=== PATIENT | female | born 1970 | race Caucasian/White ===

== ENCOUNTER → 2019-03-26 10:04 | Outpatient (BNVA) | payer MEDICARE, MEDICAID, SELFPAY | PROVIDERS: Family Provider Nurse Practitioner Family; PCP Nurse Practitioner; Visit Provider Anesthesiology | DX: M54.5 Low back pain (principal); M79.651 Pain in right thigh; M79.652 Pain in left thigh; Z79.891 Long term (current) use of opiate analgesic | CPT/HCPCS: 99214 ==

== ENCOUNTER → 2019-11-18 13:15 | Outpatient (BNVA) | payer MEDICARE, MEDICAID, SELFPAY | PROVIDERS: Family Provider Nurse Practitioner Family; PCP Nurse Practitioner; Visit Provider Nurse Practitioner Family | DX: R50.9 Fever, unspecified (principal); Z13.6 Encounter for screening for cardiovascular disorders | CPT/HCPCS: 80053; 80061; 81003; 85025; 87071; 87635; 87880 ==

== ENCOUNTER → 2019-11-22 16:44 | Outpatient (BNVA) | payer MEDICARE, MEDICAID, SELFPAY | PROVIDERS: Family Provider Nurse Practitioner Family; PCP Nurse Practitioner; Visit Provider Nurse Practitioner Family | DX: R10.9 Unspecified abdominal pain (principal) | CPT/HCPCS: 80053; 83690; 85025 ==

== ENCOUNTER 2019-11-26 09:13 | Outpatient (CLI) | payer MEDICARE, MEDICAID, SELFPAY ==
[2019-11-26] MEDS: iodixanol 320 mg/mL 100mL Btl IV (09:43)
--- NOTE | 2019-11-26 10:30 | CT_ITS ---
WS: [id number] CT ABDOMEN AND PELVIS WITH CONTRAST HISTORY: abdominal pain/ NV TECHNIQUE: Imaging performed of the abdomen and pelvis with IV contrast. Single phase imaging of the abdomen. Coronal and sagittal reformats are submitted. All CT scans at [facility] use at least one of these dose optimization techniques: automated exposure control; mA and/or kV adjustment per patient size (includes targeted exams where dose is matched to clinical indication); or iterativ e reconstruction. IV CONTRAST: Visipaque 320; 95 mL IV. Oral contrast: Yes. DLP: 847.04 mGy.cm COMPARISON: 02/26/2018 Lower thorax: Lung bases are clear. Heart is normal size. No hiatal hernia. Liver/biliary system: Normal size with no intrahepatic dilatation. Common bile duct measures 10 mm bu t stable since the prior study and related to prior cholecystectomy. Gallbladder: Status post cholecystectomy. Pancreas: Normal. Spleen: Normal. Adrenal glands: Normal. Right kidney: Normal. Left kidney: Normal. Aorta: Normal. Lymphadenopathy: Small retroperitoneal shoddy lymph nodes. No lymphadenopathy. Free fluid: None. GI tract: Normal appendix. Mild fecal retention. No obstruction. No acute inflammation. Abdominal wall: Unremarkable abdominal wall. No hernia. Pelvis: Normal. Bones: Unremarkable. CT/CT abdomen pelvis w con* [id number] IMPRESSION: 1. Prior cholecystectomy and hysterectomy. 2. Normal appendix. 3. No acute abdominal or pelvic abnormalities.
[2019-11-27] MEDS: iodixanol 320 mg/mL 100mL Btl IV (10:17)
== END 2019-11-26 09:14 | disposition home or self-care (01) ==
LOC: RAD 09:19
PROVIDERS: PCP Nurse Practitioner; Visit Provider Nurse Practitioner Family
DX: R10.9 Unspecified abdominal pain (principal); R11.2 Nausea with vomiting, unspecified; Z90.49 Acquired absence of other specified parts of digestive tract; Z90.710 Acquired absence of both cervix and uterus
CPT/HCPCS: 74177

== ENCOUNTER → 2019-12-09 12:03 | Outpatient (BNVA) | payer MEDICARE, MEDICAID, SELFPAY | PROVIDERS: PCP Nurse Practitioner; Visit Provider Surgery | DX: Z20.828 Contact with and (suspected) exposure to other viral communicable diseases (principal) | CPT/HCPCS: 87635 ==

== ENCOUNTER 2019-12-13 07:11 | Day surgery (SDC) | payer MEDICARE, MEDICAID, SELFPAY ==
[2019-12-13 07:21] VITALS: BMI 27.3
[2019-12-13 07:27] VITALS: BP 114/77; PULSE 91; RESP 18; TEMP 36.7; O2SAT 99
[2019-12-13] MEDS: sodium chloride 0.9% 1,000 ML 30 ML IV (07:34)
[2019-12-13 07:37] VITALS: PULSE 76; RESP 20; O2SAT 99
[2019-12-13] MEDS: ipratropium 0.5 mg/2.5 mL Neb INHALATION (07:38)
[2019-12-13 07:45] VITALS: PULSE 88
--- NOTE | 2019-12-13 07:59 | ANES.PREANE2 ---
Pre-Anesthetic Assessment Pre-Anesthetic Assessment: Height/Weight: Height 1.7 m Weight 79.379 kg Temp Pulse Resp BP Pulse Ox 98.1 F 88 20 H 114/77 99 12/13/19 07:27 12/13/19 07:45 12/13/19 07:37 12/13/19 07:27 12/13/19 07:37 Preop Diagnosis: Abdominal pain and bleeding per rectum Proposed Procedure: Operation Date: 12/13/19 08:20 Proposed Procedures p EGD/colon 63085 42878 K92.1 R10.9(Not Applicable) - Brandt Sharp MD s Colonoscopy(Not Applicable) - Brandt Shapr MD Last intake: Intake Last Liquid Date 12/12/19 Last Liquid Time 22:00 Last Solid Date 12/11/19 Last Solid Time 22:00 Social: Social History: Tobacco and No alcohol Exam: Pre-Anes Outpt Exam: alert, oriented x 3, clear to auscultation bilaterally and regular rate & rhythm Airway: Submandibular: WNL Cervical ROM: WNL MP: 1 History/ROS: No significant history except as noted Pulmonary: Pulmonary: Asthma, COPD and None reported CV/HEM: CV/HEM: None reported : : None reported GI: GI: GERD (Chronic abdominal pain and irregular bowel function) Metabolic: Metabolic: None reported Musc/skel: Musc/skel: None reported Neuropsych: Neuropsych: Anxiety Anesthetic Plan: ASA status: 2 Anesthesia: MAC Risk of > 500 ml blood loss (7ml/kg in children): No Meds/Allergies Current Medications: Current Medications Generic Name Dose Route Start Last Admin Trade Name Freq PRN Reason Stop Dose Admin Sodium Chloride 1,000 mls @ 30 ml s/hr 12/13/19 07:30 12/13/19 07:34 Sodium Chloride 0.9% IV 30 mls/hr .Q24H MARILYN Administration PFSH Anesthesia PFSH: Medical History Low back pain radiating to both legs Surgical History History of cholecystectomy History of hysterectomy Family History Other Diabetes Hypertension Social History Smoking and tobacco status: former smoker Quit status (tobacco): has quit using tobacco Year quit tobacco: 2018 Former quit date comment: .5 PPD x 30 Second hand smoke exposure: Yes Alcohol intake: never Lives independently: Yes Household members: significant other Marital status: Current occupational status: disabled History of recent travel: No Current gender identity: Female Data Anesthesia Cardiac Studies: No Data to Display
[2019-12-13] MEDS: midazolam 1 mg/mL INJ 2 mL 2 MG IVP (08:06)
--- NOTE | 2019-12-13 08:09 | W.PM.OPSUD ---
Surgery/Procedure H&P Update DATE OF PROCEDURE: December 13, 2019 DATE H&P PERFORMED: 12/06/19 H&P UPDATE INFORMATION: I have reviewed H&P completed within last 30 days, I have examined patient prior to procedure and No changes to prior documentation PREOP DIAGNOSIS: Abdominal pain and bleeding per rectum PRIMARY INDICATION FOR PROCEDURE: The same PLANNED PROCEDURE: Operation Date: 12/13/19 08:20 Proposed Procedures p EGD/colon 46860 98296 K92.1 R10.9(Not Applicable) - Brandt Sharp MD s Colonoscopy(Not Applicable) - Brandt Sharp MD
[2019-12-13 08:38] VITALS: BP 102/66; PULSE 88; RESP 18; TEMP 36.2; O2SAT 100
--- NOTE | 2019-12-13 08:43 | ANE.PACU2 ---
Inpatient post-anesthesia follow up: Airway intact: Yes Vital signs: Temperature 97.1 F Pulse Rate 88 Respiratory Rate 18 Blood Pressure 102/66 Pulse Oximetry 100 Oxygen Delivery Me thod Nasal Cannula Oxygen Flow Rate 2 Fraction of Inspir ed Oxygen Hydration adequate: Yes Nausea and vomiting: No Pain level: 1 Mental status: Baseline
[2019-12-13 08:52] VITALS: BP 103/64; PULSE 77; RESP 18; O2SAT 98
--- NOTE | 2019-12-13 15:18 | ANE.PACU2 ---
Inpatient post-anesthesia follow up: Airway intact: Yes Vital signs: Temperature 97.1 F Pulse Rate 77 Respiratory Rate 18 Blood Pressure 103/64 Pulse Oximetry 98 Oxygen Delivery Me thod Room Air Oxygen Flow Rate 2 Fraction of Inspir ed Oxygen Hydration adequate: No Nausea and vomiting: Yes Pain level: 2 Mental status: Baseline
[2019-12-14 10:08] LABS: H. Pylori / CLO Test Negative
== END 2019-12-13 09:09 | disposition home or self-care (01) ==
PROVIDERS: PCP Nurse Practitioner; Visit Provider Surgery
PROC: 0DJ08ZZ Inspection of Upper Intestinal Tract, Via Natural or Artificial Opening Endoscopic (ICD-10-PCS; CPT 43235; principal; 2019-12-13 08:20)
PROC: 0DJD8ZZ Inspection of Lower Intestinal Tract, Via Natural or Artificial Opening Endoscopic (ICD-10-PCS; CPT 45378; 2019-12-13 08:20)
DX: K62.5 Hemorrhage of anus and rectum (principal); R10.9 Unspecified abdominal pain; K21.9 Gastro-esophageal reflux disease without esophagitis; K29.70 Gastritis, unspecified, without bleeding; J44.9 Chronic obstructive pulmonary disease, unspecified; Z87.891 Personal history of nicotine dependence; Z79.52 Long term (current) use of systemic steroids
CPT/HCPCS: 12345; 43239; 45378; 87077; 94640; J2250; J2704; J7030; J7611; J7644

== ENCOUNTER → 2019-12-29 13:54 | Outpatient (BNVA) | payer MEDICARE, MEDICAID, SELFPAY | PROVIDERS: PCP Nurse Practitioner; Visit Provider Psychiatry & Neurology Psychiatry | DX: F43.12 Post-traumatic stress disorder, chronic (principal); F41.1 Generalized anxiety disorder; F33.1 Major depressive disorder, recurrent, moderate; F17.200 Nicotine dependence, unspecified, uncomplicated; F79 Unspecified intellectual disabilities | CPT/HCPCS: 99204 ==

== ENCOUNTER 2019-12-30 09:33 | Outpatient (CLI) | payer MEDICARE, MEDICAID, SELFPAY ==
--- NOTE | 2019-12-30 10:00 | FL_ITS ---
WS: [id number] SMALL BOWEL FOLLOW-THROUGH HISTORY: K59.00 Constipation, unspecified COMPARISON: None available. FLUOROSCOPY TIME: None. TECHNIQUE: Food Inspector film performed of the abdomen. Parental oral contrast is provided to evaluate the sm all bowel. Gastrografin utilized for this examination. Sequential imaging is performed. Moderate fecal retention throughout the colon. Colon appears tortuous. Prior cholecystectomy. Gastrog rafin utilized for this examination. There is mild delay in emptying from the stomach. There is still a moderate amount of contrast within the stomach at 1 hour and 30 minutes. There is no obstruction o f the small bowel. Contrast extends from the stomach to the colon and one hour and 30 minutes. The RI GHT colon is moderately dilated but no obstructive pattern. FL/[place] [id number] IMPRESSION: 1. Normal small bowel transit time. 2. Delayed emptying from the stomach. A 1 hour 30 minutes there still a modera te amount of contrast in the stomach. 3. There is moderate distention and enlargement of the RIGHT colon. May be due to chronic constipation.
[2019-12-30] MEDS: diatrizoate meglumine 120 mL Sol PO ×2 (11:37→11:42)
== END 2019-12-30 09:34 | disposition home or self-care (01) ==
LOC: RADWPI 09:39
PROVIDERS: Family Provider Nurse Practitioner; PCP Nurse Practitioner; Visit Provider Surgery
DX: K59.00 Constipation, unspecified (principal)
CPT/HCPCS: 74250; Q9963

== ENCOUNTER → 2020-01-07 12:50 | Outpatient (BNVA) | payer MEDICARE, MEDICAID, SELFPAY | PROVIDERS: Family Provider Nurse Practitioner; PCP Nurse Practitioner; Referring Provider Nurse Practitioner Family; Visit Provider Anesthesiology | DX: M54.5 Low back pain (principal); F17.290 Nicotine dependence, other tobacco product, uncomplicated; Z79.891 Long term (current) use of opiate analgesic | CPT/HCPCS: 99213; 99214 ==

== ENCOUNTER → 2020-01-28 07:45 | Outpatient (BNVA) | payer MEDICARE, MEDICAID, SELFPAY | PROVIDERS: PCP Nurse Practitioner; Visit Provider Psychiatry & Neurology Psychiatry | DX: F33.1 Major depressive disorder, recurrent, moderate (principal); F41.1 Generalized anxiety disorder; F43.12 Post-traumatic stress disorder, chronic; F17.200 Nicotine dependence, unspecified, uncomplicated | CPT/HCPCS: 99213 ==

== ENCOUNTER 2020-01-31 09:19 | Outpatient (CLI) | payer MEDICARE, MEDICAID, SELFPAY ==
--- NOTE | 2020-01-31 09:28 | NM_ITS ---
WS: [id number] NUCLEAR MEDICINE GASTRIC EMPTYING EXAMINATION HISTORY: K29.70 - Gastritis, unspecified, without bleeding COMPARISON: 12/30/2019 small bowel follow-through. TECHNIQUE: The patient ingested a meal containing 1.1 mCi of Tc 99m sulfur colloid mixed with eggs. The patient was placed in supine position and imaging over the abdomen was performed for a total of 9 0 minutes. Computer acquisition with the region of interest placed over the stomach to evaluate gastr ic emptying half-time. At 60 minutes there is only 14% emptying from the stomach. 50% emptying at near 100 to 110 minutes. E mptying was minimally delayed up to 30 minutes. After 30 minutes emptying became more normal in a oscar ear distribution. NM/[place] [id number] IMPRESSION: Mild gastroparesis. Very minimal delayed emptying from the stomach at 60 minute s. By 110 minutes greater than 50% emptying.
== END 2020-01-31 09:20 | disposition home or self-care (01) ==
PROVIDERS: PCP Nurse Practitioner; Visit Provider Surgery
DX: K29.70 Gastritis, unspecified, without bleeding (principal); K31.84 Gastroparesis
CPT/HCPCS: 78264; A9541

== ENCOUNTER 2020-02-02 14:21 | Outpatient (CLI) | payer MEDICARE, MEDICAID, SELFPAY ==
--- NOTE | 2020-02-02 14:26 | MR_ITS ---
WS: [id number] MRI RIGHT ANKLE NONCONTRAST TECHNIQUE: Sagittal proton density, sagittal STIR, axial proton density, axial T1, axial T2 fat sat, coronal proton density, coronal proton density fat sat, coronal T2 fat sat. CLINICAL INFORMATION: PERONEAL TENDON TEAR COMPARISON: None. FINDINGS: Normal anatomic alignment. Talar dome is normal. Normal calcaneus. Normal medial and lateral malleolu s. No avulsion fractures. Achilles is normal in appearance. Normal plantar fascia. Tenosynovitis with tendinopathy involving the peroneal tendons proximally at the level the talus. Acu te appearing split tear involving the peroneal brevis at the peroneal tubercle. Peroneal longus appea rs intact. Associated fluid and edema involving the peroneal tendon sheath and adjacent soft tissues at level of the ankle. Normal extensor and flexor compartment tendons. Normal bone marrow signal in the navicular. Fifth met atarsal base is normal in appearance. MR/MR ankle RT wo con* [id number] IMPRESSION: 1. Tenosynovitis along the peroneal tendon sheath. 2. Acute split tear involving the peroneal brevis with tendinopathy involving the peroneal longus and brevis. Associated edema involving the peroneal tendon sheath and adjacent soft tissues at the level of the ankle. 3. Distal Achilles is normal in appearance. 4. Normal extensor and flexor compartment tendons. 5. Normal medial and lateral malleolus. Normal talar dome. 6. Normal plantar fascia.
== END 2020-02-02 14:22 | disposition home or self-care (01) ==
LOC: RADWPI 14:25
PROVIDERS: PCP Nurse Practitioner; Visit Provider Podiatrist Foot & Ankle Surgery
DX: S96.811A Strain of other specified muscles and tendons at ankle and foot level, right foot, initial encounter (principal); X58.XXXA Exposure to other specified factors, initial encounter; M65.871 Other synovitis and tenosynovitis, right ankle and foot
CPT/HCPCS: 73721

== ENCOUNTER → 2020-02-15 15:54 | Outpatient (BNVA) | payer MEDICARE, MEDICAID, SELFPAY | PROVIDERS: PCP Nurse Practitioner; Visit Provider Nurse Practitioner Family | DX: R11.2 Nausea with vomiting, unspecified (principal); K29.70 Gastritis, unspecified, without bleeding; Z79.891 Long term (current) use of opiate analgesic; R10.84 Generalized abdominal pain; K59.00 Constipation, unspecified | CPT/HCPCS: 80053; 83036; 84443; 85025 ==

== ENCOUNTER → 2020-03-16 08:19 | Outpatient (BNVA) | payer MEDICARE, MEDICAID, SELFPAY | PROVIDERS: PCP Nurse Practitioner; Visit Provider Psychiatry & Neurology Psychiatry | DX: F33.1 Major depressive disorder, recurrent, moderate (principal); F41.1 Generalized anxiety disorder; F17.200 Nicotine dependence, unspecified, uncomplicated; F79 Unspecified intellectual disabilities | CPT/HCPCS: 99213 ==

== ENCOUNTER 2020-03-30 10:19 | Outpatient (CLI) | payer MEDICARE, MEDICAID, SELFPAY ==
--- NOTE | 2020-03-30 | CT_ITS ---
WS: [id number] NONCONTRAST OF RIGHT LOWER EXTREMITY CLINICAL INFORMATION: Sinus Tarsi syndrome TECHNIQUE: Noncontrast right lower extremity with coronal and sagittal reformatted images. Imaging obtained in neutral and supination with foot taped on the supination images. 3-D reformatted images w ere obtained. COMPARISON: MRI February 02, 2020 DLP: 931.[address] scans at [facility] use at least one of these dose optimization techniques: automat ed exposure control; mA and/or kV adjustment per patient size (includes targeted exams where dose is matched to clinical indication); or iterative reconstruction. FINDINGS: Normal anatomic alignment. Normal ankle mortise. Normal medial and lateral malleolus. No acute appear ing avulsion fractures. Normal talus. No evidence of avascular necrosis. Calcaneus is normal in appea tao. Normal talocalcaneal articulation. Plantar calcaneal spurring. Small Achilles enthesophyte. No rmal cuboid. Base of fifth metatarsal is normal. Normal tarsal bones. Normal navicular. No acute frac tures. Mild subcutaneous soft tissue edema lower leg and plantar soft tissues. Fluid along the peroneal tend on sheath as seen on the prior MRI. Split tear along the peroneal brevis with tendinopathy. Edema carissa ng the peroneal tendon sheath. Tarsal coalition: None JOINT SPACES (normal joint space 6 mm): Talocalcaneal at middle talar facet: 2 mm Talus and tarsal navicular: 1.6 mm 3-D REFORMAT NEUTRAL/SUPINATION INSTABILITY EVALUATION OF THE CALCANEUS, TALUS, AND NAVICULAR: Normal examination views there is progressive narrowing of the sinus tarsi with narrowing of the midd le talar facet measuring less than 1.5 mm and narrowing of the talonavicular articulation measuring 1 .1 mm. Clockwise rotation of the head of the anterior talus relative to the navicular.
--- NOTE | 2020-03-30 10:34 | CT_ITS ---
WS: [id number] NONCONTRAST OF RIGHT LOWER EXTREMITY CLINICAL INFORMATION: Sinus Tarsi syndrome TECHNIQUE: Noncontrast right lower extremity with coronal and sagittal reformatted images. Imaging obtained in neutral and supination with foot taped on the supination images. 3-D reformatted images w ere obtained. COMPARISON: MRI February 02, 2020 DLP: 931.[address] scans at [facility] use at least one of these dose optimization techniques: automat ed exposure control; mA and/or kV adjustment per patient size (includes targeted exams where dose is matched to clinical indication); or iterative reconstruction. FINDINGS: Normal anatomic alignment. Normal ankle mortise. Normal medial and lateral malleolus. No acute appear ing avulsion fractures. Normal talus. No evidence of avascular necrosis. Calcaneus is normal in appea tao. Normal talocalcaneal articulation. Plantar calcaneal spurring. Small Achilles enthesophyte. No rmal cuboid. Base of fifth metatarsal is normal. Normal tarsal bones. Normal navicular. No acute frac tures. Mild subcutaneous soft tissue edema lower leg and plantar soft tissues. Fluid along the peroneal tend on sheath as seen on the prior MRI. Split tear along the peroneal brevis with tendinopathy. Edema carissa ng the peroneal tendon sheath. Tarsal coalition: None JOINT SPACES (normal joint space 6 mm): Talocalcaneal at middle talar facet: 2 mm Talus and tarsal navicular: 1.6 mm 3-D REFORMAT NEUTRAL/SUPINATION INSTABILITY EVALUATION OF THE CALCANEUS, TALUS, AND NAVICULAR: Normal examination views there is progressive narrowing of the sinus tarsi with narrowing of the midd le talar facet measuring less than 1.5 mm and narrowing of the talonavicular articulation measuring 1 .1 mm. Clockwise rotation of the head of the anterior talus relative to the navicular. CT/CT 3D reconstruction [id number] IMPRESSION: 1. Normal ankle mortise. No acute avulsion fractures. 2. Joint space narrowing: a. Talocalcaneal at middle talar facet: 2 mm b. Talus and tarsal navicular: 1.6 mm 3. Pronounced clockwise rotation of the head of the anterior talus relative to the navicular on the supination imaging.
--- NOTE | 2020-03-30 10:34 | CT_ITS ---
NOTE: Report was unsigned for reason: Order was edited. Original Signature date and time was: 04/03/2020 1117 WS: [id number] NONCONTRAST OF RIGHT LOWER EXTREMITY CLINICAL INFORMATION: Sinus Tarsi syndrome TECHNIQUE: Noncontrast right lower extremity with coronal and sagittal reformatted images. Imaging obtained in neutral and supination with foot taped on the supination images. 3-D reformatted images were obtained. COMPARISON: MRI February 02, 2020 DLP: 931.[address] scans at [facility] use at least one of these dose optimization techniques: automated exposure control; mA and/or kV adjustment per patient size (includes targeted exams where dose is matched to clinical indication); or iterative reconstruction. FINDINGS: Normal anatomic alignment. Normal ankle mortise. Normal medial and lateral malleolus. No acute appearing avulsion fractures. Normal talus. No evidence of avascular necrosis. Calcaneus is normal in appearance. Normal talocalcaneal articulation. Plantar calcaneal spurring. Small Achilles enthesophyte. Normal cuboid. Base of fifth metatarsal is normal. Normal tarsal bones. Normal navicular. No acute fractures. Mild subcutaneous soft tissue edema lower leg and plantar soft tissues. Fluid along the peroneal tendon sheath as seen on the prior MRI. Split tear along the peroneal brevis with tendinopathy. Edema along the peroneal tendon sheath. Tarsal coalition: None JOINT SPACES (normal joint space 6 mm): Talocalcaneal at middle talar facet: 2 mm Talus and tarsal navicular: 1.6 mm 3-D REFORMAT NEUTRAL/SUPINATION INSTABILITY EVALUATION OF THE CALCANEUS, TALUS, AND NAVICULAR: Normal examination views there is progressive narrowing of the sinus tarsi with narrowing of the middle talar facet measuring less than 1.5 mm and narrowing of the talonavicular articulation measuring 1.1 mm. Clockwise rotation of the head of the anterior talus relative to the navicular. MTD CT/CT ankle RT wo con* [id number] IMPRESSION: 1. Normal ankle mortise. No acute avulsion fractures. 2. Joint space narrowing: a. Talocalcaneal at middle talar facet: 2 mm b. Talus and tarsal navicular: 1.6 mm 3. Pronounced clockwise rotation of the head of the anterior talus relative to the navicular on the supination imaging.
== END 2020-03-30 10:20 | disposition home or self-care (01) ==
LOC: RADWPI 10:22
PROVIDERS: PCP Nurse Practitioner; Visit Provider Podiatrist Primary Podiatric Medicine
DX: M25.571 Pain in right ankle and joints of right foot (principal)
CPT/HCPCS: 73700; 76377

== ENCOUNTER → 2020-08-21 07:53 | Outpatient (BNVA) | payer MEDICARE, MEDICAID, SELFPAY | PROVIDERS: PCP Nurse Practitioner Family; Visit Provider Psychiatry & Neurology Psychiatry | DX: F33.1 Major depressive disorder, recurrent, moderate (principal); F41.1 Generalized anxiety disorder; F43.12 Post-traumatic stress disorder, chronic; F17.200 Nicotine dependence, unspecified, uncomplicated | CPT/HCPCS: 99214 ==

== ENCOUNTER → 2020-08-22 13:40 | Outpatient (BNVA) | payer MEDICARE, MEDICAID, SELFPAY | PROVIDERS: PCP Nurse Practitioner Family; Referring Provider Nurse Practitioner Family; Visit Provider Orthopaedic Surgery | DX: M54.5 Low back pain (principal) | CPT/HCPCS: 72110 ==

== ENCOUNTER 2020-09-01 11:05 | Outpatient (CLI) | payer MEDICARE, MEDICAID, SELFPAY ==
--- NOTE | 2020-09-01 13:00 | CT_ITS ---
WS: [id number] CT ABDOMEN AND PELVIS NONCONTRAST HISTORY: R10.84 - Generalized abdominal pain TECHNIQUE: Imaging performed through the abdomen and pelvis. Coronal and sagittal reformats are submi tted. All CT scans at [facility] use at least one of these dose optimization techniques: automated exposure control; mA and/or kV adjustment per patient size (includes targeted exams where d ose is matched to clinical indication); or iterative reconstruction. DLP: 1800.2 mGy.cm COMPARISON: 11/26/2019 Lower thorax: Lung bases are clear. Visualized heart is normal. No hiatal hernia. Liver: Normal size liver with mild diffuse hepatic steatosis. Mild heterogeneity within the liver but no bile duct dilatation. Gallbladder: Prior cholecystectomy. Mildly prominent common bile duct is likely physiologic. Nonobstr ucting calcification. Pancreas: Normal size and attenuation. Normal pancreatic duct. No pancreatitis or mass. Spleen: Normal. Adrenal glands: Normal. No mass. Right kidney: Normal size kidney with no mass or hydronephrosis. Left kidney: Normal size kidney with no mass or hydronephrosis. Aorta: Normal abdominal aorta, no aneurysm or atherosclerosis. No free fluid, intraperitoneal air or significant lymphadenopathy. GI tract: Normal appendix. No GI tract obstruction or diverticulosis. Abdominal wall: Negative. No hernia. Pelvis: Prior hysterectomy. No free fluid or mass in the pelvis. Osseous structures: Unremarkable. CT/CT abdomen pelvis wo con [id number] IMPRESSION: 1. No acute abdominal or pelvic abnormalities. 2. Prior hysterectomy and cholecystectomy. 3. Mild hepatic steatosis.
== END 2020-09-01 11:06 | disposition home or self-care (01) ==
PROVIDERS: PCP Nurse Practitioner Family; Visit Provider Nurse Practitioner Family
DX: Z13.6 Encounter for screening for cardiovascular disorders (principal); R10.84 Generalized abdominal pain; K76.0 Fatty (change of) liver, not elsewhere classified; Z90.710 Acquired absence of both cervix and uterus; Z90.49 Acquired absence of other specified parts of digestive tract; K21.9 Gastro-esophageal reflux disease without esophagitis
CPT/HCPCS: 74176; 80053; 80061; 85025

== ENCOUNTER → 2020-09-05 11:41 | Outpatient (BNVA) | payer MEDICARE, MEDICAID, SELFPAY | PROVIDERS: PCP Nurse Practitioner Family; Visit Provider Orthopaedic Surgery | DX: G89.29 Other chronic pain; M47.812 Spondylosis without myelopathy or radiculopathy, cervical region | CPT/HCPCS: 72050 ==

== ENCOUNTER 2020-09-26 15:39 | Outpatient (CLI) | payer MEDICARE, MEDICAID, SELFPAY ==
--- NOTE | 2020-09-26 16:00 | MR_ITS ---
WS: [id number] MRI CERVICAL SPINE NONCONTRAST HISTORY: R52 - Pain, unspecified COMPARISON: Radiographs 09/05/2020 Technique: Multiplanar, multisequence noncontrast imaging of the cervical spine. Normal cervical alignment with no compression fracture or significant disc space narrowing. Signal within the cervical cord is normal. Visualized posterior fossa is unremarkable. Craniocervical junction, C1 and C2 relationship, odontoid process and soft tissues are normal. C2-C3: Normal. C3-C4: Very small vertebral body osteophytes and a central disc protrusion. No stenosis. C4-C5: Normal. C5-C6: Mild annular disc bulging and small foraminal osteophytes. There is shallow central disc protr usion. No significant stenosis. C6-C7: Small to moderate LEFT paracentral disc protrusion and mild osteophytic ridging. Mild central stenosis and LEFT foraminal stenosis. C7-T1: Normal. Paraspinal soft tissue are normal. MR/MR cervical spin wo con* [id number] IMPRESSION: 1. No significant central or foraminal stenosis. 2. Small to moderate LEFT paracentral disc protrusion and small osteophytes re sulting in very mild central and LEFT foraminal stenosis at C6-7. No cord conta ct. 3. Small central disc protrusion at C3-4 and C5-6.
--- NOTE | 2020-09-26 16:45 | MR_ITS ---
WS: [id number] MRI LUMBAR SPINE NONCONTRAST HISTORY: M48.061 - Spinal stenosis, lumbar region without neurogenic claudication. COMPARISON: 01/08/2016 TECHNIQUE: Sagittal and axial multisequence imaging is submitted. Normal lumbar alignment with no compression fractures or marrow edema. Minimal disc space narrowing and desiccation at L4-5. No marrow edema or fracture. Conus terminates normally at L1. L1-L2: Normal. L2-L3: Disc protrusion LEFT foramen and extraforaminal without significant increase in size. Mild con tact on the LEFT L2 nerve root. No central stenosis or progression. L3-L4: Mild annular disc bulging. No stenosis. L4-L5: Mild annular disc bulging with ligamentum flavum disease and facet arthritis. Small RIGHT fora dayton disc protrusion with annular fissure. Very mild narrowing of the foramen. No contact on the ner ve roots. Similar to the prior study. L5-S1: Broad-based disc bulging. No contact on the nerve roots or stenosis. Mild bilateral facet join t arthritis. Paravertebral soft tissues are normal. MR/MR lumbar spine wo con* [id number] IMPRESSION: 1. No significant central or foraminal stenosis. 2. LEFT foraminal disc protrusion at L2-3 with mild contact on the L2 nerve ro ot. Similar to the prior study. 3. Small RIGHT foraminal disc protrusion at L4-5 without contact on the nerve roots. Mild bilateral foraminal narrowing.
== END 2020-09-26 15:40 | disposition home or self-care (01) ==
LOC: RADSHAW 15:46
PROVIDERS: PCP Nurse Practitioner Family; Visit Provider Orthopaedic Surgery
DX: M48.061 Spinal stenosis, lumbar region without neurogenic claudication (principal); M51.26 Other intervertebral disc displacement, lumbar region; M50.21 Other cervical disc displacement, high cervical region; M25.78 Osteophyte, vertebrae
CPT/HCPCS: 72141; 72148

== ENCOUNTER → 2020-11-14 07:21 | Outpatient (BNVA) | payer MEDICARE, MEDICAID, SELFPAY | PROVIDERS: PCP Nurse Practitioner Family; Visit Provider Psychiatry & Neurology Psychiatry | DX: F33.1 Major depressive disorder, recurrent, moderate (principal); F41.1 Generalized anxiety disorder; F43.12 Post-traumatic stress disorder, chronic; F17.200 Nicotine dependence, unspecified, uncomplicated | CPT/HCPCS: 99213 ==

== ENCOUNTER → 2020-11-16 11:29 | Outpatient (BNVA) | payer MEDICARE, MEDICAID, SELFPAY | PROVIDERS: PCP Nurse Practitioner Family; Visit Provider Orthopaedic Surgery | DX: Z01.812 Encounter for preprocedural laboratory examination (principal); Z20.822 Contact with and (suspected) exposure to COVID-19 | CPT/HCPCS: 87635 ==

== ENCOUNTER 2020-11-20 09:03 | Day surgery (SDC) | payer MEDICARE, MEDICAID, SELFPAY ==
[2020-11-15 14:03] VITALS: BMI 30.8
--- NOTE | 2020-11-15 14:18 | ANES.PREANE2 ---
Pre-Anesthetic Assessment Pre-Anesthetic Assessment: Height/Weight: Height 1.71 m Weight 90.718 kg Preop Diagnosis: Abdominal pain and bleeding per rectum Proposed Procedure: Operation Date: 11/20/20 10:25 Proposed Procedures p Lumbar Spine Decompression [id number] L4/5 M48.061(Not Applicable) - Sascha Pena DO Familial anesthetic complications: None Social: Social History: No alcohol and No tobacco Comment: vapes Exam: Pre-Anes Outpt Exam: alert, oriented x 3, clear to auscultation bilaterally and regular rate & rhythm Airway: MP: 1 Dentition: False Pulmonary: Comments: not sure why she takes albuterol, ? Asthma/copd GI: GI: GERD Musc/skel: Musc/skel: Lower Back Pain Neuropsych: Neuropsych: Neuropathy Anesthetic Plan: ASA status: 2 Anesthesia: General Risk of > 500 ml blood loss (7ml/kg in children): No PFSH Anesthesia PFSH: Medical History (Updated 11/14/20 @ 17:02 by Rosa Calderon) Constipation Encounter for long-term opiate analgesic use Low back pain radiating to both legs Opioid contract exists Psychiatric care Surgical History History of cholecystectomy History of colonoscopy (~12/2019) dr. hank back History of esophagogastroduodenoscopy (EGD) (~12/2019) dr. hank back History of hysterectomy Family History Other Diabetes Hypertension Social History Quit status (tobacco): has tried quititng Number of times tried to quit tobacco: 3 Second hand smoke exposure: No Alcohol intake: never Lives independently: Yes Household members: significant other Marital status: Current occupational status: disabled History of recent travel: No Current gender identity: Female Data Anesthesia Cardiac Studies: No Data to Display
[2020-11-20] VITALS (8 sets, daily range): BP systolic 96–144; BP diastolic 58–83; PULSE 76–109; RESP 15–24; TEMP 36.5–36.6; O2SAT 93–98
--- NOTE | 2020-11-20 | XR_ITS ---
WS: [id number] XR lumbar spine 1V [id number] REASON FOR EXAM: Spinal Stenosis FINDINGS: Single PA view of the lower lumbar spine in surgery. Preoperative lumbar spine demonstrates 6 unribbed lumbar vertebral bodies. Surgical instrument overlies the interspace between the fifth and sixth rib vertebral bodies just to the right of midline. This is the level of the next to the last interspace in the lumbar spine. This the level of abnormality on the MRI of the lumbar spine. XR/XR lumbar spine 1V [id number] IMPRESSION: Localization of lumbar intervertebral disc space as above.
--- NOTE | 2020-11-20 | SCC_ITS ---
Procedure Done: Right L4/5 laminectomy with partial facetectomy 9.5 seconds of fluoroscopic guidance, for a cumulative dose of 3.25 mGy, was provided to Dr. Pena by the radiology department. C-arm images of the lumbar spine were saved for the patient's permanent record. TAL
--- NOTE | 2020-11-20 09:58 | W.PM.OPSUD ---
Surgery/Procedure H&P Update DATE OF PROCEDURE: November 20, 2020 DATE H&P PERFORMED: 11/20/20 PREOP DIAGNOSIS: lumbar stenosis PLANNED PROCEDURE: Operation Date: 11/20/20 10:25 Proposed Procedures p Lumbar Spine Decompression [id number] L4/5 M48.061(Not Applicable) - Sascha Pena DO
--- NOTE | 2020-11-20 10:00 | PM.HP ---
Providers/Chief Complaint Primary Care Provider: GEORGE Finney Chief Complaint: spinal stenosis History of Present Illness Dawna Bai is a 50 year old female She describes sharp pain to her right leg when applying pressure. She states her pain keeps her up at night and she is unable to sleep due to the pain and discomfort she has in her back. Chief Complaint: low back pain Onset: years. Duration: years Characteristics: burning, ache , sharp pain Severity: 8/10 Location: low back and neck pain Radiating symptoms: shoulders, posterior thighs, right leg numbness Aggravating factors: laying on side, crossing her legs, weight bearing Alleviating factors: rest, topical cream with no relief Neuro deficits: denies weakness, incontinence of bowel/bladder, saddle anesthesia. Prior tx: nerve ablation with Dr. Sosa, L4/5 epidural Injections with no relief. Review of Systems Narrative: General ROS: negative for weight changes, fever ENT ROS: negative for nasal congestion, drainage or bleeding, sore throat, dysphagia or ear pain Eyes: PERRL Hematological and Lymphatic ROS: negative for swollen glands or abnormal bleeding Endocrine ROS: negative for polyuria/polydpsia or new changes in weight Respiratory ROS: negative for cough, shortness of breath, or wheezing Cardiovascular ROS: negative for chest pain or dyspnea on exertion Gastrointestinal ROS: negative for reflux, abdominal pain, change in bowel habits, or black or bloody stools Musculoskeletal ROS: negative for back pain, neck pain, or joint pain or swelling except for current problem Neurological ROS: negative for TIA or stoke symptoms Skin: no rashes Medications/Allergies Home Medications Medication Instructions Recorded Confirmed Last Taken Type albuterol sulfate 2.5 mg INHALATION QID PRN #90 ml 11/18/19 11/20/20 11/19/20 Rx promethazine-DM 6.25 mg-15 mg/5 mL See Rx Instructions PO Q6H PRN 11/22/19 11/15/20 12/12/19 Rx oral syrup #180 ml methylnaltrexone 150 mg tablet 450 mg PO DAILY 7 Days #20 tab 01/12/20 11/15/20 Unknown Rx ibuprofen 800 mg tablet 800 mg PO Q8H PRN #90 tab 02/15/20 11/20/20 Unknown Rx albuterol sulfate 90 mcg/actuation 2 puff INHALATION Q6H PRN #18 gm 0211/20/20 11/19/20 Rx aerosol inhaler diphenhydramine HCl 25 mg tablet 50 mg PO ONCE #2 tab 08/14/20 11/15/20 Unknown Rx estradiol 10 mcg vaginal tablet 10 mcg VAGINAL .TWO TIMES PER WEEK 08/14/20 11/20/20 11/19/20 Rx #8 tab montelukast 10 mg tablet 10 mg PO QDAY #30 tab 08/14/20 11/15/20 Unknown Rx omeprazole 40 mg capsule,delayed 40 mg PO BID #60 cap 08/14/20 11/15/20 Unknown Rx release atorvastatin 20 mg tablet 20 mg PO DAILY #90 tab 08/18/20 11/20/20 11/19/20 Rx doxepin 150 mg capsule 150 mg PO .HS #30 cap 11/14/20 11/20/20 11/19/20 Rx Allergies Allergy/AdvReac Type Severity Reaction Status Date / Time aspirin AdvReac Intermediate NAUSEA Verified 11/10/20 16:20 codeine AdvReac Intermediate HEADACHE Verified 11/10/20 16:20 Iodinated Contrast Media AdvReac Intermediate NAUSEA AND Verified 11/10/20 16:20 RASH tramadol AdvReac Intermediate NAUSEA Verified 11/10/20 16:20 Tylenol Allergy Intermediate Unknown Uncoded 11/10/20 16:20 deodorant soap Allergy ADR-Itching Uncoded 11/20/20 09:20 DETERGENT AdvReac Intermediate RASH AND Uncoded 11/10/20 16:20 ITCHING TYLENOL WITH CODEINE AdvReac Intermediate ADR-Vomitin Uncoded 11/10/20 16:20 g PFSH Acute PFSH: Medical History (Updated 11/14/20 @ 17:02 by Rosa Calderon) Constipation Encounter for long-term opiate analgesic use Low back pain radiating to both legs Opioid contract exists Psychiatric care Surgical History History of cholecystectomy History of colonoscopy (~12/2019) dr. hank back History of esophagogastroduodenoscopy (EGD) (~12/2019) dr. hank back History of hysterectomy Family History Other Diabetes Hypertension Social History Quit status (tobacco): has tried quititng Number of times tried to quit tobacco: 3 Second hand smoke exposure: No Alcohol intake: never Lives independently: Yes Household members: significant other Marital status: Current occupational status: disabled History of recent travel: No Current gender identity: Female Vitals/I&O/Wt Last Vital Signs Temp 97.8 F 11/20/20 09:31 Pulse 85 11/20/20 09:31 Resp 18 11/20/20 09:31 BP 144/83 11/20/20 09:31 Pulse Ox 97 11/20/20 09:31 Physical Exam Narrative: EXAM NARRATIVE: CONSTITUTIONAL: The patient is a normal appearing [] in no apparent distress. GENERAL: Patient in no acute distress. CARDIAC: Regular rate and rhythm. CHEST: Normal inspiratory effort, normal respiratory rate. ABDOMEN: Soft and nontender. SKIN: Clear, warm and intact. NEURO?PSYCH: The patient is alert and oriented to person, place and time. Sensorv /SILT Motor StrengthShoulder abduction C5 5/5Wrist extension C6 5/5Elbow extension C7 5/5Hand Covered Buckle Assembler C8 5/5Finger abduction T15/5 Radial/ Ulnar/ Median n intact LowerSensory (SILT)Motor StrengthHin flexion L2/3Ant/inner thigh 5/5Hip adduction L2/3 5/5Knee extension L4 Lat thigh, 5/5Toe dorsiflexion L5 5/5Ankle dorsiflexion L5/ U22Rtwgqts flexion S1 5/5 DTRBleeps 2+Triceps 2+Brachioradialis 2+Patellar 2+Achilles 2+ MUSCULOSKELETAL: [] UPPEREXTREMITIES: The patient had full active ROM in fingers, wrist, elbow, and shoulder. The patient demonstrated ability to fully flex/extend/abduct/adduct fingers, make ok sign, cross 2nd/3rd digits, extend 1st digit fully.. Radial pulse 2+, CR<2 seconds. LOWER EXTREMITIES: Pt has full, active ROM of toes, ankle, knee, and hip. Dorsalis pedis/posterior tibialis pulses 2+, CR<2 seconds. SPINE: Skin warm, dry, intact. A&P Assessment and plan (1) Lumbar stenosis with neurogenic claudication: Right L4/5 MIS decompression Status: Acute Attestations Medical Necessity Statement*: failed MIS decompression Coding Level of Care Code Acute Interrelated Special Education Teacher for g Fwd Diagnoses Lumbar stenosis with neurogenic claudication M48.062
--- NOTE | 2020-11-20 10:47 | P.ANESUD_ITS ---
Pre-Anesthetic Update Pre-Anesthetic Assessment: Date of Surgery/Procedure: 11/20/20 Preop Rae gnosis: lumbar stenosis Proposed Procedure: Operation Date: 11/20/20 10:25 Proposed Procedures p Lumbar Spine Decompression 51800 L4/5 M48.061(Not Applicable) - Sascha Pena, DO Any changes to Pre-Anesthetic Assessment?: No Last Intake: Intake Last Liquid Date 11/20/20 Last Liquid Time 22:00 Last Solid Date 11/20/20 Last Solid Time 22:00 Vitals: Temperature 97.8 F 11/20/20 09:31 Temperature Source Temporal Artery S can 11/20/20 09:31 Pulse Rate 85 11/20/20 09:31 Respiratory Rate 18 11/20/20 09:31 Blood Pressure 144/83 11/20/20 09:31 Blood Pressure Jordana n 103 11/20/20 09:31 Pulse Oximetry 97 11/20/20 09:31 Oxygen Delivery Me thod 11/20/20 09:31 Exam: Pre-Anes Outpt Exam: alert, oriented x 3, clear to auscultation bilaterally and regular rate & rhythm Cardiac Studies: No Data to Display
--- NOTE | 2020-11-20 11:43 | PM.OP ---
Operative Report Date of procedure: November 20, 2020 Pre-op Diagnosis: lumbar stenosis Post-op diagnosis: same Procedure Done: Right L4/5 laminectomy with partial facetectomy Surgeon: Sascha Pena Anesthesia: General Estimated blood loss (mL): 5 Condition: stable Procedure: Right L4/5 laminectomy with partial facdtectomy Patient is brought to the operative suite. After undergoing anesthesia they are placed in the supine position. All areas of impingement are well padded. Patient is then prepped and draped in the normal sterile fashion. A skin incision is made over the L4/5 level. This is confirmed under c-arm guidance. A series of dilators are passed and the tubular retractor is docked on the L4 lamina. A bovie is used to clear the soft tissue off the lamina and the L 4/5 facet joint. A high speed kizzy is then used to perform the laminectomy and take down the medial aspect of the L 4/5 facet joint. A kerrison rongeure was then used to take down the remaining lamina and smooth the edge of the laminectomy up to the point where the ligamentum flavum attaches. Attention was then brought to the medial aspect of the facet joint. The remaining medial aspect of the superior and inferior aspect of the facet joint were taken down with the kerrison from the pedicle of L4 to L 5. The facet joint had significant hypertrophy. Attention was then brought to the Ligamentum Flavum. The ligament was taken down from the lamina of L4 to L5 and out medially to the remaining facet joint. The ligament was thick. The dura was then exposed. The dura was in good repair. The L4 nerve was then traced with a curette out the L4/5 foramen and found to be adequately decompressed. The L5 nerve was traced with a curette around the L5 pedicle. The lateral recess was opened with a kerrison helping to further decompress the L5 nerve. Wound is then irrigated copiously with saline and surgiflo is used to stop any bleeding. The tubular retractor is removed and the wound is closed with vicryl and monocryl suture. Glue is then used to protect the wound. A sterile dressing is then placed. Patient was then placed in the supine position and transferred to the PACU in stable condition.
[2020-11-20] MEDS: oxyCODONE-APAP 5-325 mg Tablet 1 TAB PO (12:09)
--- NOTE | 2020-11-20 14:50 | ANE.PACU2 ---
Inpatient post-anesthesia follow up: Airway intact: Yes Vital signs: Temperature 98 F Pulse Rate 82 Respiratory Rate 16 Blood Pressure 96/72 Pulse Oximetry 95 Oxygen Delivery Me thod Room Air Oxygen Flow Rate Fraction of Inspir ed Oxygen Hydration adequate: Yes Nausea and vomiting: No Pain level: 2 Mental status: Baseline
== END 2020-11-20 12:48 | disposition home or self-care (01) ==
PROVIDERS: PCP Nurse Practitioner Family; Visit Provider Orthopaedic Surgery
PROC: (CPT 63005; principal; 2020-11-20 10:15)
DX: M48.062 Spinal stenosis, lumbar region with neurogenic claudication (principal); Z79.891 Long term (current) use of opiate analgesic; Z82.49 Family history of ischemic heart disease and other diseases of the circulatory system; Z83.3 Family history of diabetes mellitus; F17.210 Nicotine dependence, cigarettes, uncomplicated
CPT/HCPCS: 63047; 72020; 76000; J0690; J2250; J2704; J2710; J3010

== ENCOUNTER → 2021-02-13 14:57 | Outpatient (BNVA) | payer MEDICARE, MEDICAID, SELFPAY | PROVIDERS: PCP Nurse Practitioner Family; Visit Provider Psychiatry & Neurology Psychiatry | DX: F33.1 Major depressive disorder, recurrent, moderate (principal); F41.1 Generalized anxiety disorder; F43.12 Post-traumatic stress disorder, chronic; F17.210 Nicotine dependence, cigarettes, uncomplicated | CPT/HCPCS: 99214 ==

== ENCOUNTER → 2021-02-26 12:15 | Outpatient (BNVA) | payer MEDICARE, MEDICAID, SELFPAY | PROVIDERS: PCP Nurse Practitioner Family; Visit Provider Nurse Practitioner Family | DX: M79.642 Pain in left hand (principal); Z13.6 Encounter for screening for cardiovascular disorders; K21.9 Gastro-esophageal reflux disease without esophagitis; R41.3 Other amnesia; R26.81 Unsteadiness on feet; F17.200 Nicotine dependence, unspecified, uncomplicated | CPT/HCPCS: 73130; 80053; 80061; 82306; 82607; 84443; 84550; 85025; 85651; 86038; 86140; 86200; 86431 ==

== ENCOUNTER → 2021-03-08 15:37 | Outpatient (BNVA) | payer MEDICARE, MEDICAID, SELFPAY | PROVIDERS: PCP Nurse Practitioner Family; Visit Provider Orthopaedic Surgery | DX: Z20.822 Contact with and (suspected) exposure to COVID-19 (principal); Z01.812 Encounter for preprocedural laboratory examination | CPT/HCPCS: 87635 ==

== ENCOUNTER 2021-03-14 06:53 | Day surgery (SDC) | payer MEDICARE, MEDICAID, SELFPAY ==
[2021-03-07 10:03] VITALS: BMI 32.3
--- NOTE | 2021-03-07 11:21 | ANES.PREANE2 ---
Pre-Anesthetic Assessment Pre-Anesthetic Assessment: Height/Weight: Height 1.71 m Weight 95.254 kg Preop Diagnosis: lumbar stenosis Proposed Procedure: Operation Date: 03/14/21 08:45 Proposed Procedures p Anterior Cervical Discectomy & Fusion C5/6 C6/7 76961(x2) 23018 28682 M48.02(Not Applicable) - Sascha Pena, DO Was Beta Janette taken within 24 hours: N/A Was Clonidine taken within 24 hours: N/A Social: Social History: Tobacco (Vapes) and No alcohol Exam: Pre-Anes Outpt Exam: alert, oriented x 3 and regular rate & rhythm Airway: Submandibular: WNL Cervical ROM: WNL MP: 2 Dentition: False (upper) Pulmonary: Pulmonary: COPD GI: GI: GERD Metabolic: Metabolic: Hyperlipidemia and Morbid obesity Musc/skel: Musc/skel: Lower Back Pain Comments: Chronic pain Neuropsych: Neuropsych: Anxiety and Depression Anesthetic Plan: ASA status: 3 Anesthesia: General Risk of > 500 ml blood loss (7ml/kg in children): No PFSH Anesthesia PFSH: Medical History Constipation Encounter for long-term opiate analgesic use Low back pain radiating to both legs Opioid contract exists Psychiatric care Surgical History History of cholecystectomy History of colonoscopy (~12/2019) dr. hank back History of esophagogastroduodenoscopy (EGD) (~12/2019) dr. hank back History of hysterectomy Family History Other Diabetes Hypertension Social History Smoking and tobacco status: current every day smoker e-cigarettes E-Cigarette Details: vaporizer device and with nicotine E-cig/vape details: 1 mg Quit status (tobacco): has tried quititng Number of times tried to quit tobacco: 3 Second hand smoke exposure: No Alcohol intake: never Caregiver/support person: Yes Lives independently: Yes Household members: significant other Marital status: Current occupational status: disabled History of recent travel: No Current gender identity: Female Special oscar needs: Yes Data Anesthesia Cardiac Studies: No Data to Display
[2021-03-14] VITALS (15 sets, daily range): BP systolic 103–143; BP diastolic 71–103; PULSE 88–105; RESP 14–31; TEMP 36.1–36.3; O2SAT 92–100
--- NOTE | 2021-03-14 | SCC_ITS ---
Procedure Done: 1. Anterior diskectomy C5/6 2. Anterior discectomy C6/7 3. Insertion of cage C5/6 4. Insertion of Cage C6/7 5. Instrumentation with anterior plate from C5-C7 6. Use of allograft 30.1 seconds of fluoroscopic guidance, for a cumulative dose of 4.62 mGy, was provided to Dr. Pena by the radiology department. C-arm images of the cervical spine were saved for the patient's permanent record. [facility]
--- NOTE | 2021-03-14 | XR_ITS ---
WS: [id number] Cervical spine, C-arm fluoroscopy, 03/14/2021 Clinical Data: acdf, or pic Comparison: None. Findings: The patient has an anterior cervical disc fusion at C5-C7 with artificial disc material at C5-C6 and C6-C7 XR/XR cervical spine 3V* [id number] Impression: Anterior cervical disc fusion C5-C7.
--- NOTE | 2021-03-14 07:43 | P.ANESUD_ITS ---
Pre-Anesthetic Update Pre-Anesthetic Assessment: Date of Surgery/Procedure: 03/14/21 Preop Rae gnosis: Cervical radiculopathy Proposed Procedure: Operation Date: 03/14/21 08:45 Proposed Procedures p Anterior Cervical Discectomy & Fusion C5/6 C6/7 59033(x2) 35339 98331 M48.02(Not Applicable) - Sascha Pena, DO Any changes to Pre-Anesthetic Assessment?: No Last Intake: Intake Last Liquid Date 03/13/21 Last Liquid Time 22:00 Last Solid Date 03/13/21 Last Solid Time 18:00 Vitals: Temperature 97.3 F L 03/14/21 07:32 Temperature Source Temporal Artery S can 03/14/21 07:32 Pulse Rate 88 03/14/21 07:32 Respiratory Rate 18 03/14/21 07:32 Blood Pressure 142/91 03/14/21 07:32 Blood Pressure Jordana n 108 03/14/21 07:32 Pulse Oximetry 97 03/14/21 07:32 Oxygen Delivery Me thod 03/14/21 07:32 Exam: Pre-Anes Outpt Exam: alert, oriented x 3, clear to auscultation bilaterally and regular rate & rhythm Other Pertinent Information: Other Pertinent Information: No known heart disease, METs =4, no vape today, plans to quit using medication. I performed a brief goal based coaching intervation today regarding smoking cessation. Cardiac Studies: No Data to Display
[2021-03-14] MEDS: famotidine 20 mg/2 mL INJ IVP (08:06)
[2021-03-14] MEDS: sodium chloride 0.9% 1,000 ML 30 ML IV (08:07)
--- NOTE | 2021-03-14 08:22 | PM.HP ---
Providers/Chief Complaint Primary Care Provider: GEORGE Finney Chief Complaint: Cervical Stenosis History of Present Illness Dawna Hilliard is a 50 year old female She is also having neck pain and radicular pain down her right arm. This point MRIs reviewed she has C5-6 and C6-7 stenosis with radiculopathy. She has undergone several injections which were working for a little but in no longer work. This point I recommended a C5-6 and C6-7 ACDF. Review of Systems Narrative: General ROS: negative for weight changes, fever ENT ROS: negative for nasal congestion, drainage or bleeding, sore throat, dysphagia or ear pain Eyes: PERRL Hematological and Lymphatic ROS: negative for swollen glands or abnormal bleeding Endocrine ROS: negative for polyuria/polydpsia or new changes in weight Respiratory ROS: negative for cough, shortness of breath, or wheezing Cardiovascular ROS: negative for chest pain or dyspnea on exertion Gastrointestinal ROS: negative for reflux, abdominal pain, change in bowel habits, or black or bloody stools Musculoskeletal ROS: negative for back pain, neck pain, or joint pain or swelling except for current problem Neurological ROS: negative for TIA or stoke symptoms Skin: no rashes Medications/Allergies Home Medications Medication Instructions Recorded Confirmed Last Taken Type methylnaltrexone 150 mg tablet 450 mg PO DAILY 7 Days #20 tab 01/12/20 03/14/21 03/13/21 Rx ibuprofen 800 mg tablet 800 mg PO Q8H PRN #90 tab 02/15/20 03/14/21 Unknown Rx bupropion HCl 150 mg 24 hr tablet, 150 mg PO QAM #30 tab 02/13/21 03/14/21 03/13/21 Rx extended release doxepin 150 mg capsule 150 mg PO .HS #30 cap 02/13/21 03/14/21 03/12/21 Rx albuterol sulfate 2.5 mg INHALATION QID PRN #90 ml 02/26/21 03/07/21 Unknown Rx albuterol sulfate 90 mcg/actuation 2 puff INHALATION Q6H PRN #18 gm 02/26/21 03/14/21 03/13/21 Rx aerosol inhaler atorvastatin 20 mg tablet 20 mg PO DAILY #90 tab 02/26/21 03/14/21 03/13/21 Rx estradiol 10 mcg vaginal tablet 10 mcg VAGINAL .TWO TIMES PER WEEK 12/03/14/21 03/13/21 Rx #8 tab montelukast 10 mg tablet 10 mg PO QDAY #30 tab 02/26/21 03/14/21 03/13/21 Rx omeprazole 40 mg capsule,delayed 40 mg PO BID #60 cap 02/26/21 03/14/21 03/13/21 Rx release Allergies Allergy/AdvReac Type Severity Reaction Status Date / Time aspirin AdvReac Intermediate NAUSEA Verified 03/14/21 07:14 codeine AdvReac Intermediate HEADACHE Verified 03/14/21 07:14 Iodinated Contrast Media AdvReac Intermediate NAUSEA AND Verified 03/14/21 07:14 RASH tramadol AdvReac Intermediate NAUSEA Verified 03/14/21 07:14 deodorant soap Allergy Intermediate ADR-Itching Uncoded 02/13/21 15:24 Tylenol Allergy Intermediate ADR-Itching Uncoded 03/07/21 09:58 TYLENOL WITH CODEINE AdvReac Intermediate ADR-Vomitin Uncoded 02/13/21 15:24 g PFSH Acute PFSH: Medical History Constipation Encounter for long-term opiate analgesic use Low back pain radiating to both legs Opioid contract exists Psychiatric care Surgical History History of cholecystectomy History of colonoscopy (~12/2019) dr. hank back History of esophagogastroduodenoscopy (EGD) (~12/2019) dr. hank back History of hysterectomy Family History Other Diabetes Hypertension Social History Smoking and tobacco status: current every day smoker e-cigarettes E-Cigarette Details: vaporizer device and with nicotine E-cig/vape details: 1 mg Quit status (tobacco): has tried quititng Number of times tried to quit tobacco: 3 Second hand smoke exposure: No Alcohol intake: never Caregiver/support person: Yes Lives independently: Yes Household members: significant other Marital status: Current occupational status: disabled History of recent travel: No Current gender identity: Female Special oscar needs: Yes Vitals/I&O/Wt Last Vital Signs Temp 97.3 F L 03/14/21 07:32 Pulse 88 03/14/21 07:32 Resp 18 03/14/21 07:32 BP 142/91 03/14/21 07:32 Pulse Ox 97 03/14/21 07:32 Physical Exam Narrative: EXAM NARRATIVE: CONSTITUTIONAL: The patient is a normal appearing [] in no apparent distress. GENERAL: Patient in no acute distress. CARDIAC: Regular rate and rhythm. CHEST: Normal inspiratory effort, normal respiratory rate. ABDOMEN: Soft and nontender. SKIN: Clear, warm and intact. NEURO?PSYCH: The patient is alert and oriented to person, place and time. Sensorv /SILT Motor StrengthShoulder abduction C5 5/5Wrist extension C6 5/5Elbow extension C7 5/5Hand Social Insurance Administrator C8 5/5Finger abduction T15/5 Radial/ Ulnar/ Median n intact LowerSensory (SILT)Motor StrengthHin flexion L2/3Ant/inner thigh 5/5Hip adduction L2/3 5/5Knee extension L4 Lat thigh, 5/5Toe dorsiflexion L5 5/5Ankle dorsiflexion L5/ A39Xujxmun flexion S1 5/5 DTRBleeps 2+Triceps 2+Brachioradialis 2+Patellar 2+Achilles 2+ MUSCULOSKELETAL: [] UPPEREXTREMITIES: The patient had full active ROM in fingers, wrist, elbow, and shoulder. The patient demonstrated ability to fully flex/extend/abduct/adduct fingers, make ok sign, cross 2nd/3rd digits, extend 1st digit fully.. Radial pulse 2+, CR<2 seconds. LOWER EXTREMITIES: Pt has full, active ROM of toes, ankle, knee, and hip. Dorsalis pedis/posterior tibialis pulses 2+, CR<2 seconds. SPINE: Skin warm, dry, intact. A&P Assessment and plan (1) Cervical spondylosis with radiculopathy: C5/6 and C6/7 acdf Status: Acute Attestations Medical Necessity Statement*: failed conservative tx Coding Level of Care Code Acute Supervisor Anodizing for g Fwd Diagnoses Cervical spondylosis with radiculopathy M47.22
--- NOTE | 2021-03-14 10:51 | PM.OP ---
Operative Report Date of procedure: March 14, 2021 Pre-op Diagnosis: Cervical spondylosis with radiculopathy Post-op diagnosis: same Procedure Done: 1. Anterior diskectomy C5/6 2. Anterior discectomy C6/7 3. Insertion of cage C5/6 4. Insertion of Cage C6/7 5. Instrumentation with anterior plate from C5-C7 6. Use of allograft Surgeon: Sascha Pena Diabetes Education Coordinator: Bob Peterson Diabetes Education Coordinator: The regional vice president surgical sales, Bob Peterson, JC was needed for his expertise under the microscope. He was important and necessary throughout the procedure to complete in a safe and timely manner. He assisted with patient positioning prepping and draping tissue retraction suctioning of the operative field protection of the dural sac and tissue closure Anesthesia: General Estimated blood loss (mL): 20 Condition: stable Disposition: PACU Procedure: 1. Anterior diskectomy C5/6 2. Anterior discectomy C6/7 3. Insertion of cage C5/6 4. Insertion of Cage C6/7 5. Instrumentation with anterior plate from C5-C7 6. Use of allograft The patient was taken to the operating room, where he underwent general endotracheal anesthesia without complications. He was then positioned supine on the operating table, and all areas of impingement were well padded. The arms were carefully padded and tucked at his sides. A roll was placed between the shoulder blades.. An x-ray was done to determine the appropriate level for the skin incision. The entire neck was then sterilely prepped and draped in the usual fashion. Neuromonitoring was attached prior to prepping. A transverse skin incision was made and carried down to the platysma muscle. This was then split in line with its fibers. Blunt dissection was carried down medial to the carotid sheath and lateral to the trachea and esophagus until the anterior cervical spine was visualized. A needle was placed into a disc and an x-ray was done to determine its location. The longus colli muscles were then elevated bilaterally with the electrocautery unit. Self-retaining retractors were placed deep to the longus colli muscle. Attention was brought to the C5/6 level that was confirmed on x-ray. A caspar pin was placed into the C5 vertebrae and the C6 vertebrae. The disk space was then distracted. The microscope was then brought in. A radical anterior discectomies were performed at C5/6. This included complete removal of the anterior annulus, nucleus, and posterior annulus. The posterior longitudinal ligament was removed as were the posterior osteophytes. Foraminotomies were then accomplished bilaterally. This was done using a high speed kizzy, kerrison rongeurs and curretes Once all of this was accomplished, the curved currette was used to check for any residual compression. The central canal was wide open as were the foramen. A high-speed bur was used to remove the cartilaginous endplates above and below the interspace. Bleeding cancellous bone was exposed. The disc space were measured and appropriate size cage were placed sterilely onto the field. Allograft graft was packed into the cages. The cage was then placed and there was good juxtaposition against the bleeding decorticated surfaces and good distraction of each interspace. Attention was brought to the next interspace. The [place] pins were removed. Bone wax was used to prevent any bleeding from occurring at the pin sites. Attention was brought to the C6/7 level that was confirmed on x-ray. A caspar pin was placed into the C6 vertebrae and the C7 vertebrae. The disk space was then distracted. The microscope was then brought in. A radical anterior discectomies were performed at C6/7. This included complete removal of the anterior annulus, nucleus, and posterior annulus. The posterior longitudinal ligament was removed as were the posterior osteophytes. Foraminotomies were then accomplished bilaterally. This was done using a high speed kizzy, kerrison rongeurs and curretes Once all of this was accomplished, the curved currette was used to check for any residual compression. The central canal was wide open as were the foramen. A high-speed bur was used to remove the cartilaginous endplates above and below the interspace. Bleeding cancellous bone was exposed. The disc space were measured and appropriate size cage were placed sterilely onto the field. Allograft graft was packed into the cages. The cage was then placed and there was good juxtaposition against the bleeding decorticated surfaces and good distraction of each interspace. Attention was brought to the next interspace. The [place] pins were removed. Bone wax was used to prevent any bleeding from occurring at the pin sites. The appropriate size anterior cervical locking plate was chosen and bent into gentle lordosis. one screws were then placed into each of the vertebral bodies at C5,C6 and C7. There was excellent purchase. A final x-ray was done confirming good position of the hardware and Cages. The locking screws were then applied, also with excellent purchase. Following a final copious irrigation, there was good hemostasis and no dural leaks. The carotid pulse was strong. The wounds were then closed in layers using 2-0 Vicryl suture for the platysma muscle, 2-0 Vicryl suture for the subcutaneous tissue, and 4-0 monocryl suture in a subcuticular skin closure. Glue was placed followed by application of a sterile dressing. The drain was hooked to bulb suction. A soft collar was applied. The patient was then carefully returned to the supine position on his hospital bed where he was reversed and extubated and taken to the recovery room having tolerated the procedure well.
[2021-03-14] MEDS: fentaNYL 50 mcg/mL INJ 2mL IVP (11:21)
--- NOTE | 2021-03-14 12:10 | ANE.PACU2 ---
Inpatient post-anesthesia follow up: Airway intact: Yes Vital signs: Temperature 97.1 F Pulse Rate 94 Respiratory Rate 21 Blood Pressure 103/88 Pulse Oximetry 94 Oxygen Delivery Me thod Room Air Oxygen Flow Rate 6 Fraction of Inspir ed Oxygen Hydration adequate: Yes Nausea and vomiting: No Pain level: 3 Mental status: Baseline Additional Comments: Patient on room air, flowsheets pulling in incorrect O2 flow rate.
[2021-03-14] MEDS: oxyCODONE 5 mg IR Tab/Cap PO (12:28)
== END 2021-03-14 13:00 | disposition home or self-care (01) ==
PROVIDERS: PCP Nurse Practitioner Family; Visit Provider Orthopaedic Surgery
PROC: 0RB30ZZ Excision of Cervical Vertebral Disc, Open Approach (ICD-10-PCS; CPT 22551; principal; 2021-03-14 08:45)
DX: M47.22 Other spondylosis with radiculopathy, cervical region (principal); F17.290 Nicotine dependence, other tobacco product, uncomplicated; Z79.891 Long term (current) use of opiate analgesic; G89.29 Other chronic pain; J44.9 Chronic obstructive pulmonary disease, unspecified; K21.9 Gastro-esophageal reflux disease without esophagitis; E78.5 Hyperlipidemia, unspecified; E66.01 Morbid (severe) obesity due to excess calories; Z68.32 Body mass index [BMI] 32.0-32.9, adult
CPT/HCPCS: 20930; 22551; 22552; 22845; 22853 ×2; 72040; 76000; 97760; C1713; C9359; J0330; J0690; J1100; J1170; J2370; J2704; J3010; J3490; J7030; L0174

== ENCOUNTER 2021-04-17 12:20 | Outpatient (CLI) | payer MEDICARE, MEDICAID, SELFPAY ==
[2021-04-17 12:51] LABS: Basophils % 0.3 %; Eosinophils # 0.1 10^3/uL (0.0-0.8); Eosinophils % 1.5 %; Hematocrit 40.8 % (37.0-47.0); Lymphocytes # 1.9 10^3/uL (0.8-4.8); Lymphocytes % 30.1 %; Mean Corpuscular HGB Conc 31.9 g/dL (30.0-36.0); Mean Corpuscular Hemoglobin 30.3 pg (28.0-34.0); Mean Corpuscular Volume 95.1 fl (81-99); Mean Platelet Volume 9.5 fL (7.4-10.4); Monocytes # 0.5 10^3/uL (0.2-0.9); Monocytes % 7.8 %; Neutrophils # 3.68 10^3/uL (1.8-7.7); Nucleated Red Blood Cells % 0 %; Platelet Count 241 10^3/cmm (130-400); Red Blood Count 4.29 10^6/uL (4.1-5.3); Red Cell Distribution Width 13.7 % (12.1-15.1); White Blood Count 6.1 10^3/uL (4.0-10.0)
[2021-04-17 13:16] LABS: Alanine Aminotransferase 18 U/L (0-33); Albumin Level 4.3 g/dL (3.5-5.2); Alkaline Phosphatase 132 IU/L (35-105); Anion Gap 17.1 (5-19); Aspartate Amino Transferase 18 U/L (0-32); Blood Urea Nitrogen 8 mg/dL (6-20); Calcium 9.6 mg/dL (8.5-10.5); Carbon Dioxide 24 mmol/L (22-29); Chloride 106 mmol/L (98-107); Globulin 2.9 g/dL (1.3-4.6); Glomerular Filtration Rate 76.6 mL/min (90-130); Glucose 108 mg/dL (65-115); Osmolality Calculated 295 mOsm/kg (285-295); Potassium 4.1 mmol/L (3.5-5.1); Sodium 143 mmol/L (136-145); Total Bilirubin 0.4 mg/dL (0.15-1.2); Total Protein 7.2 g/dL (6.6-8.7)
== END 2021-04-17 12:21 | disposition home or self-care (01) ==
LOC: LAB 12:23
PROVIDERS: PCP Nurse Practitioner Family; Visit Provider Surgery
DX: K62.5 Hemorrhage of anus and rectum (principal)
CPT/HCPCS: 80053; 85025

== ENCOUNTER 2021-04-19 12:28 | Emergency (ER) | payer MEDICARE, MEDICAID, SELFPAY ==
[2021-04-19] VITALS (11 sets, daily range): BP systolic 117–148; BP diastolic 74–94; PULSE 67–132; RESP 16–18; TEMP 36.1–36.8; O2SAT 96–100; BMI 32.8
--- NOTE | 2021-04-19 17:11 | ED_ITS ---
Documented by User: Trevor Diamond MD 04/22/21 23:09 HPI - GI Bleed General: Chief complaint: GI Bleed Stated complaint: Bleeding with bowel movement, ABD pain Time Seen by Provider: 04/19/21 17:10 History of Present Illness: Ms. Hilliard is a 50-year-old lady with history of GERD who presents to the emergency department for blood in stool. Symptoms initially began approximately 5 days ago though perhaps have been present previously and she describes a longstanding history of GI problems going back to childhood. She saw Dr. Hinojosa who added a stool softener to her baseline Carafate and PPI omeprazole. However, her symptoms have continued. She endor ses urgency and sometimes just passing blood. Additionally she passes clots. Does not identify blood mixed with stool. Currently on rectal exam she did have hemorrhoids. She does have pain with bowel movements. Additionally she has began to experience generalized abdominal discomfort as well as fullness sensation. She rates discomfort a moderate to severe. Overall the course of symptoms has been worsening. She had presyncope with bowel movement earlier and notes generalized unwell feeling. She is not on blood thinners and does not have history of bleeding disorder. No other specific changes in health, exacerbating, or relieving factors identified. Onset (ago): day(s) Pain Consistency: intermittent Severity: moderate Exacerbating factors: bowel movement Context: hemorrhoids and other Associated symptoms: Reports other Treatments Prior to Arrival: OTC meds Review of Systems General: Reports: 10 or more systems reviewed and unremarkable except in HPI and below PFSH ED PFSH: Medical History Constipation Psychiatric care Surgical History History of cholecystectomy History of colonoscopy (~12/2019) dr. hank back History of esophagogastroduodenoscopy (EGD) (~12/2019) dr. hakn back History of fusion of cervical spine History of hysterectomy Family History Other Diabetes Hypertension Social History Smoking and tobacco status: current some day smoker (Vapor) e-cigarettes E- Cigarette Details: vaporizer device and with nicotine E-cig/vape details: 1 mg Quit status (tobacco): has tried quititng Number of times tried to quit tobacco: 3 Second hand smoke exposure: No Alcohol intake: never Caregiver/support person: Yes Lives independently: Yes Household members: significant other Marital status: Current occupational status: disabled History of recent travel: No Current gender identity: Female Special oscar needs: Yes Physical Exam Const: COMMON NORMALS: alert GENERAL APPEARANCE: cooperative and well developed HENMT: COMMON NORMALS: normocephalic and atraumatic HEAD & SCALP: normocephalic and atraumatic Eye: COMMON NORMALS: conjunctivae normal CONJUNCTIVA: Yes conjunctivae normal SCLERA: sclerae normal Neck/C-Spine: COMMON NORMALS: supple GENERAL: Yes trachea midline Resp: COMMON NORMALS: normal respiratory effort and clear to auscultation bilaterally EFFORT & INSPECTION: Yes able to speak in complete sentences AUSCULTATION: clear to auscultation bilaterally Cardio: COMMON NORMALS: regular rate and regular rhythm RATE: regular rate RHYTHM: regular rhythm GI: COMMON NORMALS: Soft to palpation PALPATION: Yes Soft to palpation, Yes Tenderness to palpation present (GI), No Guarding due to palpation present (GI) and No Rigid due to palpation PERCUSSION: normal to percussion Extremity: GENERAL: Yes normal exam except as noted and No edema Neuro: COMMON NORMALS: moves all extremities SENSORIUM/ORIENTATION: Yes alert and No Orientation impaired Psych: COMMON NORMALS: mental status grossly normal and Normal thought process present THOUGHT PROCESS: Normal thought process present Course ED course: - Patient was seen and evaluated by me at bedside - Patient placed on cardiac monitors, IV access obtained - Initial evaluation notable for exam as above - Labs notable for no leukocytosis, hemoglobin mildly decreased from prior though not in transfusion range. No acute electrolyte derangement. - Imaging notable for no acute abnormality in the abdomen or pelvis. - Upon serial reexamination after treatment the patient was only mildly improved. Additional treatments ordered. - Patient care handed off to overnight ED physician Dr. Kim pending reevaluation after IV fluids and additional treatment. - I discussed potential worsening of symptoms and need for stool softener regarding use of opioids. Note: Click bubbles or prepopulated kelley in note writing are used for assistance with data collection and billing and are inherently more limited than narrative and other text portions of this note. Please use narrative for additional clinical history and defer to narrative/free test for any case of contradictory information. If information appears in only free text or click bubble it should be considered present or absent as reported. Please contact note commercial underwriter for clarifications of clinical information or contradictory information. MDM is a brief summary, contradictory or erroneous seeming information should be clarified and full note should be reviewed. Vital Signs: Vital signs: Vital Signs Temperature 98.2 F 04/19/21 23:32 Pulse Rate 99 04/19/21 23:33 Respiratory Rate 18 04/19/21 21:38 Blood Pressure 148/79 04/19/21 23:33 Pulse Oximetry 97 04/19/21 23:32 MDM - GI Bleed Medical Decision Making 50-year-old lady with history of GI issues longstanding presenting with passing blood and pain with bowel movements. Previously been evaluated by general ashok ella. Hemoglobin similar to prior. Patient presents here with likely hemorrhoids she did have some orthostasis but is improved here for IV fluids her repeat hemoglobin is normal as well she feels improved I spoke to her at discharge she would like to go home I feel she is stable for discharge is to follow-up and return if worsening. Medical Records I reviewed the patient's medical records. Lab Data I reviewed the patient's lab results. : 04/19/21 23:16 04/19/21 19:32 Radiology Impressions Abdomen/Pelvis CT 04/19/21 18:23 IMPRESSION: 1. No acute abnormality in the abdomen or pelvis. 2. Stable mild fatty infiltration of the liver with focal fatty sparing in the right lobe of the liver. 3. Incidental/nonacute findings are listed in the report. Laboratory Results WBC 7.2 10^3/uL (4.0-10.0) 04/19/21 19:32 RBC 4.06 10^6/uL (4.1-5.3) L 04/19/21 19:32 Hgb 11.0 g/dL (11.5-15.3) L 04/19/21 23:16 Hct 34.2 % (37.0-47.0) L 04/19/21 23:16 MCV 94.3 fl (81-99) 04/19/21 19: MCH 30.8 pg (28.0-34.0) 04/19/21 19: MCHC 32.6 g/dL (30.0-36.0) 04/19/21: RDW 13.7 % (12.1-15.1) 04/19/21: Plt Count 237 10^3/cmm (130-400) 04/19/21: MPV 9.8 fL (7.4-10.4) 04/19/21: Neut % (Auto) 58.2 % 04/19/21: Lymph % (Auto) 33.7 % 04/19/21: [place] % (Auto) 6.5 % 04/19/21: Eos % (Auto) 1.0 % 04/19/21: Baso % (Auto) 0.3 % 04/19/21: Neut # (Auto) 4.20 10^3/uL (1.8-7.7) 04/19/21: Lymph # (Auto) 2.4 10^3/uL (0.8-4.8) 04/19/21: [place] # (Auto) 0.5 10^3/uL (0.2-0.9) 04/19/21: Eos # (Auto) 0.1 10^3/uL (0.0-0.8) 04/19/21: Baso # (Auto) 0.0 10^3/uL (0.0-0.1) 04/19/21: Nucleated RBC % (auto) 0 % 04/19/21: Nucleated RBCs # 0.0 /100WBC 04/19/21: Sodium 140 mmol/L (136-145) 04/19/21: Potassium 3.6 mmol/L (3.5-5.1) 04/19/21: Chloride 104 mmol/L (98-107) 04/19/21: Carbon Dioxide 23 mmol/L (22-29) 04/19/21: Anion Gap 16.6 (5-19) 04/19/21:32 BUN 10 mg/dL (6-20) 04/19/21: Creatinine 0.8 mg/dL (0.5-0.9) 02/10/22 19:32 GFR Calculation 76.6 mL/min (90-130) L 04/19/21 19:32 Glucose 82 mg/dL (65-115) 04/19/21 19:32 Calculated Osmolality 288 mOsm/kg (285-295) 04/19/21 19:32 Calcium 9.9 mg/dL (8.5-10.5) 04/19/21 19:32 Total Bilirubin 0.4 mg/dL (0.15-1.2) 04/19/21 19:32 AST 17 U/L (0-32) 04/19/21 19:32 ALT 17 U/L (0-33) 04/19/21 19:32 Alkaline Phosphatase 130 IU/L (35-105) H 04/19/21 19:32 Total Protein 7.7 g/dL (6.6-8.7) 04/19/21 19:32 Albumin 4.3 g/dL (3.5-5.2) 04/19/21 19:32 Globulin 3.4 g/dL (1.3-4.6) 04/19/21 19:32 Lipase 25 U/L (13-60) 04/19/21 19:32 Discharge Plan Discharge Patient Disposition: Home Clinical Impression: Bleeding per rectum, Abdominal pain, Orthostatic lightheadedness Condition: Stable Prescriptions: New oxycodone 5 mg capsule 5 mg PO Q8H PRN (Reason: pain) Qty: 3 0RF Miralax 17 gram powder in packet 34 g PO DAILY 4 Days Qty: 30 0RF No Action doxepin 150 mg capsule 150 mg PO .HS Qty: 30 2RF sucralfate [Carafate] 1 gram tablet 1 g PO QID 30 Days Qty: 120 0RF sennosides-docusate sodium [Senna-S] 8.6-50 mg tablet 1 tab-cap PO BID 30 Days Qty: 60 0RF lactulose 10 gram/15 mL (15 mL) solution 15 ml PO BID 30 Days Qty: 900 0RF ibuprofen 800 mg tablet 800 mg PO Q8H PRN (Reason: fever or pain) Qty: 90 2RF omeprazole 40 mg capsule,delayed release(DR/EC) 40 mg PO BID Qty: 60 5RF montelukast 10 mg tablet 10 mg PO QDAY Qty: 30 5RF estradiol [Vagifem] 10 mcg tablet 10 mcg VAGINAL .TWO TIMES PER WEEK Qty: 8 5RF atorvastatin 20 mg tablet 20 mg PO DAILY Qty: 90 1RF albuterol sulfate [Ventolin HFA] 90 mcg/actuation HFA aerosol inhaler 2 puff INHALATION Q6H PRN (Reason: shortness of breath or wheezing) Qty: 18 1RF albuterol sulfate 2.5 mg /3 mL (0.083 %) solution for nebulization 2.5 mg INHALATION QID PRN (Reason: shortness of breath or wheezing) Qty: 90 0RF cyclobenzaprine 10 mg tablet 10 mg PO TID PRN (Reason: muscle spasm) 10 Days Qty: 30 0RF ondansetron HCl [Zofran] 4 mg tablet 4 mg PO Q8H PRN (Reason: nausea and vomiting) Qty: 30 0RF oxycodone 5 mg capsule 5 mg PO Q4H PRN (Reason: pain) 7 Days Qty: 40 0RF Relistor 150 mg tablet 450 mg PO DAILY 7 Days Qty: 20 0RF bupropion HCl [Wellbutrin XL] 300 mg tablet extended release 24 hr 300 mg PO QAM Qty: 30 1RF oxycodone 5 mg tablet 5 mg PO Q4H PRN (Reason: pain) 7 Days Qty: 40 0RF Discharge Orders: Discharge ED (Routine); Ordered 04/19/21 Ordered By: Karina Kim Referrals: Amanda Duran FNP [Primary Care Provider] - Discharge Diet: Usual diet Discharge Activity: Resume usual activity Activity Restrictions/Additional Instructions: Thank you for visiting the emergency department. You were seen and evaluated for rectal bleeding and abdominal pain. The exact cause of your symptoms is unclear though likely related to hemorrhoidal bleeding. Please continue to follow-up with Dr. Hinojosa in the outpatient setting. Please return to the emergency department for lightheadedness, fainting, shor tness of breath, chest pain, uncontrolled abdominal pain, inability to have bowel movements, or anything else that you are concerned about and feel needs emergency department evaluation. Coding Level of Care Code ED Box Chipper for Chg Fwd Exam Comprehensive Documented by User: Karina Kim MD 04/19/21 23:29 HPI - GI Bleed General: Chief complaint: GI Bleed Stated complaint: Bleeding with bowel movement, ABD pain Time Seen by Provider: 04/19/21 17:10 PFSH ED PFSH: Medical History Constipation Psychiatric care Surgical History History of cholecystectomy History of colonoscopy (~12/2019) dr. hank back History of esophagogastroduodenoscopy (EGD) (~12/2019) dr. hank back History of fusion of cervical spine History of hysterectomy Family History Other Diabetes Hypertension Social History Smoking and tobacco status: current some day smoker (Vapor) e-cigarettes E- Cigarette Details: vaporizer device and with nicotine E-cig/vape details: 1 mg Quit status (tobacco): has tried quititng Number of times tried to quit tobacco: 3 Second hand smoke exposure: No Alcohol intake: never Caregiver/support person: Yes Lives independently: Yes Household members: significant other Marital status: Current occupational status: disabled History of recent travel: No Current gender identity: Female Special oscar needs: Yes Course Vital Signs: Vital signs: Vital Signs Temperature 98.2 F 04/19/21 23:32 Pulse Rate 99 04/19/21 23:33 Respiratory Rate 18 04/19/21 21:38 Blood Pressure 148/79 04/19/21 23:33 Pulse Oximetry 97 04/19/21 23:32 MDM - GI Bleed Medical Decision Making Patient presents here with likely hemorrhoids she did have some orthostasis but is improved here for IV fluids her repeat hemoglobin is normal as well she feels improved I spoke to her at discharge she would like to go home I feel she is stable for discharge is to follow-up and return if worsening. Lab Data : 04/19/21 23:16 04/19/21 19:32 Radiology Impressions Abdomen/Pelvis CT 04/19/21 18:23 IMPRESSION: 1. No acute abnormality in the abdomen or pelvis. 2. Stable mild fatty infiltration of the liver with focal fatty sparing in the right lobe of the liver. 3. Incidental/nonacute findings are listed in the report. Laboratory Results WBC 7.2 10^3/uL (4.0-10.0) 04/19/21: RBC 4.06 10^6/uL (4.1-5.3) L 04/19/21: Hgb 11.0 g/dL (11.5-15.3) L 04/19/21 23:16 Hct 34.2 % (37.0-47.0) L 04/19/21 23:16 MCV 94.3 fl (81-99) 04/19/21: MCH 30.8 pg (28.0-34.0) 04/19/21: MCHC 32.6 g/dL (30.0-36.0) 04/19/21: RDW 13.7 % (12.1-15.1) 04/19/21: Plt Count 237 10^3/cmm (130-400) 04/19/21: MPV 9.8 fL (7.4-10.4) 04/19/21: Neut % (Auto) 58.2 % 04/19/21: Lymph % (Auto) 33.7 % 04/19/21: [place] % (Auto) 6.5 % 04/19/21: Eos % (Auto) 1.0 % 04/19/21: Baso % (Auto) 0.3 % 04/19/21: Neut # (Auto) 4.20 10^3/uL (1.8-7.7) 04/19/21: Lymph # (Auto) 2.4 10^3/uL (0.8-4.8) 04/19/21: [place] # (Auto) 0.5 10^3/uL (0.2-0.9) 04/19/21: Eos # (Auto) 0.1 10^3/uL (0.0-0.8) 04/19/21 19:32 Baso # (Auto) 0.0 10^3/uL (0.0-0.1) 04/19/21 19:32 Nucleated RBC % (auto) 0 % 04/19/21 19:32 Nucleated RBCs # 0.0 /100WBC 04/19/21 19:32 Sodium 140 mmol/L (136-145) 04/19/21 19:32 Potassium 3.6 mmol/L (3.5-5.1) 04/19/21 19:32 Chloride 104 mmol/L (98-107) 04/19/21 19:32 Carbon Dioxide 23 mmol/L (22-29) 04/19/21 19:32 Anion Gap 16.6 (5-19) 04/19/21 19:32 BUN 10 mg/dL (6-20) 04/19/21 19:32 Creatinine 0.8 mg/dL (0.5-0.9) 04/19/21 19:32 GFR Calculation 76.6 mL/min (90-130) L 04/19/21 19:32 Glucose 82 mg/dL (65-115) 04/19/21 19:32 Calculated Osmolality 288 mOsm/kg (285-295) 04/19/21:32 Calcium 9.9 mg/dL (8.5-10.5) 04/19/21 19:32 Total Bilirubin 0.4 mg/dL (0.15-1.2) 04/19/21 19:32 AST 17 U/L (0-32) 04/19/21 19:32 ALT 17 U/L (0-33) 04/19/21 19:32 Alkaline Phosphatase 130 IU/L (35-105) H 04/19/21 19:32 Total Protein 7.7 g/dL (6.6-8.7) 04/19/21 19:32 Albumin 4.3 g/dL (3.5-5.2) 04/19/21 19:32 Globulin 3.4 g/dL (1.3-4.6) 04/19/21 19:32 Lipase 25 U/L (13-60) 04/19/21 19:32 Discharge Plan Discharge Patient Disposition: Home Clinical Impression: Bleeding per rectum, Abdominal pain, Orthostatic lightheadedness Condition: Stable Prescriptions: New oxycodone 5 mg capsule 5 mg PO Q8H PRN (Reason: pain) Qty: 3 0RF Miralax 17 gram powder in packet 34 g PO DAILY 4 Days Qty: 30 0RF No Action doxepin 150 mg capsule 150 mg PO .HS Qty: 30 2RF sucralfate [Carafate] 1 gram tablet 1 g PO QID 30 Days Qty: 120 0RF sennosides-docusate sodium [Senna-S] 8.6-50 mg tablet 1 tab-cap PO BID 30 Days Qty: 60 0RF lactulose 10 gram/15 mL (15 mL) solution 15 ml PO BID 30 Days Qty: 900 0RF ibuprofen 800 mg tablet 800 mg PO Q8H PRN (Reason: fever or pain) Qty: 90 2RF omeprazole 40 mg capsule,delayed release(DR/EC) 40 mg PO BID Qty: 60 5RF montelukast 10 mg tablet 10 mg PO QDAY Qty: 30 5RF estradiol [Vagifem] 10 mcg tablet 10 mcg VAGINAL .TWO TIMES PER WEEK Qty: 8 5RF atorvastatin 20 mg tablet 20 mg PO DAILY Qty: 90 1RF albuterol sulfate [Ventolin HFA] 90 mcg/actuation HFA aerosol inhaler 2 puff INHALATION Q6H PRN (Reason: shortness of breath or wheezing) Qty: 18 1RF albuterol sulfate 2.5 mg /3 mL (0.083 %) solution for nebulization 2.5 mg INHALATION QID PRN (Reason: shortness of breath or wheezing) Qty: 90 0RF cyclobenzaprine 10 mg tablet 10 mg PO TID PRN (Reason: muscle spasm) 10 Days Qty: 30 0RF ondansetron HCl [Zofran] 4 mg tablet 4 mg PO Q8H PRN (Reason: nausea and vomiting) Qty: 30 0RF oxycodone 5 mg capsule 5 mg PO Q4H PRN (Reason: pain) 7 Days Qty: 40 0RF Relistor 150 mg tablet 450 mg PO DAILY 7 Days Qty: 20 0RF bupropion HCl [Wellbutrin XL] 300 mg tablet extended release 24 hr 300 mg PO QAM Qty: 30 1RF oxycodone 5 mg tablet 5 mg PO Q4H PRN (Reason: pain) 7 Days Qty: 40 0RF Discharge Orders: Discharge ED (Routine); Ordered 04/19/21 Ordered By: Karina Kim Referrals: Amanda Duran FNP [Primary Care Provider] - Discharge Diet: Usual diet Discharge Activity: Resume usual activity Activity Restrictions/Additional Instructions: Thank you for visiting the emergency department. You were seen and evaluated for rectal bleeding and abdominal pain. The exact cause of your symptoms is unclear though likely related to hemorrhoidal bleeding. Please continue to follow-up with Dr. Hinojosa in the outpatient setting. Please return to the emergency department for lightheadedness, fainting, shor tness of breath, chest pain, uncontrolled abdominal pain, inability to have bowel movements, or anything else that you are concerned about and feel needs emergency department evaluation. Coding Level of Care Code ED Box Chipper for Eliud Carmen Exam Comprehensive
--- NOTE | 2021-04-19 18:23 | CTR_ITS ---
PROCEDURE INFORMATION: Exam: CT Abdomen And Pelvis Without Contrast Exam date and time: 04/19/2021 6:23 PM Age: 50 years old Clinical indication: Abdominal pain; Prior surgery; Surgery type: Gb, hyst; Additional info: Abd pain, fullness, brbpr TECHNIQUE: Imaging protocol: Computed tomography of the abdomen and pelvis without contrast. Sagittal and coronal reformatted images were created and reviewed. Radiation optimization: All CT scans at this facility use at least one of these dose optimization techniques: automated exposure control; mA and/or kV adjustment per patient size (includes targeted exams where dose is matched to clinical indication); or iterative reconstruction. COMPARISON: CT abdomen pelvis wo con [id number] 09/01/2020 11:46 AM RADIATION DOSE METRICS: Total DLP (mGy-cm): 1871.08 FINDINGS: Limitations: Evaluation of solid organs and vasculature is limited without intravenous contrast. Lungs: Visualized lungs are clear. Pleural spaces: No pleural effusion. Heart: Visualized portions of the heart are unremarkable. Liver: Diffuse, mildly decreased attenuation in the liver. Findings are consistent with mild fatty infiltration. Areas of relative increased attenuation consistent with fatty sparing in the right lobe of the liver. Findings are stable. Gallbladder and bile ducts: Stable findings consistent with a previous cholecystectomy. Stable dilatation of the biliary ducts, not unexpected in a patient who has had a prior cholecystectomy. Pancreas: The pancreas is unremarkable. No pancreatic ductal dilatation. Spleen: The spleen is unremarkable. Adrenal glands: The right and left adrenal glands are unremarkable. Kidneys and ureters: The right and left kidneys are unremarkable. The right and left ureters are unremarkable. Stomach and bowel: No obstruction. No mucosal thickening. Appendix: The appendix is visualized and is unremarkable. No findings to suggest acute appendicitis. Intraperitoneal space: No free intraperitoneal air. No ascites. No loculated fluid collections to suggest an abscess. Vasculature: No evidence for aortic aneurysm. Lymph nodes: No lymphadenopathy. Urinary bladder: Unremarkable as visualized. Reproductive: Stable changes consistent with a previous hysterectomy. Stable changes consistent with a previous bilateral oophorectomy. Bones/joints: [id number] multilevel degenerative changes in the visualized spine. Soft tissues: No acute abnormality in the extra-abdominal soft tissues. CT/CT abdomen pelvis wo con [id number] IMPRESSION: 1. No acute abnormality in the abdomen or pelvis. 2. Stable mild fatty infiltration of the liver with focal fatty sparing in the right lobe of the liver. 3. Incidental/nonacute findings are listed in the report.
[2021-04-19] MEDS: morphine 4 mg/mL SDV 1 mL IVP ×3 (18:37→21:38)
[2021-04-19] MEDS: sodium chloride 0.9% 1,000 ML 999 ML IV ×2 (18:38→21:38)
[2021-04-19] MEDS: lidocaine 2% viscous 15 ML, aluminum-mag hydrox-simethicon 30 ML, sucralfate oral liq 1 GM PO (19:55)
[2021-04-19 19:57] LABS: Basophils % 0.3 %; Eosinophils # 0.1 10^3/uL (0.0-0.8); Hematocrit 38.3 % (37.0-47.0); Hemoglobin 12.5 g/dL (11.5-15.3); Lymphocytes # 2.4 10^3/uL (0.8-4.8); Lymphocytes % 33.7 %; Mean Corpuscular HGB Conc 32.6 g/dL (30.0-36.0); Mean Corpuscular Hemoglobin 30.8 pg (28.0-34.0); Mean Corpuscular Volume 94.3 fl (81-99); Mean Platelet Volume 9.8 fL (7.4-10.4); Monocytes # 0.5 10^3/uL (0.2-0.9); Monocytes % 6.5 %; Neutrophils % 58.2 %; Nucleated Red Blood Cells % 0 %; Platelet Count 237 10^3/cmm (130-400); Red Blood Count 4.06 10^6/uL (4.1-5.3); Red Cell Distribution Width 13.7 % (12.1-15.1); White Blood Count 7.2 10^3/uL (4.0-10.0)
--- NOTE | 2021-04-19 20:36 | PC.NURSE ---
late entry 1900 patient report received. IV started blood drawn and sent to lab IVF restarted and old IV removed. will medicate per mar. resting on stretcher with c/o heart burn and abdominal pain. states here for rectal bleeding for 4 days. respirations even equal and unlabored. speech clear. A&OX4
[2021-04-19 20:45] LABS: Alanine Aminotransferase 17 U/L (0-33); Albumin Level 4.3 g/dL (3.5-5.2); Alkaline Phosphatase 130 IU/L (35-105); Anion Gap 16.6 (5-19); Aspartate Amino Transferase 17 U/L (0-32); Blood Urea Nitrogen 10 mg/dL (6-20); Calcium 9.9 mg/dL (8.5-10.5); Carbon Dioxide 23 mmol/L (22-29); Chloride 104 mmol/L (98-107); Creatinine Clr Calc Pharmacy 101.9065; Globulin 3.4 g/dL (1.3-4.6); Glomerular Filtration Rate 76.6 mL/min (90-130); Glucose 82 mg/dL (65-115); Lipase 25 U/L (13-60); Osmolality Calculated 288 mOsm/kg (285-295); Potassium 3.6 mmol/L (3.5-5.1); Sodium 140 mmol/L (136-145); Total Bilirubin 0.4 mg/dL (0.15-1.2); Total Protein 7.7 g/dL (6.6-8.7)
--- NOTE | 2021-04-19 21:19 | PC.NURSE ---
orthostatic VS complete. patient reports feeling dizziness with standing and states pain increase in abdomen.
[2021-04-19 23:22] LABS: Hematocrit 34.2 % (37.0-47.0)
== END 2021-04-19 23:40 | disposition home or self-care (01) ==
PROVIDERS: Emergency Medicine; Emergency Provider Emergency Medicine; PCP Nurse Practitioner Family
DX: K62.5 Hemorrhage of anus and rectum (principal); R10.9 Unspecified abdominal pain; I95.1 Orthostatic hypotension; F17.290 Nicotine dependence, other tobacco product, uncomplicated
CPT/HCPCS: 36415; 74176; 80053; 83690; 85014; 85018; 85025; 96361; 96374; 96376; 99284; J2270; J7030

== ENCOUNTER 2021-04-24 06:00 | Outpatient (CLI) | payer MEDICARE, MEDICAID, SELFPAY | END 2021-04-24 06:01 | disposition home or self-care (01) | LOC: RAD 09-05 08:32 | PROVIDERS: PCP Nurse Practitioner Family; Visit Provider Orthopaedic Surgery | DX: M47.22 Other spondylosis with radiculopathy, cervical region (principal) | CPT/HCPCS: 72040 ==

== ENCOUNTER → 2021-05-11 12:21 | Outpatient (BNVA) | payer MEDICARE, MEDICAID, SELFPAY | PROVIDERS: PCP Nurse Practitioner Family; Visit Provider Psychiatry & Neurology Psychiatry | DX: F79 Unspecified intellectual disabilities (principal); F33.1 Major depressive disorder, recurrent, moderate; F41.1 Generalized anxiety disorder; F43.12 Post-traumatic stress disorder, chronic; F17.200 Nicotine dependence, unspecified, uncomplicated | CPT/HCPCS: 99213 ==

== ENCOUNTER → 2021-05-18 15:11 | Outpatient (BNVA) | payer MEDICARE, MEDICAID, SELFPAY | PROVIDERS: PCP Nurse Practitioner Family; Visit Provider Nurse Practitioner Family | DX: J98.8 Other specified respiratory disorders (principal); Z20.822 Contact with and (suspected) exposure to COVID-19 | CPT/HCPCS: 87631; 87635 ==

== ENCOUNTER → 2021-05-28 13:40 | Outpatient (BNVA) | payer MEDICARE, MEDICAID, SELFPAY | PROVIDERS: PCP Nurse Practitioner Family; Visit Provider Surgery | DX: Z20.822 Contact with and (suspected) exposure to COVID-19 (principal) | CPT/HCPCS: 87635 ==

== ENCOUNTER 2021-06-04 08:52 | Day surgery (SDC) | payer MEDICARE, MEDICAID, SELFPAY ==
[2021-06-01 15:58] VITALS: BMI 33.9
[2021-06-04 09:07] VITALS: BP 119/83; PULSE 84; RESP 18; TEMP 36.3; O2SAT 99
--- NOTE | 2021-06-04 09:18 | W.PM.OPSFHP ---
Same Day Surgery H&P Indication for Procedure/HPI DATE OF PROCEDURE: June 04, 2021 CHIEF COMPLAINT/INDICATIONFOR SURGICAL PROCEDURE: egd/colon possible hemorrhoids PREOP DIAGNOSIS: upper gi symptoms PLANNED PROCEDURE: Operation Date: 06/04/21 10:35 Proposed Procedures p [id number](Not Applicable) - MD clint Page Colonoscopy(Not Applicable) - Reagan Hinojosa MD s Hemorroidectomy(Not Applicable) - Reagan Hinojosa MD Medications/Allergies* Home Medications Medication Instructions Recorded Confirmed Type albuterol sulfate 90 mcg/actuation 2 puff INHALATION QID 06/01/21 06/01/21 History aerosol inhaler (Ventolin HFA) Allergies/Adverse Reactions Allergy/AdvReac Type Severity Reaction Status Date / Time aluminum hydroxide Allergy ADR-Nausea Verified 06/01/21 15:51 [From Maalox Maximum Strength] lidocaine Allergy ADR-Nausea Verified 06/01/21 15:51 magnesium hydroxide Allergy ADR-Nausea Verified 06/01/21 15:51 [From Maalox Maximum Strength] simethicone Allergy ADR-Nausea Verified 06/01/21 15:51 [From Maalox Maximum Strength] sucralfate [From Carafate] Allergy ADR-Nausea Verified 06/01/21 15:51 aspirin AdvReac Intermediate NAUSEA Verified 06/01/21 15:51 codeine AdvReac Intermediate HEADACHE Verified 06/01/21 15:51 Iodinated Contrast Media AdvReac Intermediate NAUSEA AND Verified 06/01/21 15:51 RASH tramadol AdvReac Intermediate NAUSEA Verified 06/01/21 15:51 deodorant soap Allergy Intermediate ADR-Itching Uncoded 05/28/21 13:11 Tylenol Allergy Intermediate ADR-Itching Uncoded 05/28/21 13:11 TYLENOL WITH CODEINE AdvReac Intermediate ADR-Vomitin Uncoded 05/28/21 13:11 g Pertinent History/Comorbid Conditions* Medical History (Updated 04/27/21 @ 00:01 by ) Constipation Psychiatric care Surgical History (Updated 04/10/21 @ 13:34 by Reagan Hinojosa MD) History of cholecystectomy History of colonoscopy (~12/2019) dr. [place]- [facility] [place] History of esophagogastroduodenoscopy (EGD) (~12/2019) dr. [place]- [facility] [place] History of fusion of cervical spine History of hysterectomy Family History (Updated 03/26/19 @ 11:24 by Princess Mason LPN) Diabetes Hypertension Social History Smoking and tobacco status: current some day smoker (Vapor) e-cigarettes E-Cigarette Details: vaporizer device and with nicotine E-cig/vape details: 1 mg Quit status (tobacco): has tried quititng Number of times tried to quit tobacco: 3 Second hand smoke exposure: No Alcohol intake: never Caregiver/support person: Yes Lives independently: Yes Household members: significant other Marital status: Current occupational status: disabled History of recent travel: No Current gender identity: Female Special oscar needs: Yes Pertinent Exam Findings alert, oriented x 3 and regular rate & rhythm Recommendations Surgery/Procedure today Coding Level of Care Code Acute 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
[2021-06-04] MEDS: sodium chloride 0.9% 1,000 ML 30 ML IV (10:02)
--- NOTE | 2021-06-04 10:05 | P.ANESASSM_ITS ---
Pre-Anesthetic Assessment Height/Weight: Height 1.71 m Weight 99.79 kg Temp Pulse Resp BP Pulse Ox 97.3 F L 84 18 119/83 99 06/04/21 09:07 06/04/21 09:07 06/04/21 09:07 06/04/21 09:07 06/04/21 09:07 Preop Diagnosis: upper gi symptoms Operation Date: 06/04/21 10:35 Proposed Procedures p [id number]/[id number]/k92.1(Not Applicable) - Reagan Hinojosa MD s Colonoscopy(Not Applicable) - Reagan Hinojosa MD s Hemorroidectomy(Not Applicable) - Reagan Hinojosa MD Familial anesthetic complications: Patient relates an experience when she awoke under sedation/MAC anesthesia and felt uncomfortable Was Beta Janette taken within 24 hours: N/A Was Clonidine taken within 24 hours: N/A Last intake: Intake Last Liquid Date 06/03/21 Last Liquid Time 21:00 Last Solid Date 06/03/21 Last Solid Time 10:00 Social Tobacco and No alcohol Exam alert, oriented x 3, clear to auscultation bilaterally and regular rate & rhythm Airway Submandibular: within normal limits Cervical ROM: within normal limits Mallampati: Class II Dentition: partials Pulmonary Exertional Dyspnea CV/HEM Anemia METS = 4 GI Gastroesophageal Reflux Disease (Gastritis ) Musc/skel Lower Back Pain Plantar fasciitis Neuropsych Anxiety, Depression and Neuropathy Memory loss Anesthetic Plan ASA status: 2 Anesthesia: Anesthesia Evaluation and General Other: Patient requested limited discussion of serious but less common complications associated with anesthesia. Patient reviewed consent form and signed consent. Risk of > 500 ml blood loss (7ml/kg in children): No Medications/Allergies Home Medications Medication Instructions Recorded Confirmed Last Taken Type albuterol sulfate 2.5 mg (3 mL) INHALATION QID PRN 02/26/21 06/01/21 06/03/21 Rx #90 ml atorvastatin 20 mg tablet 20 mg PO DAILY #90 tab 02/26/21 06/01/21 06/03/21 Rx estradiol 10 mcg vaginal tablet 10 mcg VAGINAL .TWO TIMES PER WEEK 02/26/21 06/01/21 06/03/21 Rx (Vagifem) #8 tab montelukast 10 mg tablet 10 mg PO QDAY #30 tab 12/06/01/21 06/03/21 Rx omeprazole 40 mg capsule,delayed 40 mg PO BID #60 cap 02/26/21 06/01/21 06/03/21 Rx release ondansetron HCl 4 mg tablet 4 mg PO Q8H PRN #30 tab 04/03/21 06/01/21 06/03/21 Rx (Zofran) cyclobenzaprine 10 mg tablet 10 mg PO TID PRN 10 Days #30 tab 05/01/21 06/01/21 06/03/21 Rx doxepin 150 mg capsule 150 mg PO .HS #30 cap 05/11/21 06/01/21 06/03/21 Rx albuterol sulfate 90 mcg/actuation 2 puff INHALATION QID PRN #6.7 g 05/17/21 06/01/21 06/03/21 Rx aerosol inhaler (ProAir HFA) prednisone 20 mg tablet 20 mg PO BID #6 tab 05/17/21 06/01/21 06/03/21 Rx ibuprofen 800 mg tablet See Rx Instructions .ROUTE 05/23/21 06/01/21 06/03/21 Rx .COMPLEX #90 tab linaclotide 72 mcg capsule 72 mcg PO DAILY 30 Days #30 cap 05/28/21 06/01/21 06/03/21 Rx (Linzess) albuterol sulfate 90 mcg/actuation 2 puff INHALATION QID 06/01/21 06/01/21 06/03/21 History aerosol inhaler (Ventolin HFA) Allergies Allergy/AdvReac Type Severity Reaction Status Date / Time aluminum hydroxide Allergy ADR-Nausea Verified 06/01/21 15:51 [From Maalox Maximum Strength] lidocaine Allergy ADR-Nausea Verified 06/01/21 15:51 magnesium hydroxide Allergy ADR-Nausea Verified 06/01/21 15:51 [From Maalox Maximum Strength] simethicone Allergy ADR-Nausea Verified 06/01/21 15:51 [From Maalox Maximum Strength] sucralfate [From Carafate] Allergy ADR-Nausea Verified 06/01/21 15:51 aspirin AdvReac Intermediate NAUSEA Verified 06/01/21 15:51 codeine AdvReac Intermediate HEADACHE Verified 06/01/21 15:51 Iodinated Contrast Media AdvReac Intermediate NAUSEA AND Verified 06/01/21 15:51 RASH tramadol AdvReac Intermediate NAUSEA Verified 06/01/21 15:51 deodorant soap Allergy Intermediate ADR-Itching Uncoded 05/28/21 13:11 Tylenol Allergy Intermediate ADR-Itching Uncoded 05/28/21 13:11 TYLENOL WITH CODEINE AdvReac Intermediate ADR-Vomitin Uncoded 05/28/21 13:11 g Current Medications Generic Name Dose Route Start Last Admin Trade Name Freq PRN Reason Stop Dose Admin Sodium Chloride 1,000 mls @ 30 mls/hr 06/04/21 09:00 06/04/21 10:02 Sodium Chloride 0.9% IV 06/05/21 08:59 30 mls/hr .Q24H MARILYN Administration PFSH Anesthesia Medical History Constipation Psychiatric care Surgical History History of cholecystectomy History of colonoscopy (~12/2019) dr. hank back History of esophagogastroduodenoscopy (EGD) (~12/2019) dr. 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
[2021-06-04 12:12] VITALS: BP 111/92; PULSE 99; RESP 12; TEMP 36.2; O2SAT 100
[2021-06-04 12:15] VITALS: BP 99/85; PULSE 93; RESP 11; O2SAT 100
--- NOTE | 2021-06-04 12:18 | PM.OP ---
Operative Report Date of procedure: June 04, 2021 Pre-op diagnosis: 1. GERD 2. Hematochezia Post-op diagnosis: 1. Nonerosive gastritis, grade a esophagitis, biopsies obtained with cold biopsy forceps 2. Internal hemorrhoids, normal colonoscopy, repeat colonoscopy in 10 years Procedure done: 1. Esophagogastroduodenoscopy with biopsy 2. Colonoscopy past splenic flexure without biopsy 3. Banding of hemorrhoids x 1 Surgeon: Reagan Hinojosa Anesthesia: MAC Disposition: PACU Procedure: The patient was taken to the operating room and placed in left lateral position under MAC. A bite block was placed. A gastroscope was introduced and advanced up to the third portion of the duodenum and slowly withdrawn. Esophagus: Normal GE junction: Z-line at 40 cm, grade a esophagitis Stomach Fundus: Normal Body: Normal Antrum: Nonerosive gastritis, biopsies obtained with cold biopsy forceps Pylorus: Normal Duodenum First portion of duodenum: Normal Second portion of duodenum: Normal Third portion of duodenum: Normal The colonoscope was introduced and advanced up to cecum with ileocecal valve and appendicular orifice was visualized and slowly withdrawn The colon prep was fair. Cecum: Normal Ascending colon: Normal Transverse colon: Normal Descending colon: Normal Sigmoid colon: Normal Rectum: Internal hemorrhoids ISAMAR: Grade 1 internal hemorrhoids An anoscope was used and the hemorrhoidal column on the left lateral side was grasped above the dentate line and 2 rubber bands were applied using a band applicator. The patient was transferred to recovery room in stable condition.
[2021-06-04 12:20] VITALS: BP 105/80; PULSE 88; RESP 15; TEMP 36.3; O2SAT 100
[2021-06-04 12:27] VITALS: BP 106/83; PULSE 86; RESP 16; TEMP 36.1; O2SAT 99
[2021-06-04 12:52] VITALS: BP 111/72; PULSE 78; RESP 16; TEMP 36.3; O2SAT 100
--- NOTE | 2021-06-04 13:50 | ANE.PACU2 ---
Inpatient post-anesthesia follow up: Airway intact: Yes Vital signs: Temperature 97.3 F Pulse Rate 78 Respiratory Rate 16 Blood Pressure 111/72 Pulse Oximetry 100 Oxygen Delivery Me thod Room Air Oxygen Flow Rate 7 Fraction of Inspir ed Oxygen Hydration adequate: Yes Nausea and vomiting: No Pain level: 1 Mental status: Baseline
--- NOTE | 2021-06-04 14:00 | P.ANESASSM_ITS ---
Pre-Anesthetic Assessment Height/Weight: Height 1.71 m Weight 99.79 kg Temp Pulse Resp BP Pulse Ox 97.3 F L 78 16 111/72 100 06/04/21 12:52 06/04/21 12:52 06/04/21 12:52 06/04/21 12:52 06/04/21 12:52 Preop Diagnosis: upper gi symptoms Operation Date: 06/04/21 10:35 Proposed Procedures p [id number]/k92.1(Not Applicable) - Reagan Hinojosa MD s Colonoscopy(Not Applicable) - Reagan Hinojosa MD s Hemorroidectomy(Not Applicable) - Reagan Hinojosa MD Familial anesthetic complications: None Was Beta Janette taken within 24 hours: N/A Was Clonidine taken within 24 hours: N/A Last intake: Intake Last Liquid Date 06/03/21 Last Liquid Time 21:00 Last Solid Date 06/03/21 Last Solid Time 10:00 Social Tobacco and No tobacco Exam alert, oriented x 3, clear to auscultation bilaterally and regular rate & rhythm Airway Submandibular: within normal limits Cervical ROM: within normal limits Mallampati: Class II Dentition: chipped Pulmonary None reported CV/HEM None reported None reported GI Gastroesophageal Reflux Disease Metabolic None reported Musc/skel Lower Back Pain Neuropsych Anxiety, Depression and Neuropathy Memory loss Anesthetic Plan ASA status: 2 Anesthesia: Anesthesia Evaluation, General and MAC Other: I discussed with the patient risks, goals, and benefits of MAC and general anesthesia. We discussed spectrum of MAC anesthesia including conversion to general as well as possibility of recall of intraoperative stimuli including discomfort/pain. Patient agrees to proceed with MAC. Risk of > 500 ml blood loss (7ml/kg in children): No Other Pertinent Information Patient seen and evaluated prior to anesthesia. Note is late entry as earlier Pre-Anesthetic Evaluation Note from today incorrectly documented. Medications/Allergies Home Medications Medication Instructions Recorded Confirmed Last Taken Type albuterol sulfate 2.5 mg (3 mL) INHALATION QID PRN 02/26/21 06/01/21 06/03/21 Rx #90 ml atorvastatin 20 mg tablet 20 mg PO DAILY #90 tab 02/26/21 06/01/21 06/03/21 Rx estradiol 10 mcg vaginal tablet 10 mcg VAGINAL .TWO TIMES PER WEEK 02/26/21 06/01/21 06/03/21 Rx (Vagifem) #8 tab montelukast 10 mg tablet 10 mg PO QDAY #30 tab 02/26/21 06/01/21 06/03/21 Rx omeprazole 40 mg capsule,delayed 40 mg PO BID #60 cap 02/26/21 06/01/21 06/03/21 Rx release ondansetron HCl 4 mg tablet 4 mg PO Q8H PRN #30 tab 04/03/21 06/01/21 06/03/21 Rx (Zofran) cyclobenzaprine 10 mg tablet 10 mg PO TID PRN 10 Days #30 tab 05/01/21 06/01/21 06/03/21 Rx doxepin 150 mg capsule 150 mg PO .HS #30 cap 05/11/21 06/01/21 06/03/21 Rx albuterol sulfate 90 mcg/actuation 2 puff INHALATION QID PRN #6.7 g 05/17/21 06/01/21 06/03/21 Rx aerosol inhaler (ProAir HFA) prednisone 20 mg tablet 20 mg PO BID #6 tab 05/17/21 06/01/21 06/03/21 Rx ibuprofen 800 mg tablet See Rx Instructions .ROUTE 05/23/21 06/01/21 06/03/21 Rx .COMPLEX #90 tab linaclotide 72 mcg capsule 72 mcg PO DAILY 30 Days #30 cap 05/28/21 06/01/21 06/03/21 Rx (Linzess) albuterol sulfate 90 mcg/actuation 2 puff INHALATION QID 06/01/21 06/01/21 06/03/21 History aerosol inhaler (Ventolin HFA) Allergies Allergy/AdvReac Type Severity Reaction Status Date / Time aluminum hydroxide Allergy ADR-Nausea Verified 06/01/21 15:51 [From Maalox Maximum Strength] lidocaine Allergy ADR-Nausea Verified 06/01/21 15:51 magnesium hydroxide Allergy ADR-Nausea Verified 06/01/21 15:51 [From Maalox Maximum Strength] simethicone Allergy ADR-Nausea Verified 06/01/21 15:51 [From Maalox Maximum Strength] sucralfate [From Carafate] Allergy ADR-Nausea Verified 06/01/21 15:51 aspirin AdvReac Intermediate NAUSEA Verified 06/01/21 15:51 codeine AdvReac Intermediate HEADACHE Verified 06/01/21 15:51 Iodinated Contrast Media AdvReac Intermediate NAUSEA AND Verified 06/01/21 15:51 RASH tramadol AdvReac Intermediate NAUSEA Verified 06/01/21 15:51 deodorant soap Allergy Intermediate ADR-Itching Uncoded 05/28/21 13:11 Tylenol Allergy Intermediate ADR-Itching Uncoded 05/28/21 13:11 TYLENOL WITH CODEINE AdvReac Intermediate ADR-Vomitin Uncoded 05/28/21 13:11 g PFSH Anesthesia Medical History Constipation Psychiatric care Surgical History H/O esophagogastroduodenoscopy (06/04/21) History of cholecystectomy History of colonoscopy (~12/2019) dr. hank back History of esophagogastroduodenoscopy (EGD) (~12/2019) dr. hank back History of fusion of cervical spine History of hysterectomy Status post colonoscopy (06/04/21) with banding of hemorrhoid Family History Other Diabetes Hypertension Social History Smoking and tobacco status: current some day smoker (Vapor) e-cigarettes E- Cigarette Details: vaporizer device and with nicotine E-cig/vape details: 1 mg Quit status (tobacco): has tried quititng Number of times tried to quit tobacco: 3 Second hand smoke exposure: No Alcohol intake: never Caregiver/support person: Yes Lives independently: Yes Household members: significant other Marital status: Current occupational status: disabled History of recent travel: No Current gender identity: Female Special oscar needs: Yes Data Anesthesia Cardiac Studies: No Data to Display
== END 2021-06-04 13:00 | disposition home or self-care (01) ==
PROVIDERS: PCP Nurse Practitioner Family; Visit Provider Surgery
PROC: 0DJ08ZZ Inspection of Upper Intestinal Tract, Via Natural or Artificial Opening Endoscopic (ICD-10-PCS; CPT 43235; principal; 2021-06-04 10:25)
PROC: 0DJD8ZZ Inspection of Lower Intestinal Tract, Via Natural or Artificial Opening Endoscopic (ICD-10-PCS; CPT 45378; 2021-06-04 10:25)
PROC: (CPT 43239; 2021-06-04 10:25)
DX: K92.1 Melena (principal); K21.9 Gastro-esophageal reflux disease without esophagitis; K29.70 Gastritis, unspecified, without bleeding; K64.8 Other hemorrhoids; F41.9 Anxiety disorder, unspecified; F32.9 Major depressive disorder, single episode, unspecified; G62.9 Polyneuropathy, unspecified; F17.290 Nicotine dependence, other tobacco product, uncomplicated
CPT/HCPCS: 43239; 45378; 46221; 88305; 88342; J2704; J7030

== ENCOUNTER → 2021-06-12 13:08 | Outpatient (BNVA) | payer MEDICARE, MEDICAID, SELFPAY | PROVIDERS: PCP Nurse Practitioner Family; Visit Provider Physician Assistant | DX: Z47.89 Encounter for other orthopedic aftercare (principal); Z98.890 Other specified postprocedural states; Z98.1 Arthrodesis status | CPT/HCPCS: 72040; 99024; 99999 ==

== ENCOUNTER → 2021-06-19 14:55 | Outpatient (BNVA) | payer MEDICARE, MEDICAID, SELFPAY | PROVIDERS: PCP Nurse Practitioner Family; Visit Provider Surgery | DX: Z98.890 Other specified postprocedural states (principal); K29.70 Gastritis, unspecified, without bleeding; B96.81 Helicobacter pylori [H. pylori] as the cause of diseases classified elsewhere; K92.1 Melena; F17.290 Nicotine dependence, other tobacco product, uncomplicated | CPT/HCPCS: 99212 ==

== ENCOUNTER → 2021-07-09 12:00 | Outpatient (BNVA) | payer MEDICARE, MEDICAID, SELFPAY | PROVIDERS: PCP Nurse Practitioner Family; Visit Provider Nurse Practitioner Family | DX: K21.9 Gastro-esophageal reflux disease without esophagitis (principal); Z13.6 Encounter for screening for cardiovascular disorders; R73.9 Hyperglycemia, unspecified; K29.70 Gastritis, unspecified, without bleeding; B96.81 Helicobacter pylori [H. pylori] as the cause of diseases classified elsewhere; K59.00 Constipation, unspecified; E89.40 Asymptomatic postprocedural ovarian failure; Z90.710 Acquired absence of both cervix and uterus; J30.2 Other seasonal allergic rhinitis; E78.5 Hyperlipidemia, unspecified; M25.9 Joint disorder, unspecified | CPT/HCPCS: 80053; 80061; 82607; 83036; 84443; 85025 ==

== ENCOUNTER 2021-08-08 18:40 | Emergency (ER) | payer MEDICARE, MEDICAID, SELFPAY ==
[2021-08-08 18:50] VITALS: BP 128/84; PULSE 106; RESP 15; TEMP 36.9; O2SAT 98
--- NOTE | 2021-08-08 20:14 | W.ED.EXTPRO ---
HPI - Extremity Problem General: Chief complaint: Extremity Injury, Lower Stated complaint: Fall-legs injury/left arm scrape Time Seen by Provider: 08/08/21 20:14 History of Present Illness: 51-year-old female comes in today for injury sustained from slipping on some steps causing her to fall onto her right side. Patient reports that her leg bent up behind her injuring her knee. Patient appears in mild to moderate pain. No obvious deformity is noted to the leg. Patient has a history of chronic back pain, intellectual disability, nicotine dependence, anxiety disorder, GERD. Associated symptoms: Deny chest pain Review of Systems General: Reports: 10 or more systems reviewed and unremarkable except in HPI and below Card: Denies: chest pain Resp: Denies: dyspnea GI: Denies: nausea or vomiting Musc: Reports: extremity pain PFSH ED PFSH: Medical History Constipation Helicobacter pylori gastritis Psychiatric care Surgical History H/O esophagogastroduodenoscopy (06/04/21) History of cholecystectomy History of colonoscopy (~12/2019) dr. hank back History of esophagogastroduodenoscopy (EGD) (~12/2019) dr. hank back History of fusion of cervical spine History of hysterectomy Status post colonoscopy (06/04/21) with banding of hemorrhoid Family History Other Diabetes Hypertension Social History Smoking and tobacco status: current some day smoker (Vapor) e-cigarettes E-Cigarette Details: vaporizer device and with nicotine E-cig/vape details: 1 mg Quit status (tobacco): has tried quititng Number of times tried to quit tobacco: 3 Second hand smoke exposure: No Alcohol intake: never Caregiver/support person: Yes Lives independently: Yes Household members: significant other Marital status: Current occupational status: disabled History of recent travel: No Current gender identity: Female Special oscar needs: Yes Physical Exam Const: COMMON NORMALS: alert HENMT: COMMON NORMALS: normocephalic HEAD & SCALP: normocephalic Neck/C-Spine: COMMON NORMALS: full ROM Resp: COMMON NORMALS: normal respiratory effort Cardio: COMMON NORMALS: regular rate RATE: regular rate Back/Pelvis: COMMON NORMALS: thoracic and lumbar spine normal to inspection Extremity: NARRATIVE EXTREMITY EXAM: No obvious deformity is noted to the right leg, patient reports tenderness and discomfort on palpation to the whole extremity. Passive range of motion normal. RIGHT LOWER EXTREMITY: Yes hip joint, Yes upper leg, Yes knee joint, Yes lower leg, Yes foot & digits and Yes foot & digits Neuro: SENSORIUM/ORIENTATION: Yes alert Course Vital Signs: Vital signs: Vital Signs Temperature 98.4 F 08/08/21 18:50 Pulse Rate 106 H 08/08/21 18:50 Respiratory Rate 15 08/08/21 18:50 Blood Pressure 128/84 08/08/21 18:50 Pulse Oximetry 98 08/08/21 18:50 MDM - Extremity (Nontraumatic) Medical Decision Making 51-year-old female comes in with right lower extremity pain after falling on some steps. On exam patient leg appears without injury. Patient does report some tenderness. Patient does have normal range of motion. Distal pulses and sensation are intact. Patient has decreased range of motion due to the right ankle most likely due to a previous surgery. Differential diagnosis includes sprain, fracture, contusions. X-ray of the femur, tib-fib, and foot showed no acute fracture, this will be reviewed by radiology for further interpretation. Recommended patient use ibuprofen for pain along with ice or heat. Patient reported understanding agreed to plan. Discharge Plan Discharge Patient Disposition: Home Clinical Impression: Fall down stairs Qualifiers: Encounter type: initial encounter Qualified Code(s): W10.8XXA - Fall (on) (from) other stairs and steps, initial encounter Right knee sprain Qualifiers: Encounter type: initial encounter Involved ligament of knee: unspecified ligament Qualified Code(s): S83.91XA - Sprain of unspecified site of right knee, initial encounter Condition: Stable Prescriptions: No Action doxepin 150 mg capsule 150 mg PO .HS Qty: 30 2RF albuterol sulfate 2.5 mg /3 mL (0.083 %) solution for nebulization 2.5 mg INHALATION QID PRN (Reason: shortness of breath or wheezing) Qty: 90 0RF ondansetron HCl [Zofran] 4 mg tablet 4 mg PO Q8H PRN (Reason: nausea and vomiting) Qty: 30 0RF cyclobenzaprine 10 mg tablet 10 mg PO TID PRN (Reason: muscle spasm) Qty: 30 0RF albuterol sulfate [ProAir HFA] 90 mcg/actuation HFA aerosol inhaler 2 puff inhalation QID PRN (Reason: shortness of breath or wheezing) Qty: 6.7 2RF Linzess 145 mcg capsule 145 mcg PO DAILY 30 Days Qty: 30 5RF estradiol [Vagifem] 10 mcg tablet 10 mcg VAGINAL .TWO TIMES PER WEEK Qty: 8 5RF montelukast 10 mg tablet 10 mg PO QDAY Qty: 30 5RF triamcinolone acetonide 0.1 % cream 1 applic topical BID 14 Days Qty: 30 0RF ibuprofen 800 mg tablet See Rx Instructions .ROUTE .COMPLEX Qty: 90 2RF Dose Instruction: TAKE ONE TABLET BY MOUTH EVERY 8 HOURS NEEDED FOR FEVER OR PAIN Rx Instructions: TAKE ONE TABLET BY MOUTH EVERY 8 HOURS NEEDED FOR FEVER OR PAIN omeprazole 40 mg capsule,delayed release(DR/EC) 40 mg PO BID Qty: 60 5RF prednisone 50 mg tablet 50 mg PO TID 1 Days Qty: 3 0RF Rx Instructions: take 13, 7, and [address] diphenhydramine HCl [Benadryl] 25 mg capsule 50 mg PO ONCE 1 Days Qty: 2 0RF Rx Instructions: Take one hour prior to scheduled CT atorvastatin 40 mg tablet 40 mg PO DAILY Qty: 90 1RF mecobalamin (vitamin B12) 1,000 mcg tablet,disintegrating 1,000 mcg sublingual DAILY Qty: 90 1RF Rx Instructions: place tablet under tongue and allow to dissolve for at least30 secs before swallowing albuterol sulfate [Ventolin HFA] 90 mcg/actuation HFA aerosol inhaler 2 puff INHALATION QID 0RF Discharge Orders: Discharge ED (Routine); Ordered 08/08/21 Ordered By: Onur Rojas Referrals: Amanda Duran FNP [Primary Care Provider] - Discharge Diet: Usual diet Discharge Activity: Increase activity as tolerated Patient Instructions: Musculoskeletal Pain (ED) Activity Restrictions/Additional Instructions: Activity as tolerated. Use crutches until he can tolerate walking on extremity. Use ice or heat to the area for discomfort. Use ibuprofen as needed for pain and discomfort. Follow-up with primary care for further instruction. Return to ER for new concerns. Coding Level of Care Code ED Core Assembly Supervisor for Eliud Carmen
--- NOTE | 2021-08-08 20:49 | XRR_ITS ---
PROCEDURE INFORMATION: Exam: XR Right Foot Exam date and time: 08/08/2021 9:17 PM Age: 51 years old Clinical indication: Pain; Right; Prior surgery; Surgery date: 6+ months; Surgery type: RT. Foot; Additional info: Injury TECHNIQUE: Imaging protocol: XR Right foot. Views: 3 or more views. COMPARISON: No relevant prior studies available. FINDINGS: Bones/joints: No acute fracture dislocation. Tiny plantar calcaneal spur. Soft tissues: Normal. Other findings: Three views submitted. XR/XR foot RT min 3V* [id number] IMPRESSION: No acute findings.
--- NOTE | 2021-08-08 20:49 | XRR_ITS ---
PROCEDURE INFORMATION: Exam: XR Right Femur Exam date and time: 08/08/2021 9:17 PM Age: 51 years old Clinical indication: Pain; Thigh; Right; Additional info: Injury TECHNIQUE: Imaging protocol: XR Right femur. Views: 2 views. COMPARISON: CT abdomen pelvis w con* [id number] 04/19/2021 6:49 PM FINDINGS: Bones/joints: Tiny os acetabuli. No acute fracture. Well maintained joint space. Soft tissues: Unremarkable. Other findings: Four views submitted. XR/XR femur RT min 2V* [id number] IMPRESSION: No acute findings.
--- NOTE | 2021-08-08 20:49 | XRR_ITS ---
PROCEDURE INFORMATION: Exam: XR Right Tibia and Fibula Exam date and time: 08/08/2021 9:17 PM Age: 51 years old Clinical indication: Pain; Lower leg; Right; Additional info: Injury TECHNIQUE: Imaging protocol: XR Right tibia and fibula. Views: 2 views. COMPARISON: No relevant prior studies available. FINDINGS: Bones/joints: Normal. Soft tissues: Normal. Other findings: Two views submitted. Proximal tibia and fibula are partially excluded on the frontal view. XR/XR tibia fibula RT 2V [id number] IMPRESSION: No acute findings.
[2021-08-08 21:49] VITALS: RESP 16
[2021-08-08] MEDS: morphine 4 mg/mL SDV 1 mL IM (21:49)
--- NOTE | 2021-08-08 22:02 | PC.NURSE ---
Pt states she has crutches at home and knows how to use them.
[2021-08-08 22:03] VITALS: BP 141/89; PULSE 96; RESP 18; TEMP 36.6; O2SAT 95
== END 2021-08-08 22:04 | disposition home or self-care (01) ==
PROVIDERS: Emergency Provider Nurse Practitioner Family; PCP Nurse Practitioner Family
DX: S83.91XA Sprain of unspecified site of right knee, initial encounter (principal); W10.9XXA Fall (on) (from) unspecified stairs and steps, initial encounter
CPT/HCPCS: 73552; 73590; 73630; 96372; 99284; J2270

== ENCOUNTER → 2021-08-27 15:10 | Outpatient (BNVA) | payer MEDICARE, MEDICAID, SELFPAY | PROVIDERS: PCP Nurse Practitioner Family; Visit Provider Podiatrist Foot & Ankle Surgery | DX: S92.023 Displaced fracture of anterior process of unspecified calcaneus (principal); S92.401A Displaced unspecified fracture of right great toe, initial encounter for closed fracture; W10.8XXA Fall (on) (from) other stairs and steps, initial encounter; S93.401A Sprain of unspecified ligament of right ankle, initial encounter; S93.601A Unspecified sprain of right foot, initial encounter | CPT/HCPCS: 73600; 73630; 99204 ==

== ENCOUNTER 2021-08-27 16:37 | Outpatient (CLI) | payer MEDICARE, MEDICAID, SELFPAY | END 2021-08-27 16:38 | disposition home or self-care (01) | LOC: SPT 16:38 | PROVIDERS: PCP Nurse Practitioner Family; Visit Provider Podiatrist Foot & Ankle Surgery | DX: Z46.89 Encounter for fitting and adjustment of other specified devices (principal); S93.601D Unspecified sprain of right foot, subsequent encounter; S92.911D Unspecified fracture of right toe(s), subsequent encounter for fracture with routine healing; X58.XXXD Exposure to other specified factors, subsequent encounter | CPT/HCPCS: 97760; L4361 ==

== ENCOUNTER → 2021-09-13 15:49 | Outpatient (BNVA) | payer MEDICARE, MEDICAID, SELFPAY | PROVIDERS: PCP Nurse Practitioner Family; Visit Provider Podiatrist Foot & Ankle Surgery | DX: S92.021D Displaced fracture of anterior process of right calcaneus, subsequent encounter for fracture with routine healing (principal); S92.414D Nondisplaced fracture of proximal phalanx of right great toe, subsequent encounter for fracture with routine healing; W10.8XXD Fall (on) (from) other stairs and steps, subsequent encounter | CPT/HCPCS: 73630; 99214 ==

== ENCOUNTER → 2021-09-25 14:52 | Outpatient (BNVA) | payer MEDICARE, MEDICAID, SELFPAY | PROVIDERS: PCP Nurse Practitioner Family; Visit Provider Orthopaedic Surgery | DX: M25.512 Pain in left shoulder (principal); M25.511 Pain in right shoulder; Z47.89 Encounter for other orthopedic aftercare; Z98.890 Other specified postprocedural states; Z98.1 Arthrodesis status | CPT/HCPCS: 72040; 99213; 99214 ==

== ENCOUNTER → 2021-10-10 14:43 | Outpatient (BNVA) | payer MEDICARE, MEDICAID, SELFPAY | PROVIDERS: PCP Nurse Practitioner Family; Visit Provider Podiatrist Foot & Ankle Surgery | DX: Z48.89 Encounter for other specified surgical aftercare (principal); S92.414D Nondisplaced fracture of proximal phalanx of right great toe, subsequent encounter for fracture with routine healing; S92.021D Displaced fracture of anterior process of right calcaneus, subsequent encounter for fracture with routine healing; W10.8XXD Fall (on) (from) other stairs and steps, subsequent encounter | CPT/HCPCS: 73630; 99214 ==

== ENCOUNTER → 2021-10-29 10:04 | Outpatient (BNVA) | payer MEDICARE, MEDICAID, SELFPAY | PROVIDERS: PCP Nurse Practitioner Family; Referring Provider Podiatrist Foot & Ankle Surgery; Visit Provider Specialist | DX: M25.561 Pain in right knee (principal); M17.0 Bilateral primary osteoarthritis of knee; S89.91XA Unspecified injury of right lower leg, initial encounter; W10.8XXA Fall (on) (from) other stairs and steps, initial encounter | CPT/HCPCS: 73560; 73565; 99204 ==

== ENCOUNTER 2021-11-15 14:45 | Outpatient (CLI) | payer MEDICARE, MEDICAID, SELFPAY ==
--- NOTE | 2021-11-15 14:30 | MR_ITS ---
WS: [id number] MRI RIGHT KNEE HISTORY: knee injury COMPARISON: Radiographs 10/29/2021 Anterior cruciate ligament: Intact. Posterior cruciate ligament: Mild increased signal in the posterior cruciate ligament. Typically seen with mucoid degeneration. No full-thickness tear. Medial collateral ligament: Intact. Posterior lateral corner structures: Intact. Medial menisci: Intact. Normal signal, size and shape. Lateral meniscus: Intact. Normal signal, size and shape. Extensor mechanism: Distal quadriceps tendon and patellar tendons are intact. Fluid and soft tissue: No joint effusion. No William's cyst. Osseous and articular structures: Patellofemoral compartment: Chondromalacia involving the patellar eminence and medial facet. Small am ount of subchondral edema in the patellar eminence and also over the medial facet. No displacement of the patella. No other marrow edema. Patellar retinaculum is normal. Medial compartment: Very minimal narrowing of the medial compartment. Very minimal surface fraying al lauri the surface of the cartilage. No full-thickness defects. No marrow edema. Lateral compartment: Minimal narrowing with surface fraying of the cartilage. No full-thickness carti skip defects. No marrow edema. MR/MR knee RT wo con* [id number] IMPRESSION: 1. 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 2. No fractures or trabecular injury. 3. Mucoid degeneration in the posterior cruciate ligament. 4. No meniscal tears.
== END 2021-11-15 14:46 | disposition home or self-care (01) ==
PROVIDERS: PCP Nurse Practitioner Family; Visit Provider Specialist
DX: M25.561 Pain in right knee (principal); M22.41 Chondromalacia patellae, right knee
CPT/HCPCS: 73721

== ENCOUNTER 2021-11-15 14:45 | Outpatient (CLI) | payer MEDICARE, MEDICAID, SELFPAY ==
--- NOTE | 2021-11-15 | MR_ITS ---
WS: [id number] MRI LUMBAR SPINE NONCONTRAST HISTORY: lower back pain/post op COMPARISON: 09/26/2020 TECHNIQUE: Sagittal and axial multisequence imaging is submitted. Prior anterior cervical fusion. Normal posterior lumbar alignment. Minimal disc space narrowing and desiccation. No acute fracture. Conus terminates normally at L1. L1-L2: Normal. L2-L3: Mild ligamentum flavum hypertrophy and facet arthritis. Very mild annular disc bulging and a s hallow LEFT foraminal disc protrusion contacting the LEFT L2 nerve root but no displacement. Similar to the prior study. L3-L4: Mild disc bulging and ligamentum flavum hypertrophy. Very mild foraminal narrowing. L4-L5: Mild annular disc bulging with ligamentum flavum hypertrophy and facet arthritis. Moderate sub articular recess stenosis. Mild contact on the traversing L5 nerve roots in the subarticular recesses . Small RIGHT foraminal disc protrusion with fissure. Only mild foraminal narrowing. New RIGHT hemila minectomy defect. L5-S1: No stenosis. Minimal disc bulging. MR/MR lumbar spine wo con* [id number] IMPRESSION: 1. Moderate bilateral subarticular recess stenosis at L4-5. Disc contacts the traversing L5 nerve roots. 2. New RIGHT hemilaminectomy defect. 3. Shallow LEFT foraminal disc protrusion at L2-3 contacting the LEFT L2 nerve root. No displacement. 4. Mild foraminal narrowing at L3-4.
== END 2021-11-15 14:46 | disposition home or self-care (01) ==
PROVIDERS: PCP Nurse Practitioner Family; Visit Provider Orthopaedic Surgery
DX: M48.061 Spinal stenosis, lumbar region without neurogenic claudication (principal); M51.26 Other intervertebral disc displacement, lumbar region
CPT/HCPCS: 72148

== ENCOUNTER → 2021-11-21 15:17 | Outpatient (BNVA) | payer MEDICARE, MEDICAID, SELFPAY | PROVIDERS: PCP Nurse Practitioner Family; Visit Provider Podiatrist Foot & Ankle Surgery | DX: W10.8XXD Fall (on) (from) other stairs and steps, subsequent encounter (principal); S92.414D Nondisplaced fracture of proximal phalanx of right great toe, subsequent encounter for fracture with routine healing | CPT/HCPCS: 73630; 99214 ==

== ENCOUNTER → 2021-11-27 15:22 | Outpatient (BNVA) | payer MEDICARE, MEDICAID, SELFPAY | PROVIDERS: PCP Nurse Practitioner Family; Visit Provider Orthopaedic Surgery | DX: M48.062 Spinal stenosis, lumbar region with neurogenic claudication (principal); Z98.1 Arthrodesis status; Z98.890 Other specified postprocedural states | CPT/HCPCS: 99214 ==

== ENCOUNTER → 2021-11-28 11:04 | Outpatient (BNVA) | payer MEDICARE, MEDICAID, SELFPAY | PROVIDERS: PCP Nurse Practitioner Family; Visit Provider Specialist | DX: M17.11 Unilateral primary osteoarthritis, right knee (principal) | CPT/HCPCS: 20610; 99213; J7318 ==

== ENCOUNTER 2021-11-28 14:49 | Outpatient (CLI) | payer MEDICARE, MEDICAID, SELFPAY | END 2021-11-28 14:50 | disposition home or self-care (01) | LOC: SPT 14:50 | PROVIDERS: PCP Nurse Practitioner Family; Visit Provider Specialist | DX: M25.561 Pain in right knee (principal) | CPT/HCPCS: 97760; L1812 ==

== ENCOUNTER 2021-12-17 16:50 | Inpatient (IN) | payer MEDICARE, MEDICAID, SELFPAY ==
[2021-12-13 08:30] VITALS: BMI 31.3
--- NOTE | 2021-12-13 09:35 | ANES.PREANE2 ---
Pre-Anesthetic Assessment Height/Weight: Height 1.7 m Weight 90.718 kg Preop Diagnosis: upper gi symptoms Operation Date: 12/17/21 11:30 Proposed Procedures p PLIF L4/5 [id number]/M48.062(Not Applicable) - Sascha Pena DO Familial anesthetic complications: none Was Beta Janette taken within 24 hours: N/A Was Clonidine taken within 24 hours: N/A Social Tobacco and No alcohol Exam alert, oriented x 3 and regular rate & rhythm Airway Submandibular: within normal limits Cervical ROM: Other (some limitation with ACDF) Mallampati: Class II Dentition: false Pulmonary Chronic Obstructive Pulmonary Disease GI Gastroesophageal Reflux Disease Metabolic Hyperlipidemia Musc/skel Lower Back Pain and Osteoarthritis/DJD Neuropsych Anxiety and Depression Anesthetic Plan ASA status: 3 Anesthesia: General Medications/Allergies Home Medications Medication Instructions Recorded Confirmed Last Taken Type albuterol sulfate 2.5 mg/3 mL 2.5 mg (3 mL) inhalation QID PRN 02/26/21 12/13/21 06/03/21 Rx (0.083 %) solution for nebulization shortness of breath or wheezing #90 mL albuterol sulfate 90 mcg/actuation 2 puff inhalation QID PRN 05/17/21 12/13/21 06/03/21 Rx aerosol inhaler (ProAir HFA) shortness of breath or wheezing #6.7 grams albuterol sulfate 90 mcg/actuation 2 puff inhalation QID 06/01/21 12/13/21 06/03/21 History aerosol inhaler (Ventolin HFA) omeprazole 40 mg capsule,delayed 40 mg PO BID #60 caps 06/07/21 12/13/21 Unknown Rx release diphenhydramine HCl 25 mg capsule 50 mg PO ONCE itching 1 day #2 caps 06/29/21 12/13/21 Unknown Rx (Benadryl) estradiol 10 mcg vaginal tablet 10 mcg vaginal .TWO TIMES PER WEEK 07/09/21 12/13/21 Unknown Rx (Vagifem) #8 tabs linaclotide 145 mcg capsule 145 mcg PO DAILY 30 days #30 caps 07/09/21 12/13/21 Unknown Rx montelukast 10 mg tablet 10 mg PO QDAY #30 tabs 07/09/21 12/13/21 Unknown Rx Short lemons boot #1 ea 08/14/21 11/28/21 Unknown Rx Cam boot to the right- short #1 ea 08/27/21 11/28/21 Unknown Rx hinged knee brace #1 ea 11/28/21 11/28/21 Unknown Rx ibuprofen 800 mg tablet 800 mg PO TID 12/13/21 12/13/21 Unknown History Allergies Allergy/AdvReac Type Severity Reaction Status Date / Time aluminum hydroxide Allergy ADR-Nausea Verified 11/28/21 11:18 [From Maalox Maximum Strength] lidocaine Allergy ADR-Nausea Verified 11/28/21 11:18 magnesium hydroxide Allergy ADR-Nausea Verified 11/28/21 11:18 [From Maalox Maximum Strength] simethicone Allergy ADR-Nausea Verified 11/28/21 11:18 [From Maalox Maximum Strength] sucralfate [From Carafate] Allergy ADR-Nausea Verified 11/28/21 11:18 aspirin AdvReac Intermediate NAUSEA Verified 11/28/21 11:18 Iodinated Contrast Media AdvReac Intermediate NAUSEA AND Verified 11/28/21 11:18 RASH tramadol AdvReac Intermediate NAUSEA Verified 11/28/21 11:18 deodorant soap Allergy Intermediate ADR-Itching Uncoded 11/28/21 11:18 Tylenol Allergy Intermediate ADR-Itching Uncoded 11/28/21 11:18 TYLENOL WITH CODEINE AdvReac Intermediate ADR-Itching Uncoded 11/28/21 11:18 [facility] Anesthesia Medical History Constipation Helicobacter pylori gastritis Psychiatric care Surgical History H/O esophagogastroduodenoscopy (06/04/21) History of cholecystectomy History of colonoscopy (~12/2019) dr. hank back History of esophagogastroduodenoscopy (EGD) (~12/2019) dr. hank back History of fusion of cervical spine History of hysterectomy Status post colonoscopy (06/04/21) with banding of hemorrhoid Family History Other Diabetes Hypertension Social History Smoking and tobacco status: current every day smoker e-cigarettes E-Cigarette Details: vaporizer device and with nicotine E-cig/vape details: 1 mg Quit status (tobacco): has tried quititng Number of times tried to quit tobacco: 3 Second hand smoke exposure: No Alcohol intake: never Caregiver/support person: Yes Lives independently: Yes Household members: significant other Marital status: Current occupational status: disabled History of recent travel: No Current gender identity: Female Special oscar needs: Yes Data Anesthesia Cardiac Studies: No Data to Display
[2021-12-17] VITALS (23 sets, daily range): BP systolic 101–150; BP diastolic 57–99; PULSE 65–105; RESP 10–20; TEMP 36.5–37.1; O2SAT 92–100
--- NOTE | 2021-12-17 | XR_ITS ---
WS: [id number] C-ARM RADIOGRAPHS LUMBAR SPINE; 4 IMAGES HISTORY: NORRIS CHELA COMPARISON: 08/22/2020 Intraoperative imaging during this extensive lumbar fusion. Fusion hardware with interbody spacers no nena at L4-5. XR/XR lumbar spine 1V port [id number] IMPRESSION: Intraoperative imaging during lumbar fusion and interbody spacer at L4-5.
--- NOTE | 2021-12-17 | SCC_ITS ---
Procedure done: 1. L4/5 Interbody fusion with posterolateral fusion 2. Instrumentation L4/5 3. Cage at L4/5 4. Laminectomy L4/5 laminectomy with partial facetectomies 5. use of autograft from same incision 6. allograft 7. Bone marrow aspirate from right iliac crest 8. Use of computer navigation sterotactic for the spine 6 seconds of fluoroscopic guidance, for a cumulative dose of 48.5 mGy, was provided to Dr. Pena by the radiology department. C-arm images of the lumbar spine were saved for the patient's permanent record. TAL
[2021-12-17] MEDS: sodium chloride 0.9% 1,000 ML 30 ML IV (10:34)
--- NOTE | 2021-12-17 12:40 | P.ANESUD_ITS ---
Pre-Anesthetic Update Pre-Anesthetic Assessment: Date of Surgery/Procedure: 12/17/21 Preop Rae gnosis: Lumbar stenosis with neurogenic claudication, DDD L-spine Proposed Procedure: Operation Date: 12/17/21 11:30 Proposed Procedures p PLIF L4/5 [id number]/M48.062(Not Applicable) - Sascha Pena, DO Any changes to Pre-Anesthetic Assessment?: No Last Intake: Intake Last Liquid Date 12/16/21 Last Liquid Time 21:30 Last Solid Date 12/16/21 Last Solid Time 19:00 Vitals: Temperature 97.7 F 12/17/21 10:21 Temperature Source Temporal Artery S can 12/17/21 10:21 Pulse Rate 85 12/17/21 10:21 Respiratory Rate 20 H 12/17/21 10:21 Blood Pressure 150/99 12/17/21 10:21 Blood Pressure Jordana n 116 12/17/21 10:21 Pulse Oximetry 97 12/17/21 10:21 Oxygen Delivery Me thod 12/17/21 10:22 Exam: Pre-Anes Outpt Exam: alert, oriented x 3, clear to auscultation bilaterally and regular rate & rhythm Cardiac Studies: No Data to Display
[2021-12-17] MEDS: midazolam 1 mg/mL INJ 2 mL 2 MG IVP (12:42)
--- NOTE | 2021-12-17 13:24 | W.PM.OPSUD ---
Surgery/Procedure H&P Update DATE OF PROCEDURE: December 17, 2021 DATE H&P PERFORMED: 11/27/21 H&P UPDATE INFORMATION: I have reviewed H&P completed within last 30 days, I have examined patient prior to procedure and No changes to prior documentation PREOP DIAGNOSIS: Lumbar stenosis with neurogenic claudication, DDD L-spine PLANNED PROCEDURE: Operation Date: 12/17/21 11:30 Proposed Procedures p PLIF L4/5 [id number]/M48.062(Not Applicable) - Sascha Pena DO
[2021-12-17] MEDS: ceFAZolin 2,000 MG in sodium chloride 0.9% (plus) 50 ML 100 MG IV ×2 (14:14→21:11)
[2021-12-17] MEDS: vancomycin 1,000 MG SDV 1000 MG XX (16:37)
[2021-12-17] MEDS: heparin, porcine 1,000 unit/mL INJ 10 mL 10000 UNIT IRRIGATION (16:37)
[2021-12-17] MEDS: HYDROmorphone 1 mg/mL INJ 1 mL 0.5 MG IVP ×3 (17:08→17:31)
--- NOTE | 2021-12-17 17:15 | PM.OP ---
Operative Report Date of procedure: December 17, 2021 Pre-op diagnosis: Preop Diagnosis Lumbar stenosis with neurogenic claudication, DDD L-spine Post-op diagnosis: same Procedure done: 1. L4/5 Interbody fusion with posterolateral fusion 2. Instrumentation L4/5 3. Cage at L4/5 4. Laminectomy L4/5 laminectomy with partial facetectomies 5. use of autograft from same incision 6. allograft 7. Bone marrow aspirate from right iliac crest 8. Use of computer navigation sterotactic for the spine Surgeon: Sascha Pena Store Standards Associate: Bob Peterson Store Standards Associate: The operating room surgical technician, Bob Peterson, PAC was needed for his expertise under the microscope. He was important and necessary throughout the procedure to complete in a safe and timely manner. He assisted with patient positioning prepping and draping tissue retraction suctioning of the operative field protection of the dural sac and tissue closure Estimated blood loss (mL): 250 Procedure: Patient is brought to the operative suite. After undergoing anesthesia, the patient had neuro monitoring attached. Patient was then placed in the prone position on the Stewart table. All areas of impingement were well-padded. Patient was then prepped and draped in the normal sterile fashion. Skin incision was then made over the L4/5 space. Subperiosteal dissection was made out to the transverse processes of L 4 and L5. Next the [employer] bone marrow aspirate kit was used to aspirate bone marrow aspirate from right iliac crest. This was done by using the sharp probe to open up the bone. Aspiration was performed and then the blunt probe was then used to dissect down to through the bone tunnel. An aspirating well drawn back a millimeter approximately 20 cc of bone marrow aspirate was used. Admixed with the allograft and autograft bone that will be used. Next the attention was brought to placing the fiducial for computer navigation. This was done by placing 2 pins into the right iliac crest. These pins were later removed at the end of the case. Fiducial was attached. The C-arm was brought in the C-arm was spun around the patient information from the C-arm was then loaded in the computer and this was later used for placing the computer navigated screws. The technique for placing the pedicle screws was to use a drill followed by the gearshift probe with computer navigation. Followed by the ball probe to feel the superior inferior medial lateral sun of the pedicles. Then placement of the screws with computer navigation. Was done at each pedicle. Screws were placed at L4 bilaterally and L5. Next attention was brought to performing the laminectomy ofL4. This was done using the high-speed bur Kerrisons and curettes. Once the lamina was removed and then attention was brought to performing a partial facetectomy on the contralateral side. This was done again using the high-speed bur curettes and Kerrisons. The ligamentum flavum was taken down bilaterally from L4 to L5. Attention was then brought to the facet on the ipsilateral side. The facet was taken down. The L5 nerve was decompressed as it passed around the L5 pedicle. The laminectomy was done for purposes of decompressing the nerve as well as placement of the cage. The L4 nerve was identified as it traversed through the L4/5 foramen. The thecal sac was identified and retracted. The L4/5 disc space was identified. Using a knife the disc base was opened. And then sequential maite were placed. The first shaver was a 6 and the last shaver was a 10. Using a pituitary and down going curette the endplates were scraped and disc material was removed from the space. Once adequate decompression of the disc base was felt to be had. Osteoamp sponge was packed into the anterior aspect of the disc base. Then a size 12 cage from [employer] was placed after packing osteoamp into the cage. While placing the cage the thecal sac and L5 nerve was protected. C arm was used to ensure that the cages placed in the appropriate position. Attention was then brought to attaching the rods to the screws placed in the L4 and L5 bilaterally. Caps were torqued into position. Locking the construct in place. Wound was copiously irrigated and then attention was brought to decorticating the facets and transverse processes laterally. Bone that was taken down from the lamina was used along with osteoamp fibers and sponges were packed into the lateral gutters along the facet joints. This was done bilaterally. Wound was then closed in a layered fashion starting with the thoracolumbar fascia. 0-vicryl was used the sub cutaneous tissue was closed with 2-0 vicryl and skin with 4-0 monocryl. Glue was then used to seal the skin and a steril dressing was applied. Patient was then placed in the supine position. The endotracheal tube was removed and patient was transferred to the PACU in stable condition.
[2021-12-17] MEDS: oxyCODONE-APAP 5-325 mg Tablet PO ×2 (18:17→23:31)
[2021-12-17] MEDS: ketorolac 30 mg/mL INJ IVP (18:18)
[2021-12-17] MEDS: lactated ringers 1,000 ML 90 ML IV (18:18)
--- NOTE | 2021-12-17 19:51 | ANE.PACU2 ---
Inpatient post-anesthesia follow up: Airway intact: Yes Vital signs: Temperature 97.7 F Pulse Rate 77 Respiratory Rate 16 Blood Pressure 110/65 Pulse Oximetry 97 Oxygen Delivery Me thod Nasal Cannula Oxygen Flow Rate 2 Fraction of Inspir ed Oxygen Hydration adequate: Yes Nausea and vomiting: No Pain level: 1 Mental status: Baseline
[2021-12-17] MEDS: cyclobenzaprine 10 mg Tablet PO (20:47)
[2021-12-17] MEDS: montelukast sodium 10 mg Tablet PO (20:47)
[2021-12-17] MEDS: pantoprazole DR 40 mg Tablet PO (20:47)
[2021-12-17] MEDS: morphine 4 mg/mL SDV 1 mL IVP (20:58)
[2021-12-18] VITALS: BP 108/71; PULSE 90; RESP 17; TEMP 36.1; O2SAT 91
[2021-12-18] MEDS: artificial tears Op Soln 15 mL Btl 1 DROP EYE-BOTH (00:38)
[2021-12-18 04:00] VITALS: BP 92/60; PULSE 100; RESP 17; TEMP 36.7; O2SAT 94
[2021-12-18 05:57] VITALS: RESP 18
[2021-12-18] MEDS: oxyCODONE-APAP 5-325 mg Tablet PO ×2 (05:57→12:04)
[2021-12-18] MEDS: ceFAZolin 2,000 MG in sodium chloride 0.9% (plus) 50 ML 100 MG IV (05:58)
[2021-12-18] MEDS: lactated ringers 1,000 ML 90 ML IV (05:59)
[2021-12-18 06:00] VITALS: PULSE 115
--- NOTE | 2021-12-18 07:29 | P.PN_ITS ---
Subjective Subjective: POD 1 Patient sitting up in bed. Reports back and leg pain. Denies any shortness of breath, chest pain, headaches. Vitals/I&O/Wt Last Vital Signs Temp 98.1 F 12/18/21 04:00 Pulse 115 H 12/18/21 06:00 Resp 18 12/18/21 05:57 BP 92/60 12/18/21 04:00 Pulse Ox 94 12/18/21 04:00 O2 Del Method 12/17/21 20:10 O2 Flow Rate 2 12/17/21 20:10 12/17/21 12/18/21 12/18/21 22:59 06:59 14:59 Intake Total 2810 / 2860 1570 / 4430 Output Total 500 / 500 470 / 970 Balance 2310 / 2360 1100 / 3460 Physical Exam Narrative: Patient presents alert and oriented x3 with a good general appearance normal mood and affect. Normal coordination normal stability. Mild tenderness around the incisional site with the incision appear with mild bloody drainage Hemovac drain intact. No signs of infection. Patient denies any fevers or chills. 5/5 motor strength both lower extremities with negative straight leg raise bilaterally. Calves are supple no medial thigh tenderness. Pulses are 2+ at the dorsalis pedis and posterior tibial region. Good capillary refill throughout normal sensation light touch both lower extremities. Urinary Catheter Management: Hernandez: Cath Placed During This Visit: yes Reason for Continuing Indwelling Catheter: Perioperative Use in Selected Surgeries Urinary Catheter Date of Insertion: 12/17/21 Urinary Catheter Time of Insertion: 14:30 A&P Assessment and plan (1) Status post lumbar spinal fusion: We will discontinue the Hernandez catheter and the Hemovac drain. Change the Silverlon dressing and reapply Silverlon dressing. Physical therapy to mobilize. Encourage incentive spirometry for pulmonary toilet. Discharge home later today we will have her follow-up in the office in 1 week's time for wound check. She will call if she is having problems. Discussed no bending lifting or twisting activities encouraged her to continue walking program. We will send her home with oxycodone for pain. Attestations Medical Necessity Statement*: home later today Coding Level of Care Code Acute Braille Translator for Eliud Carmen Diagnoses Status post lumbar spinal fusion Z98.1
[2021-12-18 08:00] VITALS: BP 107/71; PULSE 109; RESP 15; O2SAT 97
[2021-12-18] MEDS: docusate sodium 100 mg Capsule PO (08:29)
[2021-12-18] MEDS: cyclobenzaprine 10 mg Tablet PO (08:29)
[2021-12-18] MEDS: pantoprazole DR 40 mg Tablet PO (08:29)
[2021-12-18] MEDS: ketorolac 30 mg/mL INJ IVP (08:29)
--- NOTE | 2021-12-18 10:44 | PC.CHAP ---
Pastoral Care Encounter/Spiritual Assessment Type of Contact [] Declined livestock speculator visit [] Patient/Family/Request visit [] Outpatient visit [] Follow-up visit [] Physician referral [] Code/Alert [x] Routine visit [] Staff referral [] Actively dying [] Patient sleeping [] Family support [] [] Out of room [] Palliative care [] [] Receiving care in room [] Pre-surgical visit [] Trauma [] Long length of stay [] ICU visit [x] Other:on phone Relational/Emotional Strength [] Patient feels connected with others/family/visitors/staff [] Distress [] Loneliness/isolation [] Abandonment Spirituality of Patient [] Person of Angella [] Attends Orthodoxy of their Angella [] Believes in Prayer [] Reads Bible or Hoahaoism materials [] There are Spiritual issues to be addressed Vp Marketing Interventions [] Prayer [] Active listening [] Non-anxious presence [] Spiritual/emotional support [] Crisis/trauma care [] Spiritual counseling [] Bereavement support [] Provided bereavement packet [] Provided Bible/devotional materials [] Provided toy/stuffed animal, coloring book to patient or family member [] Provided Communion [] Anointing/[place] [] Salvation [] Completed spiritual assessment [] Other: Impact on Illness or Injury [] Angry [] Fearful [] Anxious [] Often cries [] Exhaustion [] Unable to work [] Unable to attend latter-day [] Unable to walk/stand [] Unable to read [] Unable to drive [] Unable to eat/drink [] Unable to sleep [] Unable to be with family [] Patient intubated [] Other: Summary Time spent with patient
[2021-12-18 12:04] VITALS: RESP 12
--- NOTE | 2021-12-18 13:20 | PC.NURSE ---
dc'd pts piv, cruz cath, hemovac drain around 0900 this am. Dressing changed on incision per dr order. CDI, no bleeding or oozing. Pt voided without difficulty. Ambulated with fww, pt steady of her feet. verbalized understanding of limitations post surgery. left via [place] to private vehicle with boyfriend and daughter. walked taken with her. all belongings taken including cell phone and dentures. No further questions or concerns.
--- NOTE | 2021-12-19 16:23 | PM.DCS ---
Discharge Providers Date of Admission: 12/17/21 16:50 Date of Discharge: December 18, 2021 Attending Provider at Admission: Sascha Pena DO Attending Provider at Discharge: Sascha Pena DO Primary Care Provider: GEORGE Finney Diagnoses at Discharge Discharge Diagnosis (1) Status post lumbar spinal fusion: Status: Acute Reason for Visit Reason for Visit: PLIF L4/5 [id number]/M48.062 Hospital Course Hospital Course uneventful Physical Exam Urinary Catheter Management: Hernandez: Cath Placed During This Visit: yes Reason for Continuing Indwelling Catheter: Perioperative Use in Selected Surgeries Urinary Catheter Date of Insertion: 12/17/21 Urinary Catheter Time of Insertion: 14:30 Discharge Data Studies Completed and Pending Completed Studies During Hospitalization Category Date Time Status XR lumbar spine 1V port [id number] Routine Exams 12/17/21 Completed Radiology Impressions Lumbar Spine X-Ray 12/17/21 00:00 IMPRESSION: Intraoperative imaging during lumbar fusion and interbody spacer at L4-5. Vitals Last Vital Signs Temp 98.1 F 12/18/21 04:00 Pulse 109 H 12/18/21 08:00 Resp 12 12/18/21 12:04 BP 107/71 12/18/21 08:00 Pulse Ox 97 12/18/21 08:00 O2 Del Method 12/18/21 08:00 O2 Flow Rate 2 12/17/21 20:10 Discharge Plan Discharge Patient Disposition: Home Health Service Condition: Stable Prescriptions: New oxycodone 5 mg tablet 5 mg PO Q4H PRN (Reason: pain) 7 Days Qty: 40 0RF Continued albuterol sulfate 2.5 mg /3 mL (0.083 %) solution for nebulization 2.5 mg INHALATION QID PRN (Reason: shortness of breath or wheezing) Qty: 90 0RF albuterol sulfate [ProAir HFA] 90 mcg/actuation HFA aerosol inhaler 2 puff inhalation QID PRN (Reason: shortness of breath or wheezing) Qty: 6.7 2RF (DME) Short lemons boot See Rx Instructions .Route .MEDSUPPLY Qty: 1 0RF Rx Instructions: As directed (DME) hinged knee brace See Rx Instructions .Route .MEDSUPPLY Qty: 1 0RF Rx Instructions: Right knee pain linaclotide 145 mcg capsule 145 mcg PO DAILY 30 Days Qty: 30 5RF estradiol [Vagifem] 10 mcg tablet 10 mcg VAGINAL .TWO TIMES PER WEEK Qty: 8 5RF montelukast 10 mg tablet 10 mg PO QDAY Qty: 30 5RF (DME) Cam boot to the right- short See Rx Instructions .Route .MEDSUPPLY Qty: 1 0RF Rx Instructions: As directed omeprazole 40 mg capsule,delayed release(DR/EC) 40 mg PO BID Qty: 60 5RF diphenhydramine HCl [Benadryl] 25 mg capsule 50 mg PO ONCE 1 Days Qty: 2 0RF Rx Instructions: Take one hour prior to scheduled CT cyclobenzaprine 10 mg Tablet 10 mg PO TID albuterol sulfate [Ventolin HFA] 90 mcg/actuation HFA aerosol inhaler 2 puff INHALATION QID No Action ibuprofen 800 mg tablet See Rx Instructions .ROUTE .COMPLEX Qty: 90 0RF Dose Instruction: TAKE ONE TABLET BY MOUTH EVERY 8 HOURS NEEDED FOR FEVER OR PAIN Rx Instructions: TAKE ONE TABLET BY MOUTH EVERY 8 HOURS NEEDED FOR FEVER OR PAIN Discharge Orders: Discharge Order (Routine); Ordered 12/18/21 Ordered By: Bob Peterson Other Ambulatory Orders: DME: Walker (Order) Location: None Selected Ordered By: Sascha Pena [place] [facility] [place]) [Outside] Sascha Pena, [Physician] - 12/25/21 1:45 pm Discharge Diet: Advance as tolerated Discharge Activity: Limit activity as instructed Patient Instructions: Oxycodone/Acetaminophen (By mouth), Lumbar Spinal Fusion (GEN), Opioid Safety Activity Restrictions/Additional Instructions: Thank you for choosing [facility] for your care! The following is a list of instructions, from your provider, to follow upon your discharge to ensure you have the optimal recovery from your recent injury or surgery. Follow-up care is a tucker part of your treatment and safety. Be sure to make and go to all appointments and call your doctor if you are having problems. If you do not already have a follow-up appointment made, call Dr. Pena's] office in the next 1-3 days to make follow up appointment for 1 weeks at [phone]. It is also a good idea to know your test results and keep a list of the medicines you take. Medications will be prescribed for you at your provider's discretion. These medications are to be used as instructed; if they are taken more often that prescribed they will not be refilled early and in most cases will not be refilled at all. > When a refill is needed, you should contact gisselle rose 2-3 business days before your prescription runs out. Medications will NOT be refilled by unit control worker providers after hours! > Many pain medications contain Tylenol (Acetaminophen). Do not consume more than 4,000 mg of Tylenol per day in total with any combination of medications. > Pain medications can cause constipation. Please use an over the counter stool softener as directed, while taking pain medications. Consult your local pharmacist with questions or recommendations on stool softeners. If constipation persists, contact our office or your primary care provider. > While under our care, you are not to receive pain medications or other controlled substances from any other provider unless our office is notified and approves. Any attempts to do so will result in refusal to prescribe any further pain medications and possible dismissal from our practice. ? Walking is essential for the healing process after surgery. We would like you to slowly advance your walking. This should be done on relatively flat clear ground (inside or out) or can be done on a treadmill. Remember this goal does not have to happen all at once, slowly increase your distance and duration. This can be broken into more more than one walk per day as tolerated. Patients who walk as directed after surgery rarely require Physical Therapy. In the unlikely event this issue arises your provider will direct hospital staff to make the appropriate arrangements. ? No lifting over 5 pounds {a gallon of milk) or bending/twisting until further notice. Each of these activities places an unnecessary amount of stress onto the body and can impede the delicate healing process. > Instead of bending at the waist, keep your back straight and bend at the knees. > Instead of twisting your torso, keep your back straight and turn your entire body with your feet. ? You may sleep in any position which makes you comfortable. Many patients find comfort sleeping in a reclining chair. It is not abnormal to have difficulty sleeping for the first several weeks following your surgery. We recommend trying Benadry! or Tylenol PM as directed to help with your sleeping difficulties. Both medications are over the counter and available without prescription. ? NO SMOKING!!! Smoking dramatically increases the probability of developing postoperative wound infections. ? Common complaints after lumbar and/or thoracic spine surgery include, but are not limited to: numbness and/or tingling in the legs, pain around the incision and surrounding tissues, muscle spasms, or stiffness of the middle to low back. Contact our office if these symptoms persist or if an acute change occurs. ? No driving for the first 3-5days, and not while taking narcotics until seen at your follow-up appointment and cleared. There are no restrictions for riding on short trips, however if you take a longer trip, arrangements should be made to make regular stops to get out of the vehicle and stretch . ? Swelling is an unfortunate event that will take place with any surgery and is the primary source of your postoperative discomfort. While walking and regular approved activities helps control inflammation, there are additional steps you can take to minimize swelling. > Place ice over the surgical site and surrounding tissue for twenty minutes, followed by applying a low/medium heat (heating pad) for an additional twenty minutes every 1-2 hours as needed for painrelief. > You may use of over the counter anti-inflammatory medications (Ibuprofen, Motrin, Aleve, Advil, etc) as directed on the package label. These types of medicines will significantly reduce the amount of discomfort you experience after surgery from swelling. It should be noted that if you have and allergy to any of these medications, or a history of ulcers or kidney disease you should consult you primary care provider prior to starting these medications. Patient's Health Concerns: none Plan of Treatment: <20lbs lfting restriction for 12 weeks Discharge Attestations Time Spent in Discharge Care*: less than 30 min Quality Metrics Clinical Quality Measures [ No reported AMI, CVA or VTE this stay] Coding Level of Care Code Acute Chg FW DC note Diagnoses Status post lumbar spinal fusion Z98.1
== END 2021-12-18 13:25 | disposition home health service (06) | DRG 455 ==
LOC: MEDSURG 17:00
PROVIDERS: Admitting Provider Orthopaedic Surgery; PCP Nurse Practitioner Family; Visit Provider Orthopaedic Surgery
PROC: 0SG00AJ Fusion of Lumbar Vertebral Joint with Interbody Fusion Device, Posterior Approach, Anterior Column, Open Approach (ICD-10-PCS; CPT 22612; principal; 2021-12-17 11:20)
DX: M48.062 Spinal stenosis, lumbar region with neurogenic claudication (principal); M51.36 Other intervertebral disc degeneration, lumbar region; K21.9 Gastro-esophageal reflux disease without esophagitis; J44.9 Chronic obstructive pulmonary disease, unspecified; F17.290 Nicotine dependence, other tobacco product, uncomplicated; Z98.1 Arthrodesis status
CPT/HCPCS: 51702; 72020; 76000; 97116; 97161; C1713; J1100; J1170; J1644; J1885; J2250; J2270; J2405; J2704; J2710; J3010; J3370; J3490; J7030

== ENCOUNTER → 2021-12-25 14:19 | Outpatient (BNVA) | payer MEDICARE, MEDICAID, SELFPAY | PROVIDERS: PCP Nurse Practitioner Family; Visit Provider Physician Assistant | DX: Z47.89 Encounter for other orthopedic aftercare (principal); Z98.1 Arthrodesis status | CPT/HCPCS: 72100; 99024 ==

== ENCOUNTER → 2022-01-01 14:39 | Outpatient (BNVA) | payer MEDICARE, MEDICAID, SELFPAY | PROVIDERS: PCP Nurse Practitioner Family; Visit Provider Physician Assistant | DX: Z98.1 Arthrodesis status (principal); Z47.89 Encounter for other orthopedic aftercare; F41.9 Anxiety disorder, unspecified | CPT/HCPCS: 72100; 81003; 99024 ==

== ENCOUNTER → 2022-01-15 13:35 | Outpatient (BNVA) | payer MEDICARE, MEDICAID, SELFPAY | PROVIDERS: PCP Nurse Practitioner Family; Visit Provider Orthopaedic Surgery | DX: Z98.1 Arthrodesis status (principal); Z47.89 Encounter for other orthopedic aftercare | CPT/HCPCS: 72100; 99024 ==

== ENCOUNTER → 2022-01-16 11:07 | Outpatient (BNVA) | payer MEDICARE, MEDICAID, SELFPAY | PROVIDERS: PCP Nurse Practitioner Family; Visit Provider Podiatrist Foot & Ankle Surgery | DX: S92.021D Displaced fracture of anterior process of right calcaneus, subsequent encounter for fracture with routine healing (principal); S92.414D Nondisplaced fracture of proximal phalanx of right great toe, subsequent encounter for fracture with routine healing; W10.8XXD Fall (on) (from) other stairs and steps, subsequent encounter | CPT/HCPCS: 99214 ==

== ENCOUNTER → 2022-01-24 17:18 | Outpatient (BNVA) | payer MEDICARE, MEDICAID, SELFPAY | PROVIDERS: PCP Nurse Practitioner Family; Visit Provider Nurse Practitioner Family | DX: M79.642 Pain in left hand (principal); K21.9 Gastro-esophageal reflux disease without esophagitis; M25.50 Pain in unspecified joint; F41.1 Generalized anxiety disorder; Z13.6 Encounter for screening for cardiovascular disorders; R73.9 Hyperglycemia, unspecified; Z79.891 Long term (current) use of opiate analgesic | CPT/HCPCS: 73130; 80053; 80061; 82306; 82607; 83036; 83735; 84443; 84550; 85025; 85651; 86038; 86140; 86200; 86431; 87070; 87075; 87077; 87184; 87205 ==

== ENCOUNTER → 2022-02-05 14:23 | Outpatient (BNVA) | payer MEDICARE, MEDICAID, SELFPAY | PROVIDERS: PCP Nurse Practitioner Family; Visit Provider Orthopaedic Surgery | DX: T81.89XA Other complications of procedures, not elsewhere classified, initial encounter (principal); Z47.89 Encounter for other orthopedic aftercare; Z98.1 Arthrodesis status; S92.414D Nondisplaced fracture of proximal phalanx of right great toe, subsequent encounter for fracture with routine healing; S92.023 Displaced fracture of anterior process of unspecified calcaneus; W10.8XXD Fall (on) (from) other stairs and steps, subsequent encounter | CPT/HCPCS: 72100; 99024; 99214 ==

== ENCOUNTER 2022-02-06 10:15 | Outpatient (CLI) | payer MEDICARE, MEDICAID, SELFPAY ==
--- NOTE | 2022-02-06 10:15 | MR_ITS ---
WS: [id number] MRI LUMBAR SPINE NONCONTRAST HISTORY: post operative lumbar fusion complications, surgery January 17, 2022. COMPARISON: 11/15/2021 TECHNIQUE: Sagittal and axial multisequence imaging is submitted. Postsurgical changes in the cervical spine. No cord compression the cervical thoracic spine identifie d on the survey imaging. Posterior lumbar alignment is normal. Very minimal anterolisthesis of L4. Posterior lumbar fusion is new at L4-5. The disc space is well preserved. Interbody spacer was noted on prior radiographs. There is a small amount of adjacent edema along the L4 and L5 endplates which can be seen postoperatively. The remaining disc spaces are well preserved. Conus terminates normally at L1-2 disc level. There is a proteinaceous fluid collection in the posterior epidural space extending from the mid L2 l evel inferiorly to the L5-S1 disc space. Collection is of increased T2 signal and intermediate signal on the T1 sequence. This collection was not present on 11/15/2021. Collection is just slightly greater to the LEFT of midline with a diameter of 4.0 cm on the axial imaging. There is extensive soft tissue edema throughout the entire lumbar region from postoperative changes. Mixed-signal tract extends obliquely in the soft tissues over the posterior lumbar spine at the L3-4 level. No well formed collection within the soft tissues. There is a small fluid collection in the in terspinous location which may be a postoperative seroma or hematoma. L1-L2: Normal. L2-L3: Mild compression upon the thecal sac but the posterior epidural collection. No high-grade sten osis. L3-L4: Central and bilateral foraminal stenosis. L4-L5: Poorly visualized due to motion and hardware artifact. L5-S1: No stenosis. MR/MR lumbar spine wo con* [id number] IMPRESSION: 1. Proteinaceous fluid collection in the posterior epidural space extends from mid L2 level inferiorly to L5-S1 disc space. Collection is posterior with grea ter to the LEFT with slight mass effect upon the thecal sac. Phlegmonous/develo ping abscess or postoperative hematoma. 2. Extensive subcutaneous edema over the posterior lumbar spine. No well-forme d fluid collections in the subcutaneous soft tissue. There is a tract that exte nds through the soft tissues which is of intermediate signal. Developing phlegm onous should be considered with the patient's history of infection and drainage . Notified Sascha Pena DO at 02/06/2022 1:13 PM.
== END 2022-02-06 10:16 | disposition home or self-care (01) ==
LOC: RAD 10:18
PROVIDERS: PCP Nurse Practitioner Family; Visit Provider Orthopaedic Surgery
DX: Z48.89 Encounter for other specified surgical aftercare (principal); M48.062 Spinal stenosis, lumbar region with neurogenic claudication; Z98.1 Arthrodesis status
CPT/HCPCS: 72148

== ENCOUNTER 2022-02-07 14:46 | Inpatient (IN) | payer MEDICARE, MEDICAID, SELFPAY ==
[2022-02-07] VITALS (8 sets, daily range): BP systolic 112–118; BP diastolic 74–79; PULSE 96–106; RESP 16–20; TEMP 36.6–36.8; O2SAT 95–98; BMI 32.9
[2022-02-07] MEDS: oxyCODONE 5 mg IR Tab/Cap PO ×2 (16:58→22:15)
[2022-02-07] MEDS: clindamycin 900 MG/50 ML PREMIX 100 MG IV (17:17)
[2022-02-07] MEDS: pantoprazole DR 40 mg Tablet PO (17:55)
[2022-02-07] MEDS: cyclobenzaprine 10 mg Tablet PO (20:00)
[2022-02-07] MEDS: morphine 4 mg/mL SDV 1 mL 2 MG IVP (20:00)
[2022-02-07] MEDS: albuterol 2.5 mg/3 mL Neb INHALATION (20:19)
[2022-02-08] VITALS (23 sets, daily range): BP systolic 107–129; BP diastolic 64–91; PULSE 78–120; RESP 12–28; TEMP 35.9–37.3; O2SAT 92–100
[2022-02-08] MEDS: morphine 4 mg/mL SDV 1 mL 2 MG IVP (01:25)
[2022-02-08] MEDS: oxyCODONE 5 mg IR Tab/Cap PO ×2 (04:55→12:41)
[2022-02-08] MEDS: albuterol 2.5 mg/3 mL Neb INHALATION ×2 (08:32→11:48)
--- NOTE | 2022-02-08 09:36 | P.HP_ITS ---
Providers/Chief Complaint Admitting Physician: Sascha Pena DO Primary Care Provider: GEORGE Finney Chief Complaint: back infection History of Present Illness Dawna Hilliard is a 51 year old female h/o of Lumbar spine fusion 6 weeks ago. She has had 2 weeks of ABX without relief. Her wound continues to drain. MRI was done which shows an abscess formation Review of Systems General: Reports: 10 or more systems reviewed and unremarkable except in HPI and below Const: Denies: fever(s) or chills Eyes: Denies: change in vision Card: Denies: chest pain or palpitations Resp: Denies: dyspnea or productive cough GI: Denies: abdominal pain, nausea or vomiting : Denies: flank pain Musc: Reports: extremity pain and extremity swelling Skin/Breast: Denies: rash Neuro: Denies: numbness in extremities, sensory changes or frequent falls Psych: Denies: suicidal ideation Brett/Lymph: Denies: easy bruising Medications/Allergies Home Medications Medication Instructions Recorded Confirmed Last Taken Type Short lemons boot #1 ea 08/14/21 02/08/22 Unknown Rx Cam boot to the right- short #1 ea 08/27/21 02/08/22 Unknown Rx hinged knee brace #1 ea 11/28/21 02/08/22 Unknown Rx diazepam 5 mg tablet (Valium) 5 mg PO Q8H PRN muscle spasm #30 01/16/22 02/08/22 Unknown Rx tabs oxycodone 5 mg tablet 5 mg PO Q4H PRN pain 7 days #40 01/16/22 02/08/22 Unknown Rx tabs albuterol sulfate 2.5 mg/3 mL 2.5 mg (3 mL) inhalation QID PRN 01/24/22 02/08/22 Unknown Rx (0.083 %) solution for nebulization shortness of breath or wheezing #90 mL albuterol sulfate 90 mcg/actuation 2 puff inhalation QID PRN 01/24/22 02/08/22 Unknown Rx aerosol inhaler (ProAir HFA) shortness of breath or wheezing #6.7 grams cyclobenzaprine 10 mg tablet 10 mg PO TID #90 tabs 01/24/22 02/08/22 Unknown Rx estradiol 10 mcg vaginal tablet 10 mcg vaginal .TWO TIMES PER WEEK 01/24/22 02/08/22 Unknown Rx (Vagifem) #8 tabs pantoprazole 40 mg tablet,delayed 40 mg PO BID #60 tabs 01/24/22 02/08/22 Unknown Rx release ibuprofen 800 mg tablet 800 mg PO Q8H PRN Pain 02/08/22 02/08/22 Unknown History linaclotide 145 mcg capsule 145 mcg PO DAILY 02/08/22 02/08/22 Unknown History (Linzess) montelukast 10 mg tablet 10 mg PO DAILY 02/08/22 02/08/22 Unknown History Allergies Allergy/AdvReac Type Severity Reaction Status Date / Time aluminum hydroxide Allergy ADR-Nausea Verified 02/05/22 14:53 [From Maalox Maximum Strength] lidocaine Allergy ADR-Nausea Verified 02/05/22 14:53 magnesium hydroxide Allergy ADR-Nausea Verified 02/05/22 14:53 [From Maalox Maximum Strength] simethicone Allergy ADR-Nausea Verified 02/05/22 14:53 [From Maalox Maximum Strength] sucralfate [From Carafate] Allergy ADR-Nausea Verified 02/05/22 14:53 aspirin AdvReac Intermediate NAUSEA Verified 02/05/22 14:53 Iodinated Contrast Media AdvReac Intermediate NAUSEA AND Verified 02/05/22 14:53 RASH tramadol AdvReac Intermediate NAUSEA Verified 02/05/22 14:53 deodorant soap Allergy Intermediate ADR-Itching Uncoded 02/05/22 14:53 Tylenol Allergy Intermediate ADR-Itching Uncoded 02/05/22 14:53 TYLENOL WITH CODEINE AdvReac Intermediate ADR-Itching Uncoded 02/05/22 14:53 PFSH Acute PFSH: Medical History Constipation Helicobacter pylori gastritis Psychiatric care Surgical History H/O esophagogastroduodenoscopy (06/04/21) History of cholecystectomy History of colonoscopy (~12/2019) dr. hank back History of esophagogastroduodenoscopy (EGD) (~12/2019) dr. hank back History of fusion of cervical spine History of hysterectomy Status post colonoscopy (06/04/21) with banding of hemorrhoid Family History Other Diabetes Hypertension Social History Smoking and tobacco status: current every day smoker e-cigarettes E-Cigarette Details: vaporizer device and with nicotine E-cig/vape details: 1 mg Quit status (tobacco): has tried quititng Number of times tried to quit tobacco: 3 Second hand smoke exposure: No Alcohol intake: never Caregiver/support person: Yes Lives independently: Yes Household members: significant other Marital status: Current occupational status: disabled History of recent travel: No Current gender identity: Female Special oscar needs: Yes Vitals/I&O/Wt Last Vital Signs Temp 99.1 F 02/08/22 04:00 Pulse 90 02/08/22 08:00 Resp 18 02/08/22 08:00 BP 113/64 02/08/22 04:00 Pulse Ox 98 02/08/22 08:00 O2 Del Method 02/08/22 08:00 02/07/22 02/08/22 02/08/22 22:59 06:59 14:59 Intake Total 770 / 770 740 / 1510 Balance 770 / 770 740 / 1510 Weight last 48 hrs Weight 216 lb 14.4 oz Weight 213 lb 9.6 oz Physical Exam Narrative: wound with drainage pain to palpation CONSTITUTIONAL: The patient is a normal appearing [] in no apparent distress. GENERAL: Patient in no acute distress. CARDIAC: Regular rate and rhythm. CHEST: Normal inspiratory effort, normal respiratory rate. ABDOMEN: Soft and nontender. SKIN: Clear, warm and intact. NEURO?PSYCH: The patient is alert and oriented to person, place and time. Sensorv /SILT Motor StrengthShoulder abduction C5 5/5Wrist extension C6 5/5Elbow extension C7 5/5Hand Concrete Block Molder C8 5/5Finger abduction T15/5 Radial/ Ulnar/ Median n intact LowerSensory (SILT)Motor StrengthHin flexion L2/3Ant/inner thigh 5/5Hip adduction L2/3 5/5Knee extension L4 Lat thigh, 5/5Toe dorsiflexion L5 5/5Ankle dorsiflexion L5/ U79[place] flexion S1 5/5 DTRBleeps 2+Triceps 2+Brachioradialis 2+Patellar 2+Achilles 2+ MUSCULOSKELETAL: [] UPPEREXTREMITIES: The patient had full active ROM in fingers, wrist, elbow, and shoulder. The patient demonstrated ability to fully flex/extend/abduct/adduct fingers, make ok sign, cross 2nd/3rd digits, extend 1st digit fully.. Radial pulse 2+, CR<2 seconds. LOWER EXTREMITIES: Pt has full, active ROM of toes, ankle, knee, and hip. Dorsalis pedis/posterior tibialis pulses 2+, CR<2 seconds. SPINE: Skin warm, dry, intact. A&P Assessment and plan (1) Status post lumbar spinal fusion: Infected lumbar spine I+D today Attestations Medical Necessity Statement*: lumbar infection Coding Level of Care Code Acute Toll Gate Keeper for Chg Fwd Diagnoses Status post lumbar spinal fusion Z98.1
[2022-02-08] MEDS: cyclobenzaprine 10 mg Tablet PO (10:04)
[2022-02-08] MEDS: pantoprazole DR 40 mg Tablet PO (10:04)
[2022-02-08] MEDS: montelukast sodium 10 mg Tablet PO (10:05)
--- NOTE | 2022-02-08 10:34 | PC.CHAP ---
Pastoral Care Encounter/Spiritual Assessment Type of Contact [] Declined manufacturing management associate visit [] Patient/Family/Request visit [] Outpatient visit [] Follow-up visit [] Physician referral [] Code/Alert [x] Routine visit [] Staff referral [] Actively dying [] Patient sleeping [] Family support [] [] Out of room [] Palliative care [] [] Receiving care in room [] Pre-surgical visit [] Trauma [] Long length of stay [] ICU visit [] Other: Relational/Emotional Strength [] Patient feels connected with others/family/visitors/staff [] Distress [] Loneliness/isolation [] Abandonment Spirituality of Patient [x] Person of Angella [] Attends Jehovah'S Witness of their Angella [x] Believes in Prayer [] Reads Bible or Adventist materials [] There are Spiritual issues to be addressed Management Professional Interventions [x] Prayer [] Active listening [] Non-anxious presence [] Spiritual/emotional support [] Crisis/trauma care [] Spiritual counseling [] Bereavement support [] Provided bereavement packet [x] Provided Bible/devotional materials [] Provided toy/stuffed animal, coloring book to patient or family member [] Provided Communion [] Anointing/[place] [] Salvation [] Completed spiritual assessment [] Other: Impact on Illness or Injury [] Angry [] Fearful [] Anxious [] Often cries [] Exhaustion [] Unable to work [] Unable to attend protestant [] Unable to walk/stand [] Unable to read [] Unable to drive [] Unable to eat/drink [] Unable to sleep [] Unable to be with family [] Patient intubated [] Other: Summary Time spent with patient 5 min
--- NOTE | 2022-02-08 14:14 | ANES.PREANE2 ---
Pre-Anesthetic Assessment Height/Weight: Height 1.71 m Weight 98.384 kg Temp Pulse Resp BP Pulse Ox O2 Del Method 97.4 F L 100 18 113/75 94 02/08/22 14:05 02/08/22 14:05 02/08/22 14:05 02/08/22 14:05 02/08/22 14:05 02/08/22 14:05 Preop Diagnosis: spinal abscess Operation Date: 02/08/22 14:45 Proposed Procedures p Incision and Drainage(Not Applicable) - Sascha Pena DO s Lumbar Laminotomy(Not Applicable) - Sascha Pena DO Familial anesthetic complications: None Was Beta Janette taken within 24 hours: N/A Was Clonidine taken within 24 hours: N/A Last intake: Intake Last Liquid Date 02/07/22 Last Liquid Time 23:00 Last Solid Date 02/07/22 Last Solid Time 20:00 Social Tobacco and No alcohol Exam alert, oriented x 3, clear to auscultation bilaterally and regular rate & rhythm Airway Mallampati: Class II Dentition: false Comments: Comments: s/p ACDF w/ some limited extension Pulmonary Chronic Obstructive Pulmonary Disease GI Gastroesophageal Reflux Disease Metabolic Hyperlipidemia Neuropsych Anxiety Anesthetic Plan ASA status: 3 Anesthesia: General Risk of > 500 ml blood loss (7ml/kg in children): No Medications/Allergies Home Medications Medication Instructions Recorded Confirmed Last Taken Type Short lemons boot #1 ea 08/14/21 02/08/22 Unknown Rx Cam boot to the right- short #1 ea 08/27/21 02/08/22 Unknown Rx hinged knee brace #1 ea 11/28/21 02/08/22 Unknown Rx diazepam 5 mg tablet (Valium) 5 mg PO Q8H PRN muscle spasm #30 01/16/22 02/08/22 Unknown Rx tabs oxycodone 5 mg tablet 5 mg PO Q4H PRN pain 7 days #40 01/16/22 02/08/22 Unknown Rx tabs albuterol sulfate 2.5 mg/3 mL 2.5 mg (3 mL) inhalation QID PRN 01/24/22 02/08/22 Unknown Rx (0.083 %) solution for nebulization shortness of breath or wheezing #90 mL albuterol sulfate 90 mcg/actuation 2 puff inhalation QID PRN 01/24/22 02/08/22 Unknown Rx aerosol inhaler (ProAir HFA) shortness of breath or wheezing #6.7 grams cyclobenzaprine 10 mg tablet 10 mg PO TID #90 tabs 01/24/22 02/08/22 Unknown Rx estradiol 10 mcg vaginal tablet 10 mcg vaginal .TWO TIMES PER WEEK 01/24/22 02/08/22 Unknown Rx (Vagifem) #8 tabs pantoprazole 40 mg tablet,delayed 40 mg PO BID #60 tabs 01/24/22 02/08/22 Unknown Rx release ibuprofen 800 mg tablet 800 mg PO Q8H PRN Pain 02/08/22 02/08/22 Unknown History linaclotide 145 mcg capsule 145 mcg PO DAILY 02/08/22 02/08/22 Unknown History (Linzess) montelukast 10 mg tablet 10 mg PO DAILY 02/08/22 02/08/22 Unknown History Allergies Allergy/AdvReac Type Severity Reaction Status Date / Time aluminum hydroxide Allergy ADR-Nausea Verified 02/05/22 14:53 [From Maalox Maximum Strength] lidocaine Allergy ADR-Nausea Verified 02/05/22 14:53 magnesium hydroxide Allergy ADR-Nausea Verified 02/05/22 14:53 [From Maalox Maximum Strength] simethicone Allergy ADR-Nausea Verified 02/05/22 14:53 [From Maalox Maximum Strength] sucralfate [From Carafate] Allergy ADR-Nausea Verified 02/05/22 14:53 aspirin AdvReac Intermediate NAUSEA Verified 02/05/22 14:53 Iodinated Contrast Media AdvReac Intermediate NAUSEA AND Verified 02/05/22 14:53 RASH tramadol AdvReac Intermediate NAUSEA Verified 02/05/22 14:53 deodorant soap Allergy Intermediate ADR-Itching Uncoded 02/05/22 14:53 Tylenol Allergy Intermediate ADR-Itching Uncoded 02/05/22 14:53 TYLENOL WITH CODEINE AdvReac Intermediate ADR-Itching Uncoded 02/05/22 14:53 Current Medications Generic Name Dose Route Start Last Admin Trade Name Freq PRN Reason Stop Dose Admin Albuterol Sulfate 2.5 mg 02/07/22 16:53 02/08/22 11:48 Albuterol 2.5 Mg/3 Ml Neb INHALATION 2.5 mg QID PRN Administration shortness of breath or wheezing Albuterol Sulfate 2 puff 02/07/22 20:00 02/08/22 11:48 Albuterol 8 Gm Mdi INHALATION Not Given QID.RESPIRATORY MAIRLYN Cyclobenzaprine HCl 10 mg 02/07/22 21:00 02/08/22 10:04 Cyclobenzaprine 10 Mg Tablet PO 10 mg TID MARILYN Administration Montelukast Sodium 10 mg 02/08/22 09:00 02/08/22 10:05 Montelukast Sodium 10 Mg Tablet PO 10 mg DAILY MARILYN Administration Morphine Sulfate 2 mg 02/07/22 16:41 02/08/22 01:25 Morphine 4 Mg/Ml Sdv 1 Ml IVP 2 mg Q2H PRN Administration SEVERE PAIN Non-Formulary Medication 0 dose 02/08/22 09:00 02/08/22 10:05 Linaclotide [Linzess] PO Not Given DAILY MARILYN Oxycodone HCl 5 - 10 mg 02/07/22 16:42 02/08/22 12:41 Oxycodone 5 Mg Ir Tab/Cap PO 10 mg Q4H PRN Administration MODERATE PAIN Pantoprazole Sodium 40 mg 02/07/22 18:00 02/08/22 10:[address] 40 Mg Tablet PO 40 mg BID MARILYN Administration PFSH Anesthesia Medical History Constipation Helicobacter pylori gastritis Psychiatric care Surgical History H/O esophagogastroduodenoscopy (06/04/21) History of cholecystectomy History of colonoscopy (~12/2019) dr. hank back History of esophagogastroduodenoscopy (EGD) (~12/2019) dr. hank back History of fusion of cervical spine History of hysterectomy Status post colonoscopy (06/04/21) with banding of hemorrhoid Family History Other Diabetes Hypertension Social History Smoking and tobacco status: current every day smoker e-cigarettes E-Cigarette Details: vaporizer device and with nicotine E-cig/vape details: 1 mg Quit status (tobacco): has tried quititng Number of times tried to quit tobacco: 3 Second hand smoke exposure: No Alcohol intake: never Caregiver/support person: Yes Lives independently: Yes Household members: significant other Marital status: Current occupational status: disabled History of recent travel: No Current gender identity: Female Special oscar needs: Yes Data Anesthesia Cardiac Studies: No Data to Display
[2022-02-08] MEDS: sodium chloride 0.9% 1,000 ML 30 ML IV (14:47)
--- NOTE | 2022-02-08 14:56 | PC.NURSE ---
1415 pt to surgery via hospital bed
[2022-02-08] MEDS: clindamycin 900 MG/50 ML PREMIX 100 MG IV (15:20)
[2022-02-08] MEDS: vancomycin 1,000 MG SDV 1000 MG XX (17:15)
--- NOTE | 2022-02-08 17:58 | P.OP_ITS ---
Operative Report Date of procedure: February 08, 2022 Pre-op diagnosis: Preop Diagnosis spinal abscess Post-op diagnosis: same Procedure done: 1. L2/3 laminectomy with partial facetectomy 2. L3/4 laminectomy with partial facetectomy 3. Irrigation and debridement down to bone of spainal abscess Specimens removed/disposition: cultures deep Surgeon: Sascha Pena Estimated blood loss (mL): 500 Procedure: 1. L2/3 laminectomy with partial facetectomy 2. L3/4 laminectomy with partial facetectomy 3. Irrigation and debridement down to bone of spainal abscess Patient was taken to the OR after undergoing anesthesia was placed prone on the table all areas impingement were well-padded. Patient was prepped and draped normal sterile fashion. Skin incision was ellipsed out from previous and extended up prior. Dissection was made down to the fascia which was mostly scar tissue this was opened and then the retractors were placed. There was small amount of pus in the right side and around the right L4 pedicle screw. The attention was brought to the laminectomies first and her to start normal tissue. The high-speed bur was used to form laminectomy along with a rongeur laminectomy of L3 and L4 were taken down the ligamentum flavum between L3 and 4 was taken down and then underneath this there was a large amount of what looked like fat and phlegmon this is also identified in the MRI this was taken for culture and then the Kerrison rongeur was used to do bride phlegmon ligamentum flavum and facet medially in order to facilitate opening up the L3-4 canal. This type was then repeated again at the L2-3 level. Kerrison rongeur was used to take down the spinous process at the L2-3 level and the laminectomies performed of L2 the ligamentum flavum was taken down from L2- L3. In the again ligament plate was taken down and there was a fatty phlegmon underneath which was causing a compression of the thecal sac. This was all op ened up the dura was found to be in good repair. And the wound was then irrigated out debrided the bone was divided at L5-S1 as well more bone was taken in the scar tissue was taken down down to the dura and then what was scarred to the dura left remained again wound was irrigated out with a liter of saline and vancomycin mycin powder was placed the deep drain was placed and the wound was closed in a layered fashion with 0 Vicryl 2-0 Vicryl and nylon suture was used to close the skin. A deep drain was placed and Steri-Stripped and sterile dressings were applied patient was transferred to the PACU in stable addition.
--- NOTE | 2022-02-08 18:00 | SUR.OPER ---
1800 verify piercings intact at both ears. both metal balls attached to piercing, bilaterally. no redness noted.
--- NOTE | 2022-02-08 18:32 | P.PCN_ITS ---
PACU note Narrative: VSS, Good respiratory effort, report to COBOL PROGRAMMER Exam: awake
--- NOTE | 2022-02-08 18:32 | PM.PACU ---
PACU note Narrative: VSS, Good respiratory effort, report to DIRECTOR MERIT SYSTEM Exam: awake
--- NOTE | 2022-02-08 19:00 | ANE.PACU2 ---
Inpatient post-anesthesia follow up: Airway intact: Yes Vital signs: Temperature 98.4 F Pulse Rate 99 Respiratory Rate 16 Blood Pressure 102/66 Pulse Oximetry 92 Oxygen Delivery Me thod Room Air Oxygen Flow Rate 7 Fraction of Inspir ed Oxygen Hydration adequate: Yes Nausea and vomiting: No Pain level: 1 Mental status: Baseline
--- NOTE | 2022-02-08 19:30 | SUR.OPER ---
1549 pt has bilateral ear piercings at [facility]. pt stated multiple times Leave my earrings in my ears. do not take them out. I want them in during surgery. explained risks to patient and pt acked. Genna Molina at bedside and verified conversation.
[2022-02-08] MEDS: vancomycin 1,000 MG in sodium chloride 0.9% 250 ML 250 MG IV (20:33)
[2022-02-09] VITALS (15 sets, daily range): BP systolic 90–132; BP diastolic 58–79; PULSE 88–123; RESP 16–18; TEMP 36.4–36.9; O2SAT 92–100; BMI 35.2
[2022-02-09] MEDS: ketorolac 30 mg/mL INJ IVP ×3 (00:40→20:21)
[2022-02-09] MEDS: oxyCODONE 5 mg IR Tab/Cap PO ×3 (00:41→20:19)
[2022-02-09] MEDS: lactated ringers 1,000 ML 90 ML IV ×2 (03:33→17:54)
[2022-02-09] MEDS: vancomycin 1,000 MG in sodium chloride 0.9% 250 ML 250 MG IV ×2 (06:38→18:36)
--- NOTE | 2022-02-09 07:46 | P.PN_ITS ---
Subjective Subjective: Patient pain controlled Vitals/I&O/Wt Last Vital Signs Temp 97.6 F 02/09/22 07:33 Pulse 88 02/09/22 07:33 Resp 16 02/09/22 07:33 BP 118/77 02/09/22 07:33 Pulse Ox 100 02/09/22 07:33 O2 Del Method 02/09/22 07:33 O2 Flow Rate 7 02/08/22 18:28 02/08/22 02/09/22 02/09/22 22:59 06:59 14:59 Intake Total 1420 / 1420 Output Total 100 / 100 350 / 350 Balance 1320 / 1320 -350 / -350 Weight last 48 hrs Weight 224 lb 12.8 oz Weight 216 lb 14.4 oz Weight 213 lb 9.6 oz Physical Exam Narrative: drain in place legs feeling better A&P Assessment and plan (1) Status post lumbar spinal fusion: POD#1 I+D lumbar spine await cultures PICC line Attestations Medical Necessity Statement*: Culture and PICC Coding Level of Care Code Acute Injection Molding Machine Offbearer for Eliud Fwmuriel Diagnoses Status post lumbar spinal fusion Z98.1
[2022-02-09] MEDS: albuterol 2.5 mg/3 mL Neb INHALATION ×3 (08:06→20:10)
--- NOTE | 2022-02-09 08:19 | PC.NURSE ---
Patient got herself up to the bedside commode after being instructed to call for help and not to get up; she got real anxious and said she forgot to call. She calmed down after deep breathing. Her oxygen saturation was 92% on room air. At this time there was drainage on her dressing. I reinforced the dressing with 4x4s and an abd and then covered with transpore tape. There was no drainage in her hemovac and it was compressed properly.
[2022-02-09] MEDS: montelukast sodium 10 mg Tablet PO (08:56)
[2022-02-09] MEDS: pantoprazole DR 40 mg Tablet PO ×2 (08:56→17:53)
[2022-02-09] MEDS: cyclobenzaprine 10 mg Tablet PO ×3 (08:56→20:19)
[2022-02-09 09:30] LABS: Basophils % 0.1 %; Hematocrit 26.5 % (37.0-47.0); Hemoglobin 8.2 g/dL (11.5-15.3); Lymphocytes # 1.1 10^3/uL (0.8-4.8); Lymphocytes % 9.5 %; Mean Corpuscular HGB Conc 30.9 g/dL (30.0-36.0); Mean Corpuscular Hemoglobin 28.4 pg (28.0-34.0); Mean Corpuscular Volume 91.7 fl (81-99); Mean Platelet Volume 8.8 fL (7.4-10.4); Monocytes # 0.3 10^3/uL (0.2-0.9); Monocytes % 2.8 %; Neutrophils # 10.13 10^3/uL (1.8-7.7); Neutrophils % 87.1 %; Nucleated Red Blood Cells % 0 %; Platelet Count 344 10^3/cmm (130-400); Red Blood Count 2.89 10^6/uL (4.1-5.3); Red Cell Distribution Width 14.6 % (12.1-15.1); White Blood Count 11.6 10^3/uL (4.0-10.0)
[2022-02-09 09:40] LABS: Erythrocyte Sedimentation Rate 25 mm/hr (0-15)
[2022-02-09 09:49] LABS: C Reactive Protein 144.3 mg/L (0.0-4.9)
--- NOTE | 2022-02-09 10:52 | PC.NURSE ---
Verbal order received from Dr. Pena to remove Hemovac and change the dressing.
[2022-02-09] MEDS: docusate sodium 100 mg Capsule PO ×2 (11:22→17:52)
[2022-02-09] MEDS: diazePAM 5 mg Tablet PO ×2 (14:14→22:29)
[2022-02-10] VITALS (13 sets, daily range): BP systolic 94–119; BP diastolic 63–81; PULSE 94–114; RESP 16–18; TEMP 36.4–37.2; O2SAT 96–100
[2022-02-10] MEDS: diazePAM 5 mg Tablet PO ×3 (06:15→21:36)
[2022-02-10] MEDS: oxyCODONE 5 mg IR Tab/Cap PO ×3 (06:15→21:36)
[2022-02-10] MEDS: lactated ringers 1,000 ML 90 ML IV ×2 (06:16→17:56)
[2022-02-10] MEDS: vancomycin 1,000 MG in sodium chloride 0.9% 250 ML 250 MG IV ×2 (06:17→19:00)
[2022-02-10] MEDS: albuterol 2.5 mg/3 mL Neb INHALATION ×3 (07:52→20:34)
[2022-02-10] MEDS: docusate sodium 100 mg Capsule PO ×2 (09:16→17:03)
[2022-02-10] MEDS: cyclobenzaprine 10 mg Tablet PO ×3 (09:16→21:36)
[2022-02-10] MEDS: pantoprazole DR 40 mg Tablet PO ×2 (09:16→17:03)
[2022-02-10] MEDS: montelukast sodium 10 mg Tablet PO (09:16)
--- NOTE | 2022-02-10 11:50 | PM.PN ---
Subjective Subjective: Patient is postop day #2 from I&D of her back wound. At this point patient pain is controlled legs feel better. Anticipate discharge tomorrow after the PICC line. Vitals/I&O/Wt Last Vital Signs Temp 97.8 F 02/10/22 07:48 Pulse 94 02/10/22 07:58 Resp 16 02/10/22 07:58 BP 95/78 02/10/22 07:48 Pulse Ox 97 02/10/22 07:58 O2 Del Method 02/10/22 07:58 O2 Flow Rate 7 02/08/22 18:28 02/09/22 02/10/22 02/10/22 22:59 06:59 14:59 Intake Total 730 / 2340 1000 / 3340 600 / 600 Output Total 700 / 1650 300 / 300 Balance 730 / 1390 300 / 1690 300 / 300 Weight last 48 hrs Weight 224 lb 12.8 oz Physical Exam Narrative: Patient standing I arrived to the room dressing at this point is clean dry intact. She did have some drainage and dressing was changed. Data 02/09/22 09:20 Micro: Microbiology 02/08/22 15:55 Anaerobic Culture - Preliminary Back 02/08/22 15:55 Wound Culture - Preliminary Back Coag positive Staphylococcus A&P Assessment and plan (1) Status post lumbar spinal fusion: Status post I&D of her back wound as well as two-level decompression. Postop day #2. Anticipate PICC line set up tomorrow and discharge tomorrow. Attestations Medical Necessity Statement*: Patient can discharge after PICC line and IV antibiotics for home. Coding Level of Care Code Acute Medical Sales Representative for Eliud Carmen Diagnoses Status post lumbar spinal fusion Z98.1
--- NOTE | 2022-02-10 12:58 | PC.SOCIAL ---
IMM Update pg 2 of IMM updated and reviewed w/ patient. Copy provided and copy placed in chart dated and initialed.
[2022-02-10] MEDS: lactulose oral liq 20 gm/30 mL UDC 30 GM PO (14:41)
--- NOTE | 2022-02-10 17:05 | P.CONIM_ITS ---
Providers/Reason For Consult Consulting Physician/Specialty*: Dr. Pena/ NCharleen Reason for Consult*: IV antibiotics Attending Physician: Sascha Pena DO Primary Care Provider: GEORGE Finney History of Present Illness History of Present Illness Dawna Hilliard is a 51 year old female with no significant past medical history was admitted under neurosurgery, for the management of wound in the lumbar spine surgery area: Patient underwent lumbar spine fusion 6 weeks back She was on 2 weeks of antibiotics but the wound has continued to drain, MRI done on 02/06 of this month had shown abscess formation. Patient vitals labs and imaging studies were reviewed. Review of Systems General: Reports: 10 or more systems reviewed and unremarkable except in HPI and below Const: Denies: fever(s), chills, body aches, change in appetite or diaphoresis Card: Denies: palpitations, edema, swelling of feet/ankles, dyspnea on exertion, orthopnea or leg pain with exertion Resp: Denies: dyspnea, productive cough, wheezing or pain on inspiration GI: Denies: abdominal pain, nausea, vomiting, diarrhea or constipation : Denies: flank pain Musc: Denies: extremity pain or extremity swelling Neuro: Denies: headache(s), difficulty walking or confusion Medications/Allergies Home Medications Medication Instructions Recorded Confirmed Last Taken Type Short lemons boot #1 ea 08/14/21 02/08/22 Unknown Rx Cam boot to the right- short #1 ea 08/27/21 02/08/22 Unknown Rx hinged knee brace #1 ea 11/28/21 02/08/22 Unknown Rx diazepam 5 mg tablet (Valium) 5 mg PO Q8H PRN muscle spasm #30 01/16/22 02/08/22 Unknown Rx tabs oxycodone 5 mg tablet 5 mg PO Q4H PRN pain 7 days #40 01/16/22 02/08/22 Unknown Rx tabs albuterol sulfate 2.5 mg/3 mL 2.5 mg (3 mL) inhalation QID PRN 01/24/22 02/08/22 Unknown Rx (0.083 %) solution for nebulization shortness of breath or wheezing #90 mL albuterol sulfate 90 mcg/actuation 2 puff inhalation QID PRN 01/24/22 02/08/22 Unknown Rx aerosol inhaler (ProAir HFA) shortness of breath or wheezing #6.7 grams cyclobenzaprine 10 mg tablet 10 mg PO TID #90 tabs 01/24/22 02/08/22 Unknown Rx estradiol 10 mcg vaginal tablet 10 mcg vaginal .TWO TIMES PER WEEK 01/24/22 02/08/22 Unknown Rx (Vagifem) #8 tabs pantoprazole 40 mg tablet,delayed 40 mg PO BID #60 tabs 01/24/22 02/08/22 Unknown Rx release ibuprofen 800 mg tablet 800 mg PO Q8H PRN Pain 02/08/22 02/08/22 Unknown History linaclotide 145 mcg capsule 145 mcg PO DAILY 02/08/22 02/08/22 Unknown History (Linzess) montelukast 10 mg tablet 10 mg PO DAILY 02/08/22 02/08/22 Unknown History Allergies Allergy/AdvReac Type Severity Reaction Status Date / Time aluminum hydroxide Allergy ADR-Nausea Verified 02/05/22 14:53 [From Maalox Maximum Strength] lidocaine Allergy ADR-Nausea Verified 02/05/22 14:53 magnesium hydroxide Allergy ADR-Nausea Verified 02/05/22 14:53 [From Maalox Maximum Strength] simethicone Allergy ADR-Nausea Verified 02/05/22 14:53 [From Maalox Maximum Strength] sucralfate [From Carafate] Allergy ADR-Nausea Verified 02/05/22 14:53 aspirin AdvReac Intermediate NAUSEA Verified 02/05/22 14:53 Iodinated Contrast Media AdvReac Intermediate NAUSEA AND Verified 02/05/22 14:53 RASH tramadol AdvReac Intermediate NAUSEA Verified 02/05/22 14:53 deodorant soap Allergy Intermediate ADR-Itching Uncoded 02/05/22 14:53 Tylenol Allergy Intermediate ADR-Itching Uncoded 02/05/22 14:53 TYLENOL WITH CODEINE AdvReac Intermediate ADR-Itching Uncoded 02/05/22 14:53 Current Medications Generic Name Dose Route Start Last Admin Trade Name Freq PRN Reason Stop Dose Admin Albuterol Sulfate 2.5 mg 02/07/22 16:53 02/08/22 11:48 Albuterol 2.5 Mg/3 Ml Neb INHALATION 2.5 mg QID PRN Administration shortness of breath or wheezing Albuterol Sulfate 2.5 mg 02/08/22 20:00 02/10/22 15:39 Albuterol 2.5 Mg/3 Ml Neb INHALATION 2.5 mg QID.RESPIRATORY MARILYN Administration Cyclobenzaprine HCl 10 mg 02/07/22 21:00 02/10/22 14:41 Cyclobenzaprine 10 Mg Tablet PO 10 mg TID MARILYN Administration Diazepam 5 mg 02/07/22 16:53 02/10/22 11:29 Diazepam 5 Mg Tablet PO 5 mg Q8H PRN Administration muscle spasm Docusate Sodium 100 mg 02/08/22 18:00 02/10/22 17:03 Docusate Sodium 100 Mg Capsule PO 100 mg BID MARILYN Administration Lactated Ringer's 1,000 mls @ 30 mls/hr 02/08/22 17:45 02/10/22 06:16 Lactated Ringers IV 90 mls/hr .Q24H MARILYN Administration Vancomycin HCl 1,000 mg/ 250 mls @ 250 mls/hr 02/08/22 19:00 02/10/22 06:17 Sodium Chloride IV 250 mls/hr Q12H MARILYN Administration Protocol Ketorolac Tromethamine 30 mg 02/08/22 17:36 02/09/22 20:21 Ketorolac 30 Mg/Ml Inj IVP 30 mg Q6H PRN Administration BREAKTHROUGH PAIN Lactulose 30 gm 02/10/22 15:00 02/10/22 14:41 Lactulose Oral Liq 20 Gm/30 Ml Udc PO 30 gm TID MARILYN Administration Montelukast Sodium 10 mg 02/08/22 09:00 02/10/22 09:16 Montelukast Sodium 10 Mg Tablet PO 10 mg DAILY [facility] Administration Morphine Sulfate 2 mg 02/07/22 16:41 02/08/22 01:25 Morphine 4 Mg/Ml Sdv 1 Ml IVP 2 mg Q2H PRN Administration SEVERE PAIN Non-Formulary Medication 0 dose 02/08/22 09:00 02/10/22 09:17 Linaclotide [Linzess] PO Not Given DAILY [facility] Oxycodone HCl 5 - 10 mg 02/07/22 16:42 02/10/22 16:16 Oxycodone 5 Mg Ir Tab/Cap PO 10 mg Q4H PRN Administration MODERATE PAIN Pantoprazole Sodium 40 mg 02/07/22 18:00 02/10/22 17:[address] 40 Mg Tablet PO 40 mg BID MARILYN Administration PFSH Acute PFSH: Medical History Constipation Helicobacter pylori gastritis Psychiatric care Surgical History H/O esophagogastroduodenoscopy (06/04/21) History of cholecystectomy History of colonoscopy (~12/2019) dr. hank back History of esophagogastroduodenoscopy (EGD) (~12/2019) dr. hank back History of fusion of cervical spine History of hysterectomy Status post colonoscopy (06/04/21) with banding of hemorrhoid Family History Other Diabetes Hypertension Social History Smoking and tobacco status: current every day smoker e-cigarettes E-Cigarette Details: vaporizer device and with nicotine E-cig/vape details: 1 mg Quit status (tobacco): has tried quititng Number of times tried to quit tobacco: 3 Second hand smoke exposure: No Alcohol intake: never Caregiver/support person: Yes Lives independently: Yes Household members: significant other Marital status: Current occupational status: disabled History of recent travel: No Current gender identity: Female Special oscar needs: Yes Vitals/I&O/Wt Last Vital Signs Temp 98.1 F 02/10/22 15:20 Pulse 96 02/10/22 15:39 Resp 18 02/10/22 16:16 BP 103/64 02/10/22 15:20 Pulse Ox 98 02/10/22 15:39 O2 Del Method 02/10/22 15:39 O2 Flow Rate 7 02/08/22 18:28 02/10/22 02/10/22 02/10/22 06:59 14:59 22:59 Intake Total 1000 / 3340 840 / 840 Output Total 700 / 1650 300 / 300 Balance 300 / 1690 540 / 540 Weight last 48 hrs Weight 101.968 kg Physical Exam Resp: COMMON NORMALS: normal respiratory effort, No retractions, No use of accessory muscles and clear to auscultation bilaterally EFFORT & INSPECTION: Yes symmetric chest movement AUSCULTATION: clear to auscultation bilaterally Cardio: COMMON NORMALS: regular rate, regular rhythm, S1 normal heart sound present, S2 normal heart sound present, No gallops present (Cardio), No murmurs present (Cardio), No rub (Cardio) and Peripheral pulses 2+ throughout RATE: regular rate RHYTHM: regular rhythm HEART SOUNDS: S1 normal heart sound present and S2 normal heart sound present PERIPHERAL PULSES: Peripheral pulses 2+ throughout GI: COMMON NORMALS: Normal to inspection, nondistended, normoactive bowel sounds present, Soft to palpation, non-tender, No hepatosplenomegaly present and no masses AUSCULTATION: Yes normoactive bowel sounds PALPATION: Yes Soft to palpation and Yes No hepatosplenomegaly present RECTAL EXAM: deferred Extremity: COMMON NORMALS: no clubbing, cyanosis or edema and no pedal edema Data 02/09/22 09:20 Micro: Microbiology 02/08/22 15:55 Anaerobic Culture - Preliminary Back 02/08/22 15:55 Wound Culture - Preliminary Back Coag positive Staphylococcus A&P Assessment and plan (1) Status post lumbar spinal fusion: Plan 51 year old female with no significant past medical history was admitted under neurosurgery, for the management of wound in the lumbar spine surgery area: Patient underwent lumbar spine fusion 6 weeks back She was on 2 weeks of antibiotics but the wound has continued to drain, MRI done on 02/06 of this month had shown abscess formation. Assessment: Lumbar spine abscess: Status post lumbar spine fusion S/p I&D Wound culture is currently growing: Coagulase positive staph, prior wound culture has grown MSSA. Currently she is on vancomycin. Patient will likely need 2 to 4 weeks of IV antibiotics, pending sensitivity. PICC line will be placed, will continue with vancomycin for now. Consult Attestations Medical Necessity Statement: Per primary. Coding Level of Care Code Acute General Passenger Agent for Eliud Carmen Diagnoses Status post lumbar spinal fusion Z98.1
--- NOTE | 2022-02-10 21:42 | PC.NURSE ---
Vancomycin 1900 Vancomycin was administered by LATRICIA Wright from day shift, medication was running but was not scanned. Manual administration charted on MAY by this nurse.
[2022-02-11] VITALS (9 sets, daily range): BP systolic 110–158; BP diastolic 65–102; PULSE 94–114; RESP 16–20; TEMP 36.7–37.1; O2SAT 91–96
[2022-02-11 05:36] LABS: Basophils % 0.3 %; Eosinophils # 0.2 10^3/uL (0.0-0.8); Hematocrit 23.5 % (37.0-47.0); Hemoglobin 7.3 g/dL (11.5-15.3); Lymphocytes # 2.3 10^3/uL (0.8-4.8); Lymphocytes % 30.9 %; Mean Corpuscular HGB Conc 31.1 g/dL (30.0-36.0); Mean Corpuscular Hemoglobin 28.1 pg (28.0-34.0); Mean Corpuscular Volume 90.4 fl (81-99); Mean Platelet Volume 9.2 fL (7.4-10.4); Monocytes # 0.6 10^3/uL (0.2-0.9); Monocytes % 7.7 %; Neutrophils # 4.34 10^3/uL (1.8-7.7); Neutrophils % 57.4 %; Nucleated Red Blood Cells % 0 %; Platelet Count 349 10^3/cmm (130-400); Red Cell Distribution Width 15.1 % (12.1-15.1); White Blood Count 7.6 10^3/uL (4.0-10.0)
[2022-02-11 06:00] LABS: Blood Urea Nitrogen 9 mg/dL (6-20); Calcium 8.3 mg/dL (8.5-10.5); Carbon Dioxide 21 mmol/L (22-29); Chloride 107 mmol/L (98-107); Glomerular Filtration Rate 76.2 mL/min (90-130); Glucose 77 mg/dL (65-115); Osmolality Calculated 287 mOsm/kg (285-295); Sodium 140 mmol/L (136-145)
[2022-02-11 06:02] LABS: Anion Gap 16.1 (5-19); Potassium 4.1 mmol/L (3.5-5.1)
[2022-02-11] MEDS: vancomycin 1,000 MG in sodium chloride 0.9% 250 ML 250 MG IV ×2 (06:10→18:20)
--- NOTE | 2022-02-11 06:47 | PM.PN ---
Subjective Subjective: POD 3 Patient mobilizing around the room. Denies any back or leg pain. Denies any headaches, shortness of breath, chest pain. Vitals/I&O/Wt Last Vital Signs Temp 98.8 F 02/11/22 04:40 Pulse 114 H 02/11/22 04:40 Resp 16 02/11/22 04:40 BP 110/69 02/11/22 04:40 Pulse Ox 91 02/11/22 04:40 O2 Del Method 02/11/22 04:00 O2 Flow Rate 7 02/08/22 18:28 02/10/22 02/10/22 02/11/22 14:59 22:59 06:59 Intake Total 840 / 840 1979 / 2820 1000 / 3820 Output Total 300 / 300 Balance 540 / 540 1979 / 2520 1000 / 3520 Physical Exam Narrative: Patient presents alert and oriented x3 with a good general appearance normal mood and affect. Normal coordination normal stability. Mild tenderness around the incisional site with the incision appear to be clean and dry.. No signs of erythema or drainage. No signs of infection. Patient denies any fevers or chills. 5/5 motor strength both lower extremities with negative straight leg raise bilaterally. Calves are supple no medial thigh tenderness. Pulses are 2+ at the dorsalis pedis and posterior tibial region. Good capillary refill throughout normal sensation light touch both lower extremities. Data 02/11/22 04:44 02/11/22 04:40 Micro: Microbiology 02/08/22 15:55 Anaerobic Culture - Preliminary Back 02/08/22 15:55 Wound Culture - Preliminary Back Coag positive Staphylococcus A&P Assessment and plan (1) Status post lumbar spinal fusion: Continue management by infectious disease. Awaiting PICC line for antibiotics. Okay for discharge home once cleared by infectious disease. Continue incentive spirometry for pulmonary toilet continue mobilization. Keep the incision clean and dry. Change the Silverlon dressing today. Attestations Medical Necessity Statement*: Awaiting PICC line and ready for DC when cleared by medical team Coding Level of Care Code Acute English Tutor for Eliud Carmen Diagnoses Status post lumbar spinal fusion Z98.1
--- NOTE | 2022-02-11 07:24 | PC.NURSE ---
Notified Dr. Pena of hemoglobin of 7.3. No new orders at present.
[2022-02-11] MEDS: pantoprazole DR 40 mg Tablet PO ×2 (09:17→18:19)
[2022-02-11] MEDS: montelukast sodium 10 mg Tablet PO (09:18)
[2022-02-11] MEDS: cyclobenzaprine 10 mg Tablet PO ×3 (09:18→21:10)
[2022-02-11] MEDS: oxyCODONE 5 mg IR Tab/Cap PO ×3 (09:18→21:08)
[2022-02-11] MEDS: docusate sodium 100 mg Capsule PO ×2 (09:18→18:18)
[2022-02-11] MEDS: diazePAM 5 mg Tablet PO (09:18)
--- NOTE | 2022-02-11 09:20 | SUR.PREOP ---
PICC NOTE/ LIDOCAINE ALLERGY Dr Pena notified of Lidocaine allergy. Patient states it causes itching. Verbal okay to give IV Benadryl 50 mg prior to insert. Allow a few minutes to take effect before starting. Riya ROME give on 2s. Plan to start picc line at 10 am.
[2022-02-11] MEDS: diphenhydrAMINE 50 mg/mL SDV 1mL IVP (09:47)
--- NOTE | 2022-02-11 10:00 | PC.NURSE ---
Around 1000: For PICC line insertion
--- NOTE | 2022-02-11 11:26 | XR_ITS ---
WS: [id number] EXAMINATION: XR chest 1V portable [id number] REASON FOR EXAM: for picc line insertion COMPARISON: None available. ORDER DATE: 02/11/2022 11:26 AM TECHNIQUE: A single, portable frontal chest x-ray was obtained. X-RAY FINDINGS: The lungs are clear. Pleural spaces are clear. No pleural effusions or pneumothorax. Cardiomediastinal silhouette is normal. No evidence for pulmonary edema. Soft tissue and osseous structures are unremarkable. A right-sided PICC line is terminating in the lower aspect of the right atrium. XR/XR chest 1V portable [id number] IMPRESSION: Unremarkable frontal portable chest x-ray. The PICC line may be more optimally positioned near the cavoatrial junction if retracted approximately 5 6 cm.
--- NOTE | 2022-02-11 11:44 | XR_ITS ---
WS: [id number] EXAMINATION: XR chest 1V [id number] REASON FOR EXAM: PICC LINE PLACEMENT COMPARISON: Immediately prior study ORDER DATE: 02/11/2022 11:44 AM FINDINGS: The lungs are clear of infiltrate. The cardiac and mediastinal outlines are unremarkable. There are no significant pleural effusions . No significant abnormalities are noted in the spine or remainder of the bony thorax. The PICC line has been satisfactorily repositioned and is now near the cavoatrial junction. XR/XR chest 1V [id number] IMPRESSION: NO ACUTE PULMONARY CHANGE. SATISFACTORY PICC LINE REPOSITIONING.
--- NOTE | 2022-02-11 15:59 | PM.PN ---
Subjective Subjective: PICC line was placed today, afebrile, ambulating well. Medications: Medication Review Details: Generic Name Dose Route Start Last Admin Trade Name Freq PRN Reason Stop Dose Admin Albuterol Sulfate 2.5 mg 02/07/22 16:53 02/08/22 11:48 Albuterol 2.5 Mg /3 Ml Neb INHALATION 2.5 mg QID PRN Administration shortness of felicita th or wheezing Albuterol Sulfate 2.5 mg 02/08/22 20:00 02/11/22 09:19 Albuterol 2.5 Mg /3 Ml Neb INHALATION Not Given QID.RESPIRATORY S CH Cyclobenzaprine HC l 10 mg 02/07/22 21:00 02/11/22 14:58 Cyclobenzaprine 10 Mg Tablet PO 10 mg TID MARILYN Administration Diazepam 5 mg 02/07/22 16:53 02/11/22 09:18 Diazepam 5 Mg Ta blet PO 5 mg Q8H PRN Administration muscle spasm Docusate Sodium 100 mg 02/08/22 18:00 02/11/22 09:18 Docusate Sodium 100 Mg Capsule PO 100 mg BID MARILYN Administration Lactated Ringer's 1,000 mls @ 30 ml s/hr 02/08/22 17:45 02/11/22 05:23 Lactated Ringers IV Infused .Q24H MARILYN Infusion Vancomycin HCl 1,0 00 mg/ 250 mls @ 250 mls /hr 02/08/22 19:00 02/11/22 07:20 Sodium Chloride IV Infused Q12H MARILYN Infusion Protocol Ketorolac Trometha mine 30 mg 02/08/22 17:36 02/09/22 20:21 Ketorolac 30 Mg/ Ml Inj IVP 30 mg Q6H PRN Administration BREAKTHROUGH PAIN Lactulose 30 gm 02/10/22 15:00 02/11/22 15:02 Lactulose Oral L iq 20 Gm/30 Ml Udc PO Not Given TID MARILYN Montelukast Sodium 10 mg 02/08/22 09:00 02/11/22 09:18 Montelukast Sodi um 10 Mg Tablet PO 10 mg DAILY MARILYN Administration Morphine Sulfate 2 mg 02/07/22 16:41 02/08/22 01:25 Morphine 4 Mg/Ml Sdv 1 Ml IVP 2 mg Q2H PRN Administration SEVERE PAIN Non-Formulary Medi cation 0 dose 02/08/22 09:00 02/11/22 09:17 Linaclotide [Sierra zess] PO Not Given DAILY MARILYN Oxycodone HCl 5 - 10 mg 02/07/22 16:42 02/11/22 14:58 Oxycodone 5 Mg I r Tab/Cap PO 10 mg Q4H PRN Administration MODERATE PAIN Pantoprazole Sodiu m 40 mg 02/07/22 18:00 02/11/22 09:[address] 40 Mg Tablet PO 40 mg BID MARILYN Administration Vitals/I&O/Wt Last Vital Signs Temp 98.0 F 02/11/22 12:00 Pulse 112 H 02/11/22 12:00 Resp 16 02/11/22 14:58 BP 122/76 02/11/22 12:00 Pulse Ox 96 02/11/22 14:58 O2 Del Method 02/11/22 12:00 O2 Flow Rate 7 02/08/22 18:28 02/11/22 02/11/22 02/11/22 06:59 14:59 22:59 Intake Total 1000 / 3820 730 / 730 Balance 1000 / 3520 730 / 730 Physical Exam Resp: COMMON NORMALS: normal respiratory effort, No retractions, No use of accessory muscles and clear to auscultation bilaterally EFFORT & INSPECTION: Yes symmetric chest movement AUSCULTATION: clear to auscultation bilaterally Cardio: COMMON NORMALS: regular rate, regular rhythm, S1 normal heart sound present, S2 normal heart sound present, No gallops present (Cardio), No murmurs present (Cardio), No rub (Cardio) and Peripheral pulses 2+ throughout RATE: regular rate RHYTHM: regular rhythm HEART SOUNDS: S1 normal heart sound present and S2 normal heart sound present PERIPHERAL PULSES: Peripheral pulses 2+ throughout GI: COMMON NORMALS: Normal to inspection, nondistended, normoactive bowel sounds present, Soft to palpation, non-tender, No hepatosplenomegaly present and no masses AUSCULTATION: Yes normoactive bowel sounds PALPATION: Yes Soft to palpation and Yes No hepatosplenomegaly present RECTAL EXAM: deferred Extremity: COMMON NORMALS: no clubbing, cyanosis or edema and no pedal edema Data 02/11/22 04:44 02/11/22 04:40 Micro: Microbiology 02/08/22 15:55 Wound Culture - Final Back Staphylococcus aureus 02/08/22 15:55 Anaerobic Culture - Preliminary Back A&P Assessment and plan (1) Status post lumbar spinal fusion: Plan 51 year old female with no significant past medical history was admitted under neurosurgery, for the management of wound in the lumbar spine surgery area: Patient underwent lumbar spine fusion 6 weeks back She was on 2 weeks of antibiotics but the wound has continued to drain, MRI done on 02/06 of this month had shown abscess formation. Assessment: Lumbar spine abscess: Status post lumbar spine fusion S/p I&D Wound culture is currently growing: MSSA , prior wound culture has grown MSSA. Currently she is on vancomycin. Given the presence of hardware, she will be placed on cefazolin 2 g IV every 8H for 6 weeks. PICC line will be placed. Attestations Medical Necessity Statement*: Patient is still in hospital for IV antibiotics. Anticipated discharge by tomorrow. Coding Level of Care Code Acute Health Services Administrator for Eliud Carmen Diagnoses Status post lumbar spinal fusion Z98.1
[2022-02-11] MEDS: albuterol 2.5 mg/3 mL Neb INHALATION ×2 (16:38→19:53)
[2022-02-11 18:33] LABS: Vancomycin Trough 14.4 ug/mL (10-15)
[2022-02-11] MEDS: lactated ringers 1,000 ML 30 ML IV (21:09)
[2022-02-12] VITALS (12 sets, daily range): BP systolic 104–129; BP diastolic 66–76; PULSE 74–112; RESP 16–20; TEMP 36.6–37.2; O2SAT 92–98
[2022-02-12] MEDS: morphine 4 mg/mL SDV 1 mL 2 MG IVP (00:17)
[2022-02-12] MEDS: oxyCODONE 5 mg IR Tab/Cap PO ×3 (03:17→13:03)
[2022-02-12] MEDS: diazePAM 5 mg Tablet PO (03:18)
[2022-02-12] MEDS: ketorolac 30 mg/mL INJ IVP (03:24)
[2022-02-12 04:56] LABS: Basophils % 0.4 %; Eosinophils # 0.2 10^3/uL (0.0-0.8); Eosinophils % 3.6 %; Hematocrit 24.2 % (37.0-47.0); Hemoglobin 7.5 g/dL (11.5-15.3); Lymphocytes # 1.5 10^3/uL (0.8-4.8); Lymphocytes % 26.6 %; Mean Corpuscular Hemoglobin 28.5 pg (28.0-34.0); Mean Platelet Volume 8.7 fL (7.4-10.4); Monocytes # 0.5 10^3/uL (0.2-0.9); Monocytes % 8.9 %; Neutrophils % 60.1 %; Nucleated Red Blood Cells % 0 %; Platelet Count 307 10^3/cmm (130-400); Red Blood Count 2.63 10^6/uL (4.1-5.3); Red Cell Distribution Width 15.2 % (12.1-15.1); White Blood Count 5.5 10^3/uL (4.0-10.0)
[2022-02-12 05:20] LABS: Anion Gap 13.9 (5-19); Blood Urea Nitrogen 7 mg/dL (6-20); Calcium 9.1 mg/dL (8.5-10.5); Carbon Dioxide 25 mmol/L (22-29); Chloride 105 mmol/L (98-107); Glomerular Filtration Rate 76.2 mL/min (90-130); Glucose 94 mg/dL (65-115); Osmolality Calculated 288 mOsm/kg (285-295); Potassium 3.9 mmol/L (3.5-5.1); Sodium 140 mmol/L (136-145)
[2022-02-12] MEDS: vancomycin 1,000 MG in sodium chloride 0.9% 250 ML 250 MG IV (06:32)
--- NOTE | 2022-02-12 07:16 | P.PN_ITS ---
Subjective Subjective: POD 4 Alert resting comfortably. Wanting to go home. Vitals/I&O/Wt Last Vital Signs Temp 98.6 F 02/12/22 04:00 Pulse 111 H 02/12/22 04:00 Resp 17 02/12/22 04:00 BP 104/66 02/12/22 04:00 Pulse Ox 92 02/12/22 04:00 O2 Del Method 02/12/22 04:00 O2 Flow Rate 7 02/08/22 18:28 02/11/22 02/12/22 02/12/22 22:59 06:59 14:59 Intake Total 490 / 1220 240 / 1460 Balance 490 / 1220 240 / 1460 Physical Exam Narrative: Patient presents alert and oriented x3 with a good general appearance normal mood and affect.? Normal coordination normal stability.? Mild tenderness around the incisional site with the incision appear to be clean and dry..? No signs of erythema or drainage.? No signs of infection.? Patient denies any fevers or chills.? 5/5 motor strength both lower extremities with negative straight leg raise bilaterally.? Calves are supple no medial thigh tenderness.? Pulses are 2+ at the dorsalis pedis and posterior tibial region.? Good capillary refill throughout normal sensation light touch both lower extremities. Data 02/12/22 04:40 02/12/22 04:40 Micro: Microbiology 02/08/22 15:55 Anaerobic Culture - Preliminary Back 02/08/22 15:55 Wound Culture - Final Back Staphylococcus aureus A&P Assessment and plan (1) Status post lumbar spinal fusion: Physical therapy to continue mobilizing. Dressing changed with Silverlon and ABDs for compression as well as abdominal binder. Okay to discharge when cleared by the hospitalist team for antibiotic therapy. We will see her back in the office in 1 week's time for a wound check. Home with incentive spirometry for pulmonary toilet. Attestations Medical Necessity Statement*: Defer to hospitalist team Coding Level of Care Code Acute Grinder Set Up Operator Gear Tool for Demetriusg Fwd Diagnoses Status post lumbar spinal fusion Z98.1
[2022-02-12] MEDS: albuterol 2.5 mg/3 mL Neb INHALATION ×2 (08:11→11:44)
[2022-02-12] MEDS: docusate sodium 100 mg Capsule PO (08:20)
[2022-02-12] MEDS: pantoprazole DR 40 mg Tablet PO (08:20)
[2022-02-12] MEDS: cyclobenzaprine 10 mg Tablet PO (08:20)
[2022-02-12] MEDS: montelukast sodium 10 mg Tablet PO (08:20)
--- NOTE | 2022-02-12 10:53 | PC.SOCIAL ---
Imm update Imm updated with patient at bedside. Copy of page 2 provided. patient verbalized understanding. Copy in chart initialed, dated and timed.
--- NOTE | 2022-02-12 12:07 | P.DS_ITS ---
Discharge Providers Date of Admission: 02/07/22 14:46 Date of Discharge: February 12, 2022 Attending Provider at Admission: Sacsha Pena DO Attending Provider at Discharge: Sascha Pena DO Primary Care Provider: GEORGE Finney Diagnoses at Discharge Discharge Diagnosis (1) Status post lumbar spinal fusion: Status: Acute Reason for Visit Reason for Visit: back infection Hospital Course Hospital Course 51 year old female with no significant past medical history was admitted under neurosurgery, for the management of wound in the lumbar spine surgery area: Patient underwent lumbar spine fusion 6 weeks back wound has continued to drain, MRI done on 02/06 of this month had shown abscess formation. She was admitted for the management of: Lumbar spine abscesses s/p I&D wound culture has grown MSSA, prior wound culture also grew MSSA, she was kept on vancomycin during the hospital stay and was discharged on IV cefazolin 2 g every 8 hours for 6 weeks, PICC line has been placed, she will do biweekly labs as a part of IV antibiotic monitoring, labs include CBC BMP. She will follow-up with orthopedic and ID as outpatient. Physical Exam Resp: COMMON NORMALS: normal respiratory effort, No retractions, No use of accessory muscles and clear to auscultation bilaterally EFFORT & INSPECTION: Yes symmetric chest movement AUSCULTATION: clear to auscultation bilaterally Cardio: COMMON NORMALS: regular rate, regular rhythm, S1 normal heart sound present, S2 normal heart sound present, No gallops present (Cardio), No murmurs present (Cardio), No rub (Cardio) and Peripheral pulses 2+ throughout RATE: regular rate RHYTHM: regular rhythm HEART SOUNDS: S1 normal heart sound present and S2 normal heart sound present PERIPHERAL PULSES: Peripheral pulses 2+ throughout GI: COMMON NORMALS: Normal to inspection, nondistended, normoactive bowel sounds present, Soft to palpation, non-tender, No hepatosplenomegaly present and no masses AUSCULTATION: Yes normoactive bowel sounds PALPATION: Yes Soft to palpation and Yes No hepatosplenomegaly present RECTAL EXAM: deferred Extremity: COMMON NORMALS: no clubbing, cyanosis or edema and no pedal edema Discharge Data Studies Completed and Pending Completed Studies During Hospitalization Category Date Time Status CXRP [XR chest 1V portable [id number]] Routine Exams 02/11/22 11:26 Completed XR chest 1V [id number] Routine Exams 02/11/22 11:44 Completed Pending at discharge Category Date Time Status Anaerobic Culture Routine Lab 02/08/22 15:55 Results BMP [Basic Metabolic Panel] AM LABS Lab 02/13/22 04:00 Ordered CBC Auto Diff [Complete Blood Count w/Auto] AM LABS Lab 02/13/22 04:00 Ordered Pathology: Surgical [PTH] Routine Pth 02/08/22 17:15 Received Radiology Impressions Chest X-Ray 02/11/22 11:44 IMPRESSION: NO ACUTE PULMONARY CHANGE. SATISFACTORY PICC LINE REPOSITIONING. Laboratory Results WBC 5.5 10^3/uL (4.0-10.0) 02/12/22 04:40 RBC 2.63 10^6/uL (4.1-5.3) L 02/12/22 04:40 Hgb 7.5 g/dL (11.5-15.3) L 02/12/22 04:40 Hct 24.2 % (37.0-47.0) L 02/12/22 04:40 MCV 92.0 fl (81-99) 02/12/22 04:40 MCH 28.5 pg (28.0-34.0) 02/12/22 04:40 MCHC 31.0 g/dL (30.0-36.0) 02/12/22 04:40 RDW 15.2 % (12.1-15.1) H 02/12/22 04:40 Plt Count 307 10^3/cmm (130-400) 02/12/22 04:40 MPV 8.7 fL (7.4-10.4) 02/12/22 04:40 Neut % (Auto) 60.1 % 02/12/22 04:40 Lymph % (Auto) 26.6 % 02/12/22 04:40 [place] % (Auto) 8.9 % 02/12/22 04:40 Eos % (Auto) 3.6 % 02/12/22 04:40 Baso % (Auto) 0.4 % 02/12/22 04:40 Neut # (Auto) 3.30 10^3/uL (1.8-7.7) 02/12/22 04:40 Lymph # (Auto) 1.5 10^3/uL (0.8-4.8) 02/12/22 04:40 [place] # (Auto) 0.5 10^3/uL (0.2-0.9) 02/12/22 04:40 Eos # (Auto) 0.2 10^3/uL (0.0-0.8) 02/12/22 04:40 Baso # (Auto) 0.0 10^3/uL (0.0-0.1) 02/12/22 04:40 Nucleated RBC % (auto) 0 % 02/12/22 04:40 Nucleated RBCs # 0.0 /100WBC 02/12/22 04:40 ESR 25 mm/hr (0-15) H 02/09/22 09:20 Sodium 140 mmol/L (136-145) 02/12/22 04:40 Potassium 3.9 mmol/L (3.5-5.1) 02/12/22 04:40 Chloride 105 mmol/L (98-107) 02/12/22 04:40 Carbon Dioxide 25 mmol/L (22-29) 02/12/22 04:40 Anion Gap 13.9 (5-19) 02/12/22 04:40 BUN 7 mg/dL (6-20) 02/12/22 04:40 Creatinine 0.8 mg/dL (0.5-0.9) 02/12/22 04:40 GFR Calculation 76.2 mL/min (90-130) L 02/12/22 04:40 Glucose 94 mg/dL (65-115) 02/12/22 04:40 Calculated Osmolality 288 mOsm/kg (285-295) 02/12/22 04:40 Calcium 9.1 mg/dL (8.5-10.5) 02/12/22 04:40 C-Reactive Protein 144.3 mg/L (0.0-4.9) H 02/09/22 09:20 Vancomycin Trough 14.4 ug/mL (10-15) 02/11/22 17:46 Vitals Last Vital Signs Temp 98.8 F 02/12/22 11:16 Pulse 110 H 02/12/22 11:45 Resp 20 H 02/12/22 11:45 BP 112/76 02/12/22 11:16 Pulse Ox 94 02/12/22 11:45 O2 Del Method 02/12/22 11:45 O2 Flow Rate 7 02/08/22 18:28 Discharge Plan Discharge Patient Disposition: Home Condition: Stable Prescriptions: New oxycodone 5 mg tablet 5 mg PO Q4H PRN (Reason: pain) 7 Days Qty: 40 0RF Continued albuterol sulfate 2.5 mg /3 mL (0.083 %) solution for nebulization 2.5 mg INHALATION QID PRN (Reason: shortness of breath or wheezing) Qty: 90 3RF albuterol sulfate [ProAir HFA] 90 mcg/actuation HFA aerosol inhaler 2 puff inhalation QID PRN (Reason: shortness of breath or wheezing) Qty: 6.7 2RF (DME) Short lemons boot See Rx Instructions .Route .MEDSUPPLY Qty: 1 0RF Rx Instructions: As directed (DME) hinged knee brace See Rx Instructions .Route .MEDSUPPLY Qty: 1 0RF Rx Instructions: Right knee pain estradiol [Vagifem] 10 mcg tablet 10 mcg VAGINAL .TWO TIMES PER WEEK Qty: 8 5RF Rx Instructions: mon and fri (DME) Cam boot to the right- short See Rx Instructions .Route .MEDSUPPLY Qty: 1 0RF Rx Instructions: As directed diazepam [Valium] 5 mg tablet 5 mg PO Q8H PRN (Reason: muscle spasm) Qty: 30 0RF pantoprazole 40 mg tablet,delayed release (DR/EC) 40 mg PO BID Qty: 60 5RF cyclobenzaprine 10 mg tablet 10 mg PO TID Qty: 90 2RF ibuprofen 800 mg tablet 800 mg PO Q8H PRN (Reason: Pain) montelukast 10 mg tablet 10 mg PO DAILY Linzess 145 mcg capsule 145 mcg PO DAILY Discontinued oxycodone 5 mg tablet 5 mg PO Q4H PRN (Reason: pain) 7 Days Qty: 40 0RF Discharge Orders: Discharge Order (Routine); Ordered 02/12/22 Ordered By: Raul Johnson Referrals: Sascha Pena DO [Physician] - 03/14/23 9:45 am Ashley Coughlin MD [Hospitalist] - 1 month ( OFFICE WILL CALL WITH APPOINTMENT) Amanda Duran FNP [Primary Care Provider] - 02/15/22 9:00 am (You will have labs drawn and a PICC line dressing change done at this appointment. ) Discharge Diet: Advance as tolerated Discharge Activity: Limit activity as instructed Patient Instructions: Opioid Safety Activity Restrictions/Additional Instructions: Your IV antibiotic will be delivered to your home by the company [employer]. Their phone number is [phone]. You will have weekly labs drawn at [facility]. Their phone number is [phone]. Your first appointment is on Friday02/15/22 at 09:00. Your PICC line dressing needs to be changed weekly. This will be done at your lab appointments. Thank you for choosing [facility] for your care! The following is a list of instructions, from your provider, to follow upon your discharge to ensure you have the optimal recovery from your recent injury or surgery. Follow-up care is a tucker part of your treatment and safety. Be sure to make and go to all appointments and call your doctor if you are having problems. If you do not already have a follow-up appointment made, call Dr. Pena's] office in the next 1-3 days to make follow up appointment for 1 weeks at [phone]. It is also a good idea to know your test results and keep a list of the medicines you take. Medications will be prescribed for you at your provider's discretion. These medications are to be used as instructed; if they are taken more often that prescribed they will not be refilled early and in most cases will not be refilled at all. > When a refill is needed, you should contact gisselle rose 2-3 business days before your prescription runs out. Medications will NOT be refilled by database consultant providers after hours! > Many pain medications contain Tylenol (Acetaminophen). Do not consume more than 4,000 mg of Tylenol per day in total with any combination of medications. > Pain medications can cause constipation. Please use an over the counter stool softener as directed, while taking pain medications. Consult your local pharmacist with questions or recommendations on stool softeners. If constipation persists, contact our office or your primary care provider. > While under our care, you are not to receive pain medications or other controlled substances from any other provider unless our office is notified and approves. Any attempts to do so will result in refusal to prescribe any further pain medications and possible dismissal from our practice. ? Walking is essential for the healing process after surgery. We would like you to slowly advance your walking. This should be done on relatively flat clear ground (inside or out) or can be done on a treadmill. Remember this goal does not have to happen all at once, slowly increase your distance and duration. This can be broken into more more than one walk per day as tolerated. Patients who walk as directed after surgery rarely require Physical Therapy. In the unlikely event this issue arises your provider will direct hospital staff to make the appropriate arrangements. ? No lifting over 5 pounds {a gallon of milk) or bending/twisting until further notice. Each of these activities places an unnecessary amount of stress onto the body and can impede the delicate healing process. > Instead of bending at the waist, keep your back straight and bend at the knees. > Instead of twisting your torso, keep your back straight and turn your entire body with your feet. ? You may sleep in any position which makes you comfortable. Many patients find comfort sleeping in a reclining chair. It is not abnormal to have difficulty sleeping for the first several weeks following your surgery. We recommend trying Benadry! or Tylenol PM as directed to help with your sleeping difficulties. Both medications are over the counter and available without prescription. ? NO SMOKING!!! Smoking dramatically increases the probability of developing postoperative wound infections. ? Common complaints after lumbar and/or thoracic spine surgery include, but are not limited to: numbness and/or tingling in the legs, pain around the incision and surrounding tissues, muscle spasms, or stiffness of the middle to low back. Contact our office if these symptoms persist or if an acute change occurs. ? No driving for the first 3-5days, and not while taking narcotics until seen at your follow-up appointment and cleared. There are no restrictions for riding on short trips, however if you take a longer trip, arrangements should be made to make regular stops to get out of the vehicle and stretch . ? Swelling is an unfortunate event that will take place with any surgery and is the primary source of your postoperative discomfort. While walking and regular approved activities helps control inflammation, there are additional steps you can take to minimize swelling. > Place ice over the surgical site and surrounding tissue for twenty minutes, followed by applying a low/medium heat (heating pad) for an additional twenty minutes every 1-2 hours as needed for painrelief. > You may use of over the counter anti-inflammatory medications (Ibuprofen, Motrin, Aleve, Advil, etc) as directed on the package label. These types of medicines will significantly reduce the amount of discomfort you experience after surgery from swelling. It should be noted that if you have and allergy to any of these medications, or a history of ulcers or kidney disease you should consult you primary care provider prior to starting these medications. Discharge Attestations Time Spent in Discharge Care*: greater than 30 min Quality Metrics Clinical Quality Measures [ No reported AMI, CVA or VTE this stay] Coding Level of Care Code Acute g FW DC note Diagnoses Status post lumbar spinal fusion Z98.1
[2022-02-12] MEDS: ceFAZolin 2,000 MG in sodium chloride 0.9% (plus) 50 ML 100 MG IV (12:31)
--- NOTE | 2022-02-12 17:45 | PC.NURSE ---
Patient education reviewed with patient, spouse and daughter at bedside. Picc line care educated, performed and teach back done with daughter and patient. Daughter was able to perform picc line care and flush with teach back education in full. All questions and concerns were addressed during this time and throughout shift. Patient and family feel confident in ability to perform and care for line at home. Supplies sent with patient for dressing care. Dressing changed and teach back with daughter was completed at discharge teaching.
--- NOTE | 2022-02-13 16:03 | PC.NURSE ---
Patient called floor in middle of night after being home from discharged and stated that, whoever answered the phone I told them that my line got accidently scratched out while sleeping and they told me to wrap it with what ever. So patient wrapped it and called CM this AM and c/o that they were not educated on how to administer the antibiotics that were delivered. This nurse discovered that the pharmacy sent antibiotics and equipment that is not the same as ours and that this nurse would be willing to do education with patient and family if they wanted to over the phone but they preferred in person. Patient, daughter and patients arrived to floor with all the equipment that was delivered. This nurse went to educate but discovered that the picc line was barely hanging in there and the dressing on the picc was an old, bloody brenda bandage just holding it there. There was not tagederm or statlock in place. This nurse immediately got needed materials to safely finish removing the picc as it fell out. THis nurse dressed area with occlusive dressing. Notified the MD from discharge and attempted to notify Dr. Pena but he is out today. corncob pipe manufacturing supervisor and charge nurse aware of situation and got patient an appointment to replace picc line in the AM. This nurse then educated patient, daughter and patients spouse how to administer medication and how to flush before, after and with heparin. ALso educated on side affects and safety with antibiotics and picc line.
== END 2022-02-12 14:11 | disposition home or self-care (01) | DRG 858 ==
PROVIDERS: Internal Medicine; Admitting Provider Orthopaedic Surgery; PCP Nurse Practitioner Family; Visit Provider Orthopaedic Surgery
PROC: 0QB00ZZ Excision of Lumbar Vertebra, Open Approach (ICD-10-PCS; principal; 2022-02-08 14:35)
PROC: 0QB00ZZ Excision of Lumbar Vertebra, Open Approach (ICD-10-PCS; 2022-02-08 14:35)
DX: T81.42XA Infection following a procedure, deep incisional surgical site, initial encounter (principal); B95.61 Methicillin susceptible Staphylococcus aureus infection as the cause of diseases classified elsewhere; Z98.1 Arthrodesis status; Z79.51 Long term (current) use of inhaled steroids; F17.290 Nicotine dependence, other tobacco product, uncomplicated
CPT/HCPCS: 36415; 36569; 36592; 71045; 72100; 80048; 80202; 85025; 85651; 86140; 87070; 87075; 87077; 87186; 88307; 88311; 94640; 97161; 97530; 99024; 99214; J0690; J1100; J1170; J1200; J1885; J2250; J2270; J2405; J2704; J2710; J3010; J3370; J3490; J3535; J7030; J7050; J7120; J7613

== ENCOUNTER 2022-02-14 10:30 | Emergency (ER) | payer MEDICARE, MEDICAID, SELFPAY ==
[2022-02-14 10:33] VITALS: BP 136/72; PULSE 118; RESP 14; TEMP 37; O2SAT 96; BMI 31.3
--- NOTE | 2022-02-14 11:25 | USCV_ITS ---
Dawna Hilliard Age: 51 Gender: F : 1970 Exam Date: 02/14/2022 11:32 Ordering Phys: Cony Camara Technologist: Ignacio So Exam Location: [facility] [place]_ Indication: rt arm pain and swelling hx of pic line in basilic PROCEDURES: Venous duplex imaging was performed in only the right upper extremity. The following venous structures were evaluated: internal jugular vein, subclavian vein, axillary vein, and brachial veins. In addition, the basilic vein, cephalic vein, radial vein, and ulnar vein. FINDINGS: Acute thrombus in the right basilic vein from the elbow to upper arm. No additional DVT. CONCLUSIONS Superficial thrombophlebitis is detected in the right basilic. Dr. Obdulia Brewster DO (Electronically Signed) Final Date: 14 February 2022 13:36 Amended: 16 February 2022 16:45 C
--- NOTE | 2022-02-14 11:26 | ED_ITS ---
Documented by User: [email or web address] Graf 02/14/22 14:17 HPI - General Adult General: Chief complaint: Allergic Reaction Stated complaint: allergic reaction Time Seen by Provider: 02/14/22 10:46 Source: patient and family Mode of arrival: wheelchair Limitations: no limitations History of Present Illness: Patient is a 51-year-old female presents to ED today after she was instructed to come to the ED after her PICC line had to be removed because patient had accidentally yanked on it and dislodged it . Patient states she was recently admitted to the hospital after lumbar procedure performed by Dr. Pena became infected and developed an abscess. She states she had a PICC line placed for IV antibiotics. She was discharged from the hospital 2 days ago with a plan to continue IV cefazolin through her PICC line. Daughter states she has missed a total of 5 doses of this medication as it was supposed to be dosed every 8 hours. They were seen at outpatient surgery today where the PICC line had to be removed. Patient at that time complained of swelling to the right arm and facial swelling and was concerned that she was having an allergic reaction to the cefazolin. She also reports having some numbness to her tongue and altered taste. Nursing staff apparently sent her to the ED for further evaluation. Patient states she is still having drainage and pus from her lumbar incision. Records from hospitalization show that patient grew staph aureus from wound site. Associated symptoms: Reports dyspnea (chronic-at baseline); Deny chest pain, confusion, headache(s), malaise, rash, palpitations or syncope Review of Systems Const: Denies: fever(s), chills, body aches, fatigue or malaise Eyes: Denies: change in vision, blurry vision or photophobia ENMT: Reports: other (reports facial swelling); Denies: throat pain, odynophagia, mouth pain, swelling of lips/tongue, oral sores, bleeding gums, ear or mastoid pain, nasal discharge, nasal congestion or sinus pain Card: Denies: chest pain, palpitations, irregular heart rhythm, edema, lightheadedness, syncope or pre-syncope Resp: Reports: dyspnea (chronic-at baseline) GI: Denies: abdominal pain Musc: Reports: back pain, extremity pain and extremity swelling (R UE); Denies: neck pain, joint pain or joint swelling Skin/Breast: Denies: rash Neuro: Denies: headache(s), numbness in extremities, weakness in extremities, lack of coordination, difficulty walking, dizziness, confusion, Slurred speech present or difficulty communicating thoughts PFSH ED PFSH: Medical History Constipation Helicobacter pylori gastritis Psychiatric care Surgical History H/O esophagogastroduodenoscopy (06/04/21) History of cholecystectomy History of colonoscopy (~12/2019) dr. hank back History of esophagogastroduodenoscopy (EGD) (~12/2019) dr. hank back History of fusion of cervical spine History of hysterectomy Status post colonoscopy (06/04/21) with banding of hemorrhoid Status post lumbar spinal fusion Family History Other Diabetes Hypertension Social History Smoking and tobacco status: current every day smoker e-cigarettes E-Cigarette Details: vaporizer device and with nicotine E-cig/vape details: 1 mg Quit status (tobacco): has tried quititng Number of times tried to quit tobacco: 3 Second hand smoke exposure: No Alcohol intake: never Caregiver/support person: Yes Lives independently: Yes Household members: significant other Marital status: Current occupational status: disabled History of recent travel: No Current gender identity: Female Special oscar needs: Yes Physical Exam Const: COMMON NORMALS: no acute distress, patient oriented x3, no limitations, alert and well nourished GENERAL APPEARANCE: cooperative ORIE NTATION/CONSCIOUSNESS: Yes awake, Yes oriented to person, Yes oriented to place and Yes oriented to time HENMT: COMMON NORMALS: normocephalic and atraumatic HEAD & SCALP: normal to inspection, normocephalic and atraumatic FACE & SINUS: normal facial exam and other (I don't appreciate obvious facial swelling) MOUTH: Normal oral and palatal mucosa present, lip normal and tongue normal Eye: GENERAL EYE: appearance normal, both eyes and all related structures Neck/C-Spine: COMMON NORMALS: full ROM, no lymphadenopathy, no meningeal signs and no JVD Chest: COMMONS NORMALS: normal inspection of the chest and normal palpation of entire chest wall Resp: COMMON NORMALS: normal respiratory effort and clear to auscultation bilaterally AUSCULTATION: clear to auscultation bilaterally Cardio: COMMON NORMALS: no JVD, regular rate and regular rhythm RATE: regular rate RHYTHM: regular rhythm Back/Pelvis: OTHER: dressing to lower lumbar incision has purulent drainage present Extremity: COMMON NORMALS: full ROM and capillary refill normal OTHER: pt has mild swelling noted to R upper arm through forearm when compared to left; no redness/streaking present Neuro: LANCE COMA SCALE: document GCS findings [place] coma scale eye opening: Spontaneous Lance coma scale verbal response: Orientated Lance coma scale motor response: Obey commands [place] coma scale total score: 15 COMMON NORMALS: patient oriented x3, CN's II-XII intact bilaterally, moves all extremities, no focal motor deficits and no sensory deficits noted SEN SORIUM/ORIENTATION: Yes alert, Yes oriented to person, Yes oriented to place and Yes oriented to time MENINGEAL SIGNS: Yes no meningeal signs Skin: COMMON NORMALS: no rashes or lesions noted GENERAL SKIN EXAM: no rashes or lesions noted Course Consultations: Consultation #1: Dr. Johnson Consultation #2: Dr. Pena Vital Signs: Vital signs: Vital Signs Temperature 98.5 F 02/14/22 12:36 Pulse Rate 104 H 02/14/22 12:36 Respiratory Rate 15 02/14/22 12:36 Blood Pressure 132/84 02/14/22 12:36 Pulse Oximetry 99 02/14/22 12:36 Oxygen Delivery Me thod 02/14/22 12:36 MDM - General Adult Medical Decision Making Patient has a normal white count with a normal lactate. I don't think she needs to be re-admitted at this point. Patient now has a right upper extremity superficial thrombus so she will not be able to have a PICC line replaced here. She is convinced her symptoms are related to Cefazolin and wants us to switch this. I have already spoken to GI who stated they will reinsert a PICC line to her left arm today after discharge from ED. I spoke to Dr. Johnson who is the hospitalist that discharged her 2 days ago. He will switch her antibiotic to Vancomycin and contact high school social science teacher in regards to her infusion company to get this switched as well. I spoke to Dr. Pena who agrees with care plan and will follow up with the patient at her scheduled follow-up appointment. Lab Data 02/14/22 12:02 02/14/22 12:02 Laboratory Results WBC 6.2 10^3/uL (4.0-10.0) 02/14/22 12:02 RBC 2.96 10^6/uL (4.1-5.3) L 02/14/22 12:02 Hgb 8.4 g/dL (11.5-15.3) L 02/14/22 12:02 Hct 27.6 % (37.0-47.0) L 02/14/22 12:02 MCV 93.2 fl (81-99) 02/14/22 12:02 MCH 28.4 pg (28.0-34.0) 02/14/22 12:02 MCHC 30.4 g/dL (30.0-36.0) 02/14/22 12:02 RDW 15.4 % (12.1-15.1) H 02/14/22 12:02 Plt Count 328 10^3/cmm (130-400) 02/14/22 12:02 MPV 8.9 fL (7.4-10.4) 02/14/22 12:02 Neut % (Auto) 66.0 % 02/14/22 12:02 Lymph % (Auto) 20.9 % 02/14/22 12:02 [place] % (Auto) 8.4 % 02/14/22 12:02 Eos % (Auto) 3.9 % 02/14/22 12:02 Baso % (Auto) 0.5 % 02/14/22 12:02 Neut # (Auto) 4.06 10^3/uL (1.8-7.7) 02/14/22 12:02 Lymph # (Auto) 1.3 10^3/uL (0.8-4.8) 02/14/22 12:02 [place] # (Auto) 0.5 10^3/uL (0.2-0.9) 02/14/22 12:02 Eos # (Auto) 0.2 10^3/uL (0.0-0.8) 02/14/22 12:02 Baso # (Auto) 0.0 10^3/uL (0.0-0.1) 02/14/22 12:02 Nucleated RBC % (auto) 0 % 02/14/22 12:02 Nucleated RBCs # 0.0 /100WBC 02/14/22 12:02 Sodium 139 mmol/L (136-145) 02/14/22 12:02 Potassium 3.3 mmol/L (3.5-5.1) L 02/14/22 12:02 Chloride 103 mmol/L (98-107) 02/14/22 12:02 Carbon Dioxide 23 mmol/L (22-29) 02/14/22 12:02 Anion Gap 16.3 (5-19) 02/14/22 12:02 BUN 9 mg/dL (6-20) 02/14/22 12:02 Creatinine 1.0 mg/dL (0.5-0.9) H 02/14/22 12:02 GFR Calculation 58.9 mL/min (90-130) L 02/14/22 12:02 Glucose 94 mg/dL (65-115) 02/14/22 12:02 Calculated Osmolality 286 mOsm/kg (285-295) 02/14/22 12:02 Lactic Acid 1.6 mmol/L (0.5-2.2) 02/14/22 12:27 Calcium 8.8 mg/dL (8.5-10.5) 02/14/22 12:02 Total Bilirubin 0.3 mg/dL (0.15-1.2) 02/14/22 12:02 AST 21 U/L (0-32) 02/14/22 12:02 ALT 24 U/L (0-33) 02/14/22 12:02 Alkaline Phosphatase 132 U/L (35-105) H 02/14/22 12:02 Total Protein 6.9 g/dL (6.6-8.7) 02/14/22 12:02 Albumin 3.0 g/dL (3.5-5.2) L 02/14/22 12:02 Globulin 3.9 g/dL (1.3-4.6) 02/14/22 12:02 Discharge Plan Discharge Patient Disposition: Home Clinical Impression: Skin wound from surgical incision, Superficial venous thrombosis of right upper extremity Condition: Stable Prescriptions: No Action albuterol sulfate 2.5 mg /3 mL (0.083 %) solution for nebulization 2.5 mg INHALATION QID PRN (Reason: shortness of breath or wheezing) Qty: 90 3RF albuterol sulfate [ProAir HFA] 90 mcg/actuation HFA aerosol inhaler 2 puff inhalation QID PRN (Reason: shortness of breath or wheezing) Qty: 6.7 2RF (DME) Short lemons boot See Rx Instructions .Route .MEDSUPPLY Qty: 1 0RF Rx Instructions: As directed (DME) hinged knee brace See Rx Instructions .Route .MEDSUPPLY Qty: 1 0RF Rx Instructions: Right knee pain estradiol [Vagifem] 10 mcg tablet 10 mcg VAGINAL .TWO TIMES PER WEEK Qty: 8 5RF Rx Instructions: mon and fri (DME) Cam boot to the right- short See Rx Instructions .Route .MEDSUPPLY Qty: 1 0RF Rx Instructions: As directed diazepam [Valium] 5 mg tablet 5 mg PO Q8H PRN (Reason: muscle spasm) Qty: 30 0RF pantoprazole 40 mg tablet,delayed release (DR/EC) 40 mg PO BID Qty: 60 5RF cyclobenzaprine 10 mg tablet 10 mg PO TID Qty: 90 2RF ibuprofen 800 mg tablet 800 mg PO Q8H PRN (Reason: Pain) montelukast 10 mg tablet 10 mg PO DAILY Linzess 145 mcg capsule 145 mcg PO DAILY oxycodone 5 mg tablet 5 mg PO Q4H PRN (Reason: pain) 7 Days Qty: 40 0RF Discharge Orders: Discharge ED (Routine); Ordered 02/14/22 Ordered By: Cony Camara Referrals: Amanda Duran FNP [Primary Care Provider] - Coding Level of Care Code ED Jointer Operator for Chg Fwd Exam Comprehensive Documented by User: Oni Chatterjee DO 02/14/22 14:25 HPI - General Adult General: Chief complaint: Allergic Reaction Stated complaint: allergic reaction Time Seen by Provider: 02/14/22 10:46 [facility] ED PFS: Medical History Constipation Helicobacter pylori gastritis Psychiatric care Surgical History H/O esophagogastroduodenoscopy (06/04/21) History of cholecystectomy History of colonoscopy (~12/2019) dr. hank back History of esophagogastroduodenoscopy (EGD) (~12/2019) dr. hank back History of fusion of cervical spine History of hysterectomy Status post colonoscopy (06/04/21) with banding of hemorrhoid Status post lumbar spinal fusion Family History Other Diabetes Hypertension Social History Smoking and tobacco status: current every day smoker e-cigarettes E-Cigarette Details: vaporizer device and with nicotine E-cig/vape details: 1 mg Quit status (tobacco): has tried quititng Number of times tried to quit tobacco: 3 Second hand smoke exposure: No Alcohol intake: never Caregiver/support person: Yes Lives independently: Yes Household members: significant other Marital status: Current occupational status: disabled History of recent travel: No Current gender identity: Female Special oscar needs: Yes Physical Exam Neuro: LANCE COMA SCALE: document GCS findings [place] coma scale total score: 15 Course Vital Signs: Vital signs: Vital Signs Temperature 98.5 F 02/14/22 12:36 Pulse Rate 104 H 02/14/22 12:36 Respiratory Rate 15 02/14/22 12:36 Blood Pressure 132/84 02/14/22 12:36 Pulse Oximetry 99 02/14/22 12:36 Oxygen Delivery Me thod 02/14/22 12:36 MDM - General Adult Medical Decision Making Patient has a normal white count with a normal lactate. I don't think she needs to be re-admitted at this point. Patient now has a right upper extremity superficial thrombus so she will not be able to have a PICC line replaced here. She is convinced her symptoms are related to Cefazolin and wants us to switch this. I have already spoken to GI who stated they will reinsert a PICC line to her left arm today after discharge from ED. I spoke to Dr. Johnson who is the hospitalist that discharged her 2 days ago. He will switch her antibiotic to Vancomycin and contact high school social science teacher in regards to her infusion company to get this switched as well. I spoke to Dr. Pena who agrees with care plan and will follow up with the patient at her scheduled follow-up appointment. Chart reviewed and patient discussed with midlevel. Agree with assessment and plan. Lab Data 02/14/22 12:02 02/14/22 12:02 Laboratory Results WBC 6.2 10^3/uL (4.0-10.0) 02/14/22 12:02 RBC 2.96 10^6/uL (4.1-5.3) L 02/14/22 12:02 Hgb 8.4 g/dL (11.5-15.3) L 02/14/22 12:02 Hct 27.6 % (37.0-47.0) L 02/14/22 12:02 MCV 93.2 fl (81-99) 02/14/22 12:02 MCH 28.4 pg (28.0-34.0) 02/14/22 12:02 MCHC 30.4 g/dL (30.0-36.0) 02/14/22 12:02 RDW 15.4 % (12.1-15.1) H 02/14/22 12:02 Plt Count 328 10^3/cmm (130-400) 02/14/22 12:02 MPV 8.9 fL (7.4-10.4) 02/14/22 12:02 Neut % (Auto) 66.0 % 02/14/22 12:02 Lymph % (Auto) 20.9 % 02/14/22 12:02 [place] % (Auto) 8.4 % 02/14/22 12:02 Eos % (Auto) 3.9 % 02/14/22 12:02 Baso % (Auto) 0.5 % 02/14/22 12:02 Neut # (Auto) 4.06 10^3/uL (1.8-7.7) 02/14/22 12:02 Lymph # (Auto) 1.3 10^3/uL (0.8-4.8) 02/14/22 12:02 [place] # (Auto) 0.5 10^3/uL (0.2-0.9) 02/14/22 12:02 Eos # (Auto) 0.2 10^3/uL (0.0-0.8) 02/14/22 12:02 Baso # (Auto) 0.0 10^3/uL (0.0-0.1) 02/14/22 12:02 Nucleated RBC % (auto) 0 % 02/14/22 12:02 Nucleated RBCs # 0.0 /100WBC 02/14/22 12:02 Sodium 139 mmol/L (136-145) 02/14/22 12:02 Potassium 3.3 mmol/L (3.5-5.1) L 02/14/22 12:02 Chloride 103 mmol/L (98-107) 02/14/22 12:02 Carbon Dioxide 23 mmol/L (22-29) 02/14/22 12:02 Anion Gap 16.3 (5-19) 02/14/22 12:02 BUN 9 mg/dL (6-20) 02/14/22 12:02 Creatinine 1.0 mg/dL (0.5-0.9) H 02/14/22 12:02 GFR Calculation 58.9 mL/min (90-130) L 02/14/22 12:02 Glucose 94 mg/dL (65-115) 02/14/22 12:02 Calculated Osmolality 286 mOsm/kg (285-295) 02/14/22 12:02 Lactic Acid 1.6 mmol/L (0.5-2.2) 02/14/22 12:27 Calcium 8.8 mg/dL (8.5-10.5) 02/14/22 12:02 Total Bilirubin 0.3 mg/dL (0.15-1.2) 02/14/22 12:02 AST 21 U/L (0-32) 02/14/22 12:02 ALT 24 U/L (0-33) 02/14/22 12:02 Alkaline Phosphatase 132 U/L (35-105) H 02/14/22 12:02 Total Protein 6.9 g/dL (6.6-8.7) 02/14/22 12:02 Albumin 3.0 g/dL (3.5-5.2) L 02/14/22 12:02 Globulin 3.9 g/dL (1.3-4.6) 02/14/22 12:02 Discharge Plan Discharge Patient Disposition: Home Clinical Impression: Skin wound from surgical incision, Superficial venous thrombosis of right upper extremity Condition: Stable Prescriptions: No Action albuterol sulfate 2.5 mg /3 mL (0.083 %) solution for nebulization 2.5 mg INHALATION QID PRN (Reason: shortness of breath or wheezing) Qty: 90 3RF albuterol sulfate [ProAir HFA] 90 mcg/actuation HFA aerosol inhaler 2 puff inhalation QID PRN (Reason: shortness of breath or wheezing) Qty: 6.7 2RF (DME) Short lemons boot See Rx Instructions .Route .MEDSUPPLY Qty: 1 0RF Rx Instructions: As directed (DME) hinged knee brace See Rx Instructions .Route .MEDSUPPLY Qty: 1 0RF Rx Instructions: Right knee pain estradiol [Vagifem] 10 mcg tablet 10 mcg VAGINAL .TWO TIMES PER WEEK Qty: 8 5RF Rx Instructions: mon and fri (DME) Cam boot to the right- short See Rx Instructions .Route .MEDSUPPLY Qty: 1 0RF Rx Instructions: As directed diazepam [Valium] 5 mg tablet 5 mg PO Q8H PRN (Reason: muscle spasm) Qty: 30 0RF pantoprazole 40 mg tablet,delayed release (DR/EC) 40 mg PO BID Qty: 60 5RF cyclobenzaprine 10 mg tablet 10 mg PO TID Qty: 90 2RF ibuprofen 800 mg tablet 800 mg PO Q8H PRN (Reason: Pain) montelukast 10 mg tablet 10 mg PO DAILY Linzess 145 mcg capsule 145 mcg PO DAILY oxycodone 5 mg tablet 5 mg PO Q4H PRN (Reason: pain) 7 Days Qty: 40 0RF Discharge Orders: Discharge ED (Routine); Ordered 02/14/22 Ordered By: Cony Camara Referrals: Amanda Duran FNP [Primary Care Provider] - Coding Level of Care Code ED Jointer Operator for Chg Fwd Exam Comprehensive
[2022-02-14 12:24] LABS: Basophils % 0.5 %; Eosinophils # 0.2 10^3/uL (0.0-0.8); Eosinophils % 3.9 %; Hematocrit 27.6 % (37.0-47.0); Hemoglobin 8.4 g/dL (11.5-15.3); Lymphocytes # 1.3 10^3/uL (0.8-4.8); Lymphocytes % 20.9 %; Mean Corpuscular HGB Conc 30.4 g/dL (30.0-36.0); Mean Corpuscular Hemoglobin 28.4 pg (28.0-34.0); Mean Corpuscular Volume 93.2 fl (81-99); Mean Platelet Volume 8.9 fL (7.4-10.4); Monocytes # 0.5 10^3/uL (0.2-0.9); Monocytes % 8.4 %; Neutrophils # 4.06 10^3/uL (1.8-7.7); Nucleated Red Blood Cells % 0 %; Platelet Count 328 10^3/cmm (130-400); Red Blood Count 2.96 10^6/uL (4.1-5.3); Red Cell Distribution Width 15.4 % (12.1-15.1); White Blood Count 6.2 10^3/uL (4.0-10.0)
[2022-02-14 12:29] LABS: Alanine Aminotransferase 24 U/L (0-33); Alkaline Phosphatase 132 U/L (35-105); Aspartate Amino Transferase 21 U/L (0-32); Blood Urea Nitrogen 9 mg/dL (6-20); Calcium 8.8 mg/dL (8.5-10.5); Carbon Dioxide 23 mmol/L (22-29); Chloride 103 mmol/L (98-107); Globulin 3.9 g/dL (1.3-4.6); Glomerular Filtration Rate 58.9 mL/min (90-130); Glucose 94 mg/dL (65-115); Osmolality Calculated 286 mOsm/kg (285-295); Sodium 139 mmol/L (136-145); Total Bilirubin 0.3 mg/dL (0.15-1.2); Total Protein 6.9 g/dL (6.6-8.7)
[2022-02-14 12:36] VITALS: BP 132/84; PULSE 104; RESP 15; TEMP 36.9; O2SAT 99
[2022-02-14 12:42] LABS: Anion Gap 16.3 (5-19); Potassium 3.3 mmol/L (3.5-5.1)
[2022-02-14 12:50] LABS: Lactic Sepsis W/Reflex 1.6 mmol/L (0.5-2.2)
[2022-02-14] MEDS: levoFLOXacin 750 mg Tablet PO (13:45)
--- NOTE | 2022-02-14 15:30 | PC.SOCIAL ---
[facility] Change CM was notified by Dr. Johnson that patient would need to be changed from cefazolin to IV Vancomycin 1500mg Q12H for 6weeks. Spoke with Mee in GI lab who reported that patient has gotten her PICC line. She states that they will give first dose of vancomycin per Dr. Johnson telephone order. Spoke with Tabitha at [facility] and updated her of order change. She states that they can deliver medication tomorrow along with dressing changes, and flushes. If it is not delivered by tomorrow night, patient will need to call [facility]. Updated LATRICIA Langford CM so she can update patient and fax PICC line report to [facility].
--- NOTE | 2022-02-14 16:11 | PC.SOCIAL ---
SOCO spoke to Tabitha at [facility], and between her and Mee got pt set up with Vanc. And getting random vanc levels done every friday along with BUN serum creatine, Mee set patient up with every Friday visits where dressing change will be done at same time as labs. Pt notified that [employer] should deliver by tomorrow evening if dont get it will need to contact [facility]. Pt to come tomorrow morning to get AM dose. SOCO to fax PICC line orders to Tabitha at [facility] pharmacy FAX #[phone]
== END 2022-02-14 13:46 | disposition home or self-care (01) ==
PROVIDERS: Emergency Provider Physician Assistant; PCP Nurse Practitioner Family
DX: I82.611 Acute embolism and thrombosis of superficial veins of right upper extremity (principal); F17.290 Nicotine dependence, other tobacco product, uncomplicated
CPT/HCPCS: 36415; 80053; 83605; 85025; 93971; 99284

== ENCOUNTER 2022-02-14 13:57 | Outpatient (CLI) | payer MEDICARE, MEDICAID, SELFPAY ==
--- NOTE | 2022-02-14 08:56 | XR_ITS ---
WS: [id number] EXAMINATION: XR chest 1V portable [id number] REASON FOR EXAM: Post PICC placement COMPARISON: 09/11/2021 ORDER DATE: 02/14/2022 8:56 AM TECHNIQUE: A single, portable frontal chest x-ray was obtained. X-RAY FINDINGS: The lungs are clear except for an ovoid rim-like opacity in the left costophrenic angle present on th e previous study necks. Pleural spaces are clear. No pleural effusions or pneumothorax. Cardiomediastinal silhouette is normal. No evidence for pulmonary edema. Soft tissue and osseous structures are unremarkable. Left side PICC line terminates at the cavoatrial junction in satisfactory position. XR/XR chest 1V portable [id number] IMPRESSION: Unusual ovoid like opacity in the left costophrenic angle recommend additional follow-up, possible artifact versus cavitary infiltrate. Satisfactory PICC line placement.
--- NOTE | 2022-02-14 10:24 | PC.NURSE ---
Addendum entered by Mee Lopez RN 02/14/22 10:31: Pt was to be discharged home on IV cefazolin, not ceftriaxone. Original Note: Pt called this nurse at approx 0920 this morning stating that she woke up to her face being severely swollen and that she would be running late for her PICC line scheduled for 1000 today. This nurse asked why her face was swollen. The pt stated she was not sure why, but she thought it might be due to the antibiotic. Pt was to receive IV ceftriaxone via home infusion. Pt came to the hospital yesterday for teaching regarding home infusion from med-surg nurse. Dressing noted to be off and PICC was removed. Pt stated she was itching so severely in the night, she must have itched the dressing off. Pt has not received a dose of antibiotic since discharge on Friday. This nurse told patient to go to the ED for further evaluation and to take a Benadryl if able and no allergies. Pt states she tried but was unable to swallow the pill.
--- NOTE | 2022-02-14 14:00 | PC.NURSE ---
Pt arrived to GI lab infusions for placement of PICC line from ED. Pt states case management is working on changing her antibiotic and contacting the home infusion company. Left single lumen PICC placed without difficulty. Chest xray confirms placement in distal SVC. Case management at bedside following PICC placement. Pt to be started on Vancomycin 1500 mg IV every 12 hours, first dose now per Dr. Johnson. [facility] home infusion to have next dose of Vancomycin to pt by 02/15/22 evening. Pt will come in to GI infusions for dose at 0700 02/15/22, along with PICC dressing change, and [facility] infusions to deliver remainder of doses. Pt to come to GI infusions for weekly lab draws and PICC dressing changes on Tuesdays. Pt and family educated on how to flush PICC line and feel comfortable with giving Vancomycin at home.
[2022-02-14] MEDS: vancomycin 1,500 MG/300 ML PIGGYBACK 200 MG IV (15:53)
[2022-02-14 16:21] VITALS: BP 146/88; PULSE 117; RESP 18; TEMP 36.4; O2SAT 97
== END 2022-02-14 13:58 | disposition home or self-care (01) ==
LOC: GILAB 13:58
PROVIDERS: PCP Nurse Practitioner Family; Visit Provider Internal Medicine
DX: Z45.2 Encounter for adjustment and management of vascular access device (principal); A49.01 Methicillin susceptible Staphylococcus aureus infection, unspecified site
CPT/HCPCS: 36569; 71045; 96365; 96366; J3370

== ENCOUNTER 2022-02-25 21:52 | Emergency (ER) | payer MEDICARE, MEDICAID, SELFPAY ==
--- NOTE | 2022-02-25 21:58 | XRR_ITS ---
PROCEDURE INFORMATION: Exam: XR Chest Exam date and time: 02/25/2022 10:17 PM Age: 51 years old Clinical indication: Cough and fever; Prior surgery; Surgery type: Gb; Patient HX: Cough with SOB and fever. Currently has picc line for abx therapy for staph. ; Additional info: Cough congestion TECHNIQUE: Imaging protocol: Radiologic exam of the chest. Views: 1 view. COMPARISON: CR XR chest 1V portable [id number] 02/14/2022 3:12 PM FINDINGS: Tubes, catheters and devices: Left upper extremity PICC is stable in position with the tip at the cavoatrial junction. Lungs: Lungs are clear bilaterally. Pleural spaces: No pleural effusion. No pneumothorax. Heart/Mediastinum: Stable mild enlargement of the cardiac silhouette. Mediastinal contours are unremarkable. Bones/joints: Stable changes consistent with the previous fusion in the lower cervical spine. Organs: Surgical clips in the right upper quadrant, consistent with a previous cholecystectomy. XR/XR chest 1V portable [id number] IMPRESSION: 1. No acute cardiopulmonary process. 2. Incidental/nonacute findings are listed in the report.
[2022-02-25 22:00] VITALS: BP 107/64; PULSE 120; RESP 20; TEMP 37.2; O2SAT 99; BMI 32.4
--- NOTE | 2022-02-25 22:23 | W.ED.ALLEREA ---
HPI - Allergic Reaction General: Chief complaint: Allergic Reaction Stated complaint: Fever\Cough\Rash Time Seen by Provider: 02/25/22 21:53 History of Present Illness: HPI narrative: Patient has been on vancomycin for 2 weeks now for a wound infection from her surgery. Patient reported that after her dose this morning she had some mild redness then after the dose this evening she had a increase rash with itching. Patient took 50 mg of Benadryl prior to coming to the ER. Respirations are even. Diffuse maculopapular rashes noted. Review of Systems Const: Reports: fever(s) Resp: Reports: non-productive cough Skin/Breast: Reports: rash PFSH ED PFSH: Medical History Constipation Helicobacter pylori gastritis Psychiatric care Surgical History H/O esophagogastroduodenoscopy (06/04/21) History of cholecystectomy History of colonoscopy (~12/2019) dr. hank back History of esophagogastroduodenoscopy (EGD) (~12/2019) dr. hank abck History of fusion of cervical spine History of hysterectomy Status post colonoscopy (06/04/21) with banding of hemorrhoid Status post lumbar spinal fusion Family History Other Diabetes Hypertension Social History Smoking and tobacco status: current every day smoker e-cigarettes E-Cigarette Details: vaporizer device and with nicotine E-cig/vape details: 1 mg Quit status (tobacco): has tried quititng Number of times tried to quit tobacco: 3 Second hand smoke exposure: No Alcohol intake: never Caregiver/support person: Yes Lives independently: Yes Household members: significant other Marital status: Current occupational status: disabled History of recent travel: No Current gender identity: Female Special oscar needs: Yes Physical Exam Const: COMMON NORMALS: alert HENMT: COMMON NORMALS: normocephalic HEAD & SCALP: normocephalic THROAT: posterior oropharynx normal Neck/C-Spine: COMMON NORMALS: full ROM Resp: COMMON NORMALS: normal respiratory effort and clear to auscultation bilaterally AUSCULTATION: clear to auscultation bilaterally Cardio: COMMON NORMALS: regular rate and regular rhythm RATE: regular rate RHYTHM: regular rhythm GI: COMMON NORMALS: Soft to palpation and non-tender PALPATION: Yes Soft to palpation Extremity: COMMON NORMALS: normal to inspection Neuro: SENSORIUM/ORIENTATION: Yes alert Skin: RASHES: rashes noted (Diffuse maculopapular rash,) Course Vital Signs: Vital signs: Vital Signs Temperature 98.9 F 02/25/22 22:00 Pulse Rate 120 H 02/25/22 22:00 Respiratory Rate 20 H 02/25/22 22:00 Blood Pressure 107/64 02/25/22 22:00 Pulse Oximetry 99 02/25/22 22:00 MDM - Allergic Reaction Medical Decision Making 51-year-old female comes in today with a reaction to IV vancomycin. On exam patient appears mildly uncomfortable with itchy diffuse maculopapular rash. Lungs are clear to auscultation. Vital signs are normal. Patient reports rash started after this evening's dose of vancomycin. Differential diagnosis includes adverse drug reaction, red man syndrome, anaphylaxis. Patient's labs noted a lactic of 1.4, CRP of 25, creatinine 1.1, low potassium of 2.8, white blood cell count 7.4, and hemoglobin of 8.8. Patient's creatinine and hemoglobin seem to be in this range most of the time. Patient most likely has some chronic kidney disease with secondary renal insufficiency. Patient's low potassium most likely is due to some medication that she is on. Patient was given 40 mEq of potassium x1. Patient was medicated with 50 of Benadryl IV, and 10 mg of dexamethasone IV. Patient is scheduled to follow-up with surgeon in the morning. Recommended that she hold her vancomycin until follow-up appointment and further recommendations by surgeon. Patient had improvement of rash prior to discharge but some persistence of maculopapular rash was noted. Lab Data 02/25/22 22:47 02/25/22 22:47 Radiology Impressions Chest X-Ray 02/25/22 21:58 IMPRESSION: 1. No acute cardiopulmonary process. 2. Incidental/nonacute findings are listed in the report. Laboratory Results WBC 7.4 10^3/uL (4.0-10.0) 02/25/22 22:47 RBC 3.20 10^6/uL (4.1-5.3) L 02/25/22 22:47 Hgb 8.8 g/dL (11.5-15.3) L 02/25/22 22:47 Hct 27.4 % (37.0-47.0) L 02/25/22 22:47 MCV 85.6 fl (81-99) 02/25/22 22:47 MCH 27.5 pg (28.0-34.0) L 02/25/22 22:47 MCHC 32.1 g/dL (30.0-36.0) 02/25/22 22:47 RDW 16.2 % (12.1-15.1) H 02/25/22 22:47 Plt Count 188 10^3/cmm (130-400) 02/25/22 22:47 MPV 10.2 fL (7.4-10.4) 02/25/22 22:47 Neut % (Auto) 74.5 % 02/25/22 22:47 Lymph % (Auto) 10.9 % 02/25/22 22:47 [place] % (Auto) 5.0 % 02/25/22 22:47 Eos % (Auto) 8.7 % 02/25/22 22:47 Baso % (Auto) 0.1 % 02/25/22 22:47 Neut # (Auto) 5.53 10^3/uL (1.8-7.7) 02/25/22 22:47 Lymph # (Auto) 0.8 10^3/uL (0.8-4.8) 02/25/22 22:47 [place] # (Auto) 0.4 10^3/uL (0.2-0.9) 02/25/22 22:47 Eos # (Auto) 0.7 10^3/uL (0.0-0.8) 02/25/22 22:47 Baso # (Auto) 0.0 10^3/uL (0.0-0.1) 02/25/22 22:47 Nucleated RBC % (auto) 0 % 02/25/22 22:47 Nucleated RBCs # 0.0 /100WBC 02/25/22 22:47 Sodium 138 mmol/L (136-145) 02/25/22 22:47 Potassium 2.8 mmol/L (3.5-5.1) L* 02/25/22 22:47 Chloride 104 mmol/L (98-107) 02/25/22 22:47 Carbon Dioxide 22 mmol/L (22-29) 02/25/22 22:47 Anion Gap 14.8 (5-19) 02/25/22 22:47 BUN 12 mg/dL (6-20) 02/25/22 22:47 Creatinine 1.1 mg/dL (0.5-0.9) H 02/25/22 22:47 GFR Calculation 52.8 mL/min (90-130) L 02/25/22 22:47 Glucose 123 mg/dL (65-115) H 02/25/22 22:47 Calculated Osmolality 287 mOsm/kg (285-295) 02/25/22 22:47 Lactic Acid 1.4 mmol/L (0.5-2.2) 02/25/22 22:47 Calcium 7.8 mg/dL (8.5-10.5) L 02/25/22 22:47 Total Bilirubin 0.4 mg/dL (0.15-1.2) 02/25/22 22:47 AST 75 U/L (0-32) H 02/25/22 22:47 ALT 74 U/L (0-33) H 02/25/22 22:47 Alkaline Phosphatase 85 U/L (35-105) 02/25/22 22:47 C-Reactive Protein 25.3 mg/L (0.0-4.9) H 02/25/22 22:47 Total Protein 6.1 g/dL (6.6-8.7) L 02/25/22 22:47 Albumin 2.9 g/dL (3.5-5.2) L 02/25/22 22:47 Globulin 3.2 g/dL (1.3-4.6) 02/25/22 22:47 Discharge Plan Discharge Patient Disposition: Home Clinical Impression: Allergic reaction Qualifiers: Encounter type: initial encounter Qualified Code(s): T78.40XA - Allergy, unspecified, initial encounter Condition: Stable Prescriptions: No Action albuterol sulfate 2.5 mg /3 mL (0.083 %) solution for nebulization 2.5 mg INHALATION QID PRN (Reason: shortness of breath or wheezing) Qty: 90 3RF albuterol sulfate [ProAir HFA] 90 mcg/actuation HFA aerosol inhaler 2 puff inhalation QID PRN (Reason: shortness of breath or wheezing) Qty: 6.7 2RF (DME) Short lemons boot See Rx Instructions .Route .MEDSUPPLY Qty: 1 0RF Rx Instructions: As directed (DME) hinged knee brace See Rx Instructions .Route .MEDSUPPLY Qty: 1 0RF Rx Instructions: Right knee pain diazepam [Valium] 5 mg tablet 5 mg PO Q8H PRN (Reason: muscle spasm) Qty: 30 0RF estradiol [Vagifem] 10 mcg tablet 10 mcg VAGINAL .TWO TIMES PER WEEK Qty: 8 5RF Rx Instructions: mon and wed (DME) Cam boot to the right- short See Rx Instructions .Route .MEDSUPPLY Qty: 1 0RF Rx Instructions: As directed pantoprazole 40 mg tablet,delayed release (DR/EC) 40 mg PO BID Qty: 60 5RF cyclobenzaprine 10 mg tablet 10 mg PO TID Qty: 90 2RF vancomycin in 0.9 % sodium chl 1.5 gram/250 mL Solution 1.5 g IV Q12H ibuprofen 800 mg tablet 800 mg PO Q8H PRN (Reason: Pain) montelukast 10 mg tablet 10 mg PO DAILY Linzess 145 mcg capsule 145 mcg PO DAILY Discharge Orders: Discharge ED (Routine); Ordered 02/25/22 Ordered By: Onur Rojas Referrals: Amanda Duran FNP [Primary Care Provider] - Discharge Diet: Usual diet Discharge Activity: Increase activity as tolerated Patient Instructions: Allergic Reaction Activity Restrictions/Additional Instructions: Home and rest. Drink plenty of water and fluids. Do not use vancomycin until follow-up with surgeon. Return to the ER for worsening difficulty breathing, inability to hold fluids down, or new concerns. Coding Level of Care Code ED Management Department Chair for Eliud Carmen Exam Comprehensive
[2022-02-25] MEDS: sodium chloride 0.9% 500 ML 999 ML IV (22:49)
[2022-02-25 22:56] LABS: Basophils % 0.1 %; Eosinophils # 0.7 10^3/uL (0.0-0.8); Eosinophils % 8.7 %; Hematocrit 27.4 % (37.0-47.0); Hemoglobin 8.8 g/dL (11.5-15.3); Lymphocytes # 0.8 10^3/uL (0.8-4.8); Lymphocytes % 10.9 %; Mean Corpuscular HGB Conc 32.1 g/dL (30.0-36.0); Mean Corpuscular Hemoglobin 27.5 pg (28.0-34.0); Mean Corpuscular Volume 85.6 fl (81-99); Mean Platelet Volume 10.2 fL (7.4-10.4); Monocytes # 0.4 10^3/uL (0.2-0.9); Neutrophils # 5.53 10^3/uL (1.8-7.7); Neutrophils % 74.5 %; Nucleated Red Blood Cells % 0 %; Platelet Count 188 10^3/cmm (130-400); Red Cell Distribution Width 16.2 % (12.1-15.1); White Blood Count 7.4 10^3/uL (4.0-10.0)
[2022-02-25 23:16] LABS: Lactic Sepsis W/Reflex 1.4 mmol/L (0.5-2.2)
[2022-02-25 23:17] LABS: Alanine Aminotransferase 74 U/L (0-33); Albumin Level 2.9 g/dL (3.5-5.2); Alkaline Phosphatase 85 U/L (35-105); Anion Gap 14.8 (5-19); Aspartate Amino Transferase 75 U/L (0-32); Blood Urea Nitrogen 12 mg/dL (6-20); C Reactive Protein 25.3 mg/L (0.0-4.9); Calcium 7.8 mg/dL (8.5-10.5); Carbon Dioxide 22 mmol/L (22-29); Chloride 104 mmol/L (98-107); Globulin 3.2 g/dL (1.3-4.6); Glomerular Filtration Rate 52.8 mL/min (90-130); Glucose 123 mg/dL (65-115); Osmolality Calculated 287 mOsm/kg (285-295); Sodium 138 mmol/L (136-145); Total Bilirubin 0.4 mg/dL (0.15-1.2); Total Protein 6.1 g/dL (6.6-8.7)
[2022-02-25 23:31] LABS: Potassium 2.8 mmol/L (3.5-5.1)
--- NOTE | 2022-02-25 23:50 | PC.NURSE ---
patients leg bag draining and emptied approx 220 ml of yellow/orangish colored urine. patient in no obious distress. patient states no pain or spasms while in er. Provider Bob notified .
[2022-02-25] MEDS: potassium chloride ER 20 mEq Tablet 40 MEQ PO (23:52)
[2022-02-25] MEDS: dexamethasone 10 mg/mL INJ IVP (23:53)
[2022-02-25] MEDS: diphenhydrAMINE 50 mg/mL SDV 1mL IVP (23:53)
[2022-02-26 00:14] VITALS: BP 110/66; PULSE 111; RESP 20; O2SAT 99
== END 2022-02-26 00:14 | disposition home or self-care (01) ==
PROVIDERS: Emergency Provider Nurse Practitioner Family; PCP Nurse Practitioner Family
DX: T78.40XA Allergy, unspecified, initial encounter (principal); X58.XXXA Exposure to other specified factors, initial encounter; Z98.1 Arthrodesis status
CPT/HCPCS: 71045; 80053; 83605; 85025; 86140; 87040; 96361; 96374; 96375; 99284; J1100; J1200; J7040

== ENCOUNTER → 2022-02-26 09:18 | Outpatient (BNVA) | payer MEDICARE, MEDICAID, SELFPAY | PROVIDERS: PCP Nurse Practitioner Family; Visit Provider Physician Assistant | DX: Z98.1 Arthrodesis status (principal); T78.40XA Allergy, unspecified, initial encounter | CPT/HCPCS: 72100 ==

== ENCOUNTER 2022-02-26 10:00 | Outpatient (RCR) | payer MEDICARE, MEDICAID, SELFPAY ==
[2022-02-15] MEDS: vancomycin 1,500 MG/300 ML PIGGYBACK 200 MG IV (07:08)
[2022-02-15 07:44] VITALS: BP 138/86; PULSE 102; RESP 18; TEMP 36.4; O2SAT 96
[2022-02-19 10:10] VITALS: BP 129/76; PULSE 92; RESP 18; TEMP 36.2; O2SAT 100
[2022-02-19 11:00] LABS: Vancomycin Random 25.8 ug/mL (20.0-40.0)
[2022-02-19 11:01] LABS: Blood Urea Nitrogen 9 mg/dL (6-20); Glomerular Filtration Rate 52.8 mL/min (90-130)
[2022-02-26 10:28] VITALS: BP 110/67; PULSE 110; RESP 18; TEMP 37; O2SAT 97
--- NOTE | 2022-02-26 10:52 | PC.NURSE ---
Pt states she was seen in ER last night, 02/25/22, for allergic reaction to Vancomycin. Pt noted to have red rash and hives on face, both arms, and chest. Pt states ER physician discontinued Vanc due to suspected allergy. Pt to keep PICC line in place and return for weekly dressing changes with flush until seen by Dr. Coughiln on 03/14/21.
--- NOTE | 2022-02-26 11:21 | PC.NURSE ---
[place] pharmacist Doug Hernandez informed of pts adverse reaction to Vanc. Medication stopped per ER physician.
--- NOTE | 2022-02-26 12:53 | PC.NURSE ---
This nurse notified Dr. Coughlin's nurse, Shabana, regarding recent changes with patient regarding IV antibiotics. Shabana to update Dr. Coughlin.
== END 2022-03-06 09:00 | disposition home or self-care (01) ==
LOC: GILAB 10:00
PROVIDERS: PCP Nurse Practitioner Family; Visit Provider Internal Medicine
DX: M48.061 Spinal stenosis, lumbar region without neurogenic claudication (principal); T14.8XXA Other injury of unspecified body region, initial encounter; X58.XXXA Exposure to other specified factors, initial encounter
CPT/HCPCS: 36592; 80202; 82565; 84520; 96365; 96366; 99024; J3370

== ENCOUNTER 2022-02-28 12:32 | Inpatient (IN) | payer MEDICARE, MEDICAID, SELFPAY ==
[2022-02-28] VITALS (49 sets, daily range): BP systolic 88–130; BP diastolic 41–78; PULSE 99–171; RESP 3–42; TEMP 36.6–36.8; O2SAT 70–100; BMI 31.3
--- NOTE | 2022-02-28 13:23 | XR_ITS ---
WS: [id number] Exam: XR chest 1V portable [id number] Date/Time of Exam: 02/28/2022 1:24 PM Reason For Exam: dyspnea/cough Comparison 02/25/2022. The lungs are clear and fully expanded. Normal cardiomediastinal silhouette. A left-sided PICC line e nds at the cavoatrial junction unchanged in location. No pleural effusions. Regional bony elements ar e intact. Fusion hardware in the lower C-spine. EKG leads superimpose the chest. XR/XR chest 1V portable [id number] IMPRESSION: 1. No acute cardiopulmonary finding.
--- NOTE | 2022-02-28 13:39 | ED_ITS ---
HPI - General Adult General: Chief complaint: General Medical Stated complaint: sob Time Seen by Provider: 02/28/22 12:59 Source: patient Mode of arrival: ambulatory Limitations: no limitations History of Present Illness: 51-year-old female who presents emergency room from infectious disease clinic with a systemic rash. 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 Initially she was on vancomycin and they stopped the med vancomycin put her on Benadryl and dexamethasone she was changed to cephalexin. She continues to have a systemic rash. On arrival here today she was hypotensive with blood pressure 94/54 with pulse of 116 respirations of 30 she is on 2 L by nasal cannula to maintain sats at 100%. Dr. Coughlin had been seeing the patient in the infectious disease clinic. She wanted her to be further evaluated and possibly admitted if she was admitted she would prefer no antibiotics were initiated. Onset (ago): hour(s) Location: head, face, neck, chest, back, abdomen, genitals, buttocks, left, right, upper extremity and lower extremity Severity: moderate Pain Consistency: constant Relieving factors: none Exacerbating factors: none Associated symptoms: Reports dyspnea, nausea and rash; Deny chest pain, confusion, cough, diaphoresis, decreased appetite, fevers/chills, headache(s), malaise, palpitations, seizures, short of breath, sy ncope, vomiting or weakness Treatments prior to arrival: none Review of Systems Const: Denies: fever(s), chills, malaise or diaphoresis ENMT: Denies: throat pain, ear or mastoid pain, nasal discharge or nasal congestion Card: Denies: chest pain, palpitations or syncope Resp: Reports: dyspnea and wheezing GI: Reports: nausea; Denies: vomiting : Denies: flank pain, difficulty voiding, dysuria, urinary frequency or urinary urgency Skin/Breast: Reports: rash and pruritus Neuro: Denies: headache(s) or confusion All/Imm: Reports: urticaria PFSH ED PFSH: Medical History Constipation Helicobacter pylori gastritis Psychiatric care Surgical History H/O esophagogastroduodenoscopy (06/04/21) History of cholecystectomy History of colonoscopy (~12/2019) dr. hank back History of esophagogastroduodenoscopy (EGD) (~12/2019) dr. hank back History of fusion of cervical spine History of hysterectomy Status post colonoscopy (06/04/21) with banding of hemorrhoid Status post lumbar spinal fusion Family History Other Diabetes Hypertension Social History Smoking and tobacco status: current every day smoker e-cigarettes E-Cigarette Details: vaporizer device and with nicotine E-cig/vape details: 1 mg Quit status (tobacco): has tried quititng Number of times tried to quit tobacco: 3 Second hand smoke exposure: No Alcohol intake: never Caregiver/support person: Yes Lives independently: Yes Household members: significant other Marital status: Current occupational status: disabled History of recent travel: No Current gender identity: Female Special oscar needs: Yes Physical Exam Const: GENERAL APPEARANCE: cooperative and comfortable ORIENTATION/CONSCIOUSNESS: Yes awake HENMT: COMMON NORMALS: normocephalic, atraumatic and hearing grossly normal bilaterally HEAD & SCALP: normocephalic and atraumatic Resp: AUSCULTATION: rhonchi and wheezes Cardio: COMMON NORMALS: regular rate, regular rhythm and No murmurs present (Cardio) RATE: regular rate RHYTHM: regular rhythm GI: COMMON NORMALS: Soft to palpation and No hepatosplenomegaly present AUSCULTATION: Yes normoactive bowel sounds PALPATION: Yes Soft to palpation, No Tenderness to palpation present (GI), No Guarding due to palpation present (GI) and Yes No hepatosplenomegaly present Extremity: COMMON NORMALS: normal to inspection, capillary refill normal, no clubbing, cyanosis or edema, no calf tenderness and no pedal edema Course Vital Signs: Vital signs: Vital Signs Temperature 98.0 F 03/01/22 07:54 Pulse Rate 92 03/01/22 07:54 Respiratory Rate 16 03/01/22 07:54 Blood Pressure 94/57 03/01/22 07:54 Pulse Oximetry 98 03/01/22 07:54 Oxygen Delivery Me thod 03/01/22 07:54 Oxygen Flow Rate 2 03/01/22 03:44 Fraction of Inspir ed Oxygen 2 03/01/22 04:00 MDM - General Adult Medical Decision Making Patient remains hypotensive. Mild acute kidney injury skin reaction is persiste nt with eosinophilia. We will admit IV fluids sheets mildly hypoxic and tachycardic CTA chest done was negative. Discussed with Dr. Dillon orders written Medical Records I reviewed the patient's medical records. Lab Data I reviewed the patient's lab results. 02/28/22 13:50 02/28/22 13:50 Radiology Impressions Chest X-Ray 02/28/22 13:23 IMPRESSION: 1. No acute cardiopulmonary finding. Chest CTA 02/28/22 15:11 IMPRESSION: 1. Negative for pulmonary embolus. 2. Coronary artery atherosclerotic calcifications. 3. Cardiomegaly. 4. Hepatic steatosis. 5. Cholecystectomy. 6. Bibasilar atelectasis versus minimal infiltrate. 7. Subcutaneous edema over the anterior chest. Laboratory Results WBC 11.5 10^3/uL (4.0-10.0) H 02/28/22 13:50 RBC 3.53 10^6/uL (4.1-5.3) L 02/28/22 13:50 Hgb 9.5 g/dL (11.5-15.3) L 02/28/22 13:50 Hct 30.0 % (37.0-47.0) L 02/28/22 13:50 MCV 85.0 fl (81-99) 02/28/22 13:50 MCH 26.9 pg (28.0-34.0) L 02/28/22 13:50 MCHC 31.7 g/dL (30.0-36.0) 02/28/22 13:50 RDW 16.4 % (12.1-15.1) H 02/28/22 13:50 Plt Count 199 10^3/cmm (130-400) 02/28/22 13:50 MPV 10.5 fL (7.4-10.4) H 02/28/22 13:50 Neut % (Auto) 67.5 % 02/28/22 13:50 Lymph % (Auto) 14.8 % 02/28/22 13:50 [place] % (Auto) 5.4 % 02/28/22 13:50 Eos % (Auto) 11.6 % 02/28/22 13:50 Baso % (Auto) 0.3 % 02/28/22 13:50 Neut # (Auto) 7.78 10^3/uL (1.8-7.7) H 02/28/22 13:50 Lymph # (Auto) 1.7 10^3/uL (0.8-4.8) 02/28/22 13:50 [place] # (Auto) 0.6 10^3/uL (0.2-0.9) 02/28/22 13:50 Eos # (Auto) 1.3 10^3/uL (0.0-0.8) H 02/28/22 13:50 Baso # (Auto) 0.0 10^3/uL (0.0-0.1) 02/28/22 13:50 Nucleated RBC % (auto) 0 % 02/28/22 13:50 Nucleated RBCs # 0.0 /100WBC 02/28/22 13:50 Specimen Type Arterial 02/28/22 13:30 Sample Site Radial, left 02/28/22 13:30 ABG pH 7.47 (7.35-7.45) H 02/28/22 13:30 ABG pCO2 30.9 mmHg (35-45) L 02/28/22 13:30 ABG pO2 93.1 mmHg (80.0-100.0) 02/28/22 13:30 ABG HCO3 22.5 mmol/L (22-26) 02/28/22 13:30 ABG O2 Saturation 98.3 02/28/22 13:30 ABG Base Excess -0.6 mmol/L (-2.0-2.0) 02/28/22 13:30 Christian Test Pos 02/28/22 13:30 A-a O2 Gradient 8.6 mmHg (5-10) 02/28/22 13:30 Hematocrit 29.6 % (37-47) L 02/28/22 13:30 Hgb O2 Saturation 97.7 % (95-100) 02/28/22 13:30 Carboxyhemoglobin 0.7 %THgb (0.4-20.1) 02/28/22 13:30 Methemoglobin 0.0 % (0.4-1.5) L 02/28/22 13:30 Total Hemoglobin 9.7 g/dL (12-16) L 02/28/22 13:30 Sodium 132.0 mmol/L (131-143) 02/28/22 13:30 Potassium 2.9 mmol/L (3.5-5.0) L 02/28/22 13:30 Glucose 103.0 mg/dL (70-115) 02/28/22 13:30 Ionized Calcium 1.1 mmol/L (1.1-1.4) 02/28/22 13:30 O2 Delivery Device Nc 02/28/22 13:30 O2 Liters/Min 2.0 % 02/28/22 13:30 FiO2 28.0 % 02/28/22 13:30 Shell Worker ID Ah 02/28/22 13:30 Sodium 131 mmol/L (136-145) L 02/28/22 13:50 Potassium 3.0 mmol/L (3.5-5.1) L 02/28/22 13:50 Chloride 97 mmol/L (98-107) L 02/28/22 13:50 Carbon Dioxide 21 mmol/L (22-29) L 02/28/22 13:50 Anion Gap 16.0 (5-19) 02/28/22 13:50 BUN 21 mg/dL (6-20) H 02/28/22 13:50 Creatinine 1.2 mg/dL (0.5-0.9) H 02/28/22 13:50 GFR Calculation 47.7 mL/min (90-130) L 02/28/22 13:50 Glucose 104 mg/dL (65-115) 02/28/22 13:50 Calculated Osmolality 275 mOsm/kg (285-295) L 02/28/22 13:50 Lactic Acid 2.3 mmol/L (0.5-2.2) H 02/28/22 13:50 Lactic Acid (Sepsis) 1.9 mmol/L (0.5-2.2) 02/28/22 16:16 Calcium 8.0 mg/dL (8.5-10.5) L 02/28/22 13:50 Total Bilirubin 0.4 mg/dL (0.15-1.2) 02/28/22 13:50 AST 35 U/L (0-32) H 02/28/22 13:50 ALT 60 U/L (0-33) H 02/28/22 13:50 Alkaline Phosphatase 85 U/L (35-105) 02/28/22 13:50 Troponin T Baseline 10 ng/L (0-10) 02/28/22 13:50 NT-Pro-B Natriuret Pep 158 pg/mL (0-125) H 02/28/22 16:16 Total Protein 5.5 g/dL (6.6-8.7) L 02/28/22 13:50 Albumin 2.7 g/dL (3.5-5.2) L 02/28/22 13:50 Globulin 2.8 g/dL (1.3-4.6) 02/28/22 13:50 Nasal Influ A H1 2009 PCR Not detected (NOT DETECT) 02/28/22 15:25 Coronavirus 229E (PCR) Not detected (NOT DETECT) 02/28/22 15:25 Influenza A (H1) PCR Not detected (NOT DETECT) 02/28/22 15:25 Influenza A (H3) PCR Not detected (NOT DETECT) 02/28/22 15:25 Influenza Type A (PCR) Not detected (NOT DETECT) 02/28/22 15:25 Influenza Type B (PCR) Not detected (NOT DETECT) 02/28/22 15:25 SARS-CoV-2 (PCR) Not detected (NOT DETECT) 02/28/22 15:25 Discharge Plan Discharge Patient Disposition: Placed in Observation Admit Provider: Benjamin Todd Clinical Impression: Hypotension, S/P lumbar fusion, Transaminitis, TRACEY (acute kidney injury), Medic ation adverse effect Coding Level of Care Code ED Inpatient Services Director for Chg Fwd Exam Detailed
[2022-02-28 13:49] LABS: ABG PCO2 30.9 mmHg (35-45); ABG PH Result 7.47 (7.35-7.45); Alveolar-Arterial Oxygen Gradi 8.6 mmHg (5-10); Arterial Blood Gas Hematocrit 29.6 % (37-47); Base Excess ABG -0.6 mmol/L (-2.0-2.0); Blood Gas Allen Test Pos; Blood Gas Operator Identificat AH; Blood Gas Sample Site Radial, left; Blood Gas Sample Type Arterial; Carboxyhemoglobin 0.7 %THgb (0.4-20.1); HCO3 ABG 22.5 mmol/L (22-26); HGB O2 Sat 97.7 % (95-100); Ionized Calcium Level - ABG 1.1 mmol/L (1.1-1.4); Oxygen Device NC; Oxygen Saturation ABG 98.3; PO2 ABG 93.1 mmHg (80.0-100.0); Potassium Level - ABG 2.9 mmol/L (3.5-5.0); Total Hemoglobin 9.7 g/dL (12-16)
[2022-02-28] MEDS: ipratropium-albuterol 3 mL Neb INHALATION (13:49)
[2022-02-28] MEDS: sodium chloride 0.9% 1,000 ML 999 ML IV (13:54)
--- NOTE | 2022-02-28 13:55 | ECG_ITS ---
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 Measurements Intervals [place] Rate: 108 P: 57 [place]: 107 QRS: 32 QRSD: 72 T: 30 QT: 329 QTc: 442 Interpretive Statements SINUS TACHYCARDIA WITH SHORT WY INTERVAL LOW QRS VOLTAGE IN PRECORDIAL LEADS [QRS DEFLECTION < 1.0 mV IN CHEST LEADS] POSSIBLE ANTERIOR MYOCARDIAL INFARCTION , OF INDETERMINATE AGE [30 ms Q WAVE IN V3/V4, OR R < 0.2 mV IN V4] No previous ECG available for comparison Electronically Signed On 03-01-2022 7:53:31 JUNIOR SOFTWARE ENGINEER by Dwayne Espino M.D. [id number]
[2022-02-28 14:04] LABS: Basophils % 0.3 %; Eosinophils # 1.3 10^3/uL (0.0-0.8); Eosinophils % 11.6 %; Hemoglobin 9.5 g/dL (11.5-15.3); Lymphocytes # 1.7 10^3/uL (0.8-4.8); Lymphocytes % 14.8 %; Mean Corpuscular HGB Conc 31.7 g/dL (30.0-36.0); Mean Corpuscular Hemoglobin 26.9 pg (28.0-34.0); Mean Platelet Volume 10.5 fL (7.4-10.4); Monocytes # 0.6 10^3/uL (0.2-0.9); Monocytes % 5.4 %; Neutrophils # 7.78 10^3/uL (1.8-7.7); Neutrophils % 67.5 %; Nucleated Red Blood Cells % 0 %; Platelet Count 199 10^3/cmm (130-400); Red Blood Count 3.53 10^6/uL (4.1-5.3); Red Cell Distribution Width 16.4 % (12.1-15.1); White Blood Count 11.5 10^3/uL (4.0-10.0)
[2022-02-28 14:22] LABS: Lactic Sepsis W/Reflex 2.3 mmol/L (0.5-2.2)
[2022-02-28 14:23] LABS: Alanine Aminotransferase 60 U/L (0-33); Albumin Level 2.7 g/dL (3.5-5.2); Alkaline Phosphatase 85 U/L (35-105); Aspartate Amino Transferase 35 U/L (0-32); Blood Urea Nitrogen 21 mg/dL (6-20); Carbon Dioxide 21 mmol/L (22-29); Chloride 97 mmol/L (98-107); Globulin 2.8 g/dL (1.3-4.6); Glomerular Filtration Rate 47.7 mL/min (90-130); Glucose 104 mg/dL (65-115); Osmolality Calculated 275 mOsm/kg (285-295); Sodium 131 mmol/L (136-145); Total Bilirubin 0.4 mg/dL (0.15-1.2); Total Protein 5.5 g/dL (6.6-8.7)
--- NOTE | 2022-02-28 15:11 | CTR_ITS ---
PROCEDURE INFORMATION: Exam: CTA Chest With Contrast Exam date and time: 02/28/2022 5:29 PM Age: 51 years old Clinical indication: Shortness of breath and tachypnea and wheezing; Additional info: Tachypnea/hypoxia TECHNIQUE: Imaging protocol: Computed tomographic angiography of the chest with contrast. 3D rendering (Not supervised by radiologist): MIP and/or 3D reconstructed images were created by the technologist. Radiation optimization: All CT scans at this facility use at least one of these dose optimization techniques: automated exposure control; mA and/or kV adjustment per patient size (includes targeted exams where dose is matched to clinical indication); or iterative reconstruction. Contrast material: OMNIPAQUE 350; Contrast volume: 95 ml; Contrast route: INTRAVENOUS (IV); COMPARISON: CR XR chest 1V portable [id number] 02/28/2022 1:28 PM RADIATION DOSE METRICS: Total DLP (mGy-cm): 339.08 FINDINGS: Pulmonary arteries: Normal. No pulmonary emboli. Aorta: Unremarkable. No aortic aneurysm. No aortic dissection. Lungs: Bibasilar atelectasis versus minimal infiltrate. Pleural spaces: Unremarkable. No pneumothorax. No pleural effusion. Heart: Cardiomegaly. Coronary arteries: Coronary artery atherosclerotic calcifications. Lymph nodes: Unremarkable. No enlarged lymph nodes. Gallbladder and bile ducts: Cholecystectomy. Bones/joints: Unremarkable. No acute fracture. Soft tissues: Subcutaneous edema over the anterior chest. Other findings: Hepatic steatosis. CT/CT angio chest PE protcl [id number] IMPRESSION: 1. Negative for pulmonary embolus. 2. Coronary artery atherosclerotic calcifications. 3. Cardiomegaly. 4. Hepatic steatosis. 5. Cholecystectomy. 6. Bibasilar atelectasis versus minimal infiltrate. 7. Subcutaneous edema over the anterior chest.
[2022-02-28 15:47] LABS: Reflex Lactate Order REFLEX LACTIC ORDERD
--- NOTE | 2022-02-28 16:19 | PM.HP ---
Providers/Chief Complaint Primary Care Provider: GEORGE Finney Chief Complaint: sob History of Present Illness 51-year-old lady with history of lower back laminectomy and fusion in December, history of irrigation debridement down to bone due to development of spinal abscess on 02/08 with wound cultures growing MSSA, since then on a number of antibiotics, initially discharged on cefazolin, she had an ER visit after dislodgment of PICC line, subsequently antibiotic was switched to vancomycin, however, on 02/25 progressive rash, redness and itching with vancomycin doses. She was asked to hold vancomycin on 02/25, followed up with surgery next day and antibiotic was switched to Keflex 500 mg 4 times daily. Incision was noted to be healing well. She has had persistent morbilliform rash. She was also referred for follow-up with infectious disease. Dressing was changed today in the office, wound looks good. She was told to hold off additional antibiotic for now. From ID clinic she was referred to ER due to hypotension noted in office. On presentation blood pressure down to 88/64, received 1 L of fluid. Also noted hypoxia, sometimes in the 80s, at 1 point down to 70%, was started on nasal cannula oxygen. Blood pressure improved with initial bolus, 107/43. Tachycardia appears to be persistent since the beginning of February. She is afebrile but does state that had been having fever at home as recently as yesterday up to 103. WBC count 11.5. Most neutrophilic, with eosinophils 1.3. ABG 7.47/30.9/93.1. Sodium 131, potassium 3, chloride 97, bicarb 21, anion gap 16, lactic acid 2.3. BUN 21, creatinine 1.2. AST 35, ALT 60. Covid and flu pending. CTA pending, Blood culture collected. Review of Systems Const: Reports: malaise and other (Mild headache. ); Denies: fever(s), chills or body aches Eyes: Denies: change in vision, eye discomfort or eye redness ENMT: Denies: throat pain, oral sores or ear or mastoid pain Card: Reports: dyspnea on exertion; Denies: chest pain or pre-syncope Resp: Reports: dyspnea; Denies: productive cough, change in phlegm color or hemoptysis GI: Reports: nausea; Denies: abdominal pain, vomiting, diarrhea, constipation, hematochezia or melena : Denies: flank pain, urinary frequency or hematuria Musc: Denies: back pain, joint swelling or joint redness Skin/Breast: Reports: rash; Denies: new lesions Neuro: Denies: numbness in extremities, weakness in extremities, dizziness, confusion or seizure-like activity Endo: Denies: polyuria or polydipsia Brett/Lymph: Denies: easy bleeding or tender lymph nodes All/Imm: Denies: urticaria or tongue swelling Medications/Allergies Home Medications Medication Instructions Recorded Confirmed Last Taken Type Short lemons boot #1 ea 08/14/21 02/28/22 02/15/22 Rx Cam boot to the right- short #1 ea 08/27/21 02/28/22 02/15/22 Rx hinged knee brace #1 ea 11/28/21 02/28/22 02/15/22 Rx albuterol sulfate 2.5 mg/3 mL 2.5 mg (3 mL) inhalation QID PRN 01/24/22 02/28/22 02/15/22 Rx (0.083 %) solution for nebulization shortness of breath or wheezing #90 mL albuterol sulfate 90 mcg/actuation 2 puff inhalation QID PRN 01/24/22 02/28/22 02/15/22 Rx aerosol inhaler (ProAir HFA) shortness of breath or wheezing #6.7 grams cyclobenzaprine 10 mg tablet 10 mg PO TID #90 tabs 01/24/22 02/28/22 02/28/22 Rx estradiol 10 mcg vaginal tablet 10 mcg vaginal .TWO TIMES PER WEEK 01/24/22 02/28/22 02/25/22 Rx (Vagifem) #8 tabs pantoprazole 40 mg tablet,delayed 40 mg PO BID #60 tabs 01/24/22 02/28/22 02/28/22 Rx release ibuprofen 800 mg tablet 800 mg PO Q8H PRN Pain 02/08/22 02/28/22 02/15/22 History linaclotide 145 mcg capsule 145 mcg PO DAILY 02/08/22 02/28/22 02/28/22 History (Linzess) montelukast 10 mg tablet 10 mg PO DAILY 02/08/22 02/28/22 02/28/22 History diazepam 5 mg tablet (Valium) 5 mg PO Q8H PRN muscle spasm #30 02/19/22 02/28/22 02/28/22 Rx tabs Allergies Allergy/AdvReac Type Severity Reaction Status Date / Time aluminum hydroxide Allergy ADR-Nausea Verified 02/28/22 14:44 [From Maalox Maximum Strength] lidocaine Allergy ADR-Nausea Verified 02/28/22 14:44 magnesium hydroxide Allergy ADR-Nausea Verified 02/28/22 14:44 [From Maalox Maximum Strength] simethicone Allergy ADR-Nausea Verified 02/28/22 14:44 [From Maalox Maximum Strength] sucralfate [From Carafate] Allergy ADR-Nausea Verified 02/28/22 14:44 aspirin AdvReac Intermediate NAUSEA Verified 02/28/22 14:44 Iodinated Contrast Media AdvReac Intermediate NAUSEA AND Verified 02/28/22 14:44 RASH tramadol AdvReac Intermediate NAUSEA Verified 02/28/22 14:44 deodorant soap Allergy Intermediate ADR-Itching Uncoded 02/26/22 09:16 Tylenol Allergy Intermediate ADR-Itching Uncoded 02/26/22 09:16 TYLENOL WITH CODEINE AdvReac Intermediate ADR-Itching Uncoded 02/26/22 09:16 PFSH Acute PFSH: Medical History Constipation Helicobacter pylori gastritis Psychiatric care Surgical History H/O esophagogastroduodenoscopy (06/04/21) History of cholecystectomy History of colonoscopy (~12/2019) dr. hank back History of esophagogastroduodenoscopy (EGD) (~12/2019) dr. hank back History of fusion of cervical spine History of hysterectomy Status post colonoscopy (06/04/21) with banding of hemorrhoid Status post lumbar spinal fusion Family History Other Diabetes Hypertension Social History Smoking and tobacco status: current every day smoker e-cigarettes E-Cigarette Details: vaporizer device and with nicotine E-cig/vape details: 1 mg Quit status (tobacco): has tried quititng Number of times tried to quit tobacco: 3 Second hand smoke exposure: No Alcohol intake: never Caregiver/support person: Yes Lives independently: Yes Household members: significant other Marital status: Current occupational status: disabled History of recent travel: No Current gender identity: Female Special oscar needs: Yes Vitals/I&O/Wt Last Vital Signs Temp 97.8 F 02/28/22 12:39 Pulse 109 H 02/28/22 15:55 Resp 16 02/28/22 15:55 BP 107/43 02/28/22 15:55 Pulse Ox 98 02/28/22 15:55 O2 Del Method 02/28/22 12:39 FiO2 2 02/28/22 13:49 02/28/22 02/28/22 02/28/22 06:59 14:59 22:59 Intake Total 1000 / 1000 Balance 1000 / 1000 Weight last 48 hrs Weight 90.718 kg Physical Exam Const: COMMON NORMALS: patient oriented x3 and alert GENERAL APPEARANCE: cooperative ORIENTATION/CONSCIOUSNESS: Yes awake HENMT: COMMON NORMALS: oropharynx normal Neck/C-Spine: COMMON NORMALS: no JVD Resp: COMMON NORMALS: normal respiratory effort and clear to auscultation bilaterally AUSCULTATION: clear to auscultation bilaterally Cardio: COMMON NORMALS: no JVD, regular rhythm, S1 normal heart sound present, S2 normal heart sound present and No murmurs present (Cardio) RHYTHM: regular rhythm HEART SOUNDS: S1 normal heart sound present and S2 normal heart sound present GI: COMMON NORMALS: Normal to inspection, nondistended, normoactive bowel sounds present, Soft to palpation and non-tender PALPATION: Yes Soft to palpation Extremity: COMMON NORMALS: no joint enlargement and no pedal edema Neuro: COMMON NORMALS: patient oriented x3 and moves all extremities SENSORIUM/ORIENTATION: Yes alert Skin: OTHER: Morbilliform rash worst on her chest, shoulders, back, extending up to neck and face, extending down the abdomen to the legs. No ulceration or ulcerations. Data 02/28/22 13:50 02/28/22 13:50 Micro: Microbiology 02/28/22 14:22 Blood Culture - Preliminary Blood SPECIMEN COLLECTED 02/28/22 13:50 Blood Culture - Preliminary Blood SPECIMEN COLLECTED A&P Assessment and plan (1) Hypotension: Renal improvement, with diffuse morbilliform rash, responded well to 1 L fluid bolus. Sepsis less likely,, continue drainage. Previously also with patient's disease. Has been on antibiotics up until vancomycin discontinued today due to persistent drug reaction. Blood cultures have been collected. Pending additional assessment with influenza and COVID PCR, as well as CT angiogram chest. For now started on antibiotics. To further exacerbate DRESS syndrome. Hold cyclobenzaprine. (2) DRESS syndrome: Likely DRESS syndrome. With eosinophilia, with tachycardia, recently fevers, leukocytosis,. Possibly secondary to antibiotic, possible vancomycin which has been discontinued. However, persistent rash, symptoms. Montelukast certainly can cause the symptoms, discontinue. Discontinue NSAIDs. Will not give steroid due to concern for recent infection, her, will continue with antihistamine. Also with transaminitis, TRACEY. (3) Skin wound from surgical incision: Has been healing well. No further drainage. (4) Status post lumbar spinal fusion: In December, subsequently with wound infection, continue drainage, abscess, washout and debridement on 02/08. Wound now appears to be healing well. (5) Transaminitis: Likely secondary to DRESS. Possibly continuation from hypertension. Hold potential offending medication. Reassess liver parameters. Check hepatitis panel. Check COVID-19, influenza. (6) TRACEY (acute kidney injury): Received fluid challenge. Blood pressure is doing better. Monitor blood pressures. Reassess renal function. (7) Hypokalemia: Replace, check magnesium. Follow-up levels. Plan Dyspnea on exertion: Pending additional assessment by CT, check COVID-19, influenza PCR. Check troponin EKG series. Check BNP. Attestations Medical Necessity Statement*: Place in observation for additional assessment management due to low blood pressure, likely DRESS syndrome. Coding Level of Care Code Acute Self Defense Instructor for [facility] Diagnoses Hypotension I95.9 DRESS syndrome D72.12; T50.905A Skin wound from surgical incision T14.8XXA Status post lumbar spinal fusion Z98.1 Transaminitis R74.01 TRACEY (acute kidney injury) N17.9 Hypokalemia E87.6
[2022-02-28 16:38] LABS: Lactic Acid level (Lactate) 1.9 mmol/L (0.5-2.2)
[2022-02-28 16:48] LABS: Troponin(5th) Baseline 10 ng/L (0-10)
[2022-02-28] MEDS: diphenhydrAMINE 50 mg/mL SDV 1mL IVP (16:50)
[2022-02-28 17:19] LABS: Adenovirus Not Detected (NOT DETECT); Chlamydia Pneumoniae Not Detected (NOT DETECT); Coronavirus 229E,HKU1,NL63,OC4 Not Detected (NOT DETECT); Human Metapneumovirus Not Detected (NOT DETECT); Human Rhinovirus/Enterovirus Not Detected (NOT DETECT); Influenza A Not Detected (NOT DETECT); Influenza A H1 Not Detected (NOT DETECT); Influenza A H1-2009 Not Detected (NOT DETECT); Influenza A H3 Not Detected (NOT DETECT); Influenza B Not Detected (NOT DETECT); Mycoplasma Pneumoniae Not Detected (NOT DETECT); Parainfluenza Virus Type 1 Not Detected (NOT DETECT); Parainfluenza Virus Type 2 Not Detected (NOT DETECT); Parainfluenza Virus Type 3 Not Detected (NOT DETECT); Parainfluenza Virus Type 4 Not Detected (NOT DETECT); Respiratory Syncytial Virus A Not Detected (NOT DETECT); Respiratory Syncytial Virus B Not Detected (NOT DETECT); SARS-COV-2 Not Detected (NOT DETECT)
[2022-02-28] MEDS: iohexol 350 mg/mL 500 mL Btl (per mL) IV (17:22)
[2022-02-28 17:32] LABS: NT Pro B Type Natriuretic Pept 158 pg/mL (0-125)
[2022-02-28] MEDS: lactated ringers 1,000 ML 100 ML IV (18:16)
[2022-02-28] MEDS: potassium chloride ER 20 mEq Tablet 40 MEQ PO (18:16)
[2022-02-28] MEDS: pantoprazole DR 40 mg Tablet PO (18:16)
[2022-02-28] MEDS: heparin 5,000 unit/mL INJ 1 mL 5000 UNIT SUBCUT (18:16)
--- NOTE | 2022-02-28 18:42 | ECG_ITS ---
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 Measurements Intervals [place] Rate: 103 P: 63 FL: 129 QRS: 26 QRSD: 84 T: 31 QT: 378 QTc: 496 Interpretive Statements SINUS TACHYCARDIA LOW QRS VOLTAGE IN PRECORDIAL LEADS [QRS DEFLECTION < 1.0 mV IN CHEST LEADS] POSSIBLE ANTERIOR MYOCARDIAL INFARCTION , PROBABLY OLD [30 ms Q WAVE IN V3/V4, OR R < 0.2 mV IN V4] Compared to ECG 02/28/2022 13:55:08 Short FL interval no longer present Myocardial infarct finding still present Electronically Signed On 03-01-2022 7:52:21 PROSTHETIC TECHNICIAN by Dwayne Espino M.D. [id number]
[2022-02-28 18:55] LABS: Troponin 5 2HR 11.05 ng/L (0-10)
[2022-02-28 18:58] LABS: Troponin 5 2HR Delta 1.05 ABS# (0-10)
[2022-02-28] MEDS: SODIUM CHLORIDE 0.9% IV (19:46)
[2022-02-28] MEDS: DAPTOMYCIN IV (19:46)
[2022-02-28] MEDS: cyclobenzaprine 10 mg Tablet PO (20:02)
--- NOTE | 2022-02-28 20:03 | PC.NURSE ---
Daptomycin started at 2045, checked on patient, she states i started itching really bad, i cant take this medication, daptomycin stopped. patient denies increased sob or any other symptoms.
[2022-02-28 22:27] LABS: Troponin 5 6HR 9.64 ng/L (0-10)
[2022-02-28 22:29] LABS: Troponin 5 6HR Delta -0.36 ng/L (0-12)
[2022-03-01] VITALS (11 sets, daily range): BP systolic 82–109; BP diastolic 50–69; PULSE 83–108; RESP 14–18; TEMP 36.6–37.1; O2SAT 96–100
--- NOTE | 2022-03-01 00:30 | PC.NURSE ---
Dr. Yancey notified in regards to patient c/o increasing itch/Daptomycin discontinued approx 15 minutes into infusion.
[2022-03-01 03:41] LABS: Basophils % 0.3 %; Eosinophils # 0.3 10^3/uL (0.0-0.8); Eosinophils % 3.2 %; Hematocrit 27.5 % (37.0-47.0); Hemoglobin 8.5 g/dL (11.5-15.3); Lymphocytes # 1.5 10^3/uL (0.8-4.8); Lymphocytes % 19.7 %; Mean Corpuscular HGB Conc 30.9 g/dL (30.0-36.0); Mean Corpuscular Hemoglobin 26.6 pg (28.0-34.0); Mean Corpuscular Volume 86.2 fl (81-99); Mean Platelet Volume 10.7 fL (7.4-10.4); Monocytes # 0.2 10^3/uL (0.2-0.9); Monocytes % 2.7 %; Neutrophils # 5.72 10^3/uL (1.8-7.7); Neutrophils % 73.5 %; Nucleated Red Blood Cells % 0 %; Platelet Count 185 10^3/cmm (130-400); Red Blood Count 3.19 10^6/uL (4.1-5.3); Red Cell Distribution Width 16.6 % (12.1-15.1); White Blood Count 7.8 10^3/uL (4.0-10.0)
[2022-03-01 04:03] LABS: Alanine Aminotransferase 54 U/L (0-33); Albumin Level 2.5 g/dL (3.5-5.2); Alkaline Phosphatase 85 U/L (35-105); Anion Gap 15.7 (5-19); Aspartate Amino Transferase 31 U/L (0-32); Blood Urea Nitrogen 19 mg/dL (6-20); Calcium 7.7 mg/dL (8.5-10.5); Carbon Dioxide 20 mmol/L (22-29); Chloride 105 mmol/L (98-107); Globulin 2.6 g/dL (1.3-4.6); Glomerular Filtration Rate 52.8 mL/min (90-130); Glucose 172 mg/dL (65-115); Magnesium 1.9 mg/dL (1.7-2.3); Osmolality Calculated 290 mOsm/kg (285-295); Potassium 3.7 mmol/L (3.5-5.1); Sodium 137 mmol/L (136-145); Total Bilirubin 0.3 mg/dL (0.15-1.2); Total Protein 5.1 g/dL (6.6-8.7)
[2022-03-01] MEDS: lactated ringers 1,000 ML 100 ML IV ×3 (04:05→20:49)
[2022-03-01 05:17] LABS: Slide Review Slide Review Perform
[2022-03-01] MEDS: heparin 5,000 unit/mL INJ 1 mL 5000 UNIT SUBCUT ×2 (05:22→17:18)
[2022-03-01 07:59] LABS: Results from Genmark
[2022-03-01] MEDS: predniSONE 20 mg Tablet 40 MG PO (08:47)
[2022-03-01] MEDS: pantoprazole DR 40 mg Tablet PO ×2 (08:47→17:18)
[2022-03-01] MEDS: cyclobenzaprine 10 mg Tablet PO ×3 (08:48→21:00)
[2022-03-01] MEDS: diphenhydrAMINE 25 mg Capsule PO ×4 (10:59→23:24)
[2022-03-01] MEDS: SODIUM CHLORIDE 0.9% IV (13:36)
[2022-03-01] MEDS: DAPTOMYCIN IV (13:36)
[2022-03-01] MEDS: guaiFENesin-codeine UDC 10 mL PO (17:18)
--- NOTE | 2022-03-01 20:29 | PM.PN ---
Subjective Subjective: She is doing slightly better, but has been having a headache. Cannot have Tylenol due to allergy. We discussed avoiding NSAIDs due to possibility of DRESS syndrome. She is intolerant of oxycodone. States he could tolerate codeine. He is also having some cough. Rash without much improvement. Itching. Wickes some itching on the left wrist yesterday with daptomycin which was discontinued, however, states she is itching regardless, so not sure that it was due to daptomycin. Vitals/I&O/Wt Last Vital Signs Temp 98.7 F 03/01/22 19:28 Pulse 103 H 03/01/22 19:28 Resp 16 03/01/22 19:28 BP 97/61 03/01/22 19:28 Pulse Ox 98 03/01/22 19:28 O2 Del Method 03/01/22 19:28 O2 Flow Rate 2 03/01/22 10:21 FiO2 2 03/01/22 10:29 03/01/22 03/01/22 03/01/22 06:59 14:59 22:59 Intake Total 981.667 / 2221.667 1568.333 / 1568.333 120 / 1688.333 Balance 981.667 / 2221.667 1568.333 / 1568.333 120 / 1688.333 Weight last 48 hrs Weight 98.231 kg Weight 90.718 kg Physical Exam Const: COMMON NORMALS: patient oriented x3 and alert GENERAL APPEARANCE: cooperative ORIENTATION/CONSCIOUSNESS: Yes awake HENMT: COMMON NORMALS: oropharynx normal Neck/C-Spine: COMMON NORMALS: no JVD Resp: COMMON NORMALS: normal respiratory effort and clear to auscultation bilaterally AUSCULTATION: clear to auscultation bilaterally Cardio: COMMON NORMALS: no JVD, regular rhythm, S1 normal heart sound present, S2 normal heart sound present and No murmurs present (Cardio) RHYTHM: regular rhythm HEART SOUNDS: S1 normal heart sound present and S2 normal heart sound present GI: COMMON NORMALS: Normal to inspection, nondistended, normoactive bowel sounds present, Soft to palpation and non-tender PALPATION: Yes Soft to palpation Extremity: COMMON NORMALS: no joint enlargement and no pedal edema Neuro: COMMON NORMALS: patient oriented x3 and moves all extremities SENSORIUM/ORIENTATION: Yes alert Skin: OTHER: Morbilliform rash worst on her chest, shoulders, back, extending up to neck and face, abdomen and legs above ankles. No blisteration or ulcerations. Data 03/01/22 03:06 03/01/22 03:06 Micro: Microbiology 02/28/22 14:22 Blood Culture - Preliminary Blood NEGATIVE TO DATE 02/28/22 13:50 Blood Culture - Preliminary Blood NEGATIVE TO DATE A&P Assessment and plan (1) Hypotension: Decrease LR rate to 30 mL/h. She does not like the taste of water here. States prefers other drinks or ice chips. Continue gentle IV hydration due to diffuse rash, increased insensible loss. Albumin low, will give a dose of albumin as well. Sepsis less likely, however, with recent infection. As per discussion with infectious disease specialist after her clinic visit, added daptomycin. Blood cultures have been collected. Negative additional assessment with influenza and COVID PCR, as well as CT angiogram chest without PE or obvious pneumonia. Some bibasilar atelectasis versus minimal infiltrate. Add I-S. Hold cyclobenzaprine. (2) DRESS syndrome: Likely DRESS syndrome. With eosinophilia, with tachycardia, recently fevers, leukocytosis,. Possibly secondary to antibiotic, possible vancomycin which has been discontinued. However, persistent rash, symptoms. Montelukast certainly can cause the symptoms, discontinue. Discontinue NSAIDs. As per discussion with ID, anjelica for prednisone, additionally also started on Benadryl. Also with transaminitis, TRACEY. Improvement in leukocytosis, improving tachycardia today. (3) Skin wound from surgical incision: Has been healing well. No further drainage. (4) Status post lumbar spinal fusion: In December, subsequently with wound infection, continue drainage, abscess, washout and debridement on 02/08. Wound now appears to be healing well. (5) Transaminitis: Improving. Likely secondary to DRESS. Possibly continuation from hypertension. Hold potential offending medication. Reassess liver parameters. Check hepatitis panel. Check COVID-19, influenza. (6) TRACEY (acute kidney injury): Received fluid challenge. Blood pressure is doing better. Monitor blood pressures. Reassess renal function. (7) Hypokalemia: Replaced. Follow-up levels. Plan Dyspnea on exertion: COVID-19, influenza negative. CTA without PE. No obvious pneumonia, some bibasilar atelectasis versus infiltrate. Add I-S. Also on daptomycin as above. BNP not elevated. Troponin series not suggestive of acute ischemia. Attestations Medical Necessity Statement*: Admission of over 2 midnights required for assessment of management of DR ESS syndrome, hypotension, intolerance of multiple antibiotics, with recent spinal abscess. Coding Level of Care Code Acute Signal Mechanic for [facility] Fwd Diagnoses Hypotension I95.9 DRESS syndrome D72.12; T50.905A Skin wound from surgical incision T14.8XXA Status post lumbar spinal fusion Z98.1 Transaminitis R74.01 TRACEY (acute kidney injury) N17.9 Hypokalemia E87.6
[2022-03-01] MEDS: albumin 12.5 GM/250 ML VIAL IV (21:01)
[2022-03-01] MEDS: diazePAM 5 mg Tablet PO (23:23)
[2022-03-02] VITALS (9 sets, daily range): BP systolic 103–119; BP diastolic 58–76; PULSE 97–112; RESP 14–19; TEMP 36.6–37.1; O2SAT 94–100
[2022-03-02] MEDS: albuterol 2.5 mg/3 mL Neb INHALATION ×2 (00:40→08:56)
[2022-03-02 04:52] LABS: Basophils % 0.3 %; Eosinophils % 9.3 %; Hematocrit 22.2 % (37.0-47.0); Hemoglobin 6.8 g/dL (11.5-15.3); Lymphocytes # 2.2 10^3/uL (0.8-4.8); Lymphocytes % 20.3 %; Mean Corpuscular HGB Conc 30.6 g/dL (30.0-36.0); Mean Corpuscular Hemoglobin 26.9 pg (28.0-34.0); Mean Corpuscular Volume 87.7 fl (81-99); Mean Platelet Volume 10.6 fL (7.4-10.4); Monocytes # 0.5 10^3/uL (0.2-0.9); Monocytes % 4.9 %; Neutrophils # 7.06 10^3/uL (1.8-7.7); Neutrophils % 63.9 %; Nucleated Red Blood Cells % 0 %; Platelet Count 212 10^3/cmm (130-400); Red Blood Count 2.53 10^6/uL (4.1-5.3)
[2022-03-02 05:16] LABS: Alanine Aminotransferase 41 U/L (0-33); Albumin Level 2.6 g/dL (3.5-5.2); Alkaline Phosphatase 90 U/L (35-105); Anion Gap 11.3 (5-19); Aspartate Amino Transferase 24 U/L (0-32); Blood Urea Nitrogen 17 mg/dL (6-20); Calcium 8.4 mg/dL (8.5-10.5); Carbon Dioxide 24 mmol/L (22-29); Chloride 106 mmol/L (98-107); Globulin 2.3 g/dL (1.3-4.6); Glomerular Filtration Rate 52.8 mL/min (90-130); Glucose 167 mg/dL (65-115); Magnesium 1.7 mg/dL (1.7-2.3); Osmolality Calculated 291 mOsm/kg (285-295); Potassium 3.3 mmol/L (3.5-5.1); Sodium 138 mmol/L (136-145); Total Bilirubin 0.2 mg/dL (0.15-1.2); Total Protein 4.9 g/dL (6.6-8.7)
[2022-03-02 05:41] LABS: Slide Review Slide Review Perform
[2022-03-02] MEDS: heparin 5,000 unit/mL INJ 1 mL 5000 UNIT SUBCUT ×2 (05:54→17:13)
[2022-03-02] MEDS: diphenhydrAMINE 25 mg Capsule PO ×3 (08:34→17:13)
[2022-03-02] MEDS: guaiFENesin-codeine UDC 10 mL PO ×3 (08:34→23:07)
[2022-03-02] MEDS: cyclobenzaprine 10 mg Tablet PO ×3 (08:34→21:03)
[2022-03-02] MEDS: pantoprazole DR 40 mg Tablet PO ×2 (08:35→17:13)
[2022-03-02] MEDS: predniSONE 20 mg Tablet 40 MG PO (08:35)
[2022-03-02] MEDS: DAPTOMYCIN IV (15:15)
[2022-03-02] MEDS: SODIUM CHLORIDE 0.9% IV (15:15)
[2022-03-02 15:47] LABS: Hematocrit 27.6 % (37.0-47.0); Hemoglobin 8.9 g/dL (11.5-15.3)
[2022-03-02] MEDS: docusate sodium 100 mg Capsule PO (17:13)
[2022-03-02] MEDS: diazePAM 5 mg Tablet PO (17:16)
--- NOTE | 2022-03-02 19:19 | PM.PN ---
Subjective Subjective: This morning she states she is not feeling well. She was disappointed that he could not return home today. Her skin is still itching. Erythema/rash on her arms and chest slightly less intense red. Vitals/I&O/Wt Last Vital Signs Temp 98.3 F 03/02/22 15:05 Pulse 97 03/02/22 15:05 Resp 15 03/02/22 15:05 BP 119/76 03/02/22 15:05 Pulse Ox 98 03/02/22 15:05 O2 Del Method 03/02/22 15:05 O2 Flow Rate 3 03/02/22 08:56 FiO2 3 03/01/22 22:29 03/02/22 03/02/22 03/02/22 06:59 14:59 22:59 Intake Total 610 / 2983.333 120 / 120 340 / 460 Balance 610 / 2983.333 120 / 120 340 / 460 Weight last 48 hrs Weight 105.29 kg Weight 98.231 kg Physical Exam Const: COMMON NORMALS: patient oriented x3 and alert GENERAL APPEARANCE: cooperative ORIENTATION/CONSCIOUSNESS: Yes awake HENMT: COMMON NORMALS: oropharynx normal Neck/C-Spine: COMMON NORMALS: no JVD Resp: COMMON NORMALS: normal respiratory effort and clear to auscultation bilaterally AUSCULTATION: clear to auscultation bilaterally Cardio: COMMON NORMALS: no JVD, regular rhythm, S1 normal heart sound present, S2 normal heart sound present and No murmurs present (Cardio) RHYTHM: regular rhythm HEART SOUNDS: S1 normal heart sound present and S2 normal heart sound present GI: COMMON NORMALS: Normal to inspection, nondistended, normoactive bowel sounds present, Soft to palpation and non-tender PALPATION: Yes Soft to palpation Extremity: COMMON NORMALS: no joint enlargement and no pedal edema Neuro: COMMON NORMALS: patient oriented x3 and moves all extremities SENSORIUM/ORIENTATION: Yes alert Skin: OTHER: Morbilliform rash worst on her chest, shoulders, back, extending up to neck and face, abdomen and legs above ankles. No blisteration or ulcerations. Less intensely red on arms, chest, upper neck and upper back today. Same intensity on the legs. Data 03/02/22 15:30 03/02/22 03:56 Micro: Microbiology 02/28/22 14:22 Blood Culture - Preliminary Blood NEGATIVE TO DATE 02/28/22 13:50 Blood Culture - Preliminary Blood NEGATIVE TO DATE A&P Assessment and plan (1) Acute anemia: Hemoglobin down to 6.8 this morning. Discussed with her, requested 1 unit RBC transfusion. Requested Hemoccult. Continue PPI. She has not noticed bleeding here, but about a week back had blood in her stool. States that sometimes when she has to strain does get blood in the toilet bowl, does report history of hemorrhoids. She has had history of upper and lower endoscopy done not long ago. Reports what sounds like a polyp found on colonoscopy. Searching for reports colonoscopy was normal. EGD with reflux in lower third of esophagus. Moderate striped gastritis and prepyloric area. No mucosal bleeding. Unremarkable duodenum. (2) DRESS syndrome: Today appears to have slight improvement in symptoms with less intense erythema on arms, chest, upper neck and back. Still itching. Eosinophilia with mild improvement. So far without recurrence of fever. Improvement in tachycardia. With eosinophilia, with tachycardia, recently fevers, leukocytosis,. Possibly secondary to antibiotic, possible vancomycin which has been discontinued. However, persistent rash, symptoms. Montelukast certainly can cause the symptoms, discontinue. Discontinue NSAIDs. Continue prednisone, Benadryl. Also with transaminitis, TRACEY. Both showing improvement. (3) Hypotension: BP better. Hold additional IVF. Likely insensible losses secondary to diffuse rash. Sepsis less likely,, continue drainage. Previously also with patient's disease. Has been on antibiotics up until vancomycin discontinued today due to persistent drug reaction. Blood cultures have been collected. Pending additional assessment with influenza and COVID PCR, as well as CT angiogram chest. For now started on antibiotics. To further exacerbate DRESS syndrome. Hold cyclobenzaprine. (4) Skin wound from surgical incision: Has been healing well. No further drainage. (5) Status post lumbar spinal fusion: In December, subsequently with wound infection, continue drainage, abscess, washout and debridement on 02/08. Wound now appears to be healing well. (6) Transaminitis: Likely secondary to DRESS. Possibly continuation from hypertension. Hold potential offending medication. Reassess liver parameters. Check hepatitis panel. Check COVID-19, influenza. (7) TRACEY (acute kidney injury): Received fluid challenge. Blood pressure is doing better. Monitor blood pressures. Reassess renal function. (8) Hypokalemia: Replace additional potassium, and give 1 g magnesium. Follow-up levels. Plan Dyspnea on exertion: Pending additional assessment by CT, check COVID-19, influenza PCR. Check troponin EKG series. Check BNP. Attestations Medical Necessity Statement*: Continue admission for assessment management of dress syndrome, acute anemia. Coding Level of Care Code Acute Telecommunications Line Installer for [facility] Fwd Diagnoses Acute anemia D64.9 DRESS syndrome D72.12; T50.905A Hypotension I95.9 Skin wound from surgical incision T14.8XXA Status post lumbar spinal fusion Z98.1 Transaminitis R74.01 TRACEY (acute kidney injury) N17.9 Hypokalemia E87.6
[2022-03-02] MEDS: potassium chloride ER 20 mEq Tablet 40 MEQ PO (21:03)
[2022-03-03] VITALS (8 sets, daily range): BP systolic 118–136; BP diastolic 76–86; PULSE 93–116; RESP 15–18; TEMP 36.4–36.9; O2SAT 88–96
[2022-03-03 04:19] LABS: Basophils # 0.1 10^3/uL (0.0-0.1); Basophils % 0.3 %; Eosinophils # 0.7 10^3/uL (0.0-0.8); Hematocrit 28.3 % (37.0-47.0); Hemoglobin 8.8 g/dL (11.5-15.3); Lymphocytes # 3.7 10^3/uL (0.8-4.8); Lymphocytes % 25.7 %; Mean Corpuscular HGB Conc 31.1 g/dL (30.0-36.0); Mean Corpuscular Hemoglobin 27.4 pg (28.0-34.0); Mean Corpuscular Volume 88.2 fl (81-99); Mean Platelet Volume 10.1 fL (7.4-10.4); Monocytes # 2.9 10^3/uL (0.2-0.9); Monocytes % 19.6 %; Neutrophils # 6.79 10^3/uL (1.8-7.7); Neutrophils % 46.7 %; Nucleated Red Blood Cells % 0 %; Platelet Count 235 10^3/cmm (130-400); Red Blood Count 3.21 10^6/uL (4.1-5.3); Red Cell Distribution Width 16.7 % (12.1-15.1); White Blood Count 14.6 10^3/uL (4.0-10.0)
[2022-03-03 04:40] LABS: Alanine Aminotransferase 48 U/L (0-33); Albumin Level 3.1 g/dL (3.5-5.2); Alkaline Phosphatase 109 U/L (35-105); Anion Gap 14.2 (5-19); Aspartate Amino Transferase 29 U/L (0-32); Blood Urea Nitrogen 14 mg/dL (6-20); Calcium 8.9 mg/dL (8.5-10.5); Carbon Dioxide 24 mmol/L (22-29); Chloride 106 mmol/L (98-107); Globulin 2.7 g/dL (1.3-4.6); Glomerular Filtration Rate 58.9 mL/min (90-130); Glucose 125 mg/dL (65-115); Magnesium 2.1 mg/dL (1.7-2.3); Osmolality Calculated 292 mOsm/kg (285-295); Potassium 4.2 mmol/L (3.5-5.1); Sodium 140 mmol/L (136-145); Total Bilirubin 0.6 mg/dL (0.15-1.2); Total Protein 5.8 g/dL (6.6-8.7)
[2022-03-03 05:01] LABS: Slide Review Slide Review Perform
[2022-03-03 05:54] LABS: Add Urine Microscopic? NO; Charge for UA Resulting for Rev
[2022-03-03 06:11] LABS: Bilirubin Urine Neg (Negative); Blood Urine Neg (Negative); Glucose Urine UA Norm (Normal); Ketones Urine Negative (Negative); Leukocyte Esterase Urine Negative (Negative); Nitrate Urine Negative (Negative); Protein Urine Neg (Negative); Specific Gravity, Urine 1.005 (1.005-1.030); Urine Appearance Clear (CLEAR); Urine Color Yellow (Yellow); Urobilinogen Urine Norm (Negative); pH Urine 7 (5-7)
[2022-03-03] MEDS: heparin 5,000 unit/mL INJ 1 mL 5000 UNIT SUBCUT (06:46)
--- NOTE | 2022-03-03 07:45 | PC.NURSE ---
Left PICC clean dry and intact
--- NOTE | 2022-03-03 07:51 | PC.NURSE ---
Diffused rash to body, raised, red
[2022-03-03] MEDS: diphenhydrAMINE 25 mg Capsule PO (09:04)
[2022-03-03] MEDS: cyclobenzaprine 10 mg Tablet PO ×2 (09:04→15:00)
[2022-03-03] MEDS: pantoprazole DR 40 mg Tablet PO (09:04)
[2022-03-03] MEDS: docusate sodium 100 mg Capsule PO (09:04)
[2022-03-03] MEDS: predniSONE 20 mg Tablet 40 MG PO (09:05)
[2022-03-03 09:40] LABS: Ferritin 608 ng/mL (15-150); Iron 135 ug/dL (37-145); Percent Saturation 73.7 % (20-50); Total Iron Binding Capacity 183 mcg/dl; Unsaturated Iron Binding 48 ug/dL (112-347)
[2022-03-03] MEDS: albuterol 2.5 mg/3 mL Neb INHALATION (10:14)
[2022-03-03 10:18] LABS: Folate Level 4.6 ng/mL (4.8-37.3)
[2022-03-03] MEDS: SODIUM CHLORIDE 0.9% IV (10:54)
[2022-03-03] MEDS: DAPTOMYCIN IV (10:54)
--- NOTE | 2022-03-03 10:55 | XRR_ITS ---
PROCEDURE INFORMATION: Exam: XR Chest Exam date and time: 03/03/2022 2:13 PM Age: 51 years old Clinical indication: Cough and other: Hypoxia; Additional info: Cough, hypoxia TECHNIQUE: Imaging protocol: Radiologic exam of the chest. Views: 1 view. COMPARISON: CR XR chest 1V portable [id number] 02/28/2022 1:28 PM FINDINGS: Tubes, catheters and devices: Tip of the PICC line is positioned over the superior vena cava. Lungs: Unremarkable. No consolidation. Pleural spaces: Unremarkable. No pleural effusion. No pneumothorax. Heart/Mediastinum: Unremarkable. No cardiomegaly. Bones/joints: Unremarkable. XR/XR chest 1V portable [id number] IMPRESSION: No acute findings.
[2022-03-03] MEDS: guaiFENesin-codeine UDC 10 mL PO ×2 (10:57→15:43)
[2022-03-03] MEDS: cetylpyridinium Lozenge 1 EACH MUCOUS MEM (15:43)
--- NOTE | 2022-03-03 17:58 | PM.DCS ---
Discharge Providers Date of Admission: 02/28/22 17:43 Date of Discharge: March 03, 2022 Attending Provider at Admission: Benjamin Todd Attending Provider at Discharge: Benjamin Todd Primary Care Provider: GEORGE Finney Diagnoses at Discharge Discharge Diagnosis (1) Acute anemia: Status: Acute (2) DRESS syndrome: Status: Acute (3) Hypotension: Status: Acute (4) Skin wound from surgical incision: Status: Acute (5) Status post lumbar spinal fusion: Status: Acute (6) Transaminitis: Status: Acute (7) TRACEY (acute kidney injury): Status: Acute (8) Hypokalemia: Status: Acute Reason for Visit Reason for Visit: sob Brief History: 51-year-old lady with history of lower back laminectomy and fusion in December, history of irrigation debridement down to bone due to 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 She was asked to hold vancomycin on 02/25, followed up with surgery next day and antibiotic was switched to Keflex 500 mg 4 times daily.? Incision was noted to be healing well.? She has had persistent morbilliform rash.? She was also referred for follow-up with infectious disease. Dressing was changed today in the office, wound looks good.? She was told to hold off additional antibiotic for now. From ID clinic she was referred to ER due to hypotension noted in office.? On presentation blood pressure down to 88/64, received 1 L of fluid.? Also noted hypoxia, sometimes in the 80s, at 1 point down to 70%, was started on nasal cannula oxygen.? Blood pressure improved with initial bolus, 107/43.? Tachycardia appears to be persistent since the beginning of February.? She is afebrile but does state that had been having fever at home as recently as yesterday up to 103.? WBC count 11.5.? Most neutrophilic, with eosinophils 1.3.? ABG 7.47/30.9/93.1.? Sodium 131, potassium 3, chloride 97, bicarb 21, anion gap 16, lactic acid 2.3.? BUN 21, creatinine 1.2.? AST 35, ALT 60. Covid and flu pending. CTA pending, Blood culture collected. NT proBNP 158. Hospital Course Hospital Course Blood pressures improved with initial resuscitation, and continued to improve throughout hospitalization. As discussed with her suspected DRESS syndrome with noted eosinophilia on presentation, with systemic symptoms with tachycardia, recently fevers, leukocytosis, appears also had TRACEY and transaminitis. 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 No PE on CTA. On and off required minimal nasal cannula oxygen. Discussed with her additional suspect with high risk for eosinophilia including montelukast as well as NSAIDs. Discussed with her to discontinue both and not resumed. Otherwise possibly secondary to antibiotic reaction. As per discussion with infectious disease specialist we have changed her antibiotic over to daptomycin which she will continue after discharge with follow-up in office as well. Additionally as per discussion she is also started on prednisone and Benadryl to help with DRESS syndrome symptoms with rash, itching. She received IV hydration for dehydration. Influenza, COVID-19 PCR were negative. With treatment her leukocytosis has started to improve, eosinophilia has been resolving, so far resolved. Tachycardia showing improvement. She is at risk of dehydration, discussed with her to stay well-hydrated. Discussed with her applying emollient. Continue prednisone, Benadryl. Improvement is noticed in her rash, less intensity and erythema of arms, chest, upper back, similar intensity on her legs. Itching so far has resolved. No recurrence of fever. TRACEY resolved. Transaminitis improving. Leukocytosis with uptrend today likely secondary to steroid. Eosinophilia resolved. Yesterday morning found to have acute anemia, hemoglobin down to 6.8. No overt bleeding but does report having some blood in the toilet bowl with straining about a week ago, occasionally states that this happens, has history of hemorrhoids. Has had endoscopy in the last 2 years, with noted gastritis, unremarkable colonoscopy. Please follow-up regarding anemia, she has responded well to blood transfusion. She is noted to have folate deficiency and is started on replacement. Is not iron deficient. Lower back wound examined again, has been healing very well. No further opening or drainage. She is asked to resume follow-up. She is to continue on daptomycin, follow-up with infectious disease and continue follow-up with orthopedics. Received potassium and magnesium replacement during hospitalization. Please follow-up levels. Physical Exam Const: COMMON NORMALS: patient oriented x3 and alert GENERAL APPEARANCE: cooperative ORIENTATION/CONSCIOUSNESS: Yes awake HENMT: COMMON NORMALS: oropharynx normal Neck/C-Spine: COMMON NORMALS: no JVD Resp: COMMON NORMALS: normal respiratory effort and clear to auscultation bilaterally AUSCULTATION: clear to auscultation bilaterally Cardio: COMMON NORMALS: no JVD, regular rhythm, S1 normal heart sound present, S2 normal heart sound present and No murmurs present (Cardio) RHYTHM: regular rhythm HEART SOUNDS: S1 normal heart sound present and S2 normal heart sound present GI: COMMON NORMALS: Normal to inspection, nondistended, normoactive bowel sounds present, Soft to palpation and non-tender PALPATION: Yes Soft to palpation Extremity: COMMON NORMALS: no joint enlargement and no pedal edema Neuro: COMMON NORMALS: patient oriented x3 and moves all extremities SENSORIUM/ORIENTATION: Yes alert Skin: OTHER: Morbilliform rash worst on her chest, shoulders, back, extending up to neck and face, abdomen and legs above ankles. No blisteration or ulcerations. Less intensely red on arms, chest, upper neck and upper back today. Same intensity on the legs. Some dryness and scaling, no drainage. She reports is no longer itching. Discharge Data Studies Completed and Pending Completed Studies During Hospitalization Category Date Time Status CT angio chest PE protcl [id number] Stat Cat Scan 02/28/22 15:11 Completed CXRP [XR chest 1V portable [id number]] Routine Exams 03/03/22 10:55 Completed XR chest 1V portable [id number] Stat Exams 02/28/22 13:23 Completed Pending at discharge Category Date Time Status Blood Culture Stat Lab 02/28/22 14:22 Results Leukocyte Reduced RBC Routine Lab 03/02/22 09:18 Results Type and Screen Routine Lab 03/02/22 09:18 Results Radiology Impressions Chest CTA 02/28/22 15:11 IMPRESSION: 1. Negative for pulmonary embolus. 2. Coronary artery atherosclerotic calcifications. 3. Cardiomegaly. 4. Hepatic steatosis. 5. Cholecystectomy. 6. Bibasilar atelectasis versus minimal infiltrate. 7. Subcutaneous edema over the anterior chest. Chest X-Ray 03/03/22 10:55 IMPRESSION: No acute findings. Laboratory Results WBC 14.6 10^3/uL (4.0-10.0) H 03/03/22 03:55 RBC 3.21 10^6/uL (4.1-5.3) L 03/03/22 03:55 Hgb 8.8 g/dL (11.5-15.3) L 03/03/22 03:55 Hct 28.3 % (37.0-47.0) L 03/03/22 03:55 MCV 88.2 fl (81-99) 03/03/22 03:55 MCH 27.4 pg (28.0-34.0) L 03/03/22 03:55 MCHC 31.1 g/dL (30.0-36.0) 03/03/22 03:55 RDW 16.7 % (12.1-15.1) H 03/03/22 03:55 Plt Count 235 10^3/cmm (130-400) 03/03/22 03:55 MPV 10.1 fL (7.4-10.4) 03/03/22 03:55 Neut % (Auto) 46.7 % 03/03/22 03:55 Lymph % (Auto) 25.7 % 03/03/22 03:55 [place] % (Auto) 19.6 % 03/03/22 03:55 Eos % (Auto) 5.0 % 03/03/22 03:55 Baso % (Auto) 0.3 % 03/03/22 03:55 Neut # (Auto) 6.79 10^3/uL (1.8-7.7) 03/03/22 03:55 Lymph # (Auto) 3.7 10^3/uL (0.8-4.8) 03/03/22 03:55 [place] # (Auto) 2.9 10^3/uL (0.2-0.9) H 03/03/22 03:55 Eos # (Auto) 0.7 10^3/uL (0.0-0.8) 03/03/22 03:55 Baso # (Auto) 0.1 10^3/uL (0.0-0.1) 03/03/22 03:55 Nucleated RBC % (auto) 0 % 03/03/22 03:55 Nucleated RBCs # 0.0 /100WBC 03/03/22 03:55 Specimen Type Arterial 02/28/22 13:30 Sample Site Radial, left 02/28/22 13:30 ABG pH 7.47 (7.35-7.45) H 02/28/22 13:30 ABG pCO2 30.9 mmHg (35-45) L 02/28/22 13:30 ABG pO2 93.1 mmHg (80.0-100.0) 02/28/22 13:30 ABG HCO3 22.5 mmol/L (22-26) 02/28/22 13:30 ABG O2 Saturation 98.3 02/28/22 13:30 ABG Base Excess -0.6 mmol/L (-2.0-2.0) 02/28/22 13:30 Christian Test Pos 02/28/22 13:30 A-a O2 Gradient 8.6 mmHg (5-10) 02/28/22 13:30 Hematocrit 29.6 % (37-47) L 02/28/22 13:30 Hgb O2 Saturation 97.7 % (95-100) 02/28/22 13:30 Carboxyhemoglobin 0.7 %THgb (0.4-20.1) 02/28/22 13:30 Methemoglobin 0.0 % (0.4-1.5) L 02/28/22 13:30 Total Hemoglobin 9.7 g/dL (12-16) L 02/28/22 13:30 Sodium 132.0 mmol/L (131-143) 02/28/22 13:30 Potassium 2.9 mmol/L (3.5-5.0) L 02/28/22 13:30 Glucose 103.0 mg/dL (70-115) 02/28/22 13:30 Ionized Calcium 1.1 mmol/L (1.1-1.4) 02/28/22 13:30 O2 Delivery Device Nc 02/28/22 13:30 O2 Liters/Min 2.0 % 02/28/22 13:30 FiO2 28.0 % 02/28/22 13:30 Antitank [employer] ID Ah 02/28/22 13:30 Sodium 140 mmol/L (136-145) 03/03/22 03:55 Potassium 4.2 mmol/L (3.5-5.1) 03/03/22 03:55 Chloride 106 mmol/L (98-107) 03/03/22 03:55 Carbon Dioxide 24 mmol/L (22-29) 03/03/22 03:55 Anion Gap 14.2 (5-19) 03/03/22 03:55 BUN 14 mg/dL (6-20) 03/03/22 03:55 Creatinine 1.0 mg/dL (0.5-0.9) H 03/03/22 03:55 GFR Calculation 58.9 mL/min (90-130) L 03/03/22 03:55 Glucose 125 mg/dL (65-115) H 03/03/22 03:55 Calculated Osmolality 292 mOsm/kg (285-295) 03/03/22 03:55 Lactic Acid 2.3 mmol/L (0.5-2.2) H 02/28/22 13:50 Lactic Acid (Sepsis) 1.9 mmol/L (0.5-2.2) 02/28/22 16:16 Calcium 8.9 mg/dL (8.5-10.5) 03/03/22 03:55 Magnesium 2.1 mg/dL (1.7-2.3) 03/03/22 03:55 Iron 135 ug/dL (37-145) 03/03/22 03:55 TIBC 183 mcg/dl 03/03/22 03:55 % Saturation 73.7 % (20-50) H 03/03/22 03:55 Unsat Iron Binding 48 ug/dL (112-347) L 03/03/22 03:55 Ferritin 608 ng/mL (15-150) H 03/03/22 03:55 Total Bilirubin 0.6 mg/dL (0.15-1.2) 03/03/22 03:55 AST 29 U/L (0-32) 03/03/22 03:55 ALT 48 U/L (0-33) H 03/03/22 03:55 Alkaline Phosphatase 109 U/L (35-105) H 03/03/22 03:55 Troponin T Baseline 10 ng/L (0-10) 02/28/22 13:50 Troponin T 120 Minute 11.05 ng/L (0-10) H 02/28/22 18:17 Delta Troponin T 1.05 ABS# (0-10) 02/28/22 18:17 Troponin T Hi Sens 6Hr 9.64 ng/L (0-10) 02/28/22 21:41 Troponin T Hi Sens 6Hr Delta -0.36 ng/L (0-12) L 02/28/22 21:41 NT-Pro-B Natriuret Pep 158 pg/mL (0-125) H 02/28/22 16:16 Total Protein 5.8 g/dL (6.6-8.7) L 03/03/22 03:55 Albumin 3.1 g/dL (3.5-5.2) L 03/03/22 03:55 Globulin 2.7 g/dL (1.3-4.6) 03/03/22 03:55 Folate 4.6 ng/mL (4.8-37.3) L 03/03/22 09:18 Urine Color Yellow (Yellow) 03/03/22 03:30 Urine Appearance Clear (CLEAR) 03/03/22 03:30 Urine pH 7 (5-7) 03/03/22 03:30 Ur Specific [place] 1.005 (1.005-1.030) 03/03/22 03:30 Urine Protein Neg (Negative) 03/03/22 03:30 Urine Glucose (UA) Norm (Normal) 03/03/22 03:30 Urine Ketones Negative (Negative) 03/03/22 03:30 Urine Blood Neg (Negative) 03/03/22 03:30 Urine Nitrate Negative (Negative) 03/03/22 03:30 Urine Bilirubin Neg (Negative) 03/03/22 03:30 Urine Urobilinogen Norm mg/dL (Negative) 03/03/22 03:30 Ur Leukocyte Esterase Negative (Negative) 03/03/22 03:30 Nasal Influ A H1 2009 PCR Not detected (NOT DETECT) 02/28/22 15:25 Coronavirus 229E (PCR) Not detected (NOT DETECT) 02/28/22 15:25 Influenza A (H1) PCR Not detected (NOT DETECT) 02/28/22 15:25 Influenza A (H3) PCR Not detected (NOT DETECT) 02/28/22 15:25 Influenza Type A (PCR) Not detected (NOT DETECT) 02/28/22 15:25 Influenza Type B (PCR) Not detected (NOT DETECT) 02/28/22 15:25 SARS-CoV-2 (PCR) Not detected (NOT DETECT) 02/28/22 15:25 Blood Type O Negative 03/02/22 09:18 Rho(D) Type Negative 03/02/22 09:18 Antibody Screen Negative 03/02/22 09:18 Crossmatch See Detail 03/02/22 09:18 Vitals Last Vital Signs Temp 98.4 F 03/03/22 15:37 Pulse 111 H 03/03/22 15:37 Resp 18 03/03/22 15:37 BP 136/84 03/03/22 15:37 Pulse Ox 96 03/03/22 15:37 O2 Del Method 03/03/22 15:37 O2 Flow Rate 2 03/03/22 10:39 FiO2 3 03/01/22 22:29 Discharge Plan Discharge Patient Disposition: Home Condition: Stable Prescriptions: New diphenhydramine HCl 25 mg Capsule 25 mg PO TID PRN (Reason: Itching) Qty: 90 0RF diphenhydramine HCl 25 mg Capsule 25 mg PO BID Qty: 60 0RF prednisone 20 mg Tablet See Rx Instructions .ROUTE .COMPLEX Qty: 20 0RF Rx Instructions: 3 tab daily for 3 days, then 2 tab for 3 days, then 1 tab for 3 days, then 1/2 tab for 4 days. daptomycin 500 mg recon soln 720 mg IV Q24H Qty: 56 0RF Rx Instructions: administer over 30 mins benzonatate 100 mg capsule 100 mg PO TID PRN (Reason: cough) Qty: 60 0RF folic acid 1 mg tablet 1,000 mcg PO DAILY Qty: 90 0RF Continued albuterol sulfate 2.5 mg /3 mL (0.083 %) solution for nebulization 2.5 mg INHALATION QID PRN (Reason: shortness of breath or wheezing) Qty: 90 3RF albuterol sulfate [ProAir HFA] 90 mcg/actuation HFA aerosol inhaler 2 puff inhalation QID PRN (Reason: shortness of breath or wheezing) Qty: 6.7 2RF (DME) Short lemons boot See Rx Instructions .Route .MEDSUPPLY Qty: 1 0RF Rx Instructions: As directed (DME) hinged knee brace See Rx Instructions .Route .MEDSUPPLY Qty: 1 0RF Rx Instructions: Right knee pain diazepam [Valium] 5 mg tablet 5 mg PO Q8H PRN (Reason: muscle spasm) Qty: 30 0RF estradiol [Vagifem] 10 mcg tablet 10 mcg VAGINAL .TWO TIMES PER WEEK Qty: 8 5RF Rx Instructions: mon and wed (DME) Cam boot to the right- short See Rx Instructions .Route .MEDSUPPLY Qty: 1 0RF Rx Instructions: As directed pantoprazole 40 mg tablet,delayed release (DR/EC) 40 mg PO BID Qty: 60 5RF cyclobenzaprine 10 mg tablet 10 mg PO TID Qty: 90 2RF Linzess 145 mcg capsule 145 mcg PO DAILY Discontinued ibuprofen 800 mg tablet 800 mg PO Q8H PRN (Reason: Pain) montelukast 10 mg tablet 10 mg PO DAILY Discharge Orders: Discharge Order (Routine); Ordered 03/03/22 Ordered By: Benjamin Todd Other Ambulatory Orders: DME: Oxygen (Order) Location: None Selected Ordered By: Benjamin Todd Referrals: Sascha Pena DO [Physician] - 1 week (Please call the office on Friday to make your follow up appoinment with [facility] in one week. ) Ashley Coughlin MD [Hospitalist] - 1 week (Please call the office Friday to make an appoinment with infectious disease to follow your IV antibiotics in one week. ) Jacquelin Ring DO [Physician] - 1 week (Please call Friday to make a follow up with your primary care provider to discuss changes in your medications within a week. ) Amanda Duran FNP [Primary Care Provider] - 1 week (Please call your primary care provider on Friday to schedule a follow up appoinment after your hospitalization. ) Discharge Diet: Regular Discharge Activity: Oxygen as instructed Patient Instructions: Folic Acid (By mouth) (FA-8, [place], Folacin-800, Methylfolate), Daptomycin (By injection), Potassium Content of Foods List (GEN), Surgical Site Infections (DC), Simple Eosinophilic Pneumonia (GEN), Acute Rash (DC), Anemia (DC), Rash - Nonspecific Activity Restrictions/Additional Instructions: Please monitor your blood pressures morning and before bed and write them down for your provider. Avoid dehydration, stay well-hydrated as you are losing more water with inflamed skin. Apply thick nonwater-based emollient to skin. You could mix petrolatum jelly and mineral oil to consistency that spreads more easily and does not drip staying on the skin. Do not soak in water. Continue prednisone and antihistamine. Measure blood pressure 3 times daily, write down values. Do not take cyclobenzaprine if your blood pressure is lower than 110 systolic (top number), or 60 diastolic (bottom number). Keep back wound clean and dry. Continue dressing changes. Seek medical attention immediately in case of any renewed opening of the wound or drainage. Have your primary doctor follow-up with regards to DRESS and follow-up with dermatology. Do not take montelukast and ibuprofen and do not take any further. Avoid potential offending antibiotics. 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 Target oxygen saturation 92% at home, wean down oxygen as tolerated. Continue your albuterol inhalers for bronchitis component. Continue antibiotic infusions with daptomycin. Weekly blood checks for blood counts, chemistry panel for assessment of renal function, as well as creatine kinase. Follow-up with your primary doctor as well as infectious disease and orthopedics. Follow-up with your primary doctor with regards to anemia. You are not deficient in iron. Your folic acid is low. You are started on replacement. Discuss with your primary doctor regarding occasional blood in stool. Add potassium rich foods in diet. Have your primary doctor follow-up your potassium level, magnesium level, kidney function. Discharge Attestations Time Spent in Discharge Care*: greater than 30 min Quality Metrics Clinical Quality Measures [ No reported AMI, CVA or VTE this stay] Coding Level of Care Code Acute Chg FW DC note Exam Comprehensive Diagnoses Acute anemia D64.9 DRESS syndrome D72.12; T50.905A Hypotension I95.9 Skin wound from surgical incision T14.8XXA Status post lumbar spinal fusion Z98.1 Transaminitis R74.01 TRACEY (acute kidney injury) N17.9 Hypokalemia E87.6
== END 2022-03-03 16:45 | disposition home or self-care (01) | DRG 815 ==
LOC: ER 17:43 → MEDSURG 17:44
PROVIDERS: Admitting Provider Internal Medicine; Emergency Provider Family Medicine; PCP Nurse Practitioner Family; Visit Provider Internal Medicine
DX: D72.12 Drug rash with eosinophilia and systemic symptoms syndrome (principal); N17.9 Acute kidney failure, unspecified; T36.8X5A Adverse effect of other systemic antibiotics, initial encounter; D64.9 Anemia, unspecified; I95.9 Hypotension, unspecified; Z98.1 Arthrodesis status; E87.6 Hypokalemia; E86.0 Dehydration; K64.9 Unspecified hemorrhoids; E53.8 Deficiency of other specified B group vitamins; Z79.51 Long term (current) use of inhaled steroids; Z79.890 Hormone replacement therapy; K59.00 Constipation, unspecified; F17.290 Nicotine dependence, other tobacco product, uncomplicated
CPT/HCPCS: 36415; 36430; 36569; 36592; 36600; 71045; 71275; 72100; 80051; 80053; 81003; 82330; 82728; 82746; 82805; 83540; 83550; 83605; 83735; 83880; 84484; 85014; 85018; 85025; 86140; 86850; 86900; 86920; 87040; 87631; 87635; 93005; 94640; 94664; 94760; 96361; 96372; 96374; 96375; 99024; 99205; 99284; 99285; J0878; J1100; J1200; J1644; J2920; J3475; J7030; J7040; J7120; J7512; J7613; P9016; P9045; Q9967

== ENCOUNTER → 2022-03-06 09:31 | Day surgery (SDC) | payer MEDICARE, MEDICAID, SELFPAY ==
[2022-03-06 09:45] VITALS: BP 175/76; PULSE 89; RESP 18; TEMP 36.1; O2SAT 94
[2022-03-06 09:57] VITALS: BMI 31.1
[2022-03-06 09:57] LABS: Basophils % 0.1 %; Eosinophils # 0.3 10^3/uL (0.0-0.8); Eosinophils % 3.6 %; Hematocrit 28.3 % (37.0-47.0); Hemoglobin 8.8 g/dL (11.5-15.3); Lymphocytes # 2.6 10^3/uL (0.8-4.8); Lymphocytes % 38.1 %; Mean Corpuscular HGB Conc 31.1 g/dL (30.0-36.0); Mean Corpuscular Hemoglobin 27.6 pg (28.0-34.0); Mean Corpuscular Volume 88.7 fl (81-99); Mean Platelet Volume 9.3 fL (7.4-10.4); Monocytes # 0.6 10^3/uL (0.2-0.9); Neutrophils # 3.36 10^3/uL (1.8-7.7); Neutrophils % 48.6 %; Nucleated Red Blood Cells % 0 %; Platelet Count 169 10^3/cmm (130-400); Red Blood Count 3.19 10^6/uL (4.1-5.3); Red Cell Distribution Width 18.1 % (12.1-15.1); White Blood Count 6.9 10^3/uL (4.0-10.0)
--- NOTE | 2022-03-06 10:00 | PC.NURSE ---
Pt to GI infusion for PICC dressing change and lab draw. Pt recently discharged from hospital on Friday following admission for allergic reaction to Vancomycin. Pt discharged home on Daptomycin, which is being supplied by [facility] infusion. Pt noted to have significant peeling of skin on face, arms, and trunk. Pt states peeling skin result of reaction to antibiotic and resolved hives. Pt states she is doing well with Daptomycin. States she has no itching. Pt noted to be very short of breath and wheezy through lung kelley. Pt on home O2 at 2L with Sao2 100%. Pt family says her breathing has been like this since discharge. Pt states she is fine. Instructed pt and family for any increases of SOB or difficulty breathing to go to ER.
[2022-03-06 10:13] LABS: Anion Gap 12.6 (5-19); Blood Urea Nitrogen 14 mg/dL (6-20); Calcium 8.2 mg/dL (8.5-10.5); Carbon Dioxide 29 mmol/L (22-29); Chloride 101 mmol/L (98-107); Creatine Phosphokinase 34 U/L (26-192); Glomerular Filtration Rate 88.9 mL/min (90-130); Glucose 105 mg/dL (65-115); Osmolality Calculated 289 mOsm/kg (285-295); Potassium 3.6 mmol/L (3.5-5.1); Sodium 139 mmol/L (136-145)
== END ==
PROVIDERS: Internal Medicine; PCP Nurse Practitioner Family; Visit Provider Internal Medicine
DX: M48.061 Spinal stenosis, lumbar region without neurogenic claudication (principal); T14.8XXA Other injury of unspecified body region, initial encounter; X58.XXXA Exposure to other specified factors, initial encounter
CPT/HCPCS: 36592; 80048; 82550; 85025

== ENCOUNTER → 2022-03-07 12:04 | Outpatient (BNVA) | payer MEDICARE, MEDICAID, SELFPAY | PROVIDERS: PCP Nurse Practitioner Family; Visit Provider Nurse Practitioner Family | DX: R06.02 Shortness of breath (principal) | CPT/HCPCS: 71046 ==

== ENCOUNTER → 2022-03-14 09:55 | Outpatient (BNVA) | payer MEDICARE, MEDICAID, SELFPAY | PROVIDERS: PCP Nurse Practitioner Family; Visit Provider Orthopaedic Surgery | DX: Z47.89 Encounter for other orthopedic aftercare (principal); Z98.1 Arthrodesis status | CPT/HCPCS: 72100; 99024 ==

== ENCOUNTER → 2022-03-15 14:09 | Outpatient (BNVA) | payer MEDICARE, MEDICAID, SELFPAY | PROVIDERS: PCP Nurse Practitioner Family; Visit Provider Nurse Practitioner Family | DX: J18.9 Pneumonia, unspecified organism (principal) | CPT/HCPCS: 71046 ==

== ENCOUNTER 2022-03-20 10:48 | Outpatient (RCR) | payer MEDICARE, MEDICAID, SELFPAY ==
[2022-03-13 10:41] VITALS: BP 112/80; PULSE 109; RESP 18; TEMP 36.1; O2SAT 98
[2022-03-13 11:02] LABS: Basophils # 0.1 10^3/uL (0.0-0.1); Basophils % 0.5 %; Eosinophils # 0.5 10^3/uL (0.0-0.8); Eosinophils % 3.8 %; Hematocrit 32.9 % (37.0-47.0); Hemoglobin 10.2 g/dL (11.5-15.3); Lymphocytes # 2.8 10^3/uL (0.8-4.8); Lymphocytes % 21.7 %; Mean Corpuscular Hemoglobin 27.9 pg (28.0-34.0); Mean Corpuscular Volume 90.1 fl (81-99); Mean Platelet Volume 9.6 fL (7.4-10.4); Monocytes # 0.9 10^3/uL (0.2-0.9); Monocytes % 7.3 %; Neutrophils # 8.53 10^3/uL (1.8-7.7); Neutrophils % 66.2 %; Nucleated Red Blood Cells % 0 %; Platelet Count 279 10^3/cmm (130-400); Red Blood Count 3.65 10^6/uL (4.1-5.3); Red Cell Distribution Width 18.8 % (12.1-15.1); White Blood Count 12.9 10^3/uL (4.0-10.0)
--- NOTE | 2022-03-13 11:18 | PC.NURSE ---
Pt to GI infusions for weekly PICC dressing change and lab draws. Pt appearance much better than last week. SaO2 98% on O2 at 2L via NC. Pt able to walk from entrance to GI lab, but SOB after exertion. Pt states she is not as SOB as last week. Skin not peeling as badly today as last week. Looks much better. No further hives, rash, or redness noted. Pt to see Dr. Coughlin with ID today as well.
[2022-03-13 11:47] LABS: Anion Gap 17.6 (5-19); Blood Urea Nitrogen 20 mg/dL (6-20); Calcium 9.2 mg/dL (8.5-10.5); Carbon Dioxide 26 mmol/L (22-29); Chloride 100 mmol/L (98-107); Creatine Phosphokinase 39 U/L (26-192); Glomerular Filtration Rate 66.5 mL/min (90-130); Glucose 92 mg/dL (65-115); Osmolality Calculated 292 mOsm/kg (285-295); Potassium 3.6 mmol/L (3.5-5.1); Sodium 140 mmol/L (136-145)
[2022-03-20 10:50] VITALS: BP 139/89; PULSE 128; RESP 24; TEMP 37.7; O2SAT 96
[2022-03-20 11:34] LABS: Basophils # 0.1 10^3/uL (0.0-0.1); Basophils % 0.4 %; Eosinophils # 0.6 10^3/uL (0.0-0.8); Eosinophils % 4.5 %; Hematocrit 35.5 % (37.0-47.0); Lymphocytes # 2.3 10^3/uL (0.8-4.8); Lymphocytes % 17.3 %; Mean Corpuscular Hemoglobin 27.6 pg (28.0-34.0); Mean Platelet Volume 9.6 fL (7.4-10.4); Monocytes # 1.2 10^3/uL (0.2-0.9); Monocytes % 9.1 %; Neutrophils % 68.3 %; Nucleated Red Blood Cells % 0 %; Platelet Count 215 10^3/cmm (130-400); Red Blood Count 3.99 10^6/uL (4.1-5.3); Red Cell Distribution Width 18.3 % (12.1-15.1); White Blood Count 13.5 10^3/uL (4.0-10.0)
[2022-03-20 11:53] LABS: Anion Gap 15.3 (5-19); Blood Urea Nitrogen 9 mg/dL (6-20); Calcium 9.2 mg/dL (8.5-10.5); Carbon Dioxide 24 mmol/L (22-29); Chloride 98 mmol/L (98-107); Creatine Phosphokinase 43 U/L (26-192); Glomerular Filtration Rate 88.9 mL/min (90-130); Glucose 105 mg/dL (65-115); Osmolality Calculated 277 mOsm/kg (285-295); Potassium 3.3 mmol/L (3.5-5.1); Sodium 134 mmol/L (136-145)
[2022-03-20 13:06] LABS: C Reactive Protein 172.3 mg/L (0.0-4.9)
== END 2022-03-27 05:31 | disposition home or self-care (01) ==
LOC: GILAB 10:48
PROVIDERS: Student in an Organized Health Care Education/Training Program; PCP Nurse Practitioner Family; Visit Provider Internal Medicine
DX: M48.061 Spinal stenosis, lumbar region without neurogenic claudication (principal)
CPT/HCPCS: 36415; 36592; 80048; 82550; 85025; 86140

== ENCOUNTER 2022-03-21 17:39 | Inpatient (IN) | payer MEDICARE, MEDICAID, SELFPAY ==
[2022-03-21] VITALS (15 sets, daily range): BP systolic 106–144; BP diastolic 63–81; PULSE 78–117; RESP 17–22; TEMP 37.7; O2SAT 72–100
--- NOTE | 2022-03-21 18:37 | XRR_ITS ---
PROCEDURE INFORMATION: Exam: XR Chest Exam date and time: 03/21/2022 6:42 PM Age: 51 years old Clinical indication: Shortness of breath; Additional info: Dyspnea; Covid and flu negative TECHNIQUE: Imaging protocol: Radiologic exam of the chest. Views: 2 views. COMPARISON: CR XR chest 2V* [id number] 03/15/2022 2:13 PM FINDINGS: Tubes, catheters and devices: Left PICC line with tip over the distal SVC. Lungs: Linear and mild ground-glass opacities in the peripheral lung bases. Pleural spaces: Unremarkable. No pleural effusion. No pneumothorax. Heart/Mediastinum: Unremarkable. No cardiomegaly. Bones/joints: C-spine fusion hardware. XR/XR chest 2V* [id number] IMPRESSION: Atelectasis and possible pneumonia in the lung bases.
--- NOTE | 2022-03-21 18:38 | ECG_ITS ---
[facility] Test Date: 2022-03-21 Pat Name: Dawna Hilliard Department: Room: Gender: Female Cord Splicer: : 1970 Requested By: Jacob Travis Order Number: [id number] Reading MD: Amelia Gregory M.D. Measurements Intervals [place] Rate: 122 P: 60 IL: 132 QRS: 8 QRSD: 68 T: 49 QT: 297 QTc: 424 Interpretive Statements SINUS TACHYCARDIA WITH OCCASIONAL SUPRAVENTRICULAR PREMATURE COMPLEXES ABNORMAL RHYTHM ECG Compared to ECG 02/28/2022 18:42:06 Myocardial infarct finding no longer present Electronically Signed On 03-21-2022 20:44:29 [employer] by Amelia Gregory M.D. [email or web address]
--- NOTE | 2022-03-21 18:38 | W.ED.SOB ---
HPI - SOB/Dyspnea General: Chief Complaint: Shortness of Breath/Dyspnea Stated Complaint: Roger sent for fever, SOB Time Seen by Provider: 03/21/22 18:25 Source: patient Mode of arrival: ambulatory Limitations: no limitations History of Present Illness: HPI Narrative: See nursing assessment. Patient with increasing shortness of breath over the last few days. Patient states she has had intermittent shortness of breath since March 03 after she became allergic to vancomycin. She reports that she is normally on 2 L of oxygen per minute but had to go up to 3 L/min. She states her oxygen saturation dipped down to 86% on 2 L at home today. She reportedly had a chest x-ray done a week ago at the doctor's office and showed that her pneumonia cleared. She was diagnosed with a eosinophilic pneumonia recently. She was discharged from the hospital on 03/03/2022. She states she did have a history of smoking but quit in December when she started getting sick. She states that she has been on daptomycin due to infection from back surgery since December. She states she was allergic to vancomycin the first couple of days of treatment. Therefore, she was switched to daptomycin for treatment. She states she is receiving daily IV antibiotic treatments through a PICC line that she has had since December. She states prior to February she did not require oxygen. She reports a low-grade fever for the past 5 days. She has a nonproductive cough. She has mild pleuritic chest pain bilaterally with deep inspirations or cough. Associated symptoms: Reports chest pain (Bilateral pleuritic) and fever(s); Deny abdominal pain, nausea, palpitations or vomiting Review of Systems Const: Reports: fever(s); Denies: chills Eyes: Denies: change in vision ENMT: Denies: throat pain Card: Reports: chest pain (Bilateral pleuritic); Denies: palpitations Resp: Reports: dyspnea and non-productive cough; Denies: wheezing or stridor GI: Denies: abdominal pain, nausea or vomiting : Denies: flank pain Musc: Denies: neck pain or back pain Skin/Breast: Denies: rash or pruritus Neuro: Denies: headache(s) or numbness in extremities Psych: Denies: anxiety Brett/Lymph: Denies: enlarged lymph nodes PFS ED PFSH: Medical History Constipation Helicobacter pylori gastritis Psychiatric care Surgical History H/O esophagogastroduodenoscopy (06/04/21) History of cholecystectomy History of colonoscopy (~12/2019) dr. hank back History of esophagogastroduodenoscopy (EGD) (~12/2019) dr. hank back History of fusion of cervical spine History of hysterectomy Status post colonoscopy (06/04/21) with banding of hemorrhoid Status post lumbar spinal fusion Family History Other Diabetes Hypertension Social History Smoking and tobacco status: former smoker Quit status (tobacco): has quit using tobacco Year quit tobacco: 02/07/22 Second hand smoke exposure: No Alcohol intake: never Caregiver/support person: Yes Lives independently: Yes Household members: significant other Marital status: Current occupational status: disabled History of recent travel: No Current gender identity: Female Special oscar needs: Yes Physical Exam Const: COMMON NORMALS: patient oriented x3, no limitations and well nourished GENERAL APPEARANCE: cooperative OTHER: Temp 99.9 HENMT: COMMON NORMALS: normocephalic and atraumatic HEAD & SCALP: normocephalic and atraumatic FACE & SINUS: normal facial exam Eye: COMMON NORMALS: EOMs intact bilaterally Neck/C-Spine: COMMON NORMALS: full ROM, no lymphadenopathy, supple and no meningeal signs GENERAL: Yes normal visual inspection Lymph: LYMPHATIC: no lymphadenopathy noted Chest: COMMONS NORMALS: normal inspection of the chest and normal palpation of entire chest wall CHEST: No Ecchymosis present and No rash Resp: OTHER: Mild crackles and rhonchi in the bases bilaterally. No wheezing heard. Mild tachypnea. Cardio: COMMON NORMALS: regular rhythm and Peripheral pulses 2+ throughout JUGULAR VENOUS DISTENTION: no JVD RATE: tachycardic RHYTHM: regular rhythm PERIPHERAL PULSES: Peripheral pulses 2+ throughout GI: COMMON NORMALS: Normal to inspection, nondistended, normoactive bowel sounds present and non-tender : COMMON NORMALS: Yes no CVA tenderness BLADDER/KIDNEY EXAM: Yes no CVA tenderness Back/Pelvis: COMMON NORMALS: no CVA tenderness Extremity: COMMON NORMALS: normal to inspection, full ROM and capillary refill normal Neuro: COMMON NORMALS: patient oriented x3, CN's II-XII intact bilaterally, no focal motor deficits and no sensory deficits noted MENINGEAL SIGNS: Yes no meningeal signs Psych: COMMON NORMALS: mental status grossly normal and Normal thought process present THOUGHT PROCESS: Normal thought process present Skin: COMMON NORMALS: no rashes or lesions noted and no wounds GENERAL SKIN EXAM: no rashes or lesions noted Course Vital Signs: Vital signs: Vital Signs Temperature 99.9 F H 03/21/22 18:16 Pulse Rate 117 H 03/21/22 20:22 Respiratory Rate 17 03/21/22 20:22 Blood Pressure 119/78 03/21/22 21:00 Pulse Oximetry 72 L 03/21/22 21:00 Oxygen Delivery Me thod 03/21/22 20:22 Oxygen Flow Rate 3 03/21/22 20:22 MDM - SOB/Dyspnea Medical Decision Making COPD exacerbation versus reactive airway disease versus pneumonia 1954: Discussed case with hospitalist Dr. Asher. He asked that I start meropenem to treat the pneumonia. 2144: Discussed with hospitalist Dr. Diamond. He will write admission orders. Lab Data 03/21/22 19:15 03/21/22 19:15 Labs/Radiology: Radiology Impressions Chest X-Ray 03/21/22 18:37 IMPRESSION: Atelectasis and possible pneumonia in the lung bases. Laboratory Results WBC 11.9 10^3/uL (4.0-10.0) H 03/21/22 19:15 RBC 3.49 10^6/uL (4.1-5.3) L 03/21/22 19:15 Hgb 9.7 g/dL (11.5-15.3) L 03/21/22 19:15 Hct 32.4 % (37.0-47.0) L 03/21/22 19:15 MCV 92.8 fl (81-99) 03/21/22 19:15 MCH 27.8 pg (28.0-34.0) L 03/21/22 19:15 MCHC 29.9 g/dL (30.0-36.0) L 03/21/22 19:15 RDW 18.3 % (12.1-15.1) H 03/21/22 19:15 Plt Count 241 10^3/cmm (130-400) 03/21/22 19:15 MPV 9.6 fL (7.4-10.4) 03/21/22 19:15 Neut % (Auto) 65.9 % 03/21/22 19:15 Lymph % (Auto) 18.7 % 03/21/22 19:15 Canadian % (Auto) 8.1 % 03/21/22 19:15 Eos % (Auto) 6.6 % 03/21/22 19:15 Baso % (Auto) 0.3 % 03/21/22 19:15 Neut # (Auto) 7.85 10^3/uL (1.8-7.7) H 03/21/22 19:15 Lymph # (Auto) 2.2 10^3/uL (0.8-4.8) 03/21/22 19:15 Canadian # (Auto) 1.0 10^3/uL (0.2-0.9) H 03/21/22 19:15 Eos # (Auto) 0.8 10^3/uL (0.0-0.8) 03/21/22 19:15 Baso # (Auto) 0.0 10^3/uL (0.0-0.1) 03/21/22 19:15 Nucleated RBC % (auto) 0 % 03/21/22 19:15 Nucleated RBCs # 0.0 /100WBC 03/21/22 19:15 ESR 43 mm/hr (0-15) H 03/21/22 19:15 D-Dimer 2.60 ug/mIFEU (0-0.59) H 03/21/22 19:20 Sodium 138 mmol/L (136-145) 03/21/22 19:15 Potassium 3.5 mmol/L (3.5-5.1) 03/21/22 19:15 Chloride 100 mmol/L (98-107) 03/21/22 19:15 Carbon Dioxide 21 mmol/L (22-29) L 03/21/22 19:15 Anion Gap 20.5 (5-19) H 03/21/22 19:15 BUN 11 mg/dL (6-20) 03/21/22 19:15 Creatinine 0.8 mg/dL (0.5-0.9) 03/21/22 19:15 GFR Calculation 76.2 mL/min (90-130) L 03/21/22 19:15 Glucose 128 mg/dL (65-115) H 03/21/22 19:15 Calculated Osmolality 287 mOsm/kg (285-295) 03/21/22 19:15 Lactic Acid 1.7 mmol/L (0.5-2.2) 03/21/22 19:15 Calcium 9.0 mg/dL (8.5-10.5) 03/21/22 19:15 Troponin T Baseline 9 ng/L (0-10) 03/21/22 19:20 Troponin T 120 Minute 12.44 ng/L (0-10) H 03/21/22 21:42 Delta Troponin T 3.44 ABS# (0-10) 03/21/22 21:42 C-Reactive Protein 182.3 mg/L (0.0-4.9) H 03/21/22 19:15 NT-Pro-B Natriuret Pep 104 pg/mL (0-125) 03/21/22 19:15 Procalcitonin 0.18 ng/mL (0-0.5) 03/21/22 19:15 Influenza Type A Ag negative (Negative) 03/21/22 21:15 Influenza Type B Ag negative (Negative) 03/21/22 21:15 Imaging Data CXR: My impression: Left lower lobe infiltrate consistent with pneumonia Radiologist's impression: PROCEDURE INFORMATION: Exam: XR Chest Exam date and time: 03/21/2022 6:42 PM Age: 51 years old Clinical indication: Shortness of breath; Additional info: Dyspnea; Covid and flu negative TECHNIQUE: Imaging protocol: Radiologic exam of the chest. Views: 2 views. COMPARISON: CR XR chest 2V* [id number] 03/15/2022 2:13 PM FINDINGS: Tubes, catheters and devices: Left PICC line with tip over the distal SVC. Lungs: Linear and mild ground-glass opacities in the peripheral lung bases. Pleural spaces: Unremarkable. No pleural effusion. No pneumothorax. Heart/Mediastinum: Unremarkable. No cardiomegaly. Bones/joints: C-spine fusion hardware. XR/XR chest 2V* [id number] IMPRESSION: Atelectasis and possible pneumonia in the lung bases. ? Dictated By: Reese Purvis Signed By: Reese Purvis Signed Date/Time: 03/21/221911 EKG Data EKG 1: I personally reviewed and interpreted this EKG as follows: EKG Interpretation Date: 03/21/22 EKG interpretation time: 18:54 Interpretation: Sinus tachycardia with heart rate of 122. Normal axis. Normal P waves, normal T waves, normal QT interval, normal VA interval. Normal QRS. 1 PAC. EKG 2: I personally reviewed and interpreted this EKG as follows: EKG Interpretation Date: 03/21/22 EKG interpretation time: 20:53 Prior EKG tracings: available for review Interpretation: Impression sinus tachycardia with heart rate 119. Occasional PAC. Normal axis. Normal ST segment. Normal P waves, normal T waves. Normal VA interval, normal QT interval. Unchanged from previous EKG. Discharge Plan Discharge Patient Disposition: Placed in Observation Admit Provider: Tong Diamond Clinical Impression: Shortness of breath Pneumonia Qualifiers: Pneumonia type: due to unspecified organism Laterality: left Lung location: lower lobe of lung Qualified Code(s): J18.9 - Pneumonia, unspecified organism Coding Level of Care Code ED Hoop Riveting Machine Operator for g Fwmuriel History Comprehensive Exam Comprehensive Medical Decision Making Moderate Complexity
--- NOTE | 2022-03-21 18:38 | PC.NURSE ---
patient placed on cardiac rehab nurse, continuos pulse ox, and BP
--- NOTE | 2022-03-21 18:42 | PC.NURSE ---
patient has PICC line in Left upper extremity for home antibiotics. patient has not had her home antibiotics for today.
--- NOTE | 2022-03-21 18:56 | PC.NURSE ---
PICC line will not draw labs but does flush without difficulty. lab notified of need for lab draw.
--- NOTE | 2022-03-21 19:30 | P.HP_ITS ---
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 Patient reports that for the past few days she has had increased shortness of breath with exertion, progressing to shortness of breath at rest, with a nonproductive cough, subjective fevers, no hemoptysis, no calf pain, no calf swelling, no history of blood clotts, no history of flu or covid, no recent travel, no chest pain. No recurrent back pain, no falls, taking daptomycin as prescribed, no new rash Review of Systems Const: Reports: fever(s), fatigue and malaise Resp: Reports: dyspnea and non-productive cough Medications/Allergies Home Medications Medication Instructions Recorded Confirmed Last Taken Type Short lemons boot #1 ea 08/14/21 03/21/22 03/13/22 Rx Cam boot to the right- short #1 ea 08/27/21 03/21/22 03/13/22 Rx hinged knee brace #1 ea 11/28/21 03/21/22 03/13/22 Rx albuterol sulfate 2.5 mg/3 mL 2.5 mg (3 mL) inhalation QID PRN 01/24/22 03/21/22 03/20/22 Rx (0.083 %) solution for nebulization shortness of breath or wheezing #90 mL cyclobenzaprine 10 mg tablet 10 mg PO TID #90 tabs 01/24/22 03/21/22 03/20/22 Rx estradiol 10 mcg vaginal tablet 10 mcg vaginal .TWO TIMES PER WEEK 01/24/22 03/21/22 03/20/22 Rx (Vagifem) #8 tabs pantoprazole 40 mg tablet,delayed 40 mg PO BID #60 tabs 01/24/22 03/21/22 03/21/22 Rx release linaclotide 145 mcg capsule 145 mcg PO DAILY PRN Constipation 02/08/22 03/21/22 03/20/22 History (Linzess) benzonatate 100 mg capsule 100 mg PO TID PRN cough #60 caps 03/03/22 03/21/22 03/20/22 Rx daptomycin 500 mg intravenous 720 mg IV Q24H #56 ea 03/03/22 03/21/22 03/21/22 Rx solution diphenhydramine HCl 25 mg capsule 25 mg PO TID PRN Itching #90 caps 03/03/22 03/21/22 03/20/22 Rx folic acid 1 mg tablet 1,000 mcg PO DAILY #90 tabs 03/03/22 03/21/22 03/21/22 Rx mupirocin 2 % topical ointment 1 applic topical BID #22 grams 03/13/22 03/21/22 03/20/22 Rx diazepam 5 mg tablet (Valium) 5 mg PO Q8H PRN muscle spasm #30 03/14/22 03/21/22 03/20/22 Rx tabs albuterol sulfate 90 mcg/actuation 2 puff inhalation QID PRN 03/15/22 03/21/22 03/20/22 Rx aerosol inhaler (ProAir HFA) shortness of breath or wheezing #6.7 grams oxygen 2L via NC continuous flow #1 ea 03/21/22 03/21/22 Unknown Rx Allergies Allergy/AdvReac Type Severity Reaction Status Date / Time vancomycin Allergy Severe DRESS Verified 03/21/22 18:16 syndrome aluminum hydroxide Allergy ADR-Nausea Verified 03/21/22 13:54 [From Maalox Maximum Strength] lidocaine Allergy ADR-Nausea Verified 03/21/22 13:54 magnesium hydroxide Allergy ADR-Nausea Verified 03/21/22 13:54 [From Maalox Maximum Strength] simethicone Allergy ADR-Nausea Verified 03/21/22 13:54 [From Maalox Maximum Strength] sucralfate [From Carafate] Allergy ADR-Nausea Verified 03/21/22 13:54 aspirin AdvReac Intermediate NAUSEA Verified 03/21/22 13:54 Iodinated Contrast Media AdvReac Intermediate NAUSEA AND Verified 03/21/22 13:54 RASH tramadol AdvReac Intermediate NAUSEA Verified 03/21/22 13:54 deodorant soap Allergy Intermediate ADR-Itching Uncoded 03/21/22 13:54 Tylenol Allergy Intermediate ADR-Itching Uncoded 03/21/22 13:54 TYLENOL WITH CODEINE AdvReac Intermediate ADR-Itching Uncoded 03/21/22 13:54 PFSH Acute PFSH: Medical History Constipation Helicobacter pylori gastritis Psychiatric care Surgical History H/O esophagogastroduodenoscopy (06/04/21) History of cholecystectomy History of colonoscopy (~12/2019) dr. hank back History of esophagogastroduodenoscopy (EGD) (~12/2019) dr. hank back History of fusion of cervical spine History of hysterectomy Status post colonoscopy (06/04/21) with banding of hemorrhoid Status post lumbar spinal fusion Family History Other Diabetes Hypertension Social History Smoking and tobacco status: former smoker Quit status (tobacco): has quit using tobacco Year quit tobacco: 02/07/22 Second hand smoke exposure: No Alcohol intake: never Caregiver/support person: Yes Lives independently: Yes Household members: significant other Marital status: Current occupational status: disabled History of recent travel: No Current gender identity: Female Special oscar needs: Yes Vitals/I&O/Wt Last Vital Signs Temp 97.5 F L 03/22/22 04:00 Pulse 81 03/22/22 05:33 Resp 24 H 03/22/22 04:00 BP 99/62 03/22/22 04:00 Pulse Ox 95 03/22/22 04:00 O2 Del Method 03/21/22 23:06 O2 Flow Rate 3 03/21/22 20:22 03/21/22 03/22/22 03/22/22 22:59 06:59 14:59 Intake Total 50 / 50 390 / 440 Output Total 450 / 450 Balance 50 / 50 -60 / -10 Weight last 48 hrs Weight 91.172 kg Physical Exam Const: COMMON NORMALS: no acute distress and patient oriented x3 GENERAL APPEARANCE: cooperative, well kempt and well developed HENMT: COMMON NORMALS: normocephalic Eye: COMMON NORMALS: Equal, round and reactive pupils present and EOMs intact bilaterally PUPIL: Yes Equal, round and reactive pupils present Neck/C-Spine: COMMON NORMALS: full ROM, no lymphadenopathy, no meningeal signs, no JVD and No carotid bruits Lymph: LYMPHATIC: no lymphadenopathy noted Chest: COMMONS NORMALS: normal inspection of the chest Resp: COMMON NORMALS: normal respiratory effort, No retractions, No use of accessory muscles and clear to auscultation bilaterally AUSCULTATION: clear to auscultation bilaterally Cardio: COMMON NORMALS: no JVD, regular rate, regular rhythm, S1 normal heart sound present, S2 normal heart sound present, No murmurs present (Cardio) and Peripheral pulses 2+ throughout RATE: regular rate RHYTHM: regular rhythm HEART SOUNDS: S1 normal heart sound present and S2 normal heart sound present PERIPHERAL PULSES: Peripheral pulses 2+ throughout GI: COMMON NORMALS: Normal to inspection, nondistended, normoactive bowel sounds present, Soft to palpation and non-tender PALPATION: Yes Soft to palpation : COMMON NORMALS: Yes no CVA tenderness Back/Pelvis: COMMON NORMALS: no CVA tenderness Extremity: COMMON NORMALS: normal to inspection, no calf tenderness and no pedal edema Neuro: COMMON NORMALS: patient oriented x3, CN's II-XII intact bilaterally, moves all extremities, no focal motor deficits and no sensory deficits noted MENINGEAL SIGNS: Yes no meningeal signs Psych: COMMON NORMALS: mental status grossly normal, Normal thought process present, cooperative and speech normal APPEARANCE: Yes well kempt SPEECH: Yes normal speech THOUGHT PROCESS: Normal thought process present Skin: COMMON NORMALS: turgor normal and no jaundice NARRATIVE SKIN EXAM: lumbar surgial site is clean and dry GENERAL SKIN EXAM: turgor normal Data 03/22/22 01:00 03/22/22 01:00 Micro: Microbiology 03/21/22 19:15 Blood Culture - Preliminary Blood SPECIMEN COLLECTED 03/21/22 19:20 Blood Culture - Preliminary Blood SPECIMEN COLLECTED A&P Assessment and plan (1) Pneumonia: -ct angiogram shows multifocal pneumonia -continue daptomycin -add meropenem -duo neb treatment -oxygen therapy -encourage up out of bed -can consider healthcare associated pneumonia, will consider adding Levaquin based on clinical progress -blood cultures -flu and covid -full code -lovenox for dvt prophylaxis Qualifiers: Laterality: left Lung location: lower lobe of lung Pneumonia type: due to unspecified organism Qualified Code(s): J18.9 - Pneumonia, unspecified organism (2) Shortness of breath: (3) Hardware complicating wound infection: (4) DRESS syndrome: Attestations Medical Necessity Statement*: patient requires hospitalization, inpatient, greater than 2 midnight for pneumonae, shortness of breath Coding Level of Care Code Acute Code for [facility] Fwd Diagnoses Pneumonia J18.9 Laterality: left Lung location: lower lobe of lung Pneumonia type: due to unspecified organism Shortness of breath R06.02 Hardware complicating wound infection T84.7XXA DRESS syndrome D72.12; T50.905A
[2022-03-21 19:41] LABS: Basophils % 0.3 %; Eosinophils # 0.8 10^3/uL (0.0-0.8); Eosinophils % 6.6 %; Hematocrit 32.4 % (37.0-47.0); Hemoglobin 9.7 g/dL (11.5-15.3); Lymphocytes # 2.2 10^3/uL (0.8-4.8); Lymphocytes % 18.7 %; Mean Corpuscular HGB Conc 29.9 g/dL (30.0-36.0); Mean Corpuscular Hemoglobin 27.8 pg (28.0-34.0); Mean Corpuscular Volume 92.8 fl (81-99); Mean Platelet Volume 9.6 fL (7.4-10.4); Monocytes % 8.1 %; Neutrophils # 7.85 10^3/uL (1.8-7.7); Neutrophils % 65.9 %; Nucleated Red Blood Cells % 0 %; Platelet Count 241 10^3/cmm (130-400); Red Blood Count 3.49 10^6/uL (4.1-5.3); Red Cell Distribution Width 18.3 % (12.1-15.1); White Blood Count 11.9 10^3/uL (4.0-10.0)
[2022-03-21 20:09] LABS: Lactic Sepsis W/Reflex 1.7 mmol/L (0.5-2.2)
[2022-03-21 20:13] LABS: Troponin(5th) Baseline 9 ng/L (0-10)
[2022-03-21] MEDS: meropenem 1,000 MG in sodium chloride 0.9% (plus) 50 ML 100 MG IV (20:16)
--- NOTE | 2022-03-21 20:38 | ECG_ITS ---
[facility] Test Date: 2022-03-21 Pat Name: Dawna Hilliard Department: Room: Gender: Female Design Analyst: : 1970 Requested By: Jacob Travis Order Number: [id number] Reading MD: Amelia Gregory M.D. Measurements Intervals [place] Rate: 119 P: 50 MA: 125 QRS: 2 QRSD: 76 T: 33 QT: 316 QTc: 446 Interpretive Statements SINUS TACHYCARDIA WITH OCCASIONAL SUPRAVENTRICULAR PREMATURE COMPLEXES ABNORMAL RHYTHM ECG Compared to ECG 03/21/2022 18:52:53 No significant changes Electronically Signed On 03-21-2022 20:51:59 SALES AND MANAGEMENT TRAINEE by Amelia Gregory M.D. [email or web address]
[2022-03-21 21:35] LABS: Anion Gap 20.5 (5-19); Blood Urea Nitrogen 11 mg/dL (6-20); Carbon Dioxide 21 mmol/L (22-29); Chloride 100 mmol/L (98-107); Erythrocyte Sedimentation Rate 43 mm/hr (0-15); Glomerular Filtration Rate 76.2 mL/min (90-130); Glucose 128 mg/dL (65-115); Osmolality Calculated 287 mOsm/kg (285-295); Potassium 3.5 mmol/L (3.5-5.1); Sodium 138 mmol/L (136-145)
[2022-03-21 21:39] LABS: C Reactive Protein 182.3 mg/L (0.0-4.9); Procalcitonin 0.18 ng/mL (0-0.5)
[2022-03-21 21:41] LABS: Influenza A by IFA negative (Negative); Influenza B by IFA negative (Negative)
[2022-03-21 21:41] LABS: NT Pro B Type Natriuretic Pept 104 pg/mL (0-125)
--- NOTE | 2022-03-21 21:42 | CTR_ITS ---
PROCEDURE INFORMATION: Exam: CTA Chest With Contrast Exam date and time: 03/21/2022 10:38 PM Age: 51 years old Clinical indication: Pain and abnormal findings; Abnormal diagnostic tests; Elevated d-dimer; Fever and shortness of breath; On breathing; Prior surgery; Surgery type: Gb. Cervical fusion; Patient HX: Pleuritic pain with SOB and fever. Elevated d dimer. TECHNIQUE: Imaging protocol: Computed tomographic angiography of the chest with contrast. 3D rendering (Not supervised by radiologist): MIP and/or 3D reconstructed images were created by the technologist. Radiation optimization: All CT scans at this facility use at least one of these dose optimization techniques: automated exposure control; mA and/or kV adjustment per patient size (includes targeted exams where dose is matched to clinical indication); or iterative reconstruction. Contrast material: OMNI 350; Contrast volume: 50 ml; Contrast route: INTRAVENOUS (IV); COMPARISON: CT angio chest PE protcl [id number] 02/28/2022 5:17 PM RADIATION DOSE METRICS: Total DLP (mGy-cm): 377.81 FINDINGS: Tubes, catheters and devices: Left PICC line with tip in the distal SVC. Pulmonary arteries: Normal. No pulmonary emboli. Aorta: Unremarkable. No aortic aneurysm. No aortic dissection. Lungs: Patchy nodular consolidations in the bilateral peripheral lungs. Focal consolidation in the right lung apex. Mild interlobular septal thickening in the lung apices. Pleural spaces: Unremarkable. No pneumothorax. No pleural effusion. Heart: Unremarkable. No cardiomegaly. No pericardial effusion. Lymph nodes: Prominent mediastinal and hilar lymph nodes are most likely reactive. Liver: Diffuse fatty infiltration of the liver. Gallbladder and bile ducts: Cholecystectomy. Bones/joints: C-spine fusion hardware. Mild degenerative changes of the thoracic spine. No fracture. Soft tissues: Unremarkable. CT/CT angio chest PE protcl [id number] IMPRESSION: 1. No evidence for pulmonary embolus. 2. Multilobar pneumonia.
[2022-03-21 22:06] LABS: Troponin 5 2HR 12.44 ng/L (0-10)
[2022-03-21] MEDS: ondansetron 2 mg/ML SDV 2 mL 4 MG IVP (22:08)
[2022-03-21] MEDS: diphenhydrAMINE 50 mg/mL SDV 1mL 25 MG IVP (22:08)
[2022-03-21 22:09] LABS: Troponin 5 2HR Delta 3.44 ABS# (0-10)
[2022-03-21] MEDS: SODIUM CHLORIDE 0.9% IV (22:15)
[2022-03-21] MEDS: DAPTOMYCIN IV (22:15)
[2022-03-21] MEDS: iohexol 350 mg/mL 500 mL Btl (per mL) IV (22:44)
[2022-03-21] MEDS: enoxaparin 40 mg/0.4 mL Syringe SUBCUT (23:11)
[2022-03-21] MEDS: diazePAM 5 mg Tablet PO (23:19)
[2022-03-21] MEDS: benzonatate 100 mg Capsule PO (23:21)
[2022-03-22] VITALS (9 sets, daily range): BP systolic 99–150; BP diastolic 61–81; PULSE 77–108; RESP 16–24; TEMP 36.4–36.9; O2SAT 94–99
--- NOTE | 2022-03-22 00:38 | ECG_ITS ---
[facility] Test Date: 2022-03-22 Pat Name: Dawna Hilliard Department: Room: 273 Gender: Female Supervisor Assembly: : 1970 Requested By: Jacob Travis Order Number: [id number] Jenni MD: Jennifer Grady M.D. Measurements Intervals [place] Rate: 95 P: 47 TX: 132 QRS: 2 QRSD: 75 T: 16 QT: 344 QTc: 434 Interpretive Statements SINUS RHYTHM WITH OCCASIONAL SUPRAVENTRICULAR PREMATURE COMPLEXES Compared to ECG 03/21/2022 20:49:58 Sinus tachycardia no longer present Electronically Signed On 03-22-2022 16:58:55 DESIGN TEACHER by Jennifer Grady M.D. [id number]
[2022-03-22 01:28] LABS: Basophils % 0.3 %; Eosinophils # 0.4 10^3/uL (0.0-0.8); Eosinophils % 4.2 %; Hematocrit 29.2 % (37.0-47.0); Hemoglobin 9.1 g/dL (11.5-15.3); Lymphocytes # 1.1 10^3/uL (0.8-4.8); Lymphocytes % 10.8 %; Mean Corpuscular HGB Conc 31.2 g/dL (30.0-36.0); Mean Corpuscular Hemoglobin 27.6 pg (28.0-34.0); Mean Corpuscular Volume 88.5 fl (81-99); Mean Platelet Volume 9.6 fL (7.4-10.4); Monocytes # 0.4 10^3/uL (0.2-0.9); Neutrophils # 8.03 10^3/uL (1.8-7.7); Neutrophils % 80.2 %; Nucleated Red Blood Cells % 0 %; Platelet Count 234 10^3/cmm (130-400)
[2022-03-22 02:00] LABS: Anion Gap 15.6 (5-19); Blood Urea Nitrogen 12 mg/dL (6-20); Calcium 8.9 mg/dL (8.5-10.5); Carbon Dioxide 22 mmol/L (22-29); Chloride 102 mmol/L (98-107); Creatinine Clr Calc Pharmacy 112.6928; Glomerular Filtration Rate 88.9 mL/min (90-130); Glucose 145 mg/dL (65-115); Osmolality Calculated 284 mOsm/kg (285-295); Potassium 3.6 mmol/L (3.5-5.1); Sodium 136 mmol/L (136-145)
[2022-03-22 02:04] LABS: Troponin 5 6HR 8.84 ng/L (0-10)
[2022-03-22 02:50] LABS: Troponin 5 6HR Delta -0.16 ng/L (0-12)
--- NOTE | 2022-03-22 03:20 | ECG_ITS ---
[facility] Test Date: 2022-03-22 Pat Name: Dawna Hilliard Department: Room: 273 Gender: Female Line Cook: : 1970 Requested By: Tong Diamond Order Number: [id number] Jenni MD: Jennifer Grady M.D. Measurements Intervals [place] Rate: 85 P: 53 MO: 139 QRS: 31 QRSD: 82 T: 43 QT: 374 QTc: 447 Interpretive Statements SINUS RHYTHM WITH FREQUENT SUPRAVENTRICULAR PREMATURE COMPLEXES ABNORMAL RHYTHM ECG Compared to ECG 03/22/2022 00:41:21 No significant changes Electronically Signed On 03-22-2022 16:54:05 GROUP DYNAMICS INSTRUCTOR by Jennifer Grady M.D. [id number]
[2022-03-22] MEDS: meropenem 1,000 MG in sodium chloride 0.9% (plus) 50 ML 100 MG IV ×3 (03:59→20:47)
[2022-03-22 04:26] LABS: Add Urine Culture? No; Add Urine Microscopic? YES; Bilirubin Urine Neg (Negative); Blood Urine Neg (Negative); Glucose Urine UA Norm (Normal); Ketones Urine Negative (Negative); Leukocyte Esterase Urine Negative (Negative); Mucus Urine 1+ /hpf; Nitrate Urine Negative (Negative); Protein Urine Trace (Negative); RBC Urine 0-4 /hpf (0-2); Squamous Epithelial Cell Urine 0-4 /hpf (0-5); Urine Appearance Clear (CLEAR); Urine Color Yellow (Yellow); Urobilinogen Urine Norm (Negative); WBC Urine 0-4 /hpf (0-5); pH Urine 6 (5-7)
--- NOTE | 2022-03-22 05:19 | PC.NURSE ---
Per lab staff, previous COVID swab kept failing. COVID swab redrawn at this time and sent to lab.
[2022-03-22 07:07] LABS: Adenovirus Not Detected (NOT DETECT); Chlamydia Pneumoniae Not Detected (NOT DETECT); Coronavirus 229E,HKU1,NL63,OC4 Not Detected (NOT DETECT); Human Metapneumovirus Not Detected (NOT DETECT); Human Rhinovirus/Enterovirus Not Detected (NOT DETECT); Influenza A Not Detected (NOT DETECT); Influenza A H1 Not Detected (NOT DETECT); Influenza A H1-2009 Not Detected (NOT DETECT); Influenza A H3 Not Detected (NOT DETECT); Influenza B Not Detected (NOT DETECT); Mycoplasma Pneumoniae Not Detected (NOT DETECT); Parainfluenza Virus Type 1 Not Detected (NOT DETECT); Parainfluenza Virus Type 2 Not Detected (NOT DETECT); Parainfluenza Virus Type 3 Not Detected (NOT DETECT); Parainfluenza Virus Type 4 Not Detected (NOT DETECT); Respiratory Syncytial Virus A Not Detected (NOT DETECT); Respiratory Syncytial Virus B Not Detected (NOT DETECT); SARS-COV-2 Not Detected (NOT DETECT)
--- NOTE | 2022-03-22 07:19 | W.PM.NPUH&PS ---
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, history of eosinophillic pneumoae, lumbar stenosis s/p surgery with subsquent hardware infection currently on daptomycin, gerd Meds NPU Home Medications Medication Instructions Recorded Confirmed Last Taken Type Short lemons boot #1 ea 08/14/21 03/21/22 03/13/22 Rx Cam boot to the right- short #1 ea 08/27/21 03/21/22 03/13/22 Rx hinged knee brace #1 ea 11/28/21 03/21/22 03/13/22 Rx albuterol sulfate 2.5 mg/3 mL 2.5 mg (3 mL) inhalation QID PRN 01/24/22 03/21/22 03/20/22 Rx (0.083 %) solution for nebulization shortness of breath or wheezing #90 mL cyclobenzaprine 10 mg tablet 10 mg PO TID #90 tabs 01/24/22 03/21/22 03/20/22 Rx estradiol 10 mcg vaginal tablet 10 mcg vaginal .TWO TIMES PER WEEK 01/24/22 03/21/22 03/20/22 Rx (Vagifem) #8 tabs pantoprazole 40 mg tablet,delayed 40 mg PO BID #60 tabs 01/24/22 03/21/22 03/21/22 Rx release linaclotide 145 mcg capsule 145 mcg PO DAILY PRN Constipation 02/08/22 03/21/22 03/20/22 History (Linzess) benzonatate 100 mg capsule 100 mg PO TID PRN cough #60 caps 03/03/22 03/21/22 03/20/22 Rx daptomycin 500 mg intravenous 720 mg IV Q24H #56 ea 03/03/22 03/21/22 03/21/22 Rx solution diphenhydramine HCl 25 mg capsule 25 mg PO TID PRN Itching #90 caps 03/03/22 03/21/22 03/20/22 Rx folic acid 1 mg tablet 1,000 mcg PO DAILY #90 tabs 03/03/22 03/21/22 03/21/22 Rx mupirocin 2 % topical ointment 1 applic topical BID #22 grams 03/13/22 03/21/22 03/20/22 Rx diazepam 5 mg tablet (Valium) 5 mg PO Q8H PRN muscle spasm #30 03/14/22 03/21/22 03/20/22 Rx tabs albuterol sulfate 90 mcg/actuation 2 puff inhalation QID PRN 03/15/22 03/21/22 03/20/22 Rx aerosol inhaler (ProAir HFA) shortness of breath or wheezing #6.7 grams oxygen 2L via NC continuous flow #1 ea 03/21/22 03/21/22 Unknown Rx Allergies Allergy/AdvReac Type Severity Reaction Status Date / Time vancomycin Allergy Severe DRESS Verified 03/21/22 18:16 syndrome aluminum hydroxide Allergy ADR-Nausea Verified 03/21/22 13:54 [From Maalox Maximum Strength] lidocaine Allergy ADR-Nausea Verified 03/21/22 13:54 magnesium hydroxide Allergy ADR-Nausea Verified 03/21/22 13:54 [From Maalox Maximum Strength] simethicone Allergy ADR-Nausea Verified 03/21/22 13:54 [From Maalox Maximum Strength] sucralfate [From Carafate] Allergy ADR-Nausea Verified 03/21/22 13:54 aspirin AdvReac Intermediate NAUSEA Verified 03/21/22 13:54 Iodinated Contrast Media AdvReac Intermediate NAUSEA AND Verified 03/21/22 13:54 RASH tramadol AdvReac Intermediate NAUSEA Verified 03/21/22 13:54 deodorant soap Allergy Intermediate ADR-Itching Uncoded 03/21/22 13:54 Tylenol Allergy Intermediate ADR-Itching Uncoded 03/21/22 13:54 TYLENOL WITH CODEINE AdvReac Intermediate ADR-Itching Uncoded 03/21/22 13:54 PFSH NPU PFSH: Medical History Constipation Helicobacter pylori gastritis Psychiatric care Surgical History H/O esophagogastroduodenoscopy (06/04/21) History of cholecystectomy [facility] of [facility]ophagogastroduodenoscopy (EGD) (~12/2019[place] [facility] [place] [place] of fusion of cervical spine History of hysterectomy Status post colonoscopy (06/04/21) with banding of hemorrhoid Status post lumbar spinal fusion Family History Other Diabetes Hypertension Social History Smoking and tobacco status: former smoker Quit status (tobacco): has quit using tobacco Year quit tobacco: 02/07/22 Second hand smoke exposure: No Alcohol intake: never Caregiver/support person: Yes Lives independently: Yes Household members: significant other Marital status: Current occupational status: disabled History of recent travel: No Current gender identity: Female Special oscar needs: Yes Vitals/I&O/Wt Last Vital Signs Temp 97.5 F L 03/22/22 04:00 Pulse 81 03/22/22 05:33 Resp 24 H 03/22/22 04:00 BP 99/62 03/22/22 04:00 Pulse Ox 95 03/22/22 04:00 O2 Del Method 03/21/22 23:06 O2 Flow Rate 3 03/21/22 20:22 03/21/22 03/22/22 03/22/22 22:59 06:59 14:59 Intake Total 50 / 50 390 / 440 Output Total 450 / 450 Balance 50 / 50 -60 / -10 Weight last 48 hrs Weight 91.172 kg Data NPU 03/22/22 01:00 03/22/22 01:00 Micro: Microbiology 03/21/22 19:15 Blood Culture - Preliminary Blood SPECIMEN COLLECTED 03/21/22 19:20 Blood Culture - Preliminary Blood SPECIMEN COLLECTED Microbiology 03/21/22 19:15 Blood Blood Culture - Preliminary SPECIMEN COLLECTED 03/21/22 19:20 Blood Blood Culture - Preliminary SPECIMEN COLLECTED Coding Level of Care Code Acute Code for Chg Fwd
[2022-03-22] MEDS: pantoprazole DR 40 mg Tablet PO ×2 (08:19→17:46)
[2022-03-22] MEDS: folic acid 1 mg Tablet PO (08:19)
--- NOTE | 2022-03-22 09:57 | P.PN_ITS ---
Subjective Subjective: Eating better currently on3 L which is her home requirement No active shortness of breath productive cough or fevers no leukocytosis Vitals/I&O/Wt Last Vital Signs Temp 97.5 F L 03/22/22 08:00 Pulse 77 03/22/22 08:00 Resp 18 03/22/22 08:00 BP 102/61 03/22/22 08:00 Pulse Ox 98 03/22/22 08:00 O2 Del Method 03/22/22 08:00 O2 Flow Rate 3 03/21/22 20:22 03/21/22 03/22/22 03/22/22 22:59 06:59 14:59 Intake Total 50 / 50 390 / 440 Output Total 450 / 450 Balance 50 / 50 -60 / -10 Weight last 48 hrs Weight 91.172 kg Physical Exam Narrative: Patient is euvolemic On 3 L No audible stridor or wheezing Abdomen soft S1, S2 Left arm PICC line in place Hemodynamic stable Pleasant and cooperative Nonfocal neuro exam Data 03/22/22 01:00 03/22/22 01:00 Micro: Microbiology 03/21/22 19:15 Blood Culture - Preliminary Blood SPECIMEN COLLECTED 03/21/22 19:20 Blood Culture - Preliminary Blood SPECIMEN COLLECTED A&P Assessment and plan (1) Pneumonia: Qualifiers: Laterality: left Lung location: lower lobe of lung Pneumonia type: due to unspecified organism Qualified Code(s): J18.9 - Pneumonia, unspecified organism (2) Shortness of breath: (3) Dyspnea: (4) Hardware complicating wound infection: (5) Postoperative abscess: Plan Patient is admitted for management of volume because of her recent hospitalization and use of IV antibiotics Currently she is on broad-spectrum antibiotics Recent discharge after management of eosinophilic pneumonia Eosinophils Are unremarkable on this admission Concern for pneumonia Currently on broad-spectrum antibiotics On home requirement of 3 L Will do home O2 evaluation before discharge My plan is to discharge her over the weekend She is pretty stable no acute respiratory distress We will give her 1 more day to recover Continue regular diet Daptomycin which is for MSSA infection, she has ID appointment as well Full code DVT prophylaxis on board Attestations Medical Necessity Statement*: Likely discharge on Friday Time Spent in Patient Care: 30 Coding Level of Care Code Acute Code for [facility] Fwd Diagnoses Pneumonia J18.9 Laterality: left Lung location: lower lobe of lung Pneumonia type: due to unspecified organism Shortness of breath R06.02 Dyspnea R06.00 Hardware complicating wound infection T84.7XXA Postoperative abscess T81.49XA
--- NOTE | 2022-03-22 12:33 | PC.CHAP ---
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 [] Patient/Family/Request visit [] Outpatient visit [] Follow-up visit [] Physician referral [] Code/Alert [x] Routine visit [] Staff referral [] Actively dying [] Patient sleeping [] Family support [] [] Out of room [] Palliative care [] [] Receiving care in room [] Pre-surgical visit [] Trauma [] Long length of stay [] ICU visit [] Other: Relational/Emotional Strength [x] Patient feels connected with others/family/visitors/staff [] Distress [] Loneliness/isolation [] Abandonment Spirituality of Patient x [] Person of Angella [] Attends Mandaeism of their Angella [x] Believes in Prayer [] Reads Bible or Episcopalian materials [] There are Spiritual issues to be addressed Digital Specialist Interventions [x] Prayer [x] Active listening [x] Non-anxious presence [x] Spiritual/emotional support [] Crisis/trauma care [] Spiritual counseling [] Bereavement support [] Provided bereavement packet [] Provided Bible/devotional materials [] Provided toy/stuffed animal, coloring book to patient or family member [] Provided Communion [] Anointing/Wiley [] Salvation [x] Completed spiritual assessment [] Other: Impact on Illness or Injury [] Angry [] Fearful [] Anxious [] Often cries [] Exhaustion [] Unable to work [] Unable to attend zoroastrianism [] Unable to walk/stand [] Unable to read [] Unable to drive [] Unable to eat/drink [] Unable to sleep [] Unable to be with family [] Patient intubated [] Other: Summary Time spent with patient `10 min
[2022-03-22] MEDS: benzonatate 100 mg Capsule PO (18:01)
[2022-03-22] MEDS: diazePAM 5 mg Tablet PO (20:49)
[2022-03-22] MEDS: DAPTOMYCIN IV (21:35)
[2022-03-22] MEDS: SODIUM CHLORIDE 0.9% IV (21:35)
[2022-03-22] MEDS: enoxaparin 40 mg/0.4 mL Syringe SUBCUT (22:44)
[2022-03-23] VITALS (8 sets, daily range): BP systolic 103–135; BP diastolic 61–76; PULSE 88–723; RESP 16–23; TEMP 36.4–36.9; O2SAT 87–100
[2022-03-23] MEDS: benzonatate 100 mg Capsule PO (00:20)
[2022-03-23] MEDS: meropenem 1,000 MG in sodium chloride 0.9% (plus) 50 ML 100 MG IV ×3 (05:18→20:28)
[2022-03-23 05:23] LABS: Basophils % 0.2 %; Eosinophils % 0.1 %; Hematocrit 30.6 % (37.0-47.0); Hemoglobin 9.3 g/dL (11.5-15.3); Lymphocytes # 2.7 10^3/uL (0.8-4.8); Lymphocytes % 17.6 %; Mean Corpuscular HGB Conc 30.4 g/dL (30.0-36.0); Mean Corpuscular Hemoglobin 27.5 pg (28.0-34.0); Mean Corpuscular Volume 90.5 fl (81-99); Mean Platelet Volume 9.8 fL (7.4-10.4); Monocytes # 0.8 10^3/uL (0.2-0.9); Monocytes % 5.3 %; Neutrophils % 76.1 %; Nucleated Red Blood Cells % 0 %; Platelet Count 290 10^3/cmm (130-400); Red Blood Count 3.38 10^6/uL (4.1-5.3); Red Cell Distribution Width 18.3 % (12.1-15.1); White Blood Count 15.1 10^3/uL (4.0-10.0)
[2022-03-23 08:59] LABS: Basophils # 0.1 10^3/uL (0.0-0.1); Basophils % 0.4 %; Eosinophils % 0.1 %; Hematocrit 32.6 % (37.0-47.0); Lymphocytes # 3.3 10^3/uL (0.8-4.8); Lymphocytes % 19.7 %; Mean Corpuscular HGB Conc 30.7 g/dL (30.0-36.0); Mean Corpuscular Hemoglobin 27.8 pg (28.0-34.0); Mean Corpuscular Volume 90.6 fl (81-99); Mean Platelet Volume 11.3 fL (7.4-10.4); Monocytes # 0.7 10^3/uL (0.2-0.9); Monocytes % 4.1 %; Neutrophils # 12.35 10^3/uL (1.8-7.7); Neutrophils % 74.9 %; Nucleated Red Blood Cells % 0 %; Platelet Count 222 10^3/cmm (130-400); Red Cell Distribution Width 18.2 % (12.1-15.1); White Blood Count 16.5 10^3/uL (4.0-10.0)
[2022-03-23] MEDS: pantoprazole DR 40 mg Tablet PO ×2 (09:20→17:50)
[2022-03-23] MEDS: folic acid 1 mg Tablet PO (09:20)
[2022-03-23] MEDS: diazePAM 5 mg Tablet PO ×2 (09:20→20:28)
--- NOTE | 2022-03-23 10:30 | PM.PN ---
Subjective Subjective: Her white count is high she is anxious and tachycardic She is on room air saturating 98% Vitals/I&O/Wt Last Vital Signs Temp 97.5 F L 03/23/22 08:00 Pulse 100 03/23/22 08:00 Resp 17 03/23/22 08:00 BP 103/68 03/23/22 08:00 Pulse Ox 97 03/23/22 08:00 O2 Del Method 03/23/22 08:00 O2 Flow Rate 3 03/23/22 08:00 03/22/22 03/23/22 03/23/22 22:59 06:59 14:59 Intake Total 630 / 1400 170 / 1570 480 / 480 Balance 630 / 1400 170 / 1570 480 / 480 Weight last 48 hrs Weight 91.172 kg Physical Exam Narrative: Bilateral breath sound without adventitious rhonchi or crackles On room air saturating well Tachycardic S1, S2 Anxious Anxiety attack Nonfocal neuro exam GCS 15 Abdomen soft Data 03/23/22 08:19 03/22/22 01:00 Micro: Microbiology 03/21/22 19:15 Blood Culture - Preliminary Blood NEGATIVE TO DATE 03/21/22 19:20 Blood Culture - Preliminary Blood NEGATIVE TO DATE A&P Assessment and plan (1) Pneumonia: Qualifiers: Laterality: left Lung location: lower lobe of lung Pneumonia type: due to unspecified organism Qualified Code(s): J18.9 - Pneumonia, unspecified organism (2) Shortness of breath: (3) Dyspnea: Plan Acute on chronic hypoxia Patient is doing well on room air today, patient is stating that her oxygen of 2 L was delivered at home today She is very anxious, tachypneic and tachycardic Doing well on room air I would like to keep her 1 more day because of worsening of leukocytosis however she has been afebrile Give her 1 dose of Xanax today Continue IV antibiotics For MSSA infection Double antipseudomonal coverage for hospital-acquired pneumonia Attestations Medical Necessity Statement*: I will be able to discharge her tomorrow if she remains clinically stable Time Spent in Patient Care: 30 Coding Level of Care Code Acute Code for Chg Fwd Diagnoses Pneumonia J18.9 Laterality: left Lung location: lower lobe of lung Pneumonia type: due to unspecified organism Shortness of breath R06.02 Dyspnea R06.00
[2022-03-23] MEDS: ALPRAZolam 0.5 mg Tablet PO (15:11)
[2022-03-23] MEDS: DAPTOMYCIN IV (21:27)
[2022-03-23] MEDS: SODIUM CHLORIDE 0.9% IV (21:27)
[2022-03-23] MEDS: enoxaparin 40 mg/0.4 mL Syringe SUBCUT (22:33)
[2022-03-24] VITALS: BP 98/62; PULSE 100; RESP 18; TEMP 36.8; O2SAT 98
[2022-03-24 04:00] VITALS: BP 113/69; PULSE 97; RESP 18; TEMP 36.5; O2SAT 97
[2022-03-24] MEDS: meropenem 1,000 MG in sodium chloride 0.9% (plus) 50 ML 100 MG IV (04:17)
[2022-03-24] MEDS: benzonatate 100 mg Capsule PO (04:25)
[2022-03-24] MEDS: ALPRAZolam 0.5 mg Tablet PO (04:25)
[2022-03-24] MEDS: levoFLOXacin 750 mg Tablet PO (05:00)
[2022-03-24 07:27] VITALS: BP 140/63; PULSE 133; RESP 26; TEMP 36.8; O2SAT 93
[2022-03-24 08:19] VITALS: PULSE 110; RESP 18; O2SAT 94
[2022-03-24] MEDS: pantoprazole DR 40 mg Tablet PO (09:03)
[2022-03-24] MEDS: folic acid 1 mg Tablet PO (09:03)
[2022-03-24] MEDS: metoprolol tartrate 25 mg Tablet 12.5 MG PO (09:05)
--- NOTE | 2022-03-24 10:10 | PC.SOCIAL ---
IMM Update pg 2 of IMM updated and reviewed w/ patient. Copy provided and Copy dated, initialed and placed in chart.
--- NOTE | 2022-03-24 10:19 | PM.DCS ---
Discharge Providers Date of Admission: 03/21/22 22:08 Date of Discharge: March 24, 2022 Attending Provider at Admission: Tong Diamond MD Attending Provider at Discharge: Hermelindo Yancey MD Primary Care Provider: GEORGE Finney Diagnoses at Discharge Discharge Diagnosis (1) Pneumonia: Status: Acute Qualifiers: Laterality: left Lung location: lower lobe of lung Pneumonia type: due to unspecified organism Qualified Code(s): J18.9 - Pneumonia, unspecified organism (2) Shortness of breath: Status: Acute (3) Dyspnea: Status: Acute Reason for Visit Reason for Visit: Roger sent for fever, SOB Hospital Course Hospital Course 51-year-old female who was recently discharged from the hospital after she was diagnosed with eosinophilic pneumonia, she was continuing daptomycin for MSSA infection of her recent back surgery, during her hospitalization we were able to bring her oxygen down to almost 1 L to room air at rest however on exertion she requires 2 to 2.5 L, she will continue her daptomycin regimen at home, will receive Levaquin in addition to daptomycin for next few days. She remained afebrile, CTA did not show PE, leukocytosis worsened to 15,000 however she remained afebrile and improved clinically. Physical Exam Narrative: Patient doing well on 2 L oxygen Awake and alert Appears anxious Abdomen soft No chest pain S1, S2 Discharge Data Studies Completed and Pending Completed Studies During Hospitalization Category Date Time Status CT angio chest PE protcl [id number] Stat Cat Scan 03/21/22 21:42 Completed XR chest 2V* [id number] Urgent Exams 03/21/22 18:37 Completed Pending at discharge Category Date Time Status ABG ONLY [Arterial Blood Gas W/O Coox] Stat Lab 03/21/22 20:54 Ordered Blood Culture Stat Lab 03/21/22 19:15 Results CBC Auto Diff [Complete Blood Count w/Auto] AM LABS Lab 03/24/22 04:00 Ordered D Dimer Routine Lab 03/24/22 08:40 Ordered Radiology Impressions Chest X-Ray 03/21/22 18:37 IMPRESSION: Atelectasis and possible pneumonia in the lung bases. Chest CTA 03/21/22 21:42 IMPRESSION: 1. No evidence for pulmonary embolus. 2. Multilobar pneumonia. Laboratory Results WBC 16.5 10^3/uL (4.0-10.0) H 03/23/22 08:19 RBC 3.60 10^6/uL (4.1-5.3) L 03/23/22 08:19 Hgb 10.0 g/dL (11.5-15.3) L 03/23/22 08:19 Hct 32.6 % (37.0-47.0) L 03/23/22 08:19 MCV 90.6 fl (81-99) 03/23/22 08:19 MCH 27.8 pg (28.0-34.0) L 03/23/22 08:19 MCHC 30.7 g/dL (30.0-36.0) 03/23/22 08:19 RDW 18.2 % (12.1-15.1) H 03/23/22 08:19 Plt Count 222 10^3/cmm (130-400) 03/23/22 08:19 MPV 11.3 fL (7.4-10.4) H 03/23/22 08:19 Neut % (Auto) 74.9 % 03/23/22 08:19 Lymph % (Auto) 19.7 % 03/23/22 08:19 Lenoir % (Auto) 4.1 % 03/23/22 08:19 Eos % (Auto) 0.1 % 03/23/22 08:19 Baso % (Auto) 0.4 % 03/23/22 08:19 Neut # (Auto) 12.35 10^3/uL (1.8-7.7) H 03/23/22 08:19 Lymph # (Auto) 3.3 10^3/uL (0.8-4.8) 03/23/22 08:19 Lenoir # (Auto) 0.7 10^3/uL (0.2-0.9) 03/23/22 08:19 Eos # (Auto) 0.0 10^3/uL (0.0-0.8) 03/23/22 08:19 Baso # (Auto) 0.1 10^3/uL (0.0-0.1) 03/23/22 08:19 Nucleated RBC % (auto) 0 % 03/23/22 08:19 Nucleated RBCs # 0.0 /100WBC 03/23/22 08:19 ESR 43 mm/hr (0-15) H 03/21/22 19:15 D-Dimer 2.60 ug/mIFEU (0-0.59) H 03/21/22 19:20 Sodium 136 mmol/L (136-145) 03/22/22 01:00 Potassium 3.6 mmol/L (3.5-5.1) 03/22/22 01:00 Chloride 102 mmol/L (98-107) 03/22/22 01:00 Carbon Dioxide 22 mmol/L (22-29) 03/22/22 01:00 Anion Gap 15.6 (5-19) 03/22/22 01:00 BUN 12 mg/dL (6-20) 03/22/22 01:00 Creatinine 0.7 mg/dL (0.5-0.9) 03/22/22 01:00 GFR Calculation 88.9 mL/min (90-130) L 03/22/22 01:00 Glucose 145 mg/dL (65-115) H 03/22/22 01:00 Calculated Osmolality 284 mOsm/kg (285-295) L 03/22/22 01:00 Lactic Acid 1.7 mmol/L (0.5-2.2) 03/21/22 19:15 Calcium 8.9 mg/dL (8.5-10.5) 03/22/22 01:00 Troponin T Baseline 9 ng/L (0-10) 03/21/22 19:20 Troponin T 120 Minute 12.44 ng/L (0-10) H 03/21/22 21:42 Delta Troponin T 3.44 ABS# (0-10) 03/21/22 21:42 Troponin T Hi Sens 6Hr 8.84 ng/L (0-10) 03/22/22 01:00 Troponin T Hi Sens 6Hr Delta -0.16 ng/L (0-12) L 03/22/22 01:00 C-Reactive Protein 182.3 mg/L (0.0-4.9) H 03/21/22 19:15 NT-Pro-B Natriuret Pep 104 pg/mL (0-125) 03/21/22 19:15 Procalcitonin 0.18 ng/mL (0-0.5) 03/21/22 19:15 Urine Color Yellow (Yellow) 03/22/22 03:30 Urine Appearance Clear (CLEAR) 03/22/22 03:30 Urine pH 6 (5-7) 03/22/22 03:30 Ur Specific Sylvester 1.010 (1.005-1.030) 03/22/22 03:30 Urine Protein Trace (Negative) 03/22/22 03:30 Urine Glucose (UA) Norm (Normal) 03/22/22 03:30 Urine Ketones Negative (Negative) 03/22/22 03:30 Urine Blood Neg (Negative) 03/22/22 03:30 Urine Nitrate Negative (Negative) 03/22/22 03:30 Urine Bilirubin Neg (Negative) 03/22/22 03:30 Urine Urobilinogen Norm mg/dL (Negative) 03/22/22 03:30 Ur Leukocyte Esterase Negative (Negative) 03/22/22 03:30 Urine RBC 0-4 /hpf (0-2) H 03/22/22 03:30 Urine WBC 0-4 /hpf (0-5) H 03/22/22 03:30 Ur Squamous Epith Cells 0-4 /hpf (0-5) H 03/22/22 03:30 Amorphous Sediment Not Reportable 03/22/22 03:30 Urine Bacteria None /hpf (NONE) 03/22/22 03:30 Urine Mucus 1+ /hpf 03/22/22 03:30 Coronavirus 229E (PCR) Not detected (NOT DETECT) 03/22/22 05:20 Influenza Type A Ag negative (Negative) 03/21/22 21:15 Influenza Type B Ag negative (Negative) 03/21/22 21:15 SARS-CoV-2 (PCR) Not detected (NOT DETECT) 03/22/22 05:20 Vitals Last Vital Signs Temp 98.2 F 03/24/22 07:27 Pulse 110 H 03/24/22 08:19 Resp 18 03/24/22 08:19 BP 140/63 03/24/22 07:27 Pulse Ox 94 03/24/22 08:19 O2 Del Method 03/24/22 08:19 O2 Flow Rate 3 03/24/22 08:19 Discharge Plan Discharge Patient Disposition: Home Condition: Stable Prescriptions: New levofloxacin 750 mg tablet 750 mg PO DAILY 5 Days Qty: 5 0RF Continued albuterol sulfate 2.5 mg /3 mL (0.083 %) solution for nebulization 2.5 mg INHALATION QID PRN (Reason: shortness of breath or wheezing) Qty: 90 3RF (DME) Short lemons boot See Rx Instructions .Route .MEDSUPPLY Qty: 1 0RF Rx Instructions: As directed (DME) hinged knee brace See Rx Instructions .Route .MEDSUPPLY Qty: 1 0RF Rx Instructions: Right knee pain diazepam [Valium] 5 mg tablet 5 mg PO Q8H PRN (Reason: muscle spasm) Qty: 30 0RF albuterol sulfate [ProAir HFA] 90 mcg/actuation HFA aerosol inhaler 2 puff inhalation QID PRN (Reason: shortness of breath or wheezing) Qty: 6.7 2RF estradiol [Vagifem] 10 mcg tablet 10 mcg VAGINAL .TWO TIMES PER WEEK Qty: 8 5RF Rx Instructions: mon and fri (DME) Cam boot to the right- short See Rx Instructions .Route .MEDSUPPLY Qty: 1 0RF Rx Instructions: As directed pantoprazole 40 mg tablet,delayed release (DR/EC) 40 mg PO BID Qty: 60 5RF mupirocin 2 % ointment 1 applic topical BID Qty: 22 1RF Rx Instructions: Apply to affected area on back until healed (DME) oxygen 2L via NC continuous flow See Rx Instructions .Route .MEDSUPPLY Qty: 1 0RF Rx Instructions: As directed cyclobenzaprine 10 mg tablet 10 mg PO TID Qty: 90 2RF diphenhydramine HCl 25 mg Capsule 25 mg PO TID PRN (Reason: Itching) Qty: 90 0RF daptomycin 500 mg recon soln 720 mg IV Q24H Qty: 56 0RF Rx Instructions: administer over 30 mins benzonatate 100 mg capsule 100 mg PO TID PRN (Reason: cough) Qty: 60 0RF folic acid 1 mg tablet 1,000 mcg PO DAILY Qty: 90 0RF Linzess 145 mcg capsule 145 mcg PO DAILY PRN (Reason: Constipation) Discharge Orders: Discharge Order (Routine); Ordered 03/24/22 Ordered By: Hermelindo Yancey Referrals: Amanda Duran, SNUFF CONTAINER INSPECTOR [Primary Care Provider] - (Please call Friday to schedule your followup appointment with Amanda Duran. If you have any questions or concerns please call the office at [phone].) Discharge Diet: Cardiac Discharge Activity: Increase activity as tolerated Patient Instructions: Levofloxacin (By mouth), Viral Pneumonia (DC), Opioid Safety Discharge Attestations Time Spent in Discharge Care*: less than 30 min Quality Metrics Clinical Quality Measures [ No reported AMI, CVA or VTE this stay] Coding Level of Care Code Acute Chg FW DC note Diagnoses Pneumonia J18.9 Laterality: left Lung location: lower lobe of lung Pneumonia type: due to unspecified organism Shortness of breath R06.02 Dyspnea R06.00
[2022-03-24 11:49] VITALS: BP 147/94; PULSE 113; TEMP 36.9; O2SAT 96
[2022-03-24 12:18] VITALS: BP 147/94; PULSE 113; RESP 18; TEMP 36.9; O2SAT 96
--- NOTE | 2022-03-24 12:20 | PC.NURSE ---
pt discharge education reviewed with patient, spouse and children at bedside, sending information to [facility] to continue home IV meds via CM. Verbally acknowledges d/c poc.
== END 2022-03-24 12:19 | disposition home or self-care (01) | DRG 194 ==
LOC: ER 21:58 → MEDSURG 22:10
PROVIDERS: Admitting Provider Family Medicine; Emergency Provider Family Medicine; PCP Nurse Practitioner Family; Visit Provider Internal Medicine
DX: J18.9 Pneumonia, unspecified organism (principal); T84.7XXA Infection and inflammatory reaction due to other internal orthopedic prosthetic devices, implants and grafts, initial encounter; B95.61 Methicillin susceptible Staphylococcus aureus infection as the cause of diseases classified elsewhere; Z79.890 Hormone replacement therapy; E66.9 Obesity, unspecified; Z68.31 Body mass index [BMI] 31.0-31.9, adult; K21.9 Gastro-esophageal reflux disease without esophagitis; Z88.5 Allergy status to narcotic agent; Z88.1 Allergy status to other antibiotic agents; Z91.041 Radiographic dye allergy status; Z98.1 Arthrodesis status; Z87.891 Personal history of nicotine dependence; R09.02 Hypoxemia; F41.9 Anxiety disorder, unspecified; Z95.828 Presence of other vascular implants and grafts; Y79.8 Miscellaneous orthopedic devices associated with adverse incidents, not elsewhere classified
CPT/HCPCS: 36415; 71046; 71275; 80048; 81001; 83605; 83880; 84145; 84484; 85025; 85378; 85651; 86140; 87040; 87400; 87426; 87635; 87804; 93005; 94760; 96365; 96367; 96372; 96375; 99285; J0878; J1200; J1650; J2185; J2405; J2930; Q9967

== ENCOUNTER → 2022-03-28 10:26 | Outpatient (BNVA) | payer MEDICARE, MEDICAID, SELFPAY | PROVIDERS: PCP Nurse Practitioner Family; Visit Provider Student in an Organized Health Care Education/Training Program | DX: T81.49XA Infection following a procedure, other surgical site, initial encounter (principal); Z79.891 Long term (current) use of opiate analgesic; R00.0 Tachycardia, unspecified; R09.02 Hypoxemia; L27.0 Generalized skin eruption due to drugs and medicaments taken internally; Z98.1 Arthrodesis status; T84.7XXA Infection and inflammatory reaction due to other internal orthopedic prosthetic devices, implants and grafts, initial encounter; X58.XXXA Exposure to other specified factors, initial encounter | CPT/HCPCS: 99213; 99215 ==

== ENCOUNTER 2022-04-02 11:44 | Outpatient (RCR) | payer MEDICARE, MEDICAID, SELFPAY ==
[2022-03-27 11:00] VITALS: BP 129/83; PULSE 120; RESP 18; TEMP 35.8; O2SAT 97
[2022-03-27 11:33] LABS: Basophils # 0.1 10^3/uL (0.0-0.1); Basophils % 0.5 %; Eosinophils # 0.7 10^3/uL (0.0-0.8); Eosinophils % 6.6 %; Hematocrit 29.5 % (37.0-47.0); Hemoglobin 9.2 g/dL (11.5-15.3); Lymphocytes # 1.4 10^3/uL (0.8-4.8); Lymphocytes % 12.9 %; Mean Corpuscular HGB Conc 31.2 g/dL (30.0-36.0); Mean Corpuscular Hemoglobin 27.5 pg (28.0-34.0); Mean Corpuscular Volume 88.1 fl (81-99); Mean Platelet Volume 8.8 fL (7.4-10.4); Monocytes # 0.8 10^3/uL (0.2-0.9); Monocytes % 7.3 %; Neutrophils # 7.75 10^3/uL (1.8-7.7); Nucleated Red Blood Cells % 0 %; Platelet Count 354 10^3/cmm (130-400); Red Blood Count 3.35 10^6/uL (4.1-5.3); Red Cell Distribution Width 18.1 % (12.1-15.1); White Blood Count 10.8 10^3/uL (4.0-10.0)
[2022-03-27 11:52] LABS: Blood Urea Nitrogen 14 mg/dL (6-20); C Reactive Protein 129.6 mg/L (0.0-4.9); Calcium 9.3 mg/dL (8.5-10.5); Carbon Dioxide 25 mmol/L (22-29); Chloride 102 mmol/L (98-107); Creatine Phosphokinase 31 U/L (26-192); Glomerular Filtration Rate 66.5 mL/min (90-130); Glucose 96 mg/dL (65-115); Osmolality Calculated 286 mOsm/kg (285-295); Sodium 138 mmol/L (136-145)
[2022-04-02 11:50] VITALS: BP 122/70; PULSE 90; RESP 18; TEMP 36.1; O2SAT 95
[2022-04-02 12:10] LABS: Basophils # 0.1 10^3/uL (0.0-0.1); Basophils % 0.4 %; Eosinophils # 0.4 10^3/uL (0.0-0.8); Eosinophils % 2.5 %; Hematocrit 29.2 % (37.0-47.0); Hemoglobin 9.1 g/dL (11.5-15.3); Lymphocytes # 1.7 10^3/uL (0.8-4.8); Lymphocytes % 11.9 %; Mean Corpuscular HGB Conc 31.2 g/dL (30.0-36.0); Mean Corpuscular Hemoglobin 27.4 pg (28.0-34.0); Mean Platelet Volume 8.9 fL (7.4-10.4); Monocytes # 0.7 10^3/uL (0.2-0.9); Monocytes % 4.7 %; Neutrophils # 11.14 10^3/uL (1.8-7.7); Nucleated Red Blood Cells % 0 %; Platelet Count 376 10^3/cmm (130-400); Red Blood Count 3.32 10^6/uL (4.1-5.3); White Blood Count 13.9 10^3/uL (4.0-10.0)
[2022-04-02 12:32] LABS: Anion Gap 16.9 (5-19); Blood Urea Nitrogen 13 mg/dL (6-20); C Reactive Protein 70.2 mg/L (0.0-4.9); Calcium 9.3 mg/dL (8.5-10.5); Carbon Dioxide 22 mmol/L (22-29); Chloride 104 mmol/L (98-107); Creatine Phosphokinase 32 U/L (26-192); Glomerular Filtration Rate 76.2 mL/min (90-130); Glucose 100 mg/dL (65-115); Osmolality Calculated 288 mOsm/kg (285-295); Potassium 3.9 mmol/L (3.5-5.1); Sodium 139 mmol/L (136-145)
== END 2022-04-09 09:55 | disposition home or self-care (01) ==
LOC: GILAB 11:44
PROVIDERS: Student in an Organized Health Care Education/Training Program; PCP Nurse Practitioner Family; Visit Provider Internal Medicine
DX: M48.061 Spinal stenosis, lumbar region without neurogenic claudication (principal)
CPT/HCPCS: 36415; 36592; 80048; 82550; 85025; 86140

== ENCOUNTER 2022-04-11 06:00 | Outpatient (RCR) | payer MEDICARE, MEDICAID, SELFPAY ==
[2022-04-11 12:16] LABS: Basophils % 0.4 %; Nucleated Red Blood Cells % 0 %
[2022-04-11 12:25] LABS: C Reactive Protein 38.8 mg/L (0.0-4.9); Creatine Phosphokinase 45 U/L (26-192)
[2022-04-11 12:53] LABS: Eosinophils # 0.3 10^3/uL (0.0-0.8); Eosinophils % 3.4 %; Hematocrit 29.4 % (37.0-47.0); Lymphocytes # 2.2 10^3/uL (0.8-4.8); Lymphocytes % 24.3 %; Mean Corpuscular HGB Conc 30.6 g/dL (30.0-36.0); Mean Corpuscular Hemoglobin 26.8 pg (28.0-34.0); Mean Corpuscular Volume 87.5 fl (81-99); Mean Platelet Volume 9.1 fL (7.4-10.4); Monocytes # 0.8 10^3/uL (0.2-0.9); Monocytes % 8.4 %; Neutrophils # 5.67 10^3/uL (1.8-7.7); Neutrophils % 63.1 %; Platelet Count 440 10^3/cmm (130-400); Red Blood Count 3.36 10^6/uL (4.1-5.3); Red Cell Distribution Width 17.9 % (12.1-15.1)
[2022-04-11 12:58] LABS: Erythrocyte Sedimentation Rate 40 mm/hr (0-15)
== END 2022-05-07 23:59 | disposition home or self-care (01) ==
LOC: GILAB 06:00
PROVIDERS: Student in an Organized Health Care Education/Training Program; PCP Nurse Practitioner Family; Visit Provider Internal Medicine
DX: J82.81 Chronic eosinophilic pneumonia (principal); M86.9 Osteomyelitis, unspecified
CPT/HCPCS: 82550; 85025; 85651; 86140

== ENCOUNTER → 2022-04-11 10:05 | Outpatient (BNVA) | payer MEDICARE, MEDICAID, SELFPAY | PROVIDERS: PCP Nurse Practitioner Family; Visit Provider Student in an Organized Health Care Education/Training Program | DX: Z98.1 Arthrodesis status (principal); M86.9 Osteomyelitis, unspecified; J82.81 Chronic eosinophilic pneumonia; T81.49XA Infection following a procedure, other surgical site, initial encounter; R09.02 Hypoxemia; L27.0 Generalized skin eruption due to drugs and medicaments taken internally; T84.7XXA Infection and inflammatory reaction due to other internal orthopedic prosthetic devices, implants and grafts, initial encounter; R00.0 Tachycardia, unspecified; X58.XXXA Exposure to other specified factors, initial encounter | CPT/HCPCS: 99214 ==

== ENCOUNTER 2022-05-08 11:21 | Outpatient (CLI) | payer MEDICARE, MEDICAID, SELFPAY ==
[2022-05-08 12:28] LABS: Albumin Level 3.3 g/dL (3.5-5.2); Alkaline Phosphatase 129 U/L (35-105); Blood Urea Nitrogen 17 mg/dL (6-20); Calcium 9.2 mg/dL (8.5-10.5); Carbon Dioxide 26 mmol/L (22-29); Chloride 105 mmol/L (98-107); Globulin 3.5 g/dL (1.3-4.6); Glomerular Filtration Rate 75.9 mL/min (90-130); Glucose 114 mg/dL (65-115); Osmolality Calculated 292 mOsm/kg (285-295); Sodium 140 mmol/L (136-145); Total Bilirubin 0.2 mg/dL (0.15-1.2); Total Protein 6.8 g/dL (6.6-8.7)
[2022-05-08 12:30] LABS: Anion Gap 13.2 (5-19); Potassium 4.2 mmol/L (3.5-5.1)
[2022-05-08 12:31] LABS: Alanine Aminotransferase 12 U/L (0-33); Aspartate Amino Transferase 21 U/L (0-32)
[2022-05-08 15:57] LABS: Basophils % 0.5 %; Eosinophils # 0.2 10^3/uL (0.0-0.8); Eosinophils % 2.4 %; Hematocrit 32.8 % (37.0-47.0); Hemoglobin 9.8 g/dL (11.5-15.3); Lymphocytes # 1.8 10^3/uL (0.8-4.8); Lymphocytes % 29.2 %; Mean Corpuscular HGB Conc 29.9 g/dL (30.0-36.0); Mean Corpuscular Hemoglobin 28.1 pg (28.0-34.0); Mean Platelet Volume 11.3 fL (7.4-10.4); Monocytes # 0.4 10^3/uL (0.2-0.9); Monocytes % 6.8 %; Neutrophils # 3.74 10^3/uL (1.8-7.7); Neutrophils % 60.9 %; Nucleated Red Blood Cells % 0 %; Platelet Count 258 10^3/cmm (130-400); Red Blood Count 3.49 10^6/uL (4.1-5.3); Red Cell Distribution Width 19.1 % (12.1-15.1); White Blood Count 6.1 10^3/uL (4.0-10.0)
== END 2022-05-08 11:22 | disposition home or self-care (01) ==
LOC: LAB 11:24
PROVIDERS: PCP Nurse Practitioner Family; Visit Provider Student in an Organized Health Care Education/Training Program
DX: M86.9 Osteomyelitis, unspecified (principal)
CPT/HCPCS: 36415; 80053; 85025

== ENCOUNTER → 2022-05-30 15:16 | Outpatient (BNVA) | payer MEDICARE, MEDICAID, SELFPAY | PROVIDERS: PCP Nurse Practitioner Family; Visit Provider Physician Assistant | DX: Z98.1 Arthrodesis status (principal) | CPT/HCPCS: 72100 ==

== ENCOUNTER 2022-05-30 16:10 | Outpatient (CLI) | payer MEDICARE, MEDICAID, SELFPAY | END 2022-05-30 16:11 | disposition home or self-care (01) | LOC: SPT 16:11 | PROVIDERS: PCP Nurse Practitioner Family; Visit Provider Physician Assistant | DX: Z46.89 Encounter for fitting and adjustment of other specified devices (principal); M54.59 Other low back pain | CPT/HCPCS: 97760; 99024; L0637 ==

== ENCOUNTER 2022-06-03 15:27 | Outpatient (CLI) | payer MEDICARE, MEDICAID, SELFPAY | END 2022-06-03 15:28 | disposition home or self-care (01) | LOC: RAD 15:32 | PROVIDERS: PCP Nurse Practitioner Family; Visit Provider Student in an Organized Health Care Education/Training Program | DX: M86.9 Osteomyelitis, unspecified (principal); Z98.1 Arthrodesis status; J82.81 Chronic eosinophilic pneumonia; T81.49XA Infection following a procedure, other surgical site, initial encounter; R09.02 Hypoxemia; L27.0 Generalized skin eruption due to drugs and medicaments taken internally; R00.0 Tachycardia, unspecified; X58.XXXA Exposure to other specified factors, initial encounter | CPT/HCPCS: 36415; 85651; 86140; 99215 ==

== ENCOUNTER 2022-06-03 15:35 | Outpatient (CLI) | payer MEDICARE, MEDICAID, SELFPAY ==
--- NOTE | 2022-06-03 15:00 | USCV_ITS ---
Dawna Hilliard Age: 52 Gender: F : 1970 Exam Date: 06/03/2022 16:04 Ordering Phys: Ashley Coughlin MD Technologist: CHRISTINA [place]am [place] [facility] [place]ication: LEG PAIN HISTORY: Lower extremity pain. PROCEDURES: Venous duplex imaging was performed in bilateral lower extremities. The following venous structures were evaluated: common femoral vein, profunda vein, proximal portion of the greater saphenous vein, superficial femoral vein, and the popliteal vein. In addition, the posterior tibial and peroneal trunk were evaluated. Serial compression, augmentation maneuvers, and spectral Doppler flow evaluation were performed. FINDINGS: No evidence of DVT seen in any vessel visualized at this time. CONCLUSIONS No evidence of right lower extremity DVT. No evidence of left lower extremity DVT. Santana Mckeon MD (Electronically Signed) Final Date: 03 June 2022 17:16 S
== END 2022-06-03 15:36 | disposition home or self-care (01) ==
PROVIDERS: PCP Nurse Practitioner Family; Visit Provider Student in an Organized Health Care Education/Training Program
DX: M86.9 Osteomyelitis, unspecified (principal); M79.605 Pain in left leg; M79.604 Pain in right leg; Z98.1 Arthrodesis status; J82.81 Chronic eosinophilic pneumonia
CPT/HCPCS: 36415; 85651; 86140; 93970; 99215

== ENCOUNTER 2022-06-07 09:31 | Outpatient (CLI) | payer MEDICARE, MEDICAID, SELFPAY ==
--- NOTE | 2022-06-07 09:48 | MR_ITS ---
WS: [id number] MRI RIGHT FOOT without CONTRAST. COMPARISON: None Multiplanar, multisequence imaging is performed without contrast. Normal calcaneus distal Achilles tendon. No marrow edema or fracture. Tibiotalar joint space is patricia l. There is a very small osteochondral defect along the tibial intra-articular joint surface. Distal tibia and the visualized fibula are normal. Extensor and flexor tendons are normal caliber. No increa se fluid along the tendon sheath. No signal abnormality involving the first phalanx. There is a very tiny amount of increased T2 signal adjacent to the distal medial first metatarsal head. No midfoot edema or displacement. Proximal fifth metatarsal is normal. Previously described tenosynov itis involving the peroneal tendon sheath is no longer present. MR/MR foot RT wo con* [id number] IMPRESSION: 1. No hindfoot abnormalities are identified. 2. No marrow edema or fracture in the calcaneus. 3. Normal Achilles tendon. 4. Very tiny osteochondral defect along the distal tibial articular surface. 5. Tiny amount of edema in the soft tissues along the medial first metatarsal head. On the imaging submitted cannot determine this is soft tissue or ligament ous related. Does not appear to be related to the bone.
--- NOTE | 2022-06-07 10:15 | MR_ITS ---
WS: [id number] MRI LUMBAR SPINE WITH AND WITHOUT CONTRAST. HISTORY: lumbar spine abscess, recent spine surgery, January 2022. Continued low back pain down both lower extremities. COMPARISON: 02/06/2022 TECHNIQUE: Sagittal and axial multisequence imaging is submitted. MultiHance IV. Anterior cervical fusion hardware. No cord compression in the cervical and thoracic spine. Normal lumbar alignment. L4-5 posterior fusion with interbody spacer. Extensive postsurgical changes in the soft tissues posteriorly. Marrow edema in the L4 and L5 vertebral bodies as expected postopera tively. Previously described proteinaceous fluid collection in the posterior epidural space has significantly improved. Essentially resolved. No obvious collection remains. Conus terminates normally at L1-2 disc level. L1-L2: Normal. L2-L3: Normal. 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 Bilateral facet arthritis. Mild bilateral foraminal stenosis. Nerve roots are becomin g clumped within the thecal sac. L4-L5: Deformity of the thecal sac with clumping of the nerve roots from the surgery. Effacement of f at in the LEFT foramen. There is at least moderate bilateral foraminal stenosis, LEFT greater than RI GHT. L5-S1: Mild disc bulging. No stenosis. Postcontrast images are negative for epidural abscess. No discitis or osteomyelitis identified. Exten sive postsurgical changes at the surgery site. There is no focal abscess collection or fluid collecti on with enhancing rim. There is enhancement within the soft tissues extending into the laminectomy si te and also the subcutaneous soft tissue. This all may be appropriate for the recent postoperative st ate. MR/MR lumbar spine wo/w con [id number] IMPRESSION: 1. Interval resolution of the proteinaceous posterior epidural collection as d escribed on 02/06/2022. 2. On today's examination no epidural abscess, discitis or osteomyelitis is ap preciated. 3. Postsurgical changes at the L4-5 level extending into the laminectomy defec ts and contiguous into the subcutaneous soft tissue may all be appropriate for the recent surgery. There is soft tissue enhancement but no focal collection. 4. Moderate bilateral foraminal stenosis at L4-5. 5. Mild bilateral foraminal stenosis at L3-4. 6. Arachnoiditis. Nerve roots are clumped within the thecal sac.
[2022-06-07] MEDS: gadobenate dimeglumine 20 mL vial IV (11:45)
== END 2022-06-07 09:32 | disposition home or self-care (01) ==
LOC: RAD 09:35
PROVIDERS: PCP Nurse Practitioner Family; Visit Provider Podiatrist Foot & Ankle Surgery
DX: G06.1 Intraspinal abscess and granuloma (principal); Z98.1 Arthrodesis status; M86.9 Osteomyelitis, unspecified; M79.674 Pain in right toe(s); M48.061 Spinal stenosis, lumbar region without neurogenic claudication; G03.9 Meningitis, unspecified
CPT/HCPCS: 72158; 73718; A9577

== ENCOUNTER → 2022-06-17 14:17 | Outpatient (BNVA) | payer MEDICARE, MEDICAID, SELFPAY | PROVIDERS: PCP Nurse Practitioner Family; Visit Provider Internal Medicine Pulmonary Disease | DX: R06.02 Shortness of breath (principal) | CPT/HCPCS: 82785; 86003; 99204 ==

== ENCOUNTER → 2022-06-24 13:41 | Outpatient (BNVA) | payer MEDICARE, MEDICAID, SELFPAY | PROVIDERS: PCP Nurse Practitioner Family; Visit Provider Nurse Practitioner Family | DX: D64.9 Anemia, unspecified (principal); E78.5 Hyperlipidemia, unspecified | CPT/HCPCS: 80053; 80061; 82607; 82728; 82746; 83550; 84443; 85025 ==

== ENCOUNTER → 2022-07-02 14:44 | Outpatient (BNVA) | payer MEDICARE, MEDICAID, SELFPAY | PROVIDERS: PCP Nurse Practitioner Family; Visit Provider Dermatology | DX: C44.319 Basal cell carcinoma of skin of other parts of face (principal); L65.0 Telogen effluvium; L81.4 Other melanin hyperpigmentation; D72.12 Drug rash with eosinophilia and systemic symptoms syndrome; Z85.828 Personal history of other malignant neoplasm of skin; Z87.891 Personal history of nicotine dependence | CPT/HCPCS: 99213 ==

== ENCOUNTER 2022-07-03 13:22 | Outpatient (CLI) | payer MEDICARE, MEDICAID, SELFPAY | END 2022-07-03 13:23 | disposition home or self-care (01) | LOC: SPT 13:23 | PROVIDERS: PCP Nurse Practitioner Family; Visit Provider Podiatrist Foot & Ankle Surgery | DX: Z46.89 Encounter for fitting and adjustment of other specified devices (principal); M72.2 Plantar fascial fibromatosis | CPT/HCPCS: 97760; L4397 ==

== ENCOUNTER 2022-07-03 14:02 | Outpatient (CLI) | payer MEDICARE, MEDICAID, SELFPAY ==
--- NOTE | 2022-07-03 14:30 | CT_ITS ---
WS: [id number] CT CHEST TECHNIQUE: Noncontrast CT of the chest with coronal and sagittal reformatted images. CLINICAL INFORMATION: resolution of pneumonia COMPARISON: CTA March 21, 2022 DLP: 290.[address] scans at [facility] use at least one of these dose optimization techniques: automated e xposure control; mA and/or kV adjustment per patient size (includes targeted exams where dose is matc hed to clinical indication); or iterative reconstruction. FINDINGS: Previously described pulmonary infiltrates have resolved since March 21, 2022. No focal pneumonia o r pleural fluid today. No other suspicious pulmonary parenchymal opacities. No mediastinal or hilar l ymphadenopathy. Normal caliber thoracic aorta. Normal caliber descending thoracic aorta. Adrenal glands are normal. Cholecystectomy clips. Tiny esophageal hiatal hernia. Postoperative change s lower cervical and upper thoracic spine. CT/CT chest wo con [id number] IMPRESSION: 1. Previously described pulmonary infiltrates have resolved. 2. No new pulmonary parenchymal abnormalities. 3. No mediastinal or hilar lymphadenopathy.
== END 2022-07-03 14:03 | disposition home or self-care (01) ==
LOC: RAD 14:06
PROVIDERS: PCP Nurse Practitioner Family; Visit Provider Internal Medicine Pulmonary Disease
DX: J44.9 Chronic obstructive pulmonary disease, unspecified (principal); R09.02 Hypoxemia; Z87.891 Personal history of nicotine dependence; W10.8XXA Fall (on) (from) other stairs and steps, initial encounter; S92.023 Displaced fracture of anterior process of unspecified calcaneus; S92.414A Nondisplaced fracture of proximal phalanx of right great toe, initial encounter for closed fracture; M72.2 Plantar fascial fibromatosis
CPT/HCPCS: 71250; 99213

== ENCOUNTER → 2022-07-04 13:31 | Outpatient (BNVA) | payer MEDICARE, MEDICAID, SELFPAY | PROVIDERS: PCP Nurse Practitioner Family; Visit Provider Student in an Organized Health Care Education/Training Program | DX: M86.9 Osteomyelitis, unspecified (principal); Z98.1 Arthrodesis status; T81.49XA Infection following a procedure, other surgical site, initial encounter; L27.0 Generalized skin eruption due to drugs and medicaments taken internally; T84.7XXA Infection and inflammatory reaction due to other internal orthopedic prosthetic devices, implants and grafts, initial encounter; X58.XXXA Exposure to other specified factors, initial encounter | CPT/HCPCS: 99214 ==

== ENCOUNTER → 2022-07-11 15:01 | Outpatient (BNVA) | payer MEDICARE, MEDICAID, SELFPAY | PROVIDERS: PCP Nurse Practitioner Family; Visit Provider Physician Assistant | DX: Z98.1 Arthrodesis status (principal); M86.9 Osteomyelitis, unspecified; T81.49XA Infection following a procedure, other surgical site, initial encounter; L27.0 Generalized skin eruption due to drugs and medicaments taken internally; T84.7XXA Infection and inflammatory reaction due to other internal orthopedic prosthetic devices, implants and grafts, initial encounter; Y79.2 Prosthetic and other implants, materials and accessory orthopedic devices associated with adverse incidents | CPT/HCPCS: 72100; 99213 ==

== ENCOUNTER 2022-07-25 12:36 | Emergency (ER) | payer MEDICARE, MEDICAID, SELFPAY ==
[2022-07-25 12:55] VITALS: BP 157/87; PULSE 117; RESP 22; TEMP 36.7; O2SAT 98; BMI 31.3
--- NOTE | 2022-07-25 13:02 | ED_ITS ---
HPI - Extremity Problem General: Chief complaint: Extremity Problem,Nontraumatic Stated complaint: left knee pain Time Seen by Provider: 07/25/22 12:37 History of Present Illness: Patient is a 52-year-old female comes to the ED with left leg pain. Patient has a history of COPD and is on oxygen at home. Patient says symptoms started approximately 2 weeks ago. Denies any injury or trauma to the left leg to cause symptoms. Patient endorses having left calf pain that is throbbing and she rates it currently an 8 out of 10. Pain radiates up and down leg. Denies any history of blood clots. Patient is not currently on a blood thinner. She was seen by her PCP today and they referred her here to the ED to be checked for a blood clot in the left leg. Denies any chest pain, shortness of breath or hemoptysis. Associated symptoms: Deny chest pain, fever(s) or rash Review of Systems Const: Denies: fever(s), chills or fatigue Eyes: Denies: change in vision or eye discomfort ENMT: Denies: throat pain, odynophagia, nasal discharge or nasal congestion Card: Denies: chest pain, palpitations, edema, swelling of feet/ankles, dyspnea on exertion or orthopnea Resp: Denies: dyspnea, productive cough or non-productive cough GI: Denies: abdominal pain, nausea, vomiting, diarrhea, constipation or hematochezia : Denies: flank pain, dysuria or hematuria Musc: Reports: extremity pain (Left leg pain); Denies: neck pain, back pain or extremity swelling Skin/Breast: Denies: rash or new lesions Neuro: Denies: headache(s), numbness in extremities or weakness in extremities PFSH ED PFSH: Medical History Constipation DRESS syndrome Dyspnea Hardware complicating wound infection Helicobacter pylori gastritis History of nonmelanoma skin cancer Pneumonia Postoperative abscess Shortness of breath Surgical History H/O esophagogastroduodenoscopy (06/04/21) History of cholecystectomy [facility]ogastroduodenoscopy (EGD) (~12/2019[place] [facility] [place] of fusion of cervical spine History of hysterectomy Status post colonoscopy (06/04/21) with banding of hemorrhoid Status post lumbar spinal fusion Family History Other Diabetes Hypertension Social History Smoking and tobacco status: former smoker Quit status (tobacco): has quit using tobacco Year quit tobacco: 02/07/22 Second hand smoke exposure: No Alcohol intake: never Substance/Drug Use: never Caregiver/support person: Yes Lives independently: Yes Household members: significant other Marital status: Life Partner Current occupational status: disabled Current gender identity: Female Special oscar needs: Yes Physical Exam Const: COMMON NORMALS: patient oriented x3 and alert GENERAL APPEARANCE: cooperative HENMT: COMMON NORMALS: normocephalic HEAD & SCALP: normocephalic MOUTH: Normal oral and palatal mucosa present THROAT: posterior oropharynx normal and uvula midline Neck/C-Spine: COMMON NORMALS: supple GENERAL: Yes normal visual inspection Resp: COMMON NORMALS: normal respiratory effort, No retractions, No use of accessory muscles and clear to auscultation bilaterally AUSCULTATION: clear to auscultation bilaterally Cardio: COMMON NORMALS: regular rate, regular rhythm, S1 normal heart sound present, S2 normal heart sound present, No gallops present (Cardio), No clicks present (Cardio), No murmurs present (Cardio) and Peripheral pulses 2+ throughout RATE: regular rate RHYTHM: regular rhythm HEART SOUNDS: S1 normal heart sound present and S2 normal heart sound present PERIPHERAL PULSES: Peripheral pulses 2+ throughout GI: COMMON NORMALS: Normal to inspection, nondistended, normoactive bowel sounds present, Soft to palpation, non-tender and no masses PALPATION: Yes Soft to palpation : COMMON NORMALS: Yes no CVA tenderness BLADDER/KIDNEY EXAM: Yes no CVA tenderness Back/Pelvis: COMMON NORMALS: no CVA tenderness Extremity: COMMON NORMALS: full ROM and no pedal edema GENERAL: Yes calf tenderness (Left calf) Neuro: COMMON NORMALS: patient oriented x3 SENSORIUM/ORIENTATION: Yes alert GAIT: Yes Normal gait present Skin: GENERAL SKIN EXAM: dry skin Course Vital Signs: Vital signs: Vital Signs Temperature 98.0 F 07/25/22 12:55 Pulse Rate 117 H 07/25/22 12:55 Respiratory Rate 16 07/25/22 13:59 Blood Pressure 157/87 07/25/22 12:55 Pulse Oximetry 98 07/25/22 12:55 Oxygen Delivery Me thod Nasal Cannula 07/25/22 12:55 Oxygen Flow Rate 2 07/25/22 12:55 MDM - Extremity (Nontraumatic) Medical Decision Making Patient is a 52-year-old female comes to the ED with left leg pain. Patient has a history of COPD and is on oxygen at home. Patient says symptoms started approximately 2 weeks ago. Denies any injury or trauma to the left leg to cause symptoms. Patient endorses having left calf pain that is throbbing and she rates it currently an 8 out of 10. Pain radiates up and down leg. Denies any history of blood clots. Patient is not currently on a blood thinner. She was seen by her PCP today and they referred her here to the ED to be checked for a blood clot in the left leg. Denies any chest pain, shortness of breath or hemoptysis. Vitals are stable. Patient appears nontoxic in no acute distress or pain. She does have some left calf tenderness but no pedal edema noted. Full range of motion of the left leg. Ultrasound venous duplex shows no DVT. Patient was diagnosed with left leg pain and was stable for discharge home. Told to follow-up with PCP in the next week for reevaluation. Return to ED precautions given. Patient understood agree with plan. Discharge Plan Discharge Patient Disposition: Home Clinical Impression: Left leg pain Condition: Stable Prescriptions: New meloxicam 15 mg tablet 15 mg PO DAILY PRN (Reason: pain) Qty: 20 0RF No Action (DME) Short lemons boot See Rx Instructions .Route .MEDSUPPLY Qty: 1 0RF Rx Instructions: As directed (DME) hinged knee brace See Rx Instructions .Route .MEDSUPPLY Qty: 1 0RF Rx Instructions: Right knee pain fluticasone propion-salmeterol [Advair Diskus] 250-50 mcg/dose blister with device 1 inh inhalation BID Qty: 60 0RF Spiriva with HandiHaler 18 mcg capsule, w/inhalation device 1 cap inhalation DAILY 30 Days Qty: 60 0RF Rx Instructions: puncture 1 cap using device; one dose = 2 inhalations (DME) LSO Brace See Rx Instructions .Route .MEDSUPPLY Qty: 1 0RF Rx Instructions: As directed cyclobenzaprine 10 mg tablet See Rx Instructions .ROUTE .COMPLEX Qty: 90 2RF Dose Instruction: TAKE ONE TABLET BY MOUTH THREE TIMES DAILY Rx Instructions: TAKE ONE TABLET BY MOUTH THREE TIMES DAILY diazepam [Valium] 5 mg tablet 5 mg PO Q8H PRN (Reason: anxiety) Qty: 30 0RF (DME) Night Splint See Rx Instructions .Route .MEDSUPPLY Qty: 1 0RF Rx Instructions: As directed estradiol [Vagifem] 10 mcg tablet 10 mcg VAGINAL .TWO TIMES PER WEEK Qty: 8 5RF Rx Instructions: mon and fri (DME) Cam boot to the right- short See Rx Instructions .Route .MEDSUPPLY Qty: 1 0RF Rx Instructions: As directed mupirocin 2 % ointment 1 applic topical BID Qty: 22 1RF Rx Instructions: Apply to affected area on back until healed (DME) oxygen 2L via NC continuous flow See Rx Instructions .Route .MEDSUPPLY Qty: 1 0RF Rx Instructions: As directed sulfamethoxazole-trimethoprim [Bactrim] 400-80 mg tablet 1 tab PO DAILY Qty: 90 0RF ondansetron HCl 4 mg tablet 4 mg PO Q8H PRN (Reason: nausea and vomiting) 5 Days Qty: 15 0RF mupirocin 2 % ointment 1 applic topical BID Qty: 15 0RF Rx Instructions: Apply to nose twice daily until follow up fluconazole 100 mg tablet 100 mg PO DAILY 10 Days Qty: 10 0RF budesonide-formoterol [Symbicort] 160-4.5 mcg/actuation HFA aerosol inhaler 2 puff inhalation BID Qty: 10.2 0RF pantoprazole 40 mg tablet,delayed release (DR/EC) 40 mg PO BID Qty: 60 5RF metoprolol succinate 25 mg tablet extended release 24 hr 25 mg PO DAILY Qty: 30 2RF benzonatate 100 mg capsule 100 mg PO TID PRN (Reason: cough) Qty: 60 0RF levalbuterol tartrate 45 mcg/actuation HFA aerosol inhaler 2 inh inhalation Q6H PRN (Reason: shortness of breath or wheezing) Qty: 15 2RF fluconazole 150 mg tablet 150 mg PO Q48H 90 Days Qty: 45 0RF Rx Instructions: take 1 tab PO Every Other day for 3 months hydrocodone-acetaminophen 5-325 mg tablet 1 tab PO Q6H PRN (Reason: pain) 7 Days Qty: 30 0RF oxycodone 5 mg tablet 5 mg PO Q6H PRN (Reason: pain) 7 Days Qty: 28 0RF Rx Instructions: Take 1 tablet every 6 hours as needed for pain diphenhydramine HCl 25 mg Capsule 25 mg PO TID PRN (Reason: Itching) Qty: 90 0RF folic acid 1 mg tablet 1,000 mcg PO DAILY Qty: 90 0RF Linzess 145 mcg capsule 145 mcg PO DAILY PRN (Reason: Constipation) Discharge Orders: Discharge ED (Routine); Ordered 07/25/22 Ordered By: Doug Irizarry Referrals: Amanda Duran FNP [Primary Care Provider] - Discharge Diet: Regular Discharge Activity: Increase activity as tolerated Activity Restrictions/Additional Instructions: Follow-up with medical provider as directed in the next 5 to 7 days for reevaluation. Take medications as prescribed. Return to the ER or your medical provider if condition worsens. Please read and understand discharge instructions. Thank you for choosing [facility] for your healthcare needs today. Please realize this is an emergency room and that we are providing you with a medical screening exam and this may not be complete and all inclusive of all the testing and or work up that you may need to determine your ailment or severity of your illness. It is very important that you follow up as instructed or that you return to the Emergency Department should you have concerns or if your condition changes or worsens in any way. 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
--- NOTE | 2022-07-25 13:02 | USCV_ITS ---
Dawna Hilliard Age: 52 Gender: F : 1970 Exam Date: 07/25/2022 13:33 Ordering Phys: Doug Irizarry Technologist: Ignacio So [place] [facility] [place] [facility] [place]ication: lt leg pain PROCEDURES: Venous duplex imaging was performed in only the left lower extremity. The following venous structures were evaluated: common femoral vein, profunda vein, proximal portion of the greater saphenous vein, superficial femoral vein, and the popliteal vein. In addition, the posterior tibial and peroneal trunk were evaluated. FINDINGS: Normal 2-D Doppler and augmentation and compressibility throughout the lower extremity venous structures. Additional imaging through the proximal calf veins also reveals no thrombus. Limited evaluation of the greater saphenous vein is patent with no thrombus. CONCLUSIONS No DVT left lower extremity. Dr. Obdulia Brewster DO (Electronically Signed) Final Date: 25 Jul 2022 15:57 S
[2022-07-25 13:59] VITALS: RESP 16
[2022-07-25] MEDS: oxyCODONE 5 mg IR Tab/Cap PO (13:59)
== END 2022-07-25 14:25 | disposition home or self-care (01) ==
PROVIDERS: Emergency Provider Physician Assistant; PCP Nurse Practitioner Family
DX: M79.605 Pain in left leg (principal); Z87.891 Personal history of nicotine dependence
CPT/HCPCS: 93971; 99284

== ENCOUNTER → 2022-07-31 11:01 | Outpatient (BNVA) | payer MEDICARE, MEDICAID, SELFPAY | PROVIDERS: PCP Nurse Practitioner Family; Visit Provider Dermatology | DX: L72.0 Epidermal cyst (principal); E65 Localized adiposity | CPT/HCPCS: 11402; 12031 ==

== ENCOUNTER → 2022-08-20 15:24 | Outpatient (BNVA) | payer MEDICARE, MEDICAID, SELFPAY | PROVIDERS: PCP Nurse Practitioner Family; Visit Provider Orthopaedic Surgery | DX: Z98.1 Arthrodesis status (principal) | CPT/HCPCS: 72100; 99213 ==

== ENCOUNTER → 2022-08-22 10:09 | Outpatient (BNVA) | payer MEDICARE, MEDICAID, SELFPAY | PROVIDERS: PCP Nurse Practitioner Family; Visit Provider Internal Medicine Pulmonary Disease | DX: J82.81 Chronic eosinophilic pneumonia (principal); R06.00 Dyspnea, unspecified; Z87.891 Personal history of nicotine dependence; R06.02 Shortness of breath; Z99.81 Dependence on supplemental oxygen | CPT/HCPCS: 99214 ==

== ENCOUNTER → 2022-08-26 16:44 | Outpatient (BNVA) | payer MEDICARE, MEDICAID, SELFPAY | PROVIDERS: PCP Nurse Practitioner Family; Visit Provider Nurse Practitioner Family | DX: M54.50 Low back pain, unspecified (principal); F41.1 Generalized anxiety disorder; Z79.891 Long term (current) use of opiate analgesic | CPT/HCPCS: 80053; 82306; 82607; 83735; 84443; 85025 ==

== ENCOUNTER 2022-08-28 13:35 | Outpatient (CLI) | payer MEDICARE, MEDICAID, SELFPAY ==
[2022-08-28 14:12] VITALS: PULSE 105; RESP 26; O2SAT 99
[2022-08-28] MEDS: albuterol 2.5 mg/3 mL Neb INHALATION (14:12)
[2022-08-28 14:17] VITALS: PULSE 108
== END 2022-08-28 13:36 | disposition home or self-care (01) ==
LOC: RT 13:38
PROVIDERS: PCP Nurse Practitioner Family; Visit Provider Internal Medicine Pulmonary Disease
DX: R06.02 Shortness of breath (principal); R94.2 Abnormal results of pulmonary function studies
CPT/HCPCS: 94060; 94618; J7613

== ENCOUNTER → 2022-12-16 15:20 | Outpatient (BNVA) | payer OTHER, MEDICAID, SELFPAY | PROVIDERS: PCP Nurse Practitioner Family; Visit Provider Nurse Practitioner Psychiatric/Mental Health | DX: Z79.899 Other long term (current) drug therapy (principal) | CPT/HCPCS: 80306 ==

== ENCOUNTER → 2022-12-19 11:20 | Outpatient (BNVA) | payer MEDICARE, MEDICAID, SELFPAY | PROVIDERS: PCP Nurse Practitioner Family; Visit Provider Internal Medicine Pulmonary Disease | DX: J44.9 Chronic obstructive pulmonary disease, unspecified (principal); Z01.811 Encounter for preprocedural respiratory examination; Z99.81 Dependence on supplemental oxygen; Z87.891 Personal history of nicotine dependence | CPT/HCPCS: 99214 ==

== ENCOUNTER → 2023-01-16 10:16 | Outpatient (BNVA) | payer MEDICARE, MEDICAID, SELFPAY | PROVIDERS: PCP Nurse Practitioner Family; Visit Provider Student in an Organized Health Care Education/Training Program | DX: T36.8X5A Adverse effect of other systemic antibiotics, initial encounter; Z88.0 Allergy status to penicillin; D72.12 Drug rash with eosinophilia and systemic symptoms syndrome; T50.905A Adverse effect of unspecified drugs, medicaments and biological substances, initial encounter; Z98.1 Arthrodesis status; T81.49XA Infection following a procedure, other surgical site, initial encounter; L27.0 Generalized skin eruption due to drugs and medicaments taken internally; T84.7XXA Infection and inflammatory reaction due to other internal orthopedic prosthetic devices, implants and grafts, initial encounter | CPT/HCPCS: 99213 ==

== ENCOUNTER → 2023-04-03 11:54 | Outpatient (BNVA) | payer MEDICARE, MEDICAID, SELFPAY | PROVIDERS: PCP Nurse Practitioner Family; Visit Provider Nurse Practitioner Family | DX: E55.9 Vitamin D deficiency, unspecified (principal); M25.522 Pain in left elbow; R73.9 Hyperglycemia, unspecified; E78.5 Hyperlipidemia, unspecified; F33.2 Major depressive disorder, recurrent severe without psychotic features; M54.50 Low back pain, unspecified | CPT/HCPCS: 73080; 80053; 80061; 82306; 82607; 83036; 84443; 85025 ==

== ENCOUNTER → 2023-10-02 10:28 | Outpatient (BNVA) | payer MEDICARE, MEDICAID, SELFPAY | PROVIDERS: PCP Nurse Practitioner Family; Visit Provider Internal Medicine Critical Care Medicine | DX: J96.11 Chronic respiratory failure with hypoxia (principal); Z99.81 Dependence on supplemental oxygen; J43.2 Centrilobular emphysema; J82.81 Chronic eosinophilic pneumonia; Z87.891 Personal history of nicotine dependence; Z12.2 Encounter for screening for malignant neoplasm of respiratory organs; E66.9 Obesity, unspecified; R53.81 Other malaise; Z68.33 Body mass index [BMI] 33.0-33.9, adult | CPT/HCPCS: 99214 ==

== ENCOUNTER → 2023-11-05 11:50 | Outpatient (BNVA) | payer MEDICARE, MEDICAID, SELFPAY | PROVIDERS: PCP Nurse Practitioner Family; Visit Provider Nurse Practitioner Family | DX: E78.5 Hyperlipidemia, unspecified (principal); E66.9 Obesity, unspecified; E55.9 Vitamin D deficiency, unspecified | CPT/HCPCS: 80053; 80061; 82306; 82607; 83036; 84443; 85025 ==

== ENCOUNTER 2023-11-19 14:37 | Outpatient (CLI) | payer MEDICARE, MEDICAID, SELFPAY ==
--- NOTE | 2023-11-19 14:38 | XR_ITS ---
WS: [id number] XR elbow RT min 3V* [id number] REASON FOR EXAM: M25.521 - Pain in right elbow FINDINGS: There is subtle lucency within an underlying the radial tubercle. Faint thin sclerotic margin defines the lucency. In retrospect this is identifiable on the 04/01/2015 examination of the elbow and theref ore felt to be not clinically relevant. No fracture is identified. Joint spaces of the right elbow are intact and relatively well preserved. No soft tissue abnormality. XR/XR elbow RT min 3V* [id number] IMPRESSION: Stable right elbow without significant abnormality.
--- NOTE | 2023-11-19 15:30 | CTR_ITS ---
PROCEDURE INFORMATION: Exam: CT Chest Without Contrast; Diagnostic Exam date and time: 11/19/2023 3:07 PM Age: 53 years old Clinical indication: Condition or disease; Lung condition and disease; Pneumonia; Prior surgery; Surgery date: 6+ months; Surgery type: Neck; Additional info: Follow up TECHNIQUE: Imaging protocol: Diagnostic computed tomography of the chest without contrast. Radiation optimization: All CT scans at this facility use at least one of these dose optimization techniques: automated exposure control; mA and/or kV adjustment per patient size (includes targeted exams where dose is matched to clinical indication); or iterative reconstruction. COMPARISON: CT chest con [id number] 07/03/2022 2:22 PM RADIATION DOSE METRICS: Total DLP (mGy-cm): 481.75 FINDINGS: Lungs: Unremarkable. No consolidation. No masses. Pleural spaces: Unremarkable. No pneumothorax. No pleural effusion. Heart: Heart size is normal. There is trace pericardial fluid. No coronary artery calcium is identified. Lymph nodes: Unremarkable. No enlarged lymph nodes. Vasculature: Unremarkable. No aortic aneurysm. Liver: There is diffuse fatty infiltration of the liver. The liver is otherwise normal. Gallbladder and biliary ducts: There are surgical clips within the gallbladder fossa. Bones/joints: There are partially imaged postoperative changes involving the cervical spine. No blastic or lytic bony lesions are identified. Soft tissues: Unremarkable. CT/CT chest con [id number] IMPRESSION: 1. No acute findings.
== END 2023-11-19 14:38 | disposition home or self-care (01) ==
LOC: RAD 14:37
PROVIDERS: PCP Nurse Practitioner Family; Visit Provider Internal Medicine Critical Care Medicine
DX: J96.11 Chronic respiratory failure with hypoxia (principal); Z99.81 Dependence on supplemental oxygen; M25.521 Pain in right elbow; K76.0 Fatty (change of) liver, not elsewhere classified
CPT/HCPCS: 71250; 73080

== ENCOUNTER → 2023-11-26 09:45 | Outpatient (BNVA) | payer MEDICARE, MEDICAID, SELFPAY | PROVIDERS: PCP Nurse Practitioner Family; Visit Provider Internal Medicine Critical Care Medicine | DX: J96.11 Chronic respiratory failure with hypoxia (principal); Z99.81 Dependence on supplemental oxygen; J82.81 Chronic eosinophilic pneumonia; J43.2 Centrilobular emphysema; F17.211 Nicotine dependence, cigarettes, in remission; E66.9 Obesity, unspecified; R53.81 Other malaise; Z71.6 Tobacco abuse counseling; Z71.82 Exercise counseling; Z71.3 Dietary counseling and surveillance; Z71.89 Other specified counseling; Z68.32 Body mass index [BMI] 32.0-32.9, adult | CPT/HCPCS: 99214 ==

== ENCOUNTER → 2024-01-27 14:10 | Outpatient (BNVA) | payer MEDICARE, SELFPAY | PROVIDERS: PCP Nurse Practitioner Family; Visit Provider Student in an Organized Health Care Education/Training Program | DX: G06.1 Intraspinal abscess and granuloma (principal); M43.16 Spondylolisthesis, lumbar region; M43.22 Fusion of spine, cervical region | CPT/HCPCS: 72020; 99215 ==

== ENCOUNTER → 2024-03-05 15:58 | Outpatient (BNVA) | payer MEDICARE, SELFPAY ==
[2024-03-02 12:19] VITALS: BP 126/68; BMI 32.8
== END ==
PROVIDERS: PCP Nurse Practitioner Family; Visit Provider Nurse Practitioner Family
DX: J40 Bronchitis, not specified as acute or chronic (principal); J43.2 Centrilobular emphysema; R06.02 Shortness of breath
CPT/HCPCS: 71046

== ENCOUNTER → 2024-08-16 10:52 | Outpatient (BNVA) | payer MEDICARE, MEDICAID, SELFPAY ==
[2024-03-02 12:19] VITALS: BP 126/68; BMI 32.8
== END ==
PROVIDERS: PCP Nurse Practitioner Family; Visit Provider Nurse Practitioner Family
DX: E11.9 Type 2 diabetes mellitus without complications (principal); E55.9 Vitamin D deficiency, unspecified; F33.41 Major depressive disorder, recurrent, in partial remission
CPT/HCPCS: 80053; 82306; 82607; 82746; 83036; 83735; 84443; 85025; 86592

== ENCOUNTER → 2024-09-14 12:34 | Outpatient (BNVA) | payer MEDICARE, MEDICAID, SELFPAY ==
[2024-03-02 12:19] VITALS: BP 126/68; BMI 32.8
== END ==
PROVIDERS: PCP Nurse Practitioner Family; Visit Provider Nurse Practitioner Family
DX: E11.9 Type 2 diabetes mellitus without complications (principal); E66.9 Obesity, unspecified
CPT/HCPCS: 80061

== ENCOUNTER 2024-09-15 07:33 | Outpatient (CLI) | payer MEDICARE, MEDICAID, SELFPAY ==
[2024-03-02 12:19] VITALS: BP 126/68; BMI 32.8
--- NOTE | 2024-09-15 08:00 | MR_ITS ---
WS: [id number] MRI HEAD WITHOUT CONTRAST TECHNIQUE: Sagittal T1, T2 axial, T2 axial FLAIR, axial and coronal T1 images, axial susceptibility weighted imaging, axial diffusion weighted images, and coronal T2 images were obtained. CLINICAL INFORMATION: R41.3 - Other amnesia FINDINGS: No evidence of restricted diffusion to suggest acute ischemia. No suspicious intracranial signal abnormalities. No significant parenchymal volume loss. Normal posterior fossa. Normal vascular flow voids at the skull base. No extra- axial fluid collections. No evidence of mass or mass effect. Paranasal sinuses and mastoid air cells are well aerated. No hemosiderin on the susceptibility weighted images. Normal optic chiasm and pituitary infundibulum. Temporal lobes hippocampal formations are normal in appearance. No other suspicious findings. MR/MR head wo con* [id number] IMPRESSION: 1. No evidence of restricted diffusion to suggest acute ischemia. 2. No suspicious intracranial signal abnormalities. Normal marina-white differen tiation. No significant parenchymal volume loss. 3. No hemosiderin. 4. Temporal lobes and hippocampal formations are normal in appearance. 5. No other acute findings.
== END 2024-09-15 07:34 | disposition home or self-care (01) ==
LOC: RAD 07:36
PROVIDERS: PCP Nurse Practitioner Family; Visit Provider Nurse Practitioner Family
DX: R41.3 Other amnesia (principal)
CPT/HCPCS: 70551

== ENCOUNTER → 2024-12-08 11:10 | Outpatient (BNVA) | payer MEDICARE, MEDICAID, SELFPAY ==
[2024-09-20 16:28] VITALS: BP 124/78; BMI 31.3
== END ==
PROVIDERS: PCP Nurse Practitioner Family; Visit Provider Nurse Practitioner Family
DX: E11.9 Type 2 diabetes mellitus without complications (principal); E55.9 Vitamin D deficiency, unspecified; E78.5 Hyperlipidemia, unspecified; E66.9 Obesity, unspecified; F33.41 Major depressive disorder, recurrent, in partial remission
CPT/HCPCS: 80053; 80061; 82306; 82607; 83036; 83735; 84443; 85025